=== PATIENT | male | born 1960 | race Caucasian/White ===

== ENCOUNTER 2023-03-06 10:24 | Inpatient (IN) | payer OTHER, SELFPAY ==
--- NOTE | 2023-03-06 | ECG_ITS ---
Test Reason : CHECK QT Blood Pressure : / mmHG Vent. Rate : 096 BPM Atrial Rate : 096 BPM P-R Int : 146 ms QRS Dur : 140 ms QT Int : 388 ms P-R-T Axes : 052 266 033 degrees QTc Int : 490 ms Normal sinus rhythm Right bundle branch block Abnormal ECG No previous ECGs available Referred By: Julianne Montero Electronically Signed By:REJI LOWE MD
[2023-03-06 10:28] VITALS: BP 137/98; BP 140/100; PULSE 110; PULSE 115; RESP 16; TEMP 36.1; O2SAT 96; O2SAT 98; BMI 22.3
--- NOTE | 2023-03-06 11:27 | ED_ITS ---
HPI - Psych General Chief Complaint: Psychiatric Symptoms Stated Complaint: Depression,SI/HI Time Seen by Provider: 03/06/23 11:26 Source: patient, EMS and old records reviewed Mode of arrival: EMS Limitations: no limitations History of Present Illness HPI Narrative: 63 yo male with history of major depression presents to the ER for evaluation of worsening depressions. He states he has been recently hospitalized and his medications were adjusted without any improvement in his symptoms. He states his has been insuring medication and compliance at home. He continues to be very depressed. He is not sleeping and has decreased p.o. intake with weight loss. He denies any suicidal or homicidal thoughts. MD complaint: suicidal ideation and feels depressed Onset (ago): month(s) Duration: constant History of same: Yes Relieving factors: none Exacerbating factors: none Associated psychiatric symptoms: depression Associated symptoms: insomnia Related Data Allergies Allergy/AdvReac Type Severity Reaction Status Date / Time lisinopril Allergy Hives Verified 03/06/23 10:50 Review of Systems Review of Systems: Yes all other systems are reviewed and are negative [facility] Social History Social History Advance Directives: No Physical Exam Vital Signs: Vital Signs: Last Vital Signs Temp 97 F 03/06/23 10:28 Pulse 110 H 03/06/23 10:28 Resp 16 03/06/23 10:28 BP 137/98 H 03/06/23 10:28 Pulse Ox 96 03/06/23 10:28 O2 Del Method Room Air 03/06/23 10:28 BMI result Body Mass Index 22.3 Appearance: Alert. Oriented X3. Slightly disheveled appearance Head: normocephalic, atraumatic. Eyes: Pupils equal, round and reactive to light. ENT: Pharynx normal. No tonsillar swelling or exudate. Neck: Normal inspection. Neck supple. CVS: Normal heart rate and rhythm. Pulses normal. Respiratory: No respiratory distress. Breath sounds normal. Abdomen: Soft and nontender. +BS x4 Skin: Skin warm and dry. Normal skin color. Normal skin turgor. No rashes. Extremities: No lower extremity edema. No joint swelling. Neuro/psych: Oriented X 3. No motor deficit. No sensory deficit. CN II-XII intact. Normal speech and cognition. Depressed mood. Makes eye contact, seems appropriate. Not suicidal Course Reevaluation(s) Reevaluation #1: Physician observation started at 12:50. Patient placed in physician observation because patient is awaiting CARE team evaluation for the possible need of inpatient psych admission. At the time observation was started patient's vital signs were stable. Patient is alert and oriented. Neuro exam is non-focal. CV: RRR and lungs are clear. Will continue to monitor. Time: 12:50 Medical Decision Making Medical Decision Making [facility] Narrative: 63 yo male with history of depression presenting with worsening depression associated with insomnia and decreased PO intake, reported subjective weight loss. medically cleared. awaiting CARE team evaluation Differential Diagnosis Differential Diagnoses: The differential diagnosis associated with the presentation includes substance induced mood disorder, acute psychosis, schizophrenia, schizoaffective disorder, PTSD, bipolar disorder, major depression with psychotic features Admission/Observation Consideration of admission/observation: Escalation of care including admission/observation considered depression w/ weight loss and insomnia, considered Lab Data [facility] Lab Attestation statement: I reviewed the patient's lab results. hypercalcemia, mild 03/06/23 12:03 03/06/23 12:03 Labs: Lab Results 03/06/23 03/06/23 03/06/23 Range/Units 12:03 12:03 12:03 WBC 5.5 (4.8-10.8) X10*3/uL RBC 5.08 (4.60-5.80) X10*6/uL Hgb 15.9 (14.0-18.0) g/dl Hct 45.1 (42.0-52.0) % MCV 88.8 (80.0-98.0) fL MCH 31.3 (27.0-33.0) pg MCHC 35.3 (31.0-36.0) g/dl RDW 13.6 (11.0-16.0) % Plt Count 220 (160-400) X10*3/uL MPV 10.6 (9.4-12.4) fL Immature Gran % (Auto) 0.0 (0.0-0.4) % Neut % (Auto) 74.4 H (45-73) % Lymph % (Auto) 16.5 L (20-40) % Yell % (Auto) 8.2 (2-11) % Eos % (Auto) 0.5 (0-4) % Baso % (Auto) 0.4 (0-2) % Lymph # (Auto) 0.9 L (1.2-4.9) X10*3/uL Yell # (Auto) 0.5 (0.1-1.2) X10*3/uL Eos # (Auto) 0.0 (0.0-0.4) X10*3/uL Baso # (Auto) 0.0 (0.0-0.2) X10*3/uL Abs Immat Gran (auto) 0.00 (0.00-0.03) X10*3/uL Absolute Neuts (auto) 4.1 (2.0-8.3) x10*3/uL Absolute Nucleated RBC 0.000 (0.0-0.012) X10*3/uL Nucleated RBC % (auto) 0.0 (0.0-0.2) /100WBC Sodium 136 (135-145) mmol/L Potassium 4.0 (3.3-5.1) mmol/L Chloride 101 (96-108) mmol/L Carbon Dioxide 23 (22-29) mmol/L Anion Gap 16 (12-20) BUN 9 (9-16) mg/dL Creatinine 0.76 (0.5-1.4) mg/dL Estim Creat Clear Calc 99.4 Estimated GFR > 60 Random Glucose 117 H (60-115) mg/dL Calcium 10.5 H (8.4-10.2) mg/dL Urine Color Urine Appearance Urine pH (5.0-9.0) Ur Specific [place] (1.005-1.025) Urine Protein (Neg-Trace) mg/dL Urine Glucose (UA) (Negative) mg/dL Urine Ketones (Negative) mg/dL Urine Blood (Negative) Urine Nitrite (Negative) Ur Leukocyte Esterase (Negative) Urine Opiates Screen (Not Detect) Urine Fentanyl Screen (Not Detect) Ur Barbiturates Screen (Not Detect) Ur Phencyclidine Scrn (Not Detect) Ur Amphetamines Screen (Not Detect) U Benzodiazepines Scrn (Not Detect) Urine Cocaine Screen (Not Detect) U Marijuana (THC) Screen (Not Detect) Ethyl Alcohol < 10 mg/dL 03/06/23 03/06/23 Range/Units 13:11 13:11 WBC (4.8-10.8) X10*3/uL RBC (4.60-5.80) X10*6/uL Hgb (14.0-18.0) g/dl Hct (42.0-52.0) % MCV (80.0-98.0) fL MCH (27.0-33.0) pg MCHC (31.0-36.0) g/dl RDW (11.0-16.0) % Plt Count (160-400) X10*3/uL MPV (9.4-12.4) fL Immature Gran % (Auto) (0.0-0.4) % Neut % (Auto) (45-73) % Lymph % (Auto) (20-40) % Yell % (Auto) (2-11) % Eos % (Auto) (0-4) % Baso % (Auto) (0-2) % Lymph # (Auto) (1.2-4.9) X10*3/uL Yell # (Auto) (0.1-1.2) X10*3/uL Eos # (Auto) (0.0-0.4) X10*3/uL Baso # (Auto) (0.0-0.2) X10*3/uL Abs Immat Gran (auto) (0.00-0.03) X10*3/uL Absolute Neuts (auto) (2.0-8.3) x10*3/uL Absolute Nucleated RBC (0.0-0.012) X10*3/uL Nucleated RBC % (auto) (0.0-0.2) /100WBC Sodium (135-145) mmol/L Potassium (3.3-5.1) mmol/L Chloride (96-108) mmol/L Carbon Dioxide (22-29) mmol/L Anion Gap (12-20) BUN (9-16) mg/dL Creatinine (0.5-1.4) mg/dL Estim Creat Clear Calc Estimated GFR Random Glucose (60-115) mg/dL Calcium (8.4-10.2) mg/dL Urine Color Yellow Urine Appearance Clear Urine pH 6.5 (5.0-9.0) Ur Specific [place] 1.010 (1.005-1.025) Urine Protein Negative (Neg-Trace) mg/dL Urine Glucose (UA) Negative (Negative) mg/dL Urine Ketones 15 (Negative) mg/dL Urine Blood Negative (Negative) Urine Nitrite Negative (Negative) Ur Leukocyte Esterase Negative (Negative) Urine Opiates Screen Not Detected (Not Detect) Urine Fentanyl Screen Not Detected (Not Detect) Ur Barbiturates Screen Not Detected (Not Detect) Ur Phencyclidine Scrn Not Detected (Not Detect) Ur Amphetamines Screen Not Detected (Not Detect) U Benzodiazepines Scrn Not Detected (Not Detect) Urine Cocaine Screen Not Detected (Not Detect) U Marijuana (THC) Screen Not Detected (Not Detect) Ethyl Alcohol mg/dL Independent Historian Clinical information obtained from an independent historian. History obtained from or confirmed by: EMS Prescription Management I considered prescription management with: Other (Antipsychotic) Chronic Conditions Patient?s care impacted by: Other (Major depression) Critical Care Time Critical Care Time Critical Care Time: No Discharge Plan Discharge Clinical Impression: Depression Patient Disposition: Still a Patient Interventions: [place]-Suicide Risk Severity Scale Last Done: 03/06/23 11:00
[2023-03-06 12:11] LABS: MANUAL DIFF FLAG NO
[2023-03-06 12:12] LABS: Basophils Percent Auto 0.4 % (0-2); Eosinophils Percent Auto 0.5 % (0-4); Hematocrit 45.1 % (42.0-52.0); Hemoglobin 15.9 g/dl (14.0-18.0); Lymphocytes Absolute Auto 0.9 X10*3/uL (1.2-4.9); Lymphocytes Percent Auto 16.5 % (20-40); Mean Corpuscular HGB Conc 35.3 g/dl (31.0-36.0); Mean Corpuscular Hemoglobin 31.3 pg (27.0-33.0); Mean Corpuscular Volume 88.8 fL (80.0-98.0); Mean Platelet Volume 10.6 fL (9.4-12.4); Monocytes Absolute Auto 0.5 X10*3/uL (0.1-1.2); Monocytes Percent Auto 8.2 % (2-11); Neutrophils Absolute Auto 4.1 x10*3/uL (2.0-8.3); Neutrophils Percent Auto 74.4 % (45-73); Platelet Count 220 X10*3/uL (160-400); Red Blood Count 5.08 X10*6/uL (4.60-5.80); Red Cell Distribution Width 13.6 % (11.0-16.0); White Blood Count 5.5 X10*3/uL (4.8-10.8)
[2023-03-06 12:26] LABS: Anion Gap 16 (12-20); Blood Urea Nitrogen 9 mg/dL (9-16); Calcium 10.5 mg/dL (8.4-10.2); Carbon Dioxide 23 mmol/L (22-29); Chloride 101 mmol/L (96-108); Creatinine Clr Calc Pharmacy 99.4; Estimated Glomerular Filt Rate > 60; Glucose Random 117 mg/dL (60-115); Sodium 136 mmol/L (135-145)
[2023-03-06 12:27] LABS: Ethanol < 10 mg/dL
[2023-03-06 13:32] LABS: Amphetamine Screen Urine Not Detected (Not Detect); Barbiturates, Urine Not Detected (Not Detect); Benzodiazepines Screen Urine Not Detected (Not Detect); Cannabinoid Screen Urine Not Detected (Not Detect); Cocaine Screen Urine Not Detected (Not Detect); Fentanyl, urine Not Detected (Not Detect); Opiate Screen Urine Not Detected (Not Detect); Phencyclidine Screen Urine Not Detected (Not Detect)
[2023-03-06 13:33] LABS: Appearance Urine Clear; Color Urine Yellow; Glucose Urine UA Negative (Negative); Leukocyte Esterase Urine Negative (Negative); Nitrite Urine Negative (Negative); PH 6.5 (5.0-9.0); Urine Blood Negative (Negative); Urine Ketones 15 mg/dL (Negative); Urine Protein Negative (Neg-Trace)
--- NOTE | 2023-03-06 15:21 | PC.NURSE ---
Report taken, care assumed for pt at this time. Pt appears to be sleeping at this time, eyes closed, resp reg and even, NAD.
[2023-03-06 17:26] VITALS: BP 113/76; PULSE 93; RESP 20; TEMP 36.3; O2SAT 97
--- NOTE | 2023-03-06 18:18 | MHC.CARE ---
patient's therapist, Sarika Woods [phone] calls with concerns, reporting that she signed the section. Describes his inpatient admissions at many facilities over the course of the past few months, for what she reports to be an unrelenting depressive episode, where he sill not eat, stays in bed. Upon his last d/c from [facility], providers on the unit expressed concern to pt, his and the caller, his therapist, about re-feeding syndrome.
[2023-03-06 19:13] LABS: COVID-19 Test Negative (Negative); IDNOW Serial# 08D9AD1C
--- NOTE | 2023-03-06 19:47 | PC.NURSE ---
patient in the room in bed with eyes closed patient showing no distress at this time patient vitals are stable patient in the process being admitted patient will be monitored for safety patient encouraged to open up to staff if any concerns should occur.
--- NOTE | 2023-03-06 22:59 | PC.NURSE ---
patient report was given to Vinicio patient is aware of being admitted patient will continue to be monitored fr safety
[2023-03-06 23:15] VITALS: BP 112/78; PULSE 122; TEMP 36
--- NOTE | 2023-03-07 01:41 | PC.ADMIT ---
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 ED FOR INCREASED DEPRESSION. PT REPORTS SLEEPING APPROXIMATELY 1-2 HOURS PER NIGHT. HE IS ONLY CONSUMING 1 SMOOTHIE PER DAY AND LOST 4 POUNDS LAST WEEK. HIS PSYCHIATRIC PROVIDER DESCRIBED THIS REPETITIVE BEHAVIOR HE HAS HAD MULTIPLE INPATIENT ADMISSIONS RECENTLY DUE TO HIS DEPRESSIVE SYMPTOMS. PT DENIES SI, HI, AH, AND VH. PT LIVES WITH HIS AND HAD 2 CHILDREN. PT HAS NO KNOWN HX OF SUBSTANCE USE OR SUICIDE ATTEMPTS. PT DENIES TRAUMA HX. NEGATIVE TOX SCREEN. PT RETIRED IN 2018 AFTER SPENDING HIS WORKING LIFE IN [employer]. PT HAS A PSYCHIATRIC PROVIDER BUT NO THERAPIST. PT HAS NO PAST OR CURRENT LEGAL ISSUES. PT IS ALERT AND ORIENTEDX4. PT REPORTS NO MEDICAL CONCERNS. PTS EYE CONTACT IS INTERMITTENT AND HIS TONE IS LOW. PTS AFFECT IS FLAT. PT REPORTS SPENDING MOST OF HIS DAYS IN BED BUT HAS DIFFICULTY SLEEPING. PT REPORTS HAVING NO INTEREST IN DAILY ACTIVITIES. PT IS NOT ATTENDING TO HIS ADLS. PT REPORTS NOT EATING OR DRINKING. PT REPORTS BEING MEDICATION COMPLIANT. PT HAD A SIMILAR EPISODE OF DEPRESSION 5 YEARS AGO. PT HAS AN ALLERGY TO LISINOPRIL. PT REPORTS SAFE ON UNIT.
[2023-03-07 08:23] VITALS: BP 127/84; PULSE 86; RESP 16; TEMP 36.7; O2SAT 97
--- NOTE | 2023-03-07 09:11 | PC.NURSE ---
pt denies being a smoker and reports he does not need NRT.
[2023-03-07 09:47] LABS: Alanine Aminotransferase 16 U/L (0-40); Albumin Level 3.6 g/dL (3.5-5.0); Alkaline Phosphatase 92 U/L (39-117); Anion Gap 13 (12-20); Aspartate Amino Transferase 16 U/L (5-37); Blood Urea Nitrogen 9 mg/dL (9-16); Calcium 9.5 mg/dL (8.4-10.2); Carbon Dioxide 23 mmol/L (22-29); Chloride 106 mmol/L (96-108); Cholesterol 144 mg/dL; Creatinine Clr Calc Pharmacy 112.8; Estimated Glomerular Filt Rate > 60; Glucose Fasting 110 mg/dL (60-99); HDL Cholesterol 34 mg/dL; LDL Cholesterol Calculated 90 mg/dl; Potassium 3.5 mmol/L (3.3-5.1); Sodium 138 mmol/L (135-145); Total Protein 6.2 g/dL (6.5-8.0); Triglycerides 102 mg/dL
[2023-03-07 09:54] LABS: Estimated Average Glucose 100 mg/dL; Hemoglobin A1c % 5.1 %
[2023-03-07 10:04] LABS: Free T4 (Free Thyroxine) 1.15 ng/dL (0.71-1.85)
[2023-03-07 10:16] LABS: Folate 8.6 ng/mL (> or = 4.0); Vitamin B12 930 pg/mL (200-900)
--- NOTE | 2023-03-07 10:57 | P.HPPS_ITS ---
HPI Chief Complaint: Depression Diagnostics Vital Signs (24Hr): Vital Signs - 24 hr 03/06/23 17:26 03/06/23 23:15 03/07/23 08:23 Temperature 97.4 F 96.8 F 98.1 F Pulse Rate 93 122 H 86 Respiratory Rate 20 16 Blood Pressure 113/76 112/78 127/84 Pulse Oximetry 97 97 Oxygen Delivery Method Room Air Room Air BMI result Body Mass Index 22.3 Labs 03/06/23 12:03 03/07/23 08:51 Labs: Laboratory Results - last 48 hr 03/06/23 03/06/23 03/06/23 12:03 12:03 12:03 WBC 5.5 RBC 5.08 Hgb 15.9 Hct 45.1 MCV 88.8 MCH 31.3 MCHC 35.3 RDW 13.6 Plt Count 220 MPV 10.6 Immature Gran % (Auto) 0.0 Neut % (Auto) 74.4 H Lymph % (Auto) 16.5 L [place] % (Auto) 8.2 Eos % (Auto) 0.5 Baso % (Auto) 0.4 Lymph # (Auto) 0.9 L [place] # (Auto) 0.5 Eos # (Auto) 0.0 Baso # (Auto) 0.0 Abs Immat Gran (auto) 0.00 Absolute Neuts (auto) 4.1 Absolute Nucleated RBC 0.000 Nucleated RBC % (auto) 0.0 Sodium 136 Potassium 4.0 Chloride 101 Carbon Dioxide 23 Anion Gap 16 BUN 9 Creatinine 0.76 Estim Creat Clear Calc 99.4 Estimated GFR > 60 Random Glucose 117 H Fasting Glucose Estimat Average Glucose Hemoglobin A1c % Calcium 10.5 H Total Bilirubin AST ALT Alkaline Phosphatase Total Protein Albumin Triglycerides Cholesterol LDL Cholesterol, Calc HDL Cholesterol Vitamin B12 Folate TSH Free T4 Urine Color Urine Appearance Urine pH Ur Specific [place] Urine Protein Urine Glucose (UA) Urine Ketones Urine Blood Urine Nitrite Ur Leukocyte Esterase Urine Opiates Screen Urine Fentanyl Screen Ur Barbiturates Screen Ur Phencyclidine Scrn Ur Amphetamines Screen U Benzodiazepines Scrn Urine Cocaine Screen U Marijuana (THC) Screen Ethyl Alcohol < 10 COVID-19 ([facility]) COVID-19 Clin Com 03/06/23 03/06/23 03/06/23 13:11 13:11 18:48 WBC RBC Hgb Hct MCV MCH MCHC RDW Plt Count MPV Immature Gran % (Auto) Neut % (Auto) Lymph % (Auto) [place] % (Auto) Eos % (Auto) Baso % (Auto) Lymph # (Auto) [place] # (Auto) Eos # (Auto) Baso # (Auto) Abs Immat Gran (auto) Absolute Neuts (auto) Absolute Nucleated RBC Nucleated RBC % (auto) Sodium Potassium Chloride Carbon Dioxide Anion Gap BUN Creatinine Estim Creat Clear Calc Estimated GFR Random Glucose Fasting Glucose Estimat Average Glucose Hemoglobin A1c % Calcium Total Bilirubin AST ALT Alkaline Phosphatase Total Protein Albumin Triglycerides Cholesterol LDL Cholesterol, Calc HDL Cholesterol Vitamin B12 Folate TSH Free T4 Urine Color Yellow Urine Appearance Clear Urine pH 6.5 Ur Specific [place] 1.010 Urine Protein Negative Urine Glucose (UA) Negative Urine Ketones 15 Urine Blood Negative Urine Nitrite Negative Ur Leukocyte Esterase Negative Urine Opiates Screen Not Detected Urine Fentanyl Screen Not Detected Ur Barbiturates Screen Not Detected Ur Phencyclidine Scrn Not Detected Ur Amphetamines Screen Not Detected U Benzodiazepines Scrn Not Detected Urine Cocaine Screen Not Detected U Marijuana (THC) Screen Not Detected Ethyl Alcohol COVID-19 ([facility]) Negative COVID-19 Clin Com See Note 03/07/23 03/07/23 03/07/23 08:51 08:51 08:51 WBC RBC Hgb Hct MCV MCH MCHC RDW Plt Count MPV Immature Gran % (Auto) Neut % (Auto) Lymph % (Auto) [place] % (Auto) Eos % (Auto) Baso % (Auto) Lymph # (Auto) [place] # (Auto) Eos # (Auto) Baso # (Auto) Abs Immat Gran (auto) Absolute Neuts (auto) Absolute Nucleated RBC Nucleated RBC % (auto) Sodium 138 Potassium 3.5 Chloride 106 Carbon Dioxide 23 Anion Gap 13 BUN 9 Creatinine 0.67 Estim Creat Clear Calc 112.8 Estimated GFR > 60 Random Glucose Fasting Glucose 110 H Estimat Average Glucose 100 Hemoglobin A1c % 5.1 Calcium 9.5 D Total Bilirubin 1.0 AST 16 ALT 16 Alkaline Phosphatase 92 Total Protein 6.2 L Albumin 3.6 Triglycerides 102 Cholesterol 144 LDL Cholesterol, Calc 90 HDL Cholesterol 34 Vitamin B12 930 H Folate 8.6 TSH 1.40 Free T4 1.15 Urine Color Urine Appearance Urine pH Ur Specific [place] Urine Protein Urine Glucose (UA) Urine Ketones Urine Blood Urine Nitrite Ur Leukocyte Esterase Urine Opiates Screen Urine Fentanyl Screen Ur Barbiturates Screen Ur Phencyclidine Scrn Ur Amphetamines Screen U Benzodiazepines Scrn Urine Cocaine Screen U Marijuana (THC) Screen Ethyl Alcohol COVID-19 ([facility]) COVID-19 Clin Com Meds/Allergies Meds Home Medications Medication Instructions Recorded Confirmed Type amlodipine 10 mg tablet 10 mg PO DAILY 03/07/23 03/07/23 History aspirin 81 mg tablet 81 mg PO DAILY 03/07/23 03/07/23 History cholecalciferol (vitamin D3) 25 25 mcg PO DAILY 03/07/23 03/07/23 History mcg (1,000 unit) tablet mirtazapine 7.5 mg tablet 7.5 mg PO BEDTIME 03/07/23 03/07/23 History venlafaxine 75 mg tablet 75 mg PO DAILY 03/07/23 03/07/23 History Allergies Allergies Allergy/AdvReac Type Severity Reaction Status Date / Time lisinopril Allergy Hives Verified 03/06/23 10:50 Assessment & Plan Statement Statement: I have reviewed the history and physical and performed a pertinent examination on my patient. No changes have occurred unless specified. If the History and Physical was not performed prior to admission, the Hospitalist's service will be consulted for completing the admission physical. Time Spent With Patient Time: Total time managing care of this patient today ____ minutes.
--- NOTE | 2023-03-07 12:00 | P.HPPS_ITS ---
HPI Date of Service: 03/07/23 Chief Complaint: Depression Sources of Information: patient interviewed, chart reviewed and crisis/core team assessment reviewed HPI Subjective Notes: [place] Warning and Conditional Voluntary Narrative: pt is a 63 yo male with hx of Depression, HTN, some manic behaviors, who presents for worsening depression. Pt reports first depressive episode was back in 2017 when he was first hospitalized. He was discharged on Lexapro and Haldol (and maybe another med); he eventually weened self off Haldol and reports being stable, enjoying life for past 5 years until this spring, without any obvious trigger, when depression started creeping back in worsening until this November and he was hospitalized at [facility] for a week where they increased Lexapro. Pt remained depressed, not eating much, no energy, and 3 weeks later admitted to [facility] in December for a month. Meds were changed to Prozac however he remained depressed. Symptoms worsened and pt reports no interest, low energy, poor concentration, little to know appetite w/ weight loss, psycomotor retardation (present on admission) and much difficulty sleeping, getting only an hour or so a day, though remains tired. Denies any SI ever. His reports that during this depressive episode he would intermittently bounce out of bed and for 10min, he would be animated and say he was better, however, this would soon pass and he would end up back in bed, depressed. About a week ago he was started on Venlafaxine and Mirtazpine but w/out symptom relief and so was admitted. Denies trauma hx; denies drug/etoh use/abuse; denies AVH. Reports always takes meds regularly. Pt eager for treatment. Pt denies hx of manic episodes/behaviors and no symptoms present on admission; however, his Shiela reports that in 2018, during months prior to admission, pt was not sleeping at all and pacing non-stop; he was unable to go to work or tolerate visitors; he did not talk much and could not explain what he was thinking. Pt would have disorganized behavior such as taking off oven door to clean it and never put it back, though he said he would; go out at night and turn on car lights, though deny it; turn water on in shower for 5 secs, but never shower though said he did...Not hypersexual, not w/ pressured speech, no risky behaviors or spending money; not grandiosity. Past Psychiatric History: Pt reports first depressive episode was back in 2018 when he was first hospitalized. He was started on Lexapro and reports being stable, enjoying life for past 5 years until November 2022 when depression returned. 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 Substance History: denies Trauma History: denies Diagnostics Vital Signs (24Hr): Vital Signs - 24 hr 03/06/23 17:26 03/06/23 23:15 03/07/23 08:23 Temperature 97.4 F 96.8 F 98.1 F Pulse Rate 93 122 H 86 Respiratory Rate 20 16 Blood Pressure 113/76 112/78 127/84 Pulse Oximetry 97 97 Oxygen Delivery Method Room Air Room Air BMI result Body Mass Index 22.3 Labs 03/06/23 12:03 03/07/23 08:51 Labs: Laboratory Results - last 48 hr 03/06/23 03/06/23 03/06/23 12:03 12:03 12:03 WBC 5.5 RBC 5.08 Hgb 15.9 Hct 45.1 MCV 88.8 MCH 31.3 MCHC 35.3 RDW 13.6 Plt Count 220 MPV 10.6 Immature Gran % (Auto) 0.0 Neut % (Auto) 74.4 H Lymph % (Auto) 16.5 L [place] % (Auto) 8.2 Eos % (Auto) 0.5 Baso % (Auto) 0.4 Lymph # (Auto) 0.9 L [place] # (Auto) 0.5 Eos # (Auto) 0.0 Baso # (Auto) 0.0 Abs Immat Gran (auto) 0.00 Absolute Neuts (auto) 4.1 Absolute Nucleated RBC 0.000 Nucleated RBC % (auto) 0.0 Sodium 136 Potassium 4.0 Chloride 101 Carbon Dioxide 23 Anion Gap 16 BUN 9 Creatinine 0.76 Estim Creat Clear Calc 99.4 Estimated GFR > 60 Random Glucose 117 H Fasting Glucose Estimat Average Glucose Hemoglobin A1c % Calcium 10.5 H Total Bilirubin AST ALT Alkaline Phosphatase Total Protein Albumin Triglycerides Cholesterol LDL Cholesterol, Calc HDL Cholesterol Vitamin B12 Folate TSH Free T4 Urine Color Urine Appearance Urine pH Ur Specific [place] Urine Protein Urine Glucose (UA) Urine Ketones Urine Blood Urine Nitrite Ur Leukocyte Esterase Urine Opiates Screen Urine Fentanyl Screen Ur Barbiturates Screen Ur Phencyclidine Scrn Ur Amphetamines Screen U Benzodiazepines Scrn Urine Cocaine Screen U Marijuana (THC) Screen Ethyl Alcohol < 10 COVID-19 ([facility]) COVID-19 [employer] 03/06/23 03/06/23 03/06/23 13:11 13:11 18:48 WBC RBC Hgb Hct MCV MCH MCHC RDW Plt Count MPV Immature Gran % (Auto) Neut % (Auto) Lymph % (Auto) [place] % (Auto) Eos % (Auto) Baso % (Auto) Lymph # (Auto) [place] # (Auto) Eos # (Auto) Baso # (Auto) Abs Immat Gran (auto) Absolute Neuts (auto) Absolute Nucleated RBC Nucleated RBC % (auto) Sodium Potassium Chloride Carbon Dioxide Anion Gap BUN Creatinine Estim Creat Clear Calc Estimated GFR Random Glucose Fasting Glucose Estimat Average Glucose Hemoglobin A1c % Calcium Total Bilirubin AST ALT Alkaline Phosphatase Total Protein Albumin Triglycerides Cholesterol LDL Cholesterol, Calc HDL Cholesterol Vitamin B12 Folate TSH Free T4 Urine Color Yellow Urine Appearance Clear Urine pH 6.5 Ur Specific [place] 1.010 Urine Protein Negative Urine Glucose (UA) Negative Urine Ketones 15 Urine Blood Negative Urine Nitrite Negative Ur Leukocyte Esterase Negative Urine Opiates Screen Not Detected Urine Fentanyl Screen Not Detected Ur Barbiturates Screen Not Detected Ur Phencyclidine Scrn Not Detected Ur Amphetamines Screen Not Detected U Benzodiazepines Scrn Not Detected Urine Cocaine Screen Not Detected U Marijuana (THC) Screen Not Detected Ethyl Alcohol COVID-19 ([facility]) Negative COVID-[employer] See Note 03/07/23 03/07/23 03/07/23 08:51 08:51 08:51 WBC RBC Hgb Hct MCV MCH MCHC RDW Plt Count MPV Immature Gran % (Auto) Neut % (Auto) Lymph % (Auto) [place] % (Auto) Eos % (Auto) Baso % (Auto) Lymph # (Auto) [place] # (Auto) Eos # (Auto) Baso # (Auto) Abs Immat Gran (auto) Absolute Neuts (auto) Absolute Nucleated RBC Nucleated RBC % (auto) Sodium 138 Potassium 3.5 Chloride 106 Carbon Dioxide 23 Anion Gap 13 BUN 9 Creatinine 0.67 Estim Creat Clear Calc 112.8 Estimated GFR > 60 Random Glucose Fasting Glucose 110 H Estimat Average Glucose 100 Hemoglobin A1c % 5.1 Calcium 9.5 D Total Bilirubin 1.0 AST 16 ALT 16 Alkaline Phosphatase 92 Total Protein 6.2 L Albumin 3.6 Triglycerides 102 Cholesterol 144 LDL Cholesterol, Calc 90 HDL Cholesterol 34 Vitamin B12 930 H Folate 8.6 TSH 1.40 Free T4 1.15 Urine Color Urine Appearance Urine pH Ur Specific [place] Urine Protein Urine Glucose (UA) Urine Ketones Urine Blood Urine Nitrite Ur Leukocyte Esterase Urine Opiates Screen Urine Fentanyl Screen Ur Barbiturates Screen Ur Phencyclidine Scrn Ur Amphetamines Screen U Benzodiazepines Scrn Urine Cocaine Screen U Marijuana (THC) Screen Ethyl Alcohol COVID-19 ([facility]) COVID-19 Clin Com Meds/Allergies Meds Home Medications Medication Instructions Recorded Confirmed Type amlodipine 10 mg tablet 10 mg PO DAILY 03/07/23 03/07/23 History aspirin 81 mg tablet 81 mg PO DAILY 03/07/23 03/07/23 History cholecalciferol (vitamin D3) 25 25 mcg PO DAILY 03/07/23 03/07/23 History mcg (1,000 unit) tablet mirtazapine 7.5 mg tablet 7.5 mg PO BEDTIME 03/07/23 03/07/23 History venlafaxine 75 mg tablet 75 mg PO DAILY 03/07/23 03/07/23 History Allergies Allergies Allergy/AdvReac Type Severity Reaction Status Date / Time lisinopril Allergy Hives Verified 03/06/23 10:50 Mental Status Exam Mental Status Exam Narrative: Pt is alert and oriented; behavior is cooperative, calm; patient is not in distress; dressed in hospital attire disheveled; mood is described as depressed and affect congruent; eye contact appropriate; Speech is normal rate, volume and prosody and not pressured; no psychomotor agitation/retardation present; thought process is organized and goal directed; Thought content is on tx; otherwise pertinent to relevant topics and without any delusional content, paranoid ideations or grandiosity; denies any SI/HI. There is no evidence of perceptual disturbance. Patients insight and judgment appear intact. Assessment & Plan Assessment & Plan (1) MDD (major depressive disorder), recurrent severe, without psychosis: Status: Acute Code(s): F33.2 - Major depressive disorder, recurrent severe without psychotic features Plan pt is a 63 yo male with hx of Depression, HTN, some manic behaviors, who presents for worsening depression. Pt reports first depressive episode was back in 2018 when he was first hospitalized. He was discharged on Lexapro and Haldol (and maybe another med). Per , patient had manic behaviors in weeks/months leading up to 2018 admission, though none since, despite being on only Lexapro for past 4-5 years. -currently very depressed, not eating, significant psychomotor retardation -strong concern for bipolar disorder PLAN: CV q15min Continue Effexor XL 75mg (started a week before) Continue MIrtazapine 7.5mg (started a week before) continue amlodpine 10mg for htn (home med) Continue aspirin )Home med) Will strongly consider mood stabilizer signed JOSE and gave verbal permission to discuss case with Patient educated on: diagnosis, medication risk/benefits and medical condition Informed Consent: understands Reason for continued inpatient stay Substantial Risk for: inability to function Statement Statement: I have reviewed the history and physical and performed a pertinent examination on my patient. No changes have occurred unless specified. If the History and Physical was not performed prior to admission, the Hospitalist's service will be consulted for completing the admission physical. Time Spent With Patient Time: Total time managing care of this patient today ____ minutes.
[2023-03-07] MEDS: amLODIPine Besylate 10 MG TABLET PO (12:34)
[2023-03-07] MEDS: Cholecalciferol (Vitamin D3) 25 MCG TABLET PO (12:35)
[2023-03-07 20:50] VITALS: BP 101/62; PULSE 82; TEMP 36.1
[2023-03-07] MEDS: Venlafaxine HCL 25 MG TABLET 75 MG PO (21:30)
[2023-03-07] MEDS: Mirtazapine 7.5 MG TABLET PO (21:31)
[2023-03-08 08:50] VITALS: BP 124/79; PULSE 87; RESP 16; TEMP 36.4; O2SAT 98
[2023-03-08] MEDS: amLODIPine Besylate 10 MG TABLET PO (08:56)
[2023-03-08] MEDS: Aspirin 81 MG TAB.CHEW PO (08:56)
[2023-03-08] MEDS: Venlafaxine HCL 25 MG TABLET 75 MG PO (08:56)
[2023-03-08] MEDS: Cholecalciferol (Vitamin D3) 25 MCG TABLET PO (08:57)
--- NOTE | 2023-03-08 09:47 | HO.PSYCHPN ---
Subjective Subjective Date of Service: 03/08/23 Reason For Visit: Depression Interim History: Met with patient; discussed with team Patient reports that he is feeling a little better today and of note affect is brighter; says he feels a little more clear minded and mood is better, 4-5/10. Discussed report from patient's regarding events leading up to 2018 admission and patient agrees with his 's report, that he was pacing, no sleep, doing hot behaviors. Food Services Coordinator discussed how this sounds like a manic episode and that medications are typically mood stabilizers, a different category than he has been used to. However was on Haldol in the past. Patient said since he is feeling better on current med regimen he would like to continue with it for now and see if his mood and symptoms continue to improve. Agrees to increasing venlafaxine as well. Mental Status Exam Mental Status Exam Narrative: Pt is alert and oriented; behavior is cooperative, calm; patient is not in distress; dressed in hospital attire unkempt; mood is described as little better and affect congruent, brighter; eye contact appropriate; Speech is normal rate, volume and prosody and not pressured; psychomotor agitation/retardation present; thought process is organized and goal directed; Thought content is on tx; otherwise pertinent to relevant topics and without any delusional content, paranoid ideations or grandiosity; denies any SI/HI. There is no evidence of perceptual disturbance. Patients insight and judgment impaired, but improving. Diagnostics Vital Signs (24Hr): Vital Signs - 24 hr 03/07/23 20:50 03/08/23 08:50 Temperature 97.0 F 97.6 F Pulse Rate 82 87 Respiratory Rate 16 Blood Pressure 101/62 124/79 Pulse Oximetry 98 BMI result Body Mass Index 22.3 Labs 03/06/23 12:03 03/07/23 08:51 Labs: Laboratory Results - last 48 hr 03/06/23 03/06/23 03/06/23 12:03 12:03 12:03 WBC 5.5 RBC 5.08 Hgb 15.9 Hct 45.1 MCV 88.8 MCH 31.3 MCHC 35.3 RDW 13.6 Plt Count 220 MPV 10.6 Immature Gran % (Auto) 0.0 Neut % (Auto) 74.4 H Lymph % (Auto) 16.5 L [place] % (Auto) 8.2 Eos % (Auto) 0.5 Baso % (Auto) 0.4 Lymph # (Auto) 0.9 L [place] # (Auto) 0.5 Eos # (Auto) 0.0 Baso # (Auto) 0.0 Abs Immat Gran (auto) 0.00 Absolute Neuts (auto) 4.1 Absolute Nucleated RBC 0.000 Nucleated RBC % (auto) 0.0 Sodium 136 Potassium 4.0 Chloride 101 Carbon Dioxide 23 Anion Gap 16 BUN 9 Creatinine 0.76 Estim Creat Clear Calc 99.4 Estimated GFR > 60 Random Glucose 117 H Fasting Glucose Estimat Average Glucose Hemoglobin A1c % Calcium 10.5 H Total Bilirubin AST ALT Alkaline Phosphatase Total Protein Albumin Triglycerides Cholesterol LDL Cholesterol, Calc HDL Cholesterol Vitamin B12 Folate TSH Free T4 Urine Color Urine Appearance Urine pH Ur Specific [place] Urine Protein Urine Glucose (UA) Urine Ketones Urine Blood Urine Nitrite Ur Leukocyte Esterase Urine Opiates Screen Urine Fentanyl Screen Ur Barbiturates Screen Ur Phencyclidine Scrn Ur Amphetamines Screen U Benzodiazepines Scrn Urine Cocaine Screen U Marijuana (THC) Screen Ethyl Alcohol < 10 COVID-19 ([facility]) COVID-19 Clin Com 03/06/23 03/06/23 03/06/23 13:11 13:11 18:48 WBC RBC Hgb Hct MCV MCH MCHC RDW Plt Count MPV Immature Gran % (Auto) Neut % (Auto) Lymph % (Auto) [place] % (Auto) Eos % (Auto) Baso % (Auto) Lymph # (Auto) [place] # (Auto) Eos # (Auto) Baso # (Auto) Abs Immat Gran (auto) Absolute Neuts (auto) Absolute Nucleated RBC Nucleated RBC % (auto) Sodium Potassium Chloride Carbon Dioxide Anion Gap BUN Creatinine Estim Creat Clear Calc Estimated GFR Random Glucose Fasting Glucose Estimat Average Glucose Hemoglobin A1c % Calcium Total Bilirubin AST ALT Alkaline Phosphatase Total Protein Albumin Triglycerides Cholesterol LDL Cholesterol, Calc HDL Cholesterol Vitamin B12 Folate TSH Free T4 Urine Color Yellow Urine Appearance Clear Urine pH 6.5 Ur Specific [place] 1.010 Urine Protein Negative Urine Glucose (UA) Negative Urine Ketones 15 Urine Blood Negative Urine Nitrite Negative Ur Leukocyte Esterase Negative Urine Opiates Screen Not Detected Urine Fentanyl Screen Not Detected Ur Barbiturates Screen Not Detected Ur Phencyclidine Scrn Not Detected Ur Amphetamines Screen Not Detected U Benzodiazepines Scrn Not Detected Urine Cocaine Screen Not Detected U Marijuana (THC) Screen Not Detected Ethyl Alcohol COVID-19 ([facility]) Negative COVID-19 Clin Com See Note 03/07/23 03/07/23 03/07/23 08:51 08:51 08:51 WBC RBC Hgb Hct MCV MCH MCHC RDW Plt Count MPV Immature Gran % (Auto) Neut % (Auto) Lymph % (Auto) [place] % (Auto) Eos % (Auto) Baso % (Auto) Lymph # (Auto) [place] # (Auto) Eos # (Auto) Baso # (Auto) Abs Immat Gran (auto) Absolute Neuts (auto) Absolute Nucleated RBC Nucleated RBC % (auto) Sodium 138 Potassium 3.5 Chloride 106 Carbon Dioxide 23 Anion Gap 13 BUN 9 Creatinine 0.67 Estim Creat Clear Calc 112.8 Estimated GFR > 60 Random Glucose Fasting Glucose 110 H Estimat Average Glucose 100 Hemoglobin A1c % 5.1 Calcium 9.5 D Total Bilirubin 1.0 AST 16 ALT 16 Alkaline Phosphatase 92 Total Protein 6.2 L Albumin 3.6 Triglycerides 102 Cholesterol 144 LDL Cholesterol, Calc 90 HDL Cholesterol 34 Vitamin B12 930 H Folate 8.6 TSH 1.40 Free T4 1.15 Urine Color Urine Appearance Urine pH Ur Specific [place] Urine Protein Urine Glucose (UA) Urine Ketones Urine Blood Urine Nitrite Ur Leukocyte Esterase Urine Opiates Screen Urine Fentanyl Screen Ur Barbiturates Screen Ur Phencyclidine Scrn Ur Amphetamines Screen U Benzodiazepines Scrn Urine Cocaine Screen U Marijuana (THC) Screen Ethyl Alcohol COVID-19 ([facility]) COVID-19 Clin Com Medications Medications Current Medications Acetaminophen (Acetaminophen 325 Mg Tablet) 650 mg PO Q6H PRN PRN Reason: Headache/Pain Mild Scale (1-3) Al Hydroxide/Mg Hydroxide (Magnesium Hydrox/Alum Hydrox 30 Ml Oral.Susp) 30 ml PO Q6H PRN PRN Reason: Heartburn/Nausea Amlodipine Besylate (Amlodipine Besylate 10 Mg Tablet) 10 mg PO DAILY TRACIE; Protocol Last Admin: 03/08/23 08:56 Dose: 10 mg Aspirin (Aspirin 81 Mg Tab.Chew) 81 mg PO DAILY [facility] Last Admin: 03/08/23 08:56 Dose: 81 mg Hydroxyzine HCl (Hydroxyzine Hcl 25 Mg Tablet) 25 mg PO Q6H PRN PRN Reason: Anxiety Magnesium Hydroxide (Milk Of Magnesia 30 Ml Oral.Susp) 30 ml PO DAILY PRN PRN Reason: Constipation Mirtazapine (Mirtazapine 7.5 Mg Tablet) 7.5 mg PO BEDTIME [facility] Last Admin: 03/07/23 21:31 Dose: 7.5 mg Nicotine Polacrilex (Nicotine Polacrilex 2 Mg Gum) 4 mg BUCCAL Q2H PRN PRN Reason: Nicotine Cravings Trazodone HCl (Trazodone Hcl 50 Mg Tablet) 50 mg PO BEDTIME MRX1 PRN PRN Reason: Insomnia Venlafaxine HCl (Venlafaxine Hcl 25 Mg Tablet) 75 mg PO DAILY [facility] Last Admin: 03/08/23 08:56 Dose: 75 mg Vitamin D (Cholecalciferol (Vitamin D3) 25 Mcg Tablet) 25 mcg PO DAILY [facility] Last Admin: 03/08/23 08:57 Dose: 25 mcg Allergies Allergies Allergy/AdvReac Type Severity Reaction Status Date / Time lisinopril Allergy Hives Verified 03/06/23 10:50 Assessment & Plan Assessment & Plan (1) MDD (major depressive disorder), recurrent severe, without psychosis: Status: Acute Code(s): F33.2 - Major depressive disorder, recurrent severe without psychotic features Plan pt is a 63 yo male with hx of Depression, HTN, some manic behaviors, who presents for worsening depression. Pt reports first depressive episode was back in 2018 when he was first hospitalized. He was discharged on Lexapro and Haldol (and maybe another med). Per , patient had manic behaviors in weeks/months leading up to 2018 admission, though none since, despite being on only Lexapro for past 4-5 years. -currently very depressed, not eating, significant psychomotor retardation -strong concern for bipolar disorder Hospital course: 03/08 patient says he is feeling better on current regimen and would like to remain on it; discussed potential for bipolar diagnosis with which patient does not disagree but given the fact that he is feeling better with like to work with current med regimen. Food Services Coordinator does not disagree for although patient had what sounds like a manic episode in 2018, he is also been able to remain stable and symptom-free on just Lexapro for 4 and half years PLAN: CV q15min Increased to Effexor XL 112.5 mg Continue MIrtazapine 7.5mg (started a week before) continue amlodpine 10mg for htn (home med) Continue aspirin )Home med) Will strongly consider mood stabilizer signed JOSE and gave verbal permission to discuss case with Patient educated on: diagnosis and medication risk/benefits Informed Consent: understands Reason for continued inpatient stay Substantial Risk for: rapid decompensation and med/psych decompensation Time Spent With Patient Time: Total time managing care of this patient today ____ minutes.
[2023-03-08 19:38] VITALS: BP 116/71; PULSE 88; RESP 18; TEMP 36.4; O2SAT 94
[2023-03-09 09:00] VITALS: BP 117/71; PULSE 98; RESP 16; TEMP 36.6; O2SAT 97
[2023-03-09] MEDS: Venlafaxine HCl ER 37.5 MG CAP.ER.24H 112.5 MG PO (09:10)
[2023-03-09] MEDS: Cholecalciferol (Vitamin D3) 25 MCG TABLET PO (09:10)
[2023-03-09] MEDS: amLODIPine Besylate 10 MG TABLET PO (09:10)
[2023-03-09] MEDS: Aspirin 81 MG TAB.CHEW PO (09:10)
--- NOTE | 2023-03-09 11:53 | P.PNPSI_ITS ---
Subjective Subjective Date of Service: 03/09/23 Reason For Visit: Depression Interim History: Met with patient; discussed with team Patient said he continues to feel better than he was and remains at a about a 4/10 for symptom reduction (10 being back to his regular self). He did not take mirtazapine last night at bedtime and says he slept well without it still feels within improved mood. He would like mirtazapine to be discontinued for now to see if monotherapy with venlafaxine is affective. Agrees to continue titration with affects her. Still disheveled, still not eating other than Ensure but all overall with brighter affect and sleeping better at night. Mental Status Exam Mental Status Exam Narrative: Pt is alert and oriented; behavior is cooperative, calm; patient is not in distress; dressed in hospital attire unkempt; mood is described as little better and affect congruent, brighter; eye contact appropriate; Speech is normal rate, volume and prosody and not pressured; psychomotor agitation/retardation present; thought process is organized and goal directed; Thought content is on tx; otherwise pertinent to relevant topics and without any delusional content, paranoid ideations or grandiosity; denies any SI/HI. There is no evidence of perceptual disturbance. Patients insight and judgment impaired, but improving. Diagnostics Vital Signs (24Hr): Vital Signs - 24 hr 03/08/23 19:38 03/09/23 09:00 Temperature 97.6 F 97.8 F Pulse Rate 88 98 Respiratory Rate 18 16 Blood Pressure 116/71 117/71 Pulse Oximetry 94 97 Oxygen Delivery Method Room Air Room Air BMI result Body Mass Index 22.3 Labs 03/06/23 12:03 03/07/23 08:51 Medications Medications Current Medications Acetaminophen (Acetaminophen 325 Mg Tablet) 650 mg PO Q6H PRN PRN Reason: Headache/Pain Mild Scale (1-3) Al Hydroxide/Mg Hydroxide (Magnesium Hydrox/Alum Hydrox 30 Ml Oral.Susp) 30 ml PO Q6H PRN PRN Reason: Heartburn/Nausea Amlodipine Besylate (Amlodipine Besylate 10 Mg Tablet) 10 mg PO DAILY [facility]; Protocol Last Admin: 03/09/23 09:10 Dose: 10 mg Aspirin (Aspirin 81 Mg Tab.Chew) 81 mg PO DAILY [facility] Last Admin: 03/09/23 09:10 Dose: 81 mg Hydroxyzine HCl (Hydroxyzine Hcl 25 Mg Tablet) 25 mg PO Q6H PRN PRN Reason: Anxiety Magnesium Hydroxide (Milk Of Magnesia 30 Ml Oral.Susp) 30 ml PO DAILY PRN PRN Reason: Constipation Mirtazapine (Mirtazapine 7.5 Mg Tablet) 7.5 mg PO BEDTIME [facility] Last Admin: 03/09/23 04:53 Dose: Not Given Nicotine Polacrilex (Nicotine Polacrilex 2 Mg Gum) 4 mg BUCCAL Q2H PRN PRN Reason: Nicotine Cravings Trazodone HCl (Trazodone Hcl 50 Mg Tablet) 50 mg PO BEDTIME MRX1 PRN PRN Reason: Insomnia Venlafaxine HCl (Venlafaxine Hcl Er 37.5 Mg Cap.Er.24h) 112.5 mg PO DAILY [facility] Last Admin: 03/09/23 09:10 Dose: 112.5 mg Vitamin D (Cholecalciferol (Vitamin D3) 25 Mcg Tablet) 25 mcg PO DAILY [facility] Last Admin: 03/09/23 09:10 Dose: 25 mcg Allergies Allergies Allergy/AdvReac Type Severity Reaction Status Date / Time lisinopril Allergy Hives Verified 03/06/23 10:50 Assessment & Plan Assessment & Plan (1) MDD (major depressive disorder), recurrent severe, without psychosis: Status: Acute Code(s): F33.2 - Major depressive disorder, recurrent severe without psychotic features Plan pt is a 63 yo male with hx of Depression, HTN, some manic behaviors, who presents for worsening depression. Pt reports first depressive episode was back in 2018 when he was first hospitalized. He was discharged on Lexapro and Haldol (and maybe another med). Per , patient had manic behaviors in weeks/months leading up to 2018 admission, though none since, despite being on only Lexapro for past 4-5 years. -currently very depressed, not eating, significant psychomotor retardation -strong concern for bipolar disorder Hospital course: 03/08 patient says he is feeling better on current regimen and would like to remain on it; discussed potential for bipolar diagnosis with which patient does not disagree but given the fact that he is feeling better with like to work with current med regimen. 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 Patient wants to try monotherapy and Agrees to increasing venlafaxine. Given patient's continued modest improvement will continue with this plan; bipolar remains a rule out and hopefully patient will not be triggered into manic episode. He has not talked to his since he has been here and is not sure why that is PLAN: CV q15min Increased to Effexor XL 150 mg Discontinue MIrtazapine: Patient wants to try monotherapy continue amlodpine 10mg for htn (home med) Continue aspirin )Home med) Will strongly consider mood stabilizer signed JOSE and gave verbal permission to discuss case with Patient educated on: diagnosis and medication risk/benefits Informed Consent: understands Reason for continued inpatient stay Substantial Risk for: rapid decompensation Time Spent With Patient Time: Total time managing care of this patient today ____ minutes.
[2023-03-09 16:45] VITALS: BP 102/64; PULSE 99; RESP 18; TEMP 36.6; O2SAT 97
[2023-03-10 06:00] VITALS: BP 128/69; PULSE 93; RESP 16; TEMP 36.2; O2SAT 96
[2023-03-10] MEDS: Aspirin 81 MG TAB.CHEW PO (08:20)
[2023-03-10] MEDS: Cholecalciferol (Vitamin D3) 25 MCG TABLET PO (08:34)
[2023-03-10] MEDS: amLODIPine Besylate 10 MG TABLET PO (08:34)
[2023-03-10] MEDS: Venlafaxine HCl ER 150 MG CAP.ER.24H PO (08:34)
--- NOTE | 2023-03-10 10:33 | HO.PSYCHPN ---
Subjective Subjective Date of Service: 03/10/23 Reason For Visit: Depression Interim History: Met with patient; discussed with team pt remains depressed; little better than on admission, but still not eating food, not showering, trouble sleeping and staying in bed all day. He has not called his and shares that he's feeling guilty and ashamed that he cannot get over his depression on his own. Provided psychiatric education on diagnosis which pt said he understood but had a hard time accepting. Still hesitant to restart remeron. discussed behavioral activation Mental Status Exam Mental Status Exam Narrative: Pt is alert and oriented; behavior is cooperative, calm; patient is not in distress; dressed in hospital attire unkempt, poor hygiene; mood is described as little better and affect congruent, brighter; eye contact appropriate; Speech is normal rate, volume and prosody and not pressured; psychomotor agitation/retardation present; thought process is organized and goal directed; Thought content is on tx; otherwise pertinent to relevant topics and without any delusional content, paranoid ideations or grandiosity; denies any SI/HI. There is no evidence of perceptual disturbance. Patients insight and judgment impaired Diagnostics Vital Signs (24Hr): Vital Signs - 24 hr 03/09/23 16:45 03/10/23 06:00 Temperature 98 F 97.2 F Pulse Rate 99 93 Respiratory Rate 18 16 Blood Pressure 102/64 128/69 Pulse Oximetry 97 96 Oxygen Delivery Method Room Air Room Air BMI result Body Mass Index 22.3 Labs 03/06/23 12:03 03/07/23 08:51 Medications Medications Current Medications Acetaminophen (Acetaminophen 325 Mg Tablet) 650 mg PO Q6H PRN PRN Reason: Headache/Pain Mild Scale (1-3) Al Hydroxide/Mg Hydroxide (Magnesium Hydrox/Alum Hydrox 30 Ml Oral.Susp) 30 ml PO Q6H PRN PRN Reason: Heartburn/Nausea Amlodipine Besylate (Amlodipine Besylate 10 Mg Tablet) 10 mg PO DAILY [facility]; Protocol Last Admin: 03/10/23 08:34 Dose: 10 mg Aspirin (Aspirin 81 Mg Tab.Chew) 81 mg PO DAILY [facility] Last Admin: 03/10/23 08:20 Dose: 81 mg Hydroxyzine HCl (Hydroxyzine Hcl 25 Mg Tablet) 25 mg PO Q6H PRN PRN Reason: Anxiety Magnesium Hydroxide (Milk Of Magnesia 30 Ml Oral.Susp) 30 ml PO DAILY PRN PRN Reason: Constipation Nicotine Polacrilex (Nicotine Polacrilex 2 Mg Gum) 4 mg BUCCAL Q2H PRN PRN Reason: Nicotine Cravings Trazodone HCl (Trazodone Hcl 50 Mg Tablet) 50 mg PO BEDTIME MRX1 PRN PRN Reason: Insomnia Venlafaxine HCl (Venlafaxine Hcl Er 150 Mg Cap.Er.24h) 150 mg PO DAILY [facility] Last Admin: 03/10/23 08:34 Dose: 150 mg Vitamin D (Cholecalciferol (Vitamin D3) 25 Mcg Tablet) 25 mcg PO DAILY [facility] Last Admin: 03/10/23 08:34 Dose: 25 mcg Allergies Allergies Allergy/AdvReac Type Severity Reaction Status Date / Time lisinopril Allergy Hives Verified 03/06/23 10:50 Assessment & Plan Assessment & Plan (1) MDD (major depressive disorder), recurrent severe, without psychosis: Status: Acute Code(s): F33.2 - Major depressive disorder, recurrent severe without psychotic features Plan pt is a 63 yo male with hx of Depression, HTN, some manic behaviors, who presents for worsening depression. Pt reports first depressive episode was back in 2018 when he was first hospitalized. He was discharged on Lexapro and Haldol (and maybe another med). Per , patient had manic behaviors in weeks/months leading up to 2018 admission, though none since, despite being on only Lexapro for past 4-5 years. -currently very depressed, not eating, significant psychomotor retardation -strong concern for bipolar disorder Hospital course: 03/08 patient says he is feeling better on current regimen and would like to remain on it; discussed potential for bipolar diagnosis with which patient does not disagree but given the fact that he is feeling better with like to work with current med regimen. [employer] Operator does not disagree for although patient had what sounds like a manic episode in 2018, he is also been able to remain stable and symptom-free on just Lexapro for 4 and half years 03/09 patient remains in slightly better mood and with brighter affect; also slept fairly well last night even though he did not take mirtazapine. Patient wants to try monotherapy and Agrees to increasing venlafaxine. Given patient's continued modest improvement will continue with this plan; bipolar remains a rule out and hopefully patient will not be triggered into manic episode. He has not talked to his since he has been here and is not sure why that is 03/10 still depressed; will continue to titrate effexor but so far not much change PLAN: CV q15min Increased to Effexor XL 150 mg Discontinue MIrtazapine: Patient wants to try monotherapy continue amlodpine 10mg for htn (home med) Continue aspirin )Home med) Will strongly consider mood stabilizer signed JOSE and gave verbal permission to discuss case with Patient educated on: diagnosis, medication risk/benefits and therapeutic strategies Informed Consent: understands and further education needed Reason for continued inpatient stay Substantial Risk for: inability to function Time Spent With Patient Time: Total time managing care of this patient today ____ minutes.
[2023-03-10 18:00] VITALS: BP 100/58; PULSE 98; TEMP 36.1; O2SAT 95
[2023-03-11 08:45] VITALS: BP 131/74; PULSE 101; RESP 18; TEMP 36.2; O2SAT 97
[2023-03-11] MEDS: Cholecalciferol (Vitamin D3) 25 MCG TABLET PO (08:47)
[2023-03-11] MEDS: amLODIPine Besylate 10 MG TABLET PO (08:47)
[2023-03-11] MEDS: Aspirin 81 MG TAB.CHEW PO (08:47)
[2023-03-11] MEDS: Venlafaxine HCl ER 150 MG CAP.ER.24H PO (08:47)
--- NOTE | 2023-03-11 16:21 | HO.PSYCHPN ---
Subjective Subjective Date of Service: 03/11/23 Reason For Visit: Depression Interim History: met with patient; discussed with team remains very depressed; though he had said he thought he was doing a little better at first, this has past; he remains isolated in his room all day; malodorous and not attending to ADL's; still not eating any solid food but just drinking Ensure. Pt feels he has no words to describe his depression, other than it's a very heavy, debilitating feeling; regarding behavioral activation, says it's a tremendous effort to get up to use toliet...expressed guilt and shame to having depression. Agrees to restart MIrtazapine. Mental Status Exam Mental Status Exam Narrative: Pt is alert and oriented; behavior is cooperative, calm; patient is not in distress; dressed in hospital attire unkempt, poor hygiene; mood is described as depressedr and affect congruent, constricted, downcast; eye contact appropriate; Speech is normal rate, volume and prosody and not pressured; psychomotor agitation/retardation present; thought process is organized and goal directed; Thought content is on guilt and shame over depression; on tx; otherwise pertinent to relevant topics and without any delusional content, paranoid ideations or grandiosity; denies any SI/HI. There is no evidence of perceptual disturbance. Patients insight and judgment impaired Diagnostics Vital Signs (24Hr): Vital Signs - 24 hr 03/10/23 18:00 03/11/23 08:45 Temperature 96.9 F 97.1 F Pulse Rate 98 101 H Respiratory Rate 18 Blood Pressure 100/58 L 131/74 Pulse Oximetry 95 97 Oxygen Delivery Method Room Air Room Air BMI result Body Mass Index 22.3 Labs 03/06/23 12:03 03/07/23 08:51 Medications Medications Current Medications Acetaminophen (Acetaminophen 325 Mg Tablet) 650 mg PO Q6H PRN PRN Reason: Headache/Pain Mild Scale (1-3) Al Hydroxide/Mg Hydroxide (Magnesium Hydrox/Alum Hydrox 30 Ml Oral.Susp) 30 ml PO Q6H PRN PRN Reason: Heartburn/Nausea Amlodipine Besylate (Amlodipine Besylate 10 Mg Tablet) 10 mg PO DAILY [facility]; Protocol Last Admin: 03/11/23 08:47 Dose: 10 mg Aspirin (Aspirin 81 Mg Tab.Chew) 81 mg PO DAILY [facility] Last Admin: 03/11/23 08:47 Dose: 81 mg Hydroxyzine HCl (Hydroxyzine Hcl 25 Mg Tablet) 25 mg PO Q6H PRN PRN Reason: Anxiety Magnesium Hydroxide (Milk Of Magnesia 30 Ml Oral.Susp) 30 ml PO DAILY PRN PRN Reason: Constipation Nicotine Polacrilex (Nicotine Polacrilex 2 Mg Gum) 4 mg BUCCAL Q2H PRN PRN Reason: Nicotine Cravings Trazodone HCl (Trazodone Hcl 50 Mg Tablet) 50 mg PO BEDTIME MRX1 PRN PRN Reason: Insomnia Venlafaxine HCl (Venlafaxine Hcl Er 150 Mg Cap.Er.24h) 150 mg PO DAILY [facility] Last Admin: 03/11/23 08:47 Dose: 150 mg Vitamin D (Cholecalciferol (Vitamin D3) 25 Mcg Tablet) 25 mcg PO DAILY [facility] Last Admin: 03/11/23 08:47 Dose: 25 mcg Allergies Allergies Allergy/AdvReac Type Severity Reaction Status Date / Time lisinopril Allergy Hives Verified 03/06/23 10:50 Assessment & Plan Assessment & Plan (1) MDD (major depressive disorder), recurrent severe, without psychosis: Status: Acute Code(s): F33.2 - Major depressive disorder, recurrent severe without psychotic features Plan pt is a 63 yo male with hx of Depression, HTN, some manic behaviors, who presents for worsening depression. Pt reports first depressive episode was back in 2018 when he was first hospitalized. He was discharged on Lexapro and Haldol (and maybe another med). Per , patient had manic behaviors in weeks/months leading up to 2018 admission, though none since, despite being on only Lexapro for past 4-5 years. -currently very depressed, not eating, significant psychomotor retardation -strong concern for bipolar disorder Hospital course: 03/08 patient says he is feeling better on current regimen and would like to remain on it; discussed potential for bipolar diagnosis with which patient does not disagree but given the fact that he is feeling better with like to work with current med regimen. 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 Patient wants to try monotherapy and Agrees to increasing venlafaxine. Given patient's continued modest improvement will continue with this plan; bipolar remains a rule out and hopefully patient will not be triggered into manic episode. He has not talked to his since he has been here and is not sure why that is 03/10 still depressed; will continue to titrate effexor but so far not much change 03/11 depressed; reverted back to depression and fleeting idea of some improvement gone; will restart Mirtazapine. Continue to consider mood stabilizer. PLAN: CV q15min continue Effexor XL 150 mg restart MIrtazapine continue amlodpine 10mg for htn (home med) Continue aspirin )Home med) Will strongly consider mood stabilizer signed JOSE and gave verbal permission to discuss case with Patient educated on: diagnosis, medication risk/benefits and therapeutic strategies Informed Consent: understands Reason for continued inpatient stay Substantial Risk for: inability to function Time Spent With Patient Time: Total time managing care of this patient today ____ minutes.
[2023-03-11 21:35] VITALS: BP 86/55; PULSE 100; TEMP 35.9; O2SAT 97
--- NOTE | 2023-03-11 21:43 | PC.NURSE ---
Patient refused Remeron 7.5. mg po at HS and stated I feel pretty good right now.
[2023-03-12 06:00] VITALS: BP 140/80; PULSE 88; RESP 16; TEMP 36.1; O2SAT 98
[2023-03-12] MEDS: Venlafaxine HCl ER 150 MG CAP.ER.24H PO (08:38)
[2023-03-12] MEDS: Cholecalciferol (Vitamin D3) 25 MCG TABLET PO (08:38)
[2023-03-12] MEDS: amLODIPine Besylate 10 MG TABLET PO (08:38)
[2023-03-12] MEDS: Aspirin 81 MG TAB.CHEW PO (08:38)
--- NOTE | 2023-03-12 10:15 | HO.PSYCHPN ---
Subjective Subjective Date of Service: 03/12/23 Reason For Visit: Depression Interim History: met with patient; discussed with team no change in depression; poor sleep. no ADL's and no energy or motivation to engage in Behavioral activation; agrees to increase Effexor. Discussed past use of Haldol at 2018 admission, but pt does not want this; he does agree to trazodone for sleep however. Denies anxiety talked w/ ; she says 3 meds from 2018 were lexapro, haldol and clonidine; she says his current presentation is similar to past depression Mental Status Exam Mental Status Exam Narrative: Pt is alert and oriented; behavior is cooperative, calm; patient is not in distress; dressed in hospital attire unkempt, poor hygiene; mood is described as depressed and affect congruent, constricted, downcast; eye contact appropriate; Speech is normal rate, volume and prosody and not pressured; psychomotor agitation/retardation present; thought process is organized and goal directed; Thought content is on guilt and shame over depression; on tx; otherwise pertinent to relevant topics and without any delusional content, paranoid ideations or grandiosity; denies any SI/HI. There is no evidence of perceptual disturbance. Patients insight and judgment impaired Diagnostics Vital Signs (24Hr): Vital Signs - 24 hr 03/11/23 21:35 03/12/23 06:00 Temperature 96.6 F L 97.0 F Pulse Rate 100 88 Respiratory Rate 16 Blood Pressure 86/55 L 140/80 H Pulse Oximetry 97 98 Oxygen Delivery Method Room Air Room Air BMI result Body Mass Index 22.3 Labs 03/06/23 12:03 03/07/23 08:51 Medications Medications Current Medications Acetaminophen (Acetaminophen 325 Mg Tablet) 650 mg PO Q6H PRN PRN Reason: Headache/Pain Mild Scale (1-3) Al Hydroxide/Mg Hydroxide (Magnesium Hydrox/Alum Hydrox 30 Ml Oral.Susp) 30 ml PO Q6H PRN PRN Reason: Heartburn/Nausea Amlodipine Besylate (Amlodipine Besylate 10 Mg Tablet) 10 mg PO DAILY [facility]; Protocol Last Admin: 03/12/23 08:38 Dose: 10 mg Aspirin (Aspirin 81 Mg Tab.Chew) 81 mg PO DAILY [facility] Last Admin: 03/12/23 08:38 Dose: 81 mg Hydroxyzine HCl (Hydroxyzine Hcl 25 Mg Tablet) 25 mg PO Q6H PRN PRN Reason: Anxiety Magnesium Hydroxide (Milk Of Magnesia 30 Ml Oral.Susp) 30 ml PO DAILY PRN PRN Reason: Constipation Mirtazapine (Mirtazapine 7.5 Mg Tablet) 7.5 mg PO BEDTIME [facility] Last Admin: 03/11/23 21:43 Dose: Not Given Nicotine Polacrilex (Nicotine Polacrilex 2 Mg Gum) 4 mg BUCCAL Q2H PRN PRN Reason: Nicotine Cravings Trazodone HCl (Trazodone Hcl 50 Mg Tablet) 50 mg PO BEDTIME MRX1 PRN PRN Reason: Insomnia Venlafaxine HCl (Venlafaxine Hcl Er 150 Mg Cap.Er.24h) 150 mg PO DAILY [facility] Last Admin: 03/12/23 08:38 Dose: 150 mg Vitamin D (Cholecalciferol (Vitamin D3) 25 Mcg Tablet) 25 mcg PO DAILY [facility] Last Admin: 03/12/23 08:38 Dose: 25 mcg Allergies Allergies Allergy/AdvReac Type Severity Reaction Status Date / Time lisinopril Allergy Hives Verified 03/06/23 10:50 Assessment & Plan Assessment & Plan (1) MDD (major depressive disorder), recurrent severe, without psychosis: Status: Acute Code(s): F33.2 - Major depressive disorder, recurrent severe without psychotic features Plan pt is a 63 yo male with hx of Depression, HTN, some manic behaviors, who presents for worsening depression. Pt reports first depressive episode was back in 2018 when he was first hospitalized. He was discharged on Lexapro and Haldol (and maybe another med). Per , patient had manic behaviors in weeks/months leading up to 2018 admission, though none since, despite being on only Lexapro for past 4-5 years. -currently very depressed, not eating, significant psychomotor retardation -concern for bipolar disorder Hospital course: 03/08 patient says he is feeling better on current regimen and would like to remain on it; discussed potential for bipolar diagnosis with which patient does not disagree but given the fact that he is feeling better with like to work with current med regimen. 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 Patient wants to try monotherapy and Agrees to increasing venlafaxine. Given patient's continued modest improvement will continue with this plan; bipolar remains a rule out and hopefully patient will not be triggered into manic episode. He has not talked to his since he has been here and is not sure why that is 03/10 still depressed; will continue to titrate effexor but so far not much change 03/11 depressed; reverted back to depression and fleeting idea of some improvement gone; will restart Mirtazapine. Continue to consider mood stabilizer. 03/12 remains very depressed; titrating Effexor PLAN: CV q15min INCREASE to Effexor XL 187.5 mg; micromedix recs increase of 75mg now less than q4days restart MIrtazapine continue amlodpine 10mg for htn (home med) Continue aspirin )Home med) Will strongly consider mood stabilizer signed JOSE and gave verbal permission to discuss case with Patient educated on: diagnosis, medication risk/benefits and therapeutic strategies Informed Consent: understands Reason for continued inpatient stay Substantial Risk for: inability to function Time Spent With Patient Time: Total time managing care of this patient today ____ minutes.
[2023-03-12] MEDS: Venlafaxine HCl ER 37.5 MG CAP.ER.24H PO (14:59)
[2023-03-12 17:01] VITALS: BP 117/70; PULSE 88; RESP 18; TEMP 36.1; O2SAT 98
[2023-03-12] MEDS: Mirtazapine 7.5 MG TABLET PO (20:03)
[2023-03-12] MEDS: traZODone HCL 50 MG TABLET PO (20:03)
[2023-03-13 08:30] VITALS: BP 121/70; PULSE 84; RESP 16; TEMP 36.6; O2SAT 97
[2023-03-13] MEDS: Cholecalciferol (Vitamin D3) 25 MCG TABLET PO (09:32)
[2023-03-13] MEDS: Venlafaxine HCl ER 37.5 MG CAP.ER.24H PO (09:32)
[2023-03-13] MEDS: Venlafaxine HCl ER 150 MG CAP.ER.24H PO (09:33)
[2023-03-13] MEDS: amLODIPine Besylate 10 MG TABLET PO (09:33)
[2023-03-13] MEDS: Aspirin 81 MG TAB.CHEW PO (09:33)
--- NOTE | 2023-03-13 14:07 | P.PNPSI_ITS ---
Subjective Subjective Date of Service: 03/13/23 Reason For Visit: Depression Interim History: met with patient; discussed with team Patient still severely depressed, disheveled, malodorous, not leaving his bed, not eating food, not attending to any ADLs... Patient talked about how frustr ated he was, the does not see any progress... He feels like he is in a black hole. Platform Attendant reiterated the necessity and benefits of behavioral activation however patient remains too overwhelmed by depression, inertia to engage. He agrees to continued titration of Effexor Mental Status Exam Mental Status Exam Narrative: Pt is alert and oriented; behavior is cooperative, calm; patient is not in distress; dressed in hospital attire unkempt, poor hygiene; mood is described as black hole and affect congruent, constricted, downcast; eye contact appropriate; Speech is normal rate, volume and prosody and not pressured; significant psychomotor retardation present; thought process is organized and goal directed; Thought content is on frustration with symptoms depression; on tx; otherwise pertinent to relevant topics and without any delusional content, paranoid ideations or grandiosity; denies any SI/HI. There is no evidence of perceptual disturbance. Patients insight and judgment impaired Diagnostics Vital Signs (24Hr): Vital Signs - 24 hr 03/12/23 17:01 03/13/23 08:30 Temperature 97.0 F 97.9 F Pulse Rate 88 84 Respiratory Rate 18 16 Blood Pressure 117/70 121/70 Pulse Oximetry 98 97 Oxygen Delivery Method Room Air Room Air BMI result Body Mass Index 22.3 Labs 03/06/23 12:03 03/07/23 08:51 Medications Medications Current Medications Acetaminophen (Acetaminophen 325 Mg Tablet) 650 mg PO Q6H PRN PRN Reason: Headache/Pain Mild Scale (1-3) Al Hydroxide/Mg Hydroxide (Magnesium Hydrox/Alum Hydrox 30 Ml Oral.Susp) 30 ml PO Q6H PRN PRN Reason: Heartburn/Nausea Amlodipine Besylate (Amlodipine Besylate 10 Mg Tablet) 10 mg PO DAILY [facility]; Protocol Last Admin: 03/13/23 09:33 Dose: 10 mg Aspirin (Aspirin 81 Mg Tab.Chew) 81 mg PO DAILY [facility] Last Admin: 03/13/23 09:33 Dose: 81 mg Hydroxyzine HCl (Hydroxyzine Hcl 25 Mg Tablet) 25 mg PO Q6H PRN PRN Reason: Anxiety Magnesium Hydroxide (Milk Of Magnesia 30 Ml Oral.Susp) 30 ml PO DAILY PRN PRN Reason: Constipation Mirtazapine (Mirtazapine 7.5 Mg Tablet) 7.5 mg PO BEDTIME [facility] Last Admin: 03/12/23 20:03 Dose: 7.5 mg Nicotine Polacrilex (Nicotine Polacrilex 2 Mg Gum) 4 mg BUCCAL Q2H PRN PRN Reason: Nicotine Cravings Trazodone HCl (Trazodone Hcl 50 Mg Tablet) 50 mg PO BEDTIME MRX1 PRN PRN Reason: Insomnia Trazodone HCl (Trazodone Hcl 50 Mg Tablet) 50 mg PO BEDTIME [facility] Last Admin: 03/12/23 20:03 Dose: 50 mg Venlafaxine HCl (Venlafaxine Hcl Er 150 Mg Cap.Er.24h) 150 mg PO DAILY [facility] Last Admin: 03/13/23 09:33 Dose: 150 mg Venlafaxine HCl (Venlafaxine Hcl Er 37.5 Mg Cap.Er.24h) 37.5 mg PO DAILY [facility] Last Admin: 03/13/23 09:32 Dose: 37.5 mg Vitamin D (Cholecalciferol (Vitamin D3) 25 Mcg Tablet) 25 mcg PO DAILY [facility] Last Admin: 03/13/23 09:32 Dose: 25 mcg Allergies Allergies Allergy/AdvReac Type Severity Reaction Status Date / Time lisinopril Allergy Hives Verified 03/06/23 10:50 Assessment & Plan Assessment & Plan (1) MDD (major depressive disorder), recurrent severe, without psychosis: Status: Acute Code(s): F33.2 - Major depressive disorder, recurrent severe without psychotic features Plan pt is a 63 yo male with hx of Depression, HTN, some manic behaviors, who presents for worsening depression. Pt reports first depressive episode was back in 2018 when he was first hospitalized. He was discharged on Lexapro and Haldol (and maybe another med). Per , patient had manic behaviors in weeks/months leading up to 2018 admission, though none since, despite being on only Lexapro for past 4-5 years. -currently very depressed, not eating, significant psychomotor retardation -concern for bipolar disorder Hospital course: 03/08 patient says he is feeling better on current regimen and would like to remain on it; discussed potential for bipolar diagnosis with which patient does not disagree but given the fact that he is feeling better with like to work with current med regimen. Platform Attendant does not disagree for although patient had what sounds like a manic episode in 2018, he is also been able to remain stable and symptom-free on just Lexapro for 4 and half years 03/09 patient remains in slightly better mood and with brighter affect; also slept fairly well last night even though he did not take mirtazapine. Patient wants to try monotherapy and Agrees to increasing venlafaxine. Given patient's continued modest improvement will continue with this plan; bipolar remains a rule out and hopefully patient will not be triggered into manic episode. He has not talked to his since he has been here and is not sure why that is 03/10 still depressed; will continue to titrate effexor but so far not much change 03/11 depressed; reverted back to depression and fleeting idea of some improvement gone; will restart Mirtazapine. Continue to consider mood stabilizer. 03/12 remains very depressed; titrating Effexor 03/13 severely depressed; not attending to ADLs, hardly leaving his bed, not eating any food other than Ensure; feels as though in black hole. At this time patient is not functional and unable to take care for himself in the community. Continue titration of Effexor and likely Mirtazapine PLAN: CV q15min INCREASE to Effexor XL 187.5 mg; micromedix recs increase of 75mg now less than q4days Continue MIrtazapine 7.5 mg q.h.s. START Simbrinza (1 drop brinzolamide 1%/brimonidine 0.2% in each eye BID); pt reports he's prescribed glaucoma eyedrops; last script for Simbrinza filled on 09/22 for 3 months supply; mortgage or loan underwriter verified w/ pharmacy continue amlodpine 10mg for htn (home med) Continue aspirin )Home med) Will strongly consider mood stabilizer signed JOSE and gave verbal permission to discuss case with Patient educated on: diagnosis, medication risk/benefits and medical condition Informed Consent: understands Reason for continued inpatient stay Substantial Risk for: inability to function Time Spent With Patient Time: Total time managing care of this patient today ____ minutes.
[2023-03-13 21:35] VITALS: BP 119/72; PULSE 75; TEMP 36.5; O2SAT 97
[2023-03-13] MEDS: traZODone HCL 50 MG TABLET PO (21:48)
[2023-03-13] MEDS: Mirtazapine 7.5 MG TABLET PO (21:48)
[2023-03-14 06:00] VITALS: BP 139/72; PULSE 83; RESP 16
[2023-03-14] MEDS: Venlafaxine HCl ER 150 MG CAP.ER.24H PO (08:25)
[2023-03-14] MEDS: Aspirin 81 MG TAB.CHEW PO (08:25)
[2023-03-14] MEDS: Venlafaxine HCl ER 37.5 MG CAP.ER.24H PO (08:26)
[2023-03-14] MEDS: Cholecalciferol (Vitamin D3) 25 MCG TABLET PO (08:26)
[2023-03-14] MEDS: amLODIPine Besylate 10 MG TABLET PO (08:26)
--- NOTE | 2023-03-14 09:57 | P.PNPSI_ITS ---
Subjective Subjective Date of Service: 03/14/23 Reason For Visit: Depression Interim History: Met with patient; discussed with team Patient remains quite depressed. However he did say he ate a few bites of solid food today. He also said that later today or tomorrow will take a shower. Continue to review necessity for behavioral activation and patient continues to feel like it is very difficult to get himself moving. Denies anxiety. He agreed to increasing venlafaxine and also trazodone since he remains not sleeping much Mental Status Exam Mental Status Exam Narrative: Pt is alert and oriented; behavior is cooperative, calm; patient is not in distress; dressed in hospital attire unkempt, poor hygiene, malodorous; mood is described as frustrated and affect congruent, constricted, downcast; eye contact appropriate; Speech is normal rate, volume and prosody and not pressured; significant psychomotor retardation present and very poor appetite; thought process is organized and goal directed; Thought content is on frustration with symptoms depression; on tx; otherwise pertinent to relevant topics and without any delusional content, paranoid ideations or grandiosity; denies any SI/HI. There is no evidence of perceptual disturbance. Patients insight and judgment impaired Diagnostics Vital Signs (24Hr): Vital Signs - 24 hr 03/13/23 21:35 03/14/23 06:00 Temperature 97.7 F Pulse Rate 75 83 Respiratory Rate 16 Blood Pressure 119/72 139/72 Pulse Oximetry 97 Oxygen Delivery Method Room Air Room Air BMI result Body Mass Index 22.3 Labs 03/06/23 12:03 03/07/23 08:51 Medications Medications Current Medications Acetaminophen (Acetaminophen 325 Mg Tablet) 650 mg PO Q6H PRN PRN Reason: Headache/Pain Mild Scale (1-3) Al Hydroxide/Mg Hydroxide (Magnesium Hydrox/Alum Hydrox 30 Ml Oral.Susp) 30 ml PO Q6H PRN PRN Reason: Heartburn/Nausea Amlodipine Besylate (Amlodipine Besylate 10 Mg Tablet) 10 mg PO DAILY [facility]; Protocol Last Admin: 03/14/23 08:26 Dose: 10 mg Aspirin (Aspirin 81 Mg Tab.Chew) 81 mg PO DAILY [facility] Last Admin: 03/14/23 08:25 Dose: 81 mg Hydroxyzine HCl (Hydroxyzine Hcl 25 Mg Tablet) 25 mg PO Q6H PRN PRN Reason: Anxiety Magnesium Hydroxide (Milk Of Magnesia 30 Ml Oral.Susp) 30 ml PO DAILY PRN PRN Reason: Constipation Mirtazapine (Mirtazapine 7.5 Mg Tablet) 7.5 mg PO BEDTIME [facility] Last Admin: 03/13/23 21:48 Dose: 7.5 mg Nicotine Polacrilex (Nicotine Polacrilex 2 Mg Gum) 4 mg BUCCAL Q2H PRN PRN Reason: Nicotine Cravings Non-Formulary Medication (Simbrinza) 1 drop EYE-BOTH BID [facility] Trazodone HCl (Trazodone Hcl 50 Mg Tablet) 50 mg PO BEDTIME MRX1 PRN PRN Reason: Insomnia Trazodone HCl (Trazodone Hcl 50 Mg Tablet) 50 mg PO BEDTIME [facility] Last Admin: 03/13/23 21:48 Dose: 50 mg Venlafaxine HCl (Venlafaxine Hcl Er 150 Mg Cap.Er.24h) 150 mg PO DAILY [facility] Last Admin: 03/14/23 08:25 Dose: 150 mg Venlafaxine HCl (Venlafaxine Hcl Er 37.5 Mg Cap.Er.24h) 37.5 mg PO DAILY [facility] Last Admin: 03/14/23 08:26 Dose: 37.5 mg Vitamin D (Cholecalciferol (Vitamin D3) 25 Mcg Tablet) 25 mcg PO DAILY [facility] Last Admin: 03/14/23 08:26 Dose: 25 mcg Allergies Allergies Allergy/AdvReac Type Severity Reaction Status Date / Time lisinopril Allergy Hives Verified 03/06/23 10:50 Assessment & Plan Assessment & Plan (1) MDD (major depressive disorder), recurrent severe, without psychosis: Status: Acute Code(s): F33.2 - Major depressive disorder, recurrent severe without psychotic features Plan pt is a 63 yo male with hx of Depression, HTN, some manic behaviors, who presents for worsening depression. Pt reports first depressive episode was back in 2018 when he was first hospitalized. He was discharged on Lexapro and Haldol (and maybe another med). Per , patient had manic behaviors in weeks/months leading up to 2018 admission, though none since, despite being on only Lexapro for past 4-5 years. -currently very depressed, not eating, significant psychomotor retardation -concern for bipolar disorder Hospital course: 03/08 patient says he is feeling better on current regimen and would like to remain on it; discussed potential for bipolar diagnosis with which patient does not disagree but given the fact that he is feeling better with like to work with current med regimen. Strategic Marketing Manager does not disagree for although patient had what sounds like a manic episode in 2018, he is also been able to remain stable and symptom-free on just Lexapro for 4 and half years 03/09 patient remains in slightly better mood and with brighter affect; also sle pt fairly well last night even though he did not take mirtazapine. Patient wants to try monotherapy and Agrees to increasing venlafaxine. Given patient's continued modest improvement will continue with this plan; bipolar remains a rule out and hopefully patient will not be triggered into manic episode. He has not talked to his since he has been here and is not sure why that is 03/10 still depressed; will continue to titrate effexor but so far not much change 03/11 depressed; reverted back to depression and fleeting idea of some improvement gone; will restart Mirtazapine. Continue to consider mood stabilizer. 03/12 remains very depressed; titrating Effexor 03/13 severely depressed; not attending to ADLs, hardly leaving his bed, not eating any food other than Ensure; feels as though in black hole. At this time patient is not functional and unable to take care for himself in the community. Continue titration of Effexor and likely Mirtazapine 03/14 patient remains depressed; has yet to shower, dress, call his however he did eat a few bites of solid food today which was a 1st time this admission PLAN: CV q15min INCREASEd to Effexor XL 225mg (increased on 03/15; micromedix recs increase of 75mg now less than q4days) Continue MIrtazapine 7.5 mg q.h.s. Increased Trazodone to 100mg qhs for poor sleep Continue Simbrinza (1 drop brinzolamide 1%/brimonidine 0.2% in each eye BID); pt reports he's prescribed glaucoma eyedrops; last script for Simbrinza filled on 09/22 for 3 months supply; song writer verified w/ pharmacy continue amlodpine 10mg for htn (home med) Continue aspirin (Home med) consider mood stabilizer signed JOSE and gave verbal permission to discuss case with Patient educated on: diagnosis, medication risk/benefits and therapeutic strategies Informed Consent: understands Reason for continued inpatient stay Substantial Risk for: inability to function Time Spent With Patient Time: Total time managing care of this patient today ____ minutes.
[2023-03-14 16:11] VITALS: BP 137/80; PULSE 90; RESP 18; TEMP 36.4; O2SAT 100
[2023-03-14] MEDS: traZODone HCL 100 MG TABLET PO (20:29)
[2023-03-14] MEDS: Mirtazapine 7.5 MG TABLET PO (20:29)
[2023-03-15] MEDS: Venlafaxine HCl ER 75 MG CAP.ER.24H 225 MG PO (08:59)
[2023-03-15] MEDS: amLODIPine Besylate 10 MG TABLET PO (08:59)
[2023-03-15] MEDS: Cholecalciferol (Vitamin D3) 25 MCG TABLET PO (08:59)
[2023-03-15] MEDS: Aspirin 81 MG TAB.CHEW PO (08:59)
[2023-03-15 09:02] VITALS: BP 125/78; PULSE 81; RESP 18; TEMP 35.4; O2SAT 98
--- NOTE | 2023-03-15 11:19 | P.PNPSI_ITS ---
Subjective Subjective Date of Service: 03/15/23 Reason For Visit: Depression Subjective Notes: Conditional Voluntary Interim History: Pt reports feeling depressed. He denies SI/HI. He reports poor appetite. He reports fair sleep, due to cold room. He has been mostly in his room, minimally interactive with peers. No aggression towards self or others. He has ensure. Medications recently increase including venlafaxine 225mg po daily. trazodone increased for sleep. Medication Compliance: Yes Mental Status Exam Mental Status Exam Narrative: Appearance: casually groomed, good hygine, in NAD Behavior: cooperative Psychomotor: no agitation or retardation noted Speech: clear, normal rate/rhythm/volume, spontaneous TP: linear TC: no signs of psychosis, eating a bit better Mood: depressed SI: none HI: none VH/AH: none Delusions: none Insight/judgment: fair x 2. Memory/cog: alert, oriented x 3. grossly intact to conversational testing. Diagnostics Vital Signs (24Hr): Vital Signs - 24 hr 03/14/23 16:11 03/15/23 09:02 Temperature 97.5 F 95.7 F L Pulse Rate 90 81 Respiratory Rate 18 18 Blood Pressure 137/80 125/78 Pulse Oximetry 100 98 Oxygen Delivery Method Room Air BMI result Body Mass Index 22.3 Labs 03/06/23 12:03 03/07/23 08:51 Medications Medications Current Medications Acetaminophen (Acetaminophen 325 Mg Tablet) 650 mg PO Q6H PRN PRN Reason: Headache/Pain Mild Scale (1-3) Al Hydroxide/Mg Hydroxide (Magnesium Hydrox/Alum Hydrox 30 Ml Oral.Susp) 30 ml PO Q6H PRN PRN Reason: Heartburn/Nausea Amlodipine Besylate (Amlodipine Besylate 10 Mg Tablet) 10 mg PO DAILY [facility]; Protocol Last Admin: 03/15/23 08:59 Dose: 10 mg Aspirin (Aspirin 81 Mg Tab.Chew) 81 mg PO DAILY [facility] Last Admin: 03/15/23 08:59 Dose: 81 mg Hydroxyzine HCl (Hydroxyzine Hcl 25 Mg Tablet) 25 mg PO Q6H PRN PRN Reason: Anxiety Magnesium Hydroxide (Milk Of Magnesia 30 Ml Oral.Susp) 30 ml PO DAILY PRN PRN Reason: Constipation Mirtazapine (Mirtazapine 7.5 Mg Tablet) 7.5 mg PO BEDTIME [facility] Last Admin: 07/20/23 20:29 Dose: 7.5 mg Nicotine Polacrilex (Nicotine Polacrilex 2 Mg Gum) 4 mg BUCCAL Q2H PRN PRN Reason: Nicotine Cravings Non-Formulary Medication (Simbrinza) 1 drop EYE-BOTH BID [facility] Trazodone HCl (Trazodone Hcl 50 Mg Tablet) 50 mg PO BEDTIME MRX1 PRN PRN Reason: Insomnia Trazodone HCl (Trazodone Hcl 100 Mg Tablet) 100 mg PO BEDTIME [facility] Last Admin: 03/14/23 20:29 Dose: 100 mg Venlafaxine HCl (Venlafaxine Hcl Er 75 Mg Cap.Er.24h) 225 mg PO DAILY [facility] Last Admin: 03/15/23 08:59 Dose: 225 mg Vitamin D (Cholecalciferol (Vitamin D3) 25 Mcg Tablet) 25 mcg PO DAILY [facility] Last Admin: 03/15/23 08:59 Dose: 25 mcg Allergies Allergies Allergy/AdvReac Type Severity Reaction Status Date / Time lisinopril Allergy Hives Verified 03/06/23 10:50 Assessment & Plan Assessment & Plan (1) MDD (major depressive disorder), recurrent severe, without psychosis: Status: Acute Code(s): F33.2 - Major depressive disorder, recurrent severe without psychotic features Plan pt is a 63 yo male with hx of Depression, HTN, some manic behaviors, who presents for worsening depression. Pt reports first depressive episode was back in 2018 when he was first hospitalized. He was discharged on Lexapro and Haldol (and maybe another med). Per , patient had manic behaviors in weeks/months leading up to 2018 admission, though none since, despite being on only Lexapro for past 4-5 years. -currently very depressed, not eating, significant psychomotor retardation -concern for bipolar disorder Hospital course: 03/08 patient says he is feeling better on current regimen and would like to remain on it; discussed potential for bipolar diagnosis with which patient does not disagree but given the fact that he is feeling better with like to work with current med regimen. Telegraph Repeater Technician does not disagree for although patient had what sounds like a manic episode in 2018, he is also been able to remain stable and symptom-free on just Lexapro for 4 and half years 03/09 patient remains in slightly better mood and with brighter affect; also slept fairly well last night even though he did not take mirtazapine. Patient wants to try monotherapy and Agrees to increasing venlafaxine. Given patient's continued modest improvement will continue with this plan; bipolar remains a rule out and hopefully patient will not be triggered into manic episode. He has not talked to his since he has been here and is not sure why that is 03/10 still depressed; will continue to titrate effexor but so far not much change 03/11 depressed; reverted back to depression and fleeting idea of some im provement gone; will restart Mirtazapine. Continue to consider mood stabilizer. 03/12 remains very depressed; titrating Effexor 03/13 severely depressed; not attending to ADLs, hardly leaving his bed, not eating any food other than Ensure; feels as though in black hole. At this time patient is not functional and unable to take care for himself in the community. Continue titration of Effexor and likely Mirtazapine 03/14 patient remains depressed; has yet to shower, dress, call his however he did eat a few bites of solid food today which was a 1st time this admission 03/15 continue tx. PLAN: CV q15min INCREASEd to Effexor XL 225mg (increased on 03/15; micromedix recs increase of 75mg now less than q4days) Continue MIrtazapine 7.5 mg q.h.s. Increased Trazodone to 100mg qhs for poor sleep Continue Simbrinza (1 drop brinzolamide 1%/brimonidine 0.2% in each eye BID); pt reports he's prescribed glaucoma eyedrops; last script for Simbrinza filled on 09/22 for 3 months supply; caption writer verified w/ pharmacy continue amlodpine 10mg for htn (home med) Continue aspirin (Home med) consider mood stabilizer signed JOSE and gave verbal permission to discuss case with Reason for continued inpatient stay Substantial Risk for: inability to function Time Spent With Patient Time: Total time managing care of this patient today ____ minutes.
[2023-03-15 18:00] VITALS: BP 125/74; PULSE 95; TEMP 36.1; O2SAT 95
[2023-03-15] MEDS: Mirtazapine 7.5 MG TABLET PO (21:18)
[2023-03-15] MEDS: traZODone HCL 100 MG TABLET PO (21:19)
[2023-03-16 08:00] VITALS: BP 118/80; PULSE 81; RESP 18; TEMP 36.6; O2SAT 98
[2023-03-16] MEDS: Venlafaxine HCl ER 75 MG CAP.ER.24H 225 MG PO (08:43)
[2023-03-16] MEDS: Cholecalciferol (Vitamin D3) 25 MCG TABLET PO (08:44)
[2023-03-16] MEDS: Aspirin 81 MG TAB.CHEW PO (08:44)
[2023-03-16] MEDS: amLODIPine Besylate 10 MG TABLET PO (08:44)
--- NOTE | 2023-03-16 14:47 | P.PNPSI_ITS ---
Subjective Subjective Date of Service: 03/16/23 Reason For Visit: Depression Interim History: Pt reports feeling depressed but better than on admission. Difficulty with sleep due to noise of AC vent and cold room. He denies SI/HI. He reports poor appetite. He has been mostly in his room, minimally interactive with peers. No aggression towards self or others. He has ensure. Medications recently increase including venlafaxine 225mg po daily. Agrees to trial of increased Remeron and adding Melatonin for sleep. Review of Systems Review of Systems Yes all other systems are reviewed and are negative Mental Status Exam Mental Status Exam Narrative: Appearance: casually groomed, good hygine, in NAD Behavior: cooperative Psychomotor: no agitation or retardation noted Speech: clear, normal rate/rhythm/volume, spontaneous TP: linear TC: no signs of psychosis, eating a bit better Mood: depressed SI: none HI: none VH/AH: none Delusions: none Insight/judgment: fair x 2. Memory/cog: alert, oriented x 3. grossly intact to conversational testing. Diagnostics Vital Signs (24Hr): Vital Signs - 24 hr 03/15/23 18:00 03/16/23 08:00 Temperature 96.9 F 97.9 F Pulse Rate 95 81 Respiratory Rate 18 Blood Pressure 125/74 118/80 Pulse Oximetry 95 98 Oxygen Delivery Method Room Air Room Air BMI result Body Mass Index 22.3 Labs 03/06/23 12:03 03/07/23 08:51 Medications Medications Current Medications Acetaminophen (Acetaminophen 325 Mg Tablet) 650 mg PO Q6H PRN PRN Reason: Headache/Pain Mild Scale (1-3) Al Hydroxide/Mg Hydroxide (Magnesium Hydrox/Alum Hydrox 30 Ml Oral.Susp) 30 ml PO Q6H PRN PRN Reason: Heartburn/Nausea Amlodipine Besylate (Amlodipine Besylate 10 Mg Tablet) 10 mg PO DAILY [facility]; Protocol Last Admin: 03/16/23 08:44 Dose: 10 mg Aspirin (Aspirin 81 Mg Tab.Chew) 81 mg PO DAILY [facility] Last Admin: 03/16/23 08:44 Dose: 81 mg Hydroxyzine HCl (Hydroxyzine Hcl 25 Mg Tablet) 25 mg PO Q6H PRN PRN Reason: Anxiety Magnesium Hydroxide (Milk Of Magnesia 30 Ml Oral.Susp) 30 ml PO DAILY PRN PRN Reason: Constipation Melatonin (Melatonin 3 Mg Tablet) 6 mg PO BEDTIME [facility] Mirtazapine (Mirtazapine 15 Mg Tablet) 15 mg PO BEDTIME [facility] Nicotine Polacrilex (Nicotine Polacrilex 2 Mg Gum) 4 mg BUCCAL Q2H PRN PRN Reason: Nicotine Cravings Non-Formulary Medication (Simbrinza) 1 drop EYE-BOTH BID [facility] Trazodone HCl (Trazodone Hcl 50 Mg Tablet) 50 mg PO BEDTIME MRX1 PRN PRN Reason: Insomnia Trazodone HCl (Trazodone Hcl 100 Mg Tablet) 100 mg PO BEDTIME [facility] Last Admin: 03/15/23 21:19 Dose: 100 mg Venlafaxine HCl (Venlafaxine Hcl Er 75 Mg Cap.Er.24h) 225 mg PO DAILY [facility] Last Admin: 03/16/23 08:43 Dose: 225 mg Vitamin D (Cholecalciferol (Vitamin D3) 25 Mcg Tablet) 25 mcg PO DAILY [facility] Last Admin: 03/16/23 08:44 Dose: 25 mcg Allergies Allergies Allergy/AdvReac Type Severity Reaction Status Date / Time lisinopril Allergy Hives Verified 03/06/23 10:50 Assessment & Plan Assessment & Plan (1) MDD (major depressive disorder), recurrent severe, without psychosis: Status: Acute Code(s): F33.2 - Major depressive disorder, recurrent severe without psychotic features Plan pt is a 63 yo male with hx of Depression, HTN, some manic behaviors, who presents for worsening depression. Pt reports first depressive episode was back in 2018 when he was first hospitalized. He was discharged on Lexapro and Haldol (and maybe another med). Per , patient had manic behaviors in weeks/months leading up to 2018 admission, though none since, despite being on only Lexapro for past 4-5 years. -currently very depressed, not eating, significant psychomotor retardation -concern for bipolar disorder Hospital course: 03/08 patient says he is feeling better on current regimen and would like to remain on it; discussed potential for bipolar diagnosis with which patient does not disagree but given the fact that he is feeling better with like to work with current med regimen. Reflow Operator does not disagree for although patient had what sounds like a manic episode in 2018, he is also been able to remain stable and symptom-free on just Lexapro for 4 and half years 03/09 patient remains in slightly better mood and with brighter affect; also slept fairly well last night even though he did not take mirtazapine. Patient wants to try monotherapy and Agrees to increasing venlafaxine. Given patient's continued modest improvement will continue with this plan; bipolar remains a rule out and hopefully patient will not be triggered into manic episode. He has not talked to his since he has been here and is not sure why that is 03/10 still depressed; will continue to titrate effexor but so far not much change 03/11 depressed; reverted back to depression and fleeting idea of some improvement gone; will restart Mirtazapine. Continue to consider mood stabilizer. 03/12 remains very depressed; titrating Effexor 03/13 severely depressed; not attending to ADLs, hardly leaving his bed, not eating any food other than Ensure; feels as though in black hole. At this time patient is not functional and unable to take care for himself in the community. Continue titration of Effexor and likely Mirtazapine 03/14 patient remains depressed; has yet to shower, dress, call his however he did eat a few bites of solid food today which was a 1st time this admission 03/15 continue tx. 03/16: Increase Remeron to 15 mg. Add Melatonin 6 mg HS. PLAN: CV q15min INCREASEd to Effexor XL 225mg (increased on 03/15; micromedix recs increase of 75mg now less than q4days) Continue MIrtazapine 7.5 mg q.h.s. Increased Trazodone to 100mg qhs for poor sleep Continue Simbrinza (1 drop brinzolamide 1%/brimonidine 0.2% in each eye BID); pt reports he's prescribed glaucoma eyedrops; last script for Simbrinza filled on 09/22 for 3 months supply; check writer verified w/ pharmacy continue amlodpine 10mg for htn (home med) Continue aspirin (Home med) consider mood stabilizer signed JOSE and gave verbal permission to discuss case with Reason for continued inpatient stay Substantial Risk for: inability to function and rapid decompensation Time Spent With Patient Time: Total time managing care of this patient today ____ minutes.
[2023-03-16 18:22] VITALS: BP 101/67; PULSE 94; TEMP 36.6
[2023-03-16] MEDS: traZODone HCL 100 MG TABLET PO (20:04)
[2023-03-16] MEDS: Mirtazapine 15 MG TABLET PO (20:04)
[2023-03-16] MEDS: Melatonin 3 MG TABLET 6 MG PO (20:04)
[2023-03-17 06:00] VITALS: BP 106/57; PULSE 82; RESP 16; TEMP 36.9; O2SAT 96
[2023-03-17] MEDS: amLODIPine Besylate 10 MG TABLET PO (09:51)
[2023-03-17] MEDS: Venlafaxine HCl ER 75 MG CAP.ER.24H 225 MG PO (09:51)
[2023-03-17] MEDS: Aspirin 81 MG TAB.CHEW PO (09:52)
[2023-03-17] MEDS: Cholecalciferol (Vitamin D3) 25 MCG TABLET PO (09:52)
--- NOTE | 2023-03-17 10:53 | HO.PSYCHPN ---
Subjective Subjective Date of Service: 03/17/23 Reason For Visit: Depression Interim History: Pt reports feeling depressed but better than on admission. He is very isolative and in his bed most of the day napping on and off. Discussed behavioral activation with patient. RN working on activating and mobilizing patient and encouraging milieu engagement and ADLs. No aggression towards self or others. Medications recently increase including venlafaxine 225mg po daily. No SI. No AVH. Review of Systems Review of Systems Yes all other systems are reviewed and are negative Mental Status Exam Mental Status Exam Narrative: Appearance: Hospital garb, unkempt , in NAD Behavior: cooperative Psychomotor: no agitation or retardation noted Speech: clear, slowed TP: linear TC: no signs of psychosis, eating a bit better Mood: depressed SI: none HI: none VH/AH: none Delusions: none Insight/judgment: fair x 2. Memory/cog: alert, oriented x 3. grossly intact to conversational testing. Diagnostics Vital Signs (24Hr): Vital Signs - 24 hr 03/16/23 18:22 03/17/23 06:00 Temperature 97.8 F 98.4 F Pulse Rate 94 82 Respiratory Rate 16 Blood Pressure 101/67 106/57 L Pulse Oximetry 96 Oxygen Delivery Method Room Air BMI result Body Mass Index 22.3 Labs 03/06/23 12:03 03/07/23 08:51 Medications Medications Current Medications Acetaminophen (Acetaminophen 325 Mg Tablet) 650 mg PO Q6H PRN PRN Reason: Headache/Pain Mild Scale (1-3) Al Hydroxide/Mg Hydroxide (Magnesium Hydrox/Alum Hydrox 30 Ml Oral.Susp) 30 ml PO Q6H PRN PRN Reason: Heartburn/Nausea Amlodipine Besylate (Amlodipine Besylate 10 Mg Tablet) 10 mg PO DAILY [facility]; Protocol Last Admin: 03/17/23 09:51 Dose: 10 mg Aspirin (Aspirin 81 Mg Tab.Chew) 81 mg PO DAILY [facility] Last Admin: 03/17/23 09:52 Dose: 81 mg Hydroxyzine HCl (Hydroxyzine Hcl 25 Mg Tablet) 25 mg PO Q6H PRN PRN Reason: Anxiety Magnesium Hydroxide (Milk Of Magnesia 30 Ml Oral.Susp) 30 ml PO DAILY PRN PRN Reason: Constipation Melatonin (Melatonin 3 Mg Tablet) 6 mg PO BEDTIME [facility] Last Admin: 03/16/23 20:04 Dose: 6 mg Mirtazapine (Mirtazapine 15 Mg Tablet) 15 mg PO BEDTIME [facility] Last Admin: 03/16/23 20:04 Dose: 15 mg Nicotine Polacrilex (Nicotine Polacrilex 2 Mg Gum) 4 mg BUCCAL Q2H PRN PRN Reason: Nicotine Cravings Non-Formulary Medication (Simbrinza) 1 drop EYE-BOTH BID [facility] Trazodone HCl (Trazodone Hcl 50 Mg Tablet) 50 mg PO BEDTIME MRX1 PRN PRN Reason: Insomnia Trazodone HCl (Trazodone Hcl 100 Mg Tablet) 100 mg PO BEDTIME [facility] Last Admin: 03/16/23 20:04 Dose: 100 mg Venlafaxine HCl (Venlafaxine Hcl Er 75 Mg Cap.Er.24h) 225 mg PO DAILY [facility] Last Admin: 03/17/23 09:51 Dose: 225 mg Vitamin D (Cholecalciferol (Vitamin D3) 25 Mcg Tablet) 25 mcg PO DAILY [facility] Last Admin: 03/17/23 09:52 Dose: 25 mcg Allergies Allergies Allergy/AdvReac Type Severity Reaction Status Date / Time lisinopril Allergy Hives Verified 03/06/23 10:50 Assessment & Plan Assessment & Plan (1) MDD (major depressive disorder), recurrent severe, without psychosis: Status: Acute Code(s): F33.2 - Major depressive disorder, recurrent severe without psychotic features Plan pt is a 63 yo male with hx of Depression, HTN, some manic behaviors, who presents for worsening depression. Pt reports first depressive episode was back in 2018 when he was first hospitalized. He was discharged on Lexapro and Haldol (and maybe another med). Per , patient had manic behaviors in weeks/months leading up to 2018 admission, though none since, despite being on only Lexapro for past 4-5 years. -currently very depressed, not eating, significant psychomotor retardation -concern for bipolar disorder Hospital course: 03/08 patient says he is feeling better on current regimen and would like to remain on it; discussed potential for bipolar diagnosis with which patient does not disagree but given the fact that he is feeling better with like to work with current med regimen. Dental Associate does not disagree for although patient had what sounds like a manic episode in 2018, he is also been able to remain stable and symptom-free on just Lexapro for 4 and half years 03/09 patient remains in slightly better mood and with brighter affect; also slept fairly well last night even though he did not take mirtazapine. Patient wants to try monotherapy and Agrees to increasing venlafaxine. Given patient's continued modest improvement will continue with this plan; bipolar remains a rule out and hopefully patient will not be triggered into manic episode. He has not talked to his since he has been here and is not sure why that is 03/10 still depressed; will continue to titrate effexor but so far not much change 03/11 depressed; reverted back to depression and fleeting idea of some improvement gone; will restart Mirtazapine. Continue to consider mood stabilizer. 03/12 remains very depressed; titrating Effexor 03/13 severely depressed; not attending to ADLs, hardly leaving his bed, not eating any food other than Ensure; feels as though in black hole. At this time patient is not functional and unable to take care for himself in the community. Continue titration of Effexor and likely Mirtazapine 03/14 patient remains depressed; has yet to shower, dress, call his however he did eat a few bites of solid food today which was a 1st time this admission 03/15 continue tx. 03/16: Increase Remeron to 15 mg. Add Melatonin 6 mg HS. 03/17: Behavioral activation. Engage in ADLs. No medication changes PLAN: CV q15min INCREASEd to Effexor XL 225mg (increased on 03/15; micromedix recs increase of 75mg now less than q4days) Continue MIrtazapine 7.5 mg q.h.s. Increased Trazodone to 100mg qhs for poor sleep Continue Simbrinza (1 drop brinzolamide 1%/brimonidine 0.2% in each eye BID); pt reports he's prescribed glaucoma eyedrops; last script for Simbrinza filled on 09/22 for 3 months supply; proposal writer verified w/ pharmacy continue amlodpine 10mg for htn (home med) Continue aspirin (Home med) consider mood stabilizer signed JOSE and gave verbal permission to discuss case with Reason for continued inpatient stay Substantial Risk for: inability to function and rapid decompensation Time Spent With Patient Time: Total time managing care of this patient today ____ minutes.
[2023-03-17 16:00] VITALS: BP 109/71; PULSE 86; TEMP 35.6
[2023-03-17] MEDS: traZODone HCL 100 MG TABLET PO (21:04)
[2023-03-17] MEDS: Melatonin 3 MG TABLET 6 MG PO (21:04)
[2023-03-17] MEDS: Mirtazapine 15 MG TABLET PO (21:04)
[2023-03-18 06:00] VITALS: BP 123/76; PULSE 87; RESP 16; TEMP 36.2; O2SAT 97
[2023-03-18] MEDS: Cholecalciferol (Vitamin D3) 25 MCG TABLET PO (08:11)
[2023-03-18] MEDS: Venlafaxine HCl ER 75 MG CAP.ER.24H 225 MG PO (08:11)
[2023-03-18] MEDS: amLODIPine Besylate 10 MG TABLET PO (08:12)
[2023-03-18] MEDS: Aspirin 81 MG TAB.CHEW PO (08:12)
--- NOTE | 2023-03-18 09:07 | P.PNPSI_ITS ---
Subjective Subjective Date of Service: 03/18/23 Reason For Visit: Depression Interim History: Met with Patient; discussed with team; reviewed progress notes Patient remains very depressed and is becoming hopeless as medication management thus far is proving ineffective. 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 Patient is worried about medication management but agrees to change and taper and DC off Effexor since it has shown no efficacy; also he agrees to discontinuing mirtazapine as it is not help with insomnia, appetite or depression. Patient agrees to start Wellbutrin as well as Ativan as there are some catatonic signs. Instant Potato Processor discussed mood stabilizers both Vraylar, Latuda and lithium; patient is anxious about the side effect profile of these medications however is willing to consider it. Also discussed ECT as a viable option. Instant Potato Processor agrees that patient was able to stabilize in the past on Haldol and Lexapro and then remains stable on just Lexapro however since increased Lexapro has not helped, Prozac has not help, and now Effexor mirtazapine both proving ineffective, and his depression is severely debilitating, ECT becomes and increasingly important option to consider. Mental Status Exam Mental Status Exam Narrative: Pt is alert and oriented; behavior is calm, though difficult to engage; patient is not in distress; dressed in hospital attire unkempt, poor hygiene, malodorous; mood is described as depressed and affect congruent, constricted, downcast; eye contact limited; Speech is normal rate, volume and prosody and not pressured; significant psychomotor retardation present and very poor appetite; thought process goal directed but perseverative on depression; Thought content is perseverative on depression and patient with seemingly limited ability to discuss; anxious about medications; no delusional content expressed; denies any SI/HI. There is no evidence of perceptual disturbance. Patients insight and judgment impaired Diagnostics Vital Signs (24Hr): Vital Signs - 24 hr 03/17/23 16:00 Temperature 96.1 F L Pulse Rate 86 Blood Pressure 109/71 BMI result Body Mass Index 22.3 Labs 03/06/23 12:03 03/07/23 08:51 Medications Medications Current Medications Acetaminophen (Acetaminophen 325 Mg Tablet) 650 mg PO Q6H PRN PRN Reason: Headache/Pain Mild Scale (1-3) Al Hydroxide/Mg Hydroxide (Magnesium Hydrox/Alum Hydrox 30 Ml Oral.Susp) 30 ml PO Q6H PRN PRN Reason: Heartburn/Nausea Amlodipine Besylate (Amlodipine Besylate 10 Mg Tablet) 10 mg PO DAILY [facility]; Protocol Last Admin: 03/18/23 08:12 Dose: 10 mg Aspirin (Aspirin 81 Mg Tab.Chew) 81 mg PO DAILY [facility] Last Admin: 03/18/23 08:12 Dose: 81 mg Hydroxyzine HCl (Hydroxyzine Hcl 25 Mg Tablet) 25 mg PO Q6H PRN PRN Reason: Anxiety Magnesium Hydroxide (Milk Of Magnesia 30 Ml Oral.Susp) 30 ml PO DAILY PRN PRN Reason: Constipation Melatonin (Melatonin 3 Mg Tablet) 6 mg PO BEDTIME [facility] Last Admin: 03/17/23 21:04 Dose: 6 mg Mirtazapine (Mirtazapine 15 Mg Tablet) 15 mg PO BEDTIME [facility] Last Admin: 03/17/23 21:04 Dose: 15 mg Nicotine Polacrilex (Nicotine Polacrilex 2 Mg Gum) 4 mg BUCCAL Q2H PRN PRN Reason: Nicotine Cravings Non-Formulary Medication (Simbrinza) 1 drop EYE-BOTH BID [facility] Trazodone HCl (Trazodone Hcl 50 Mg Tablet) 50 mg PO BEDTIME MRX1 PRN PRN Reason: Insomnia Trazodone HCl (Trazodone Hcl 100 Mg Tablet) 100 mg PO BEDTIME [facility] Last Admin: 03/17/23 21:04 Dose: 100 mg Venlafaxine HCl (Venlafaxine Hcl Er 75 Mg Cap.Er.24h) 225 mg PO DAILY [facility] Last Admin: 03/18/23 08:11 Dose: 225 mg Vitamin D (Cholecalciferol (Vitamin D3) 25 Mcg Tablet) 25 mcg PO DAILY [facility] Last Admin: 03/18/23 08:11 Dose: 25 mcg Allergies Allergies Allergy/AdvReac Type Severity Reaction Status Date / Time lisinopril Allergy Hives Verified 03/06/23 10:50 Assessment & Plan Assessment & Plan (1) MDD (major depressive disorder), recurrent severe, without psychosis: Status: Acute Code(s): F33.2 - Major depressive disorder, recurrent severe without psychotic features Plan pt is a 63 yo male with hx of Depression, HTN, some manic behaviors, who presents for worsening depression. Pt reports first depressive episode was back in 2018 when he was first hospitalized. He was discharged on Lexapro and Haldol (and maybe another med). Per , patient had manic behaviors in weeks/months leading up to 2018 admission, though none since, despite being on only Lexapro for past 4-5 years. -currently very depressed, not eating, significant psychomotor retardation -concern for bipolar disorder Hospital course: 03/08 patient says he is feeling better on current regimen and would like to remain on it; discussed potential for bipolar diagnosis with which patient does not disagree but given the fact that he is feeling better with like to work with current med regimen. Instant Potato Processor does not disagree for although patient had what sounds like a manic episode in 2018, he is also been able to remain stable and symptom-free on just Lexapro for 4 and half years 03/09 patient remains in slightly better mood and with brighter affect; also slept fairly well last night even though he did not take mirtazapine. Patient wants to try monotherapy and Agrees to increasing venlafaxine. Given patient's continued modest improvement will continue with this plan; bipolar remains a rule out and hopefully patient will not be triggered into manic episode. He has not talked to his since he has been here and is not sure why that is 03/10 still depressed; will continue to titrate effexor but so far not much change 03/11 depressed; reverted back to depression and fleeting idea of some improvement gone; will restart Mirtazapine. Continue to consider mood stabilizer. 03/12 remains very depressed; titrating Effexor 03/13 severely depressed; not attending to ADLs, hardly leaving his bed, not eating any food other than Ensure; feels as though in black hole. At this time patient is not functional and unable to take care for himself in the community. Continue titration of Effexor and likely Mirtazapine 03/14 patient remains depressed; has yet to shower, dress, call his however he did eat a few bites of solid food today which was a 1st time this admission 03/18 Patient remains very depressed and is becoming hopeless as medication management thus far is proving ineffective. 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 Patient is worried about medication management but agrees to change and taper and DC off Effexor since it has shown no efficacy; also he agrees to discontinuing mirtazapine as it is not help with insomnia, appetite or depression. Patient agrees to start Wellbutrin as well as Ativan as there are some catatonic signs. Instant Potato Processor discussed mood stabilizers both Vraylar, Latuda and lithium; patient is anxious about the side effect profile of these medications however is willing to consider it. Also discussed ECT as a viable option. Instant Potato Processor agrees that patient was able to stabilize in the past on Haldol and Lexapro and then remains stable on just Lexapro however since increased Lexapro has not helped, Prozac has not help, and now Effexor mirtazapine both proving ineffective, and his depression is severely debilitating, ECT becomes and increasingly important option to consider. -patient ambivalent about restarting medications for glaucoma saying he missed an appointment and is not sure if he is supposed to continue or not. -at this time there is no other appropriate setting for patient's treatment as he is severely depressed with possibly some catatonia setting an; he is not attending to ADLs, hardly eating and only with prompting and requiring continued changes with medication management to stave off worsening depression. -discussed possible ECT with Dr. Culp who agrees to consult -will discuss glaucoma treatment with hospitalist PLAN: CV q15min START Wellbutrin XL 150 mg daily for depression START Ativan 1 mg t.i.d.; patient has some symptoms of catatonia and perhaps this medication can prove helpful Taper and DC Effexor; not affective despite therapeutic dose (although therapeutic duration not quite met, one would expect at least some minimal signs of reduction in symptoms) Discontinue MIrtazapine; not effective, not helping with insomnia or appetite e ither Continue Trazodone to 100mg qhs for poor sleep Call for refill on Simbrinza (1 drop brinzolamide 1%/brimonidine 0.2% in each eye BID); pt reports he's prescribed glaucoma eyedrops; last script for Simbrinza filled on 09/22 for 3 months supply; creative services writer verified w/ pharmacy continue amlodpine 10mg for htn (home med) Continue aspirin (Home med) signed JOSE and gave verbal permission to discuss case with Patient educated on: diagnosis, medication risk/benefits, ECT, therapeutic strategies and medical condition Informed Consent: understands and further education needed Reason for continued inpatient stay Substantial Risk for: inability to function Time Spent With Patient Time: Total time managing care of this patient today ____ minutes.
[2023-03-18] MEDS: buPROPion HCl XL 150 MG TAB.ER.24H PO (13:11)
[2023-03-18] MEDS: LORazepam 1 MG TABLET PO ×2 (13:11→20:26)
[2023-03-18 18:00] VITALS: BP 121/78; PULSE 92; TEMP 36.2; O2SAT 96
[2023-03-18] MEDS: traZODone HCL 100 MG TABLET PO (20:26)
[2023-03-19 06:00] VITALS: BP 111/72; PULSE 88; RESP 16; TEMP 36.2; O2SAT 97
[2023-03-19] MEDS: LORazepam 1 MG TABLET PO ×4 (09:36→20:57)
[2023-03-19] MEDS: Cholecalciferol (Vitamin D3) 25 MCG TABLET PO (09:37)
[2023-03-19] MEDS: buPROPion HCl XL 150 MG TAB.ER.24H PO (09:37)
[2023-03-19] MEDS: Venlafaxine HCl ER 150 MG CAP.ER.24H PO (09:37)
[2023-03-19] MEDS: Aspirin 81 MG TAB.CHEW PO (09:37)
[2023-03-19] MEDS: amLODIPine Besylate 10 MG TABLET PO (09:37)
--- NOTE | 2023-03-19 10:00 | HO.PSYCHPN ---
Subjective Subjective Date of Service: 03/19/23 Reason For Visit: Depression Interim History: Met with patient; discussed with team pt showered and with combed hair; he says he's feeling better today and that the ativan broke me out of it... Pt says he's even starting to eat. Discussed catatonia and pt agrees that Ativan is helping and agreed to increase it to q.i.d.. Patient said he has renewed Hope. While patient has negative symptoms are improving, he revealed that he has some paranoid thoughts and told technical writer and editor that he has not stupid, he wonders what game the staff is playing and if the staff is purposely causing noises to occur (referencing a motorcycle that zoomed by outside, that a car and then some banging noises in the ceiling) in order to make him think he psychotic... Mosquito Sprayer reassured him that that is not the case and did some reality testing. Patient was unable to engage in reality testing other than to say well I certainly hope it is not true... Mental Status Exam Mental Status Exam Narrative: Pt is alert and oriented; behavior is calm, cooperative and more easily engaging; patient is not in distress; dressed in hospital attire but with combed hair and good hygiene; mood is described as better and affect congruent, brighter; eye contact appropriate; Speech is normal rate, volume and prosody and not pressured; some psychomotor retardation present, but less; improved appetite; thought process goal directed; Thought content is on treatment; also with some paranoid delusional thinking; denies any SI/HI. No AVH. Patients insight and judgment impaired but improving Diagnostics Vital Signs (24Hr): Vital Signs - 24 hr 03/18/23 18:00 03/19/23 06:00 Temperature 97.2 F 97.2 F Pulse Rate 92 88 Respiratory Rate 16 Blood Pressure 121/78 111/72 Pulse Oximetry 96 97 Oxygen Delivery Method Room Air Room Air BMI result Body Mass Index 22.3 Labs 03/06/23 12:03 03/07/23 08:51 Medications Medications Current Medications Acetaminophen (Acetaminophen 325 Mg Tablet) 650 mg PO Q6H PRN PRN Reason: Headache/Pain Mild Scale (1-3) Al Hydroxide/Mg Hydroxide (Magnesium Hydrox/Alum Hydrox 30 Ml Oral.Susp) 30 ml PO Q6H PRN PRN Reason: Heartburn/Nausea Amlodipine Besylate (Amlodipine Besylate 10 Mg Tablet) 10 mg PO DAILY [facility]; Protocol Last Admin: 03/19/23 09:37 Dose: 10 mg Aspirin (Aspirin 81 Mg Tab.Chew) 81 mg PO DAILY [facility] Last Admin: 03/19/23 09:37 Dose: 81 mg Bupropion HCl (Bupropion Hcl Xl 150 Mg Tab.Er.24h) 150 mg PO DAILY [facility] Last Admin: 03/19/23 09:37 Dose: 150 mg Hydroxyzine HCl (Hydroxyzine Hcl 25 Mg Tablet) 25 mg PO Q6H PRN PRN Reason: Anxiety Lorazepam (Lorazepam 1 Mg Tablet) 1 mg PO TID [facility] Last Admin: 03/19/23 09:36 Dose: 1 mg Magnesium Hydroxide (Milk Of Magnesia 30 Ml Oral.Susp) 30 ml PO DAILY PRN PRN Reason: Constipation Melatonin (Melatonin 3 Mg Tablet) 6 mg PO BEDTIME [facility] Last Admin: 03/18/23 22:44 Dose: Not Given Nicotine Polacrilex (Nicotine Polacrilex 2 Mg Gum) 4 mg BUCCAL Q2H PRN PRN Reason: Nicotine Cravings Non-Formulary Medication (Simbrinza) 1 drop EYE-BOTH BID [facility] Trazodone HCl (Trazodone Hcl 50 Mg Tablet) 50 mg PO BEDTIME MRX1 PRN PRN Reason: Insomnia Trazodone HCl (Trazodone Hcl 100 Mg Tablet) 100 mg PO BEDTIME [facility] Last Admin: 03/18/23 20:26 Dose: 100 mg Venlafaxine HCl (Venlafaxine Hcl Er 150 Mg Cap.Er.24h) 150 mg PO DAILY [facility] Last Admin: 03/19/23 09:37 Dose: 150 mg Vitamin D (Cholecalciferol (Vitamin D3) 25 Mcg Tablet) 25 mcg PO DAILY [facility] Last Admin: 03/19/23 09:37 Dose: 25 mcg Allergies Allergies Allergy/AdvReac Type Severity Reaction Status Date / Time lisinopril Allergy Hives Verified 03/06/23 10:50 Assessment & Plan Assessment & Plan (1) MDD (major depressive disorder), recurrent severe, without psychosis: Status: Acute Code(s): F33.2 - Major depressive disorder, recurrent severe without psychotic features Plan pt is a 63 yo male with hx of Depression, HTN, some manic behaviors, who presents for worsening depression. Pt reports first depressive episode was back in 2018 when he was first hospitalized. He was discharged on Lexapro and Haldol (and maybe another med). Per , patient had manic behaviors in weeks/months leading up to 2018 admission, though none since, despite being on only Lexapro for past 4-5 years. -currently very depressed, not eating, significant psychomotor retardation -concern for bipolar disorder Hospital course: 03/08 patient says he is feeling better on current regimen and would like to remain on it; discussed potential for bipolar diagnosis with which patient does not disagree but given the fact that he is feeling better with like to work with current med regimen. Mosquito Sprayer does not disagree for although patient had what sounds like a manic episode in 2018, he is also been able to remain stable and symptom-free on just Lexapro for 4 and half years 03/09 patient remains in slightly better mood and with brighter affect; also slept fairly well last night even though he did not take mirtazapine. Patient wants to try monotherapy and Agrees to increasing venlafaxine. Given patient's continued modest improvement will continue with this plan; bipolar remains a rule out and hopefully patient will not be triggered into manic episode. He has not talked to his since he has been here and is not sure why that is 03/10 still depressed; will continue to titrate effexor but so far not much change 03/11 depressed; reverted back to depression and fleeting idea of some improvement gone; will restart Mirtazapine. Continue to consider mood stabilizer. 03/12 remains very depressed; titrating Effexor 03/13 severely depressed; not attending to ADLs, hardly leaving his bed, not eating any food other than Ensure; feels as though in black hole. At this time patient is not functional and unable to take care for himself in the community. Continue titration of Effexor and likely Mirtazapine 03/14 patient remains depressed; has yet to shower, dress, call his however he did eat a few bites of solid food today which was a 1st time this admission 03/18 Patient remains very depressed and is becoming hopeless as medication management thus far is proving ineffective. 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 Patient is worried about medication management but agrees to change and taper and DC off Effexor since it has shown no efficacy; also he agrees to discontinuing mirtazapine as it is not help with insomnia, appetite or depression. Patient agrees to start Wellbutrin as well as Ativan as there are some catatonic signs. Mosquito Sprayer discussed mood stabilizers both Vraylar, Latuda and lithium; patient is anxious about the side effect profile of these medications however is willing to consider it. Also discussed ECT as a viable option. Mosquito Sprayer agrees that patient was able to stabilize in the past on Haldol and Lexapro and then remains stable on just Lexapro however since increased Lexapro has not helped, Prozac has not help, and now Effexor mirtazapine both proving ineffective, and his depression is severely debilitating, ECT becomes and increasingly important option to consider. -patient ambivalent about restarting medications for glaucoma saying he missed an appointment and is not sure if he is supposed to continue or not. 03/19 with Ativan, patient seems to be improving, eating more, out of his room, showered and combed his hair; he says he feels better. Discussed catatonia and patient agrees to continue and increase Ativan. At this time will focus on Ativan rather than increasing Wellbutrin. Patient revealed some paranoid thinking and asked if staff is playing is purposely causing noises to occur (referencing a motorcycle that zoomed by outside, that a car and then some banging noises in the ceiling) in order to make him think he psychotic... Mosquito Sprayer reassured him that that is not the case and did some reality testing. Patient was unable to engage in reality testing other than to say well I certainly hope it is not true... -rather than a new symptom, it is technical writer and editor's current opinion that this paranoid thinking was probably always present but that patient was too depressed and too encumbered by negative symptoms to expressed his delusional thought Will continue to monitor. -at this time there is no other appropriate setting for patient's treatment as his depression is severe, with psychotic symptoms and catatonia; while the symptoms seem to be abating, this is the 1st day of any improvement and premature to conclude treatment regimen is effective. Will continue to monitor. Hopefully patient will continue to improve; if not will likely move on to mood stabilization and or ECT PLAN: CV q15min -Continue Wellbutrin XL 150 mg daily for depression -Increase to Ativan 1 mg q.i.d.; start of Ativan seems to have lifted patient out of his negative symptoms of depression at least initially demonstrating the catatonic symptoms were very likely present -Taper and DC Effexor; not affective despite therapeutic dose (although therapeutic duration not quite met, one would expect at least some minimal signs of reduction in symptoms) -discussed possible ECT with Dr. Culp who agrees to consult -Discontinue MIrtazapine; not effective, not helping with insomnia or appetite either -Continue Trazodone to 100mg qhs for poor sleep -HOLD Simbrinza (1 drop brinzolamide 1%/brimonidine 0.2% in each eye BID); pt reports he's prescribed glaucoma eyedrops; last script for Simbrinza filled on 09/22 for 3 months supply; technical writer and editor verified w/ pharmacy; -discussed glaucoma treatment with hospitalist GRACIELA Prasad who recommends not restarting glaucoma medications at this time since patient has been off for several weeks; patient does not want to restart at this time but rather hold off on restarting until he can see his instrument mechanic weapons system for puff/pressure test; GRACIELA agrees with patient that this is the best plan and that risks of not restarting are minimal. -continue amlodpine 10mg for htn (home med) -Continue aspirin (Home med) signed JOSE and gave verbal permission to discuss case with Patient educated on: diagnosis, medication risk/benefits and medical condition Informed Consent: understands Reason for continued inpatient stay Substantial Risk for: rapid decompensation Time Spent With Patient Time: Total time managing care of this patient today ____ minutes.
[2023-03-19 17:40] VITALS: BP 118/64; PULSE 68; RESP 16; TEMP 36.8; O2SAT 98
[2023-03-19] MEDS: traZODone HCL 100 MG TABLET PO (20:57)
[2023-03-20] MEDS: Cholecalciferol (Vitamin D3) 25 MCG TABLET PO (09:12)
[2023-03-20] MEDS: Venlafaxine HCl ER 150 MG CAP.ER.24H PO (09:12)
[2023-03-20] MEDS: amLODIPine Besylate 10 MG TABLET PO (09:12)
[2023-03-20] MEDS: Aspirin 81 MG TAB.CHEW PO (09:12)
[2023-03-20] MEDS: LORazepam 1 MG TABLET PO ×4 (09:12→21:25)
[2023-03-20] MEDS: buPROPion HCl XL 150 MG TAB.ER.24H PO (09:13)
--- NOTE | 2023-03-20 09:45 | HO.PSYCHPN ---
Subjective Subjective Date of Service: 03/20/23 Reason For Visit: Depression Interim History: Met with patient; discussed with team Patient reports that his mood remains better and that he is feeling stagnant on the unit. He agrees to increasing Wellbutrin but says he is thinking he would like to go soon and that he is pretty much back to his regular self. Patient said he talked to his last night, a significant step in demonstrating improved mood; he also continues to eat more and is attending to ADLs. Patient said he was asking for tremors to shave his pedroza however none were available, but again this demonstrates improved mood. Hospice Social Worker broached the topic of his paranoid concerns but patient minimized his inquiry and said it is not on his mind right now. Mental Status Exam Mental Status Exam Narrative: Pt is alert and oriented; behavior is calm, cooperative and more easily engaging; patient is not in distress; dressed in hospital attire but with combed hair and good hygiene; mood is described as better and affect congruent, brighter; eye contact appropriate; Speech is normal rate, volume and prosody and not pressured; some psychomotor retardation present, but less; improved appetite; thought process goal directed; Thought content is on treatment; also with some paranoid delusional thinking; denies any SI/HI. No AVH. Patients insight and judgment impaired but improving Diagnostics Vital Signs (24Hr): Vital Signs - 24 hr 03/19/23 17:40 Temperature 98.2 F Pulse Rate 68 Respiratory Rate 16 Blood Pressure 118/64 Pulse Oximetry 98 Oxygen Delivery Method Room Air BMI result Body Mass Index 22.3 Labs 03/06/23 12:03 03/07/23 08:51 Medications Medications Current Medications Acetaminophen (Acetaminophen 325 Mg Tablet) 650 mg PO Q6H PRN PRN Reason: Headache/Pain Mild Scale (1-3) Al Hydroxide/Mg Hydroxide (Magnesium Hydrox/Alum Hydrox 30 Ml Oral.Susp) 30 ml PO Q6H PRN PRN Reason: Heartburn/Nausea Amlodipine Besylate (Amlodipine Besylate 10 Mg Tablet) 10 mg PO DAILY [facility]; Protocol Last Admin: 03/20/23 09:12 Dose: 10 mg Aspirin (Aspirin 81 Mg Tab.Chew) 81 mg PO DAILY [facility] Last Admin: 03/20/23 09:12 Dose: 81 mg Bupropion HCl (Bupropion Hcl Xl 150 Mg Tab.Er.24h) 150 mg PO DAILY [facility] Last Admin: 03/20/23 09:13 Dose: 150 mg Hydroxyzine HCl (Hydroxyzine Hcl 25 Mg Tablet) 25 mg PO Q6H PRN PRN Reason: Anxiety Lorazepam (Lorazepam 1 Mg Tablet) 1 mg PO QID [facility] Last Admin: 03/20/23 09:12 Dose: 1 mg Magnesium Hydroxide (Milk Of Magnesia 30 Ml Oral.Susp) 30 ml PO DAILY PRN PRN Reason: Constipation Melatonin (Melatonin 3 Mg Tablet) 6 mg PO BEDTIME [facility] Last Admin: 03/19/23 20:57 Dose: Not Given Nicotine Polacrilex (Nicotine Polacrilex 2 Mg Gum) 4 mg BUCCAL Q2H PRN PRN Reason: Nicotine Cravings Non-Formulary Medication (Simbrinza) 1 drop EYE-BOTH BID [facility] Trazodone HCl (Trazodone Hcl 50 Mg Tablet) 50 mg PO BEDTIME MRX1 PRN PRN Reason: Insomnia Trazodone HCl (Trazodone Hcl 100 Mg Tablet) 100 mg PO BEDTIME [facility] Last Admin: 03/19/23 20:57 Dose: 100 mg Venlafaxine HCl (Venlafaxine Hcl Er 150 Mg Cap.Er.24h) 150 mg PO DAILY [facility] Last Admin: 03/20/23 09:12 Dose: 150 mg Vitamin D (Cholecalciferol (Vitamin D3) 25 Mcg Tablet) 25 mcg PO DAILY [facility] Last Admin: 03/20/23 09:12 Dose: 25 mcg Allergies Allergies Allergy/AdvReac Type Severity Reaction Status Date / Time lisinopril Allergy Hives Verified 03/06/23 10:50 Assessment & Plan Assessment & Plan (1) MDD (major depressive disorder), recurrent, severe, with psychosis: Status: Acute Code(s): F33.3 - Major depressive disorder, recurrent, severe with psychotic symptoms Plan pt is a 63 yo male with hx of Depression, HTN, some manic behaviors, who presents for worsening depression. Pt reports first depressive episode was back in 2018 when he was first hospitalized. He was discharged on Lexapro and Haldol (and maybe another med). Per , patient had manic behaviors in weeks/months leading up to 2018 admission, though none since, despite being on only Lexapro for past 4-5 years. -currently very depressed, not eating, significant psychomotor retardation -concern for bipolar disorder Hospital course: 03/08 patient says he is feeling better on current regimen and would like to remain on it; discussed potential for bipolar diagnosis with which patient does not disagree but given the fact that he is feeling better with like to work with current med regimen. Hospice Social Worker does not disagree for although patient had what sounds like a manic episode in 2018, he is also been able to remain stable and symptom-free on just Lexapro for 4 and half years 03/09 patient remains in slightly better mood and with brighter affect; also slept fairly well last night even though he did not take mirtazapine. Patient wants to try monotherapy and Agrees to increasing venlafaxine. Given patient's continued modest improvement will continue with this plan; bipolar remains a rule out and hopefully patient will not be triggered into manic episode. He has not talked to his since he has been here and is not sure why that is 03/10 still depressed; will continue to titrate effexor but so far not much change 03/11 depressed; reverted back to depression and fleeting idea of some improvement gone; will restart Mirtazapine. Continue to consider mood stabilizer. 03/12 remains very depressed; titrating Effexor 03/13 severely depressed; not attending to ADLs, hardly leaving his bed, not eating any food other than Ensure; feels as though in black hole. At this time patient is not functional and unable to take care for himself in the community. Continue titration of Effexor and likely Mirtazapine 03/14 patient remains depressed; has yet to shower, dress, call his however he did eat a few bites of solid food today which was a 1st time this admission 03/18 Patient remains very depressed and is becoming hopeless as medication management thus far is proving ineffective. 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 Patient is worried about medication management but agrees to change and taper and DC off Effexor since it has shown no efficacy; also he agrees to discontinuing mirtazapine as it is not help with insomnia, appetite or depression. Patient agrees to start Wellbutrin as well as Ativan as there are some catatonic signs. Hospice Social Worker discussed mood stabilizers both Vraylar, Latuda and lithium; patient is anxious about the side effect profile of these medications however is willing to consider it. Also discussed ECT as a viable option. Hospice Social Worker agrees that patient was able to stabilize in the past on Haldol and Lexapro and then remains stable on just Lexapro however since increased Lexapro has not helped, Prozac has not help, and now Effexor mirtazapine both proving ineffective, and his depression is severely debilitating, ECT becomes and increasingly important option to consider. -patient ambivalent about restarting medications for glaucoma saying he missed an appointment and is not sure if he is supposed to continue or not. 03/19 with Ativan, patient seems to be improving, eating more, out of his room, showered and combed his hair; he says he feels better. Discussed catatonia and patient agrees to continue and increase Ativan. At this time will focus on Ativan rather than increasing Wellbutrin. Patient revealed some paranoid thinking and asked if staff is playing is purposely causing noises to occur (referencing a motorcycle that zoomed by outside, that a car and then some banging noises in the ceiling) in order to make him think he psychotic... Hospice Social Worker reassured him that that is not the case and did some reality testing. Patient was unable to engage in reality testing other than to say well I certainly hope it is not true... -rather than a new symptom, it is physician underwriter's current opinion that this paranoid thinking was probably always present but that patient was too depressed and too encumbered by negative symptoms to expressed his delusional thought Will continue to monitor. 03/20 patient's seem to remain reduced, better mood and attending to ADLs. Does not have insight into his paranoid thinking however says it is not on his mind at this time. Patient is asking about potential discharge, wanting to get back to his life in thinking about all of things that are going undone. Agrees to increasing Wellbutrin but would like to discharge this Saturday. Will continue to monitor; as patient continues to attend ADLs will proceed with discharge planning -at this time there is no other appropriate setting for patient's treatment as his depression is severe, with psychotic symptoms and catatonia; while the symptoms seem to be abating, this is the 1st day of any improvement and premature to conclude treatment regimen is effective. Will continue to monitor. Hopefully patient will continue to improve; if not will likely move on to mood stabilization and or ECT PLAN: CV q15min -INCREASE to Wellbutrin XL 300 mg daily for depression -Increase to Ativan 1 mg q.i.d.; start of Ativan seems to have lifted patient out of his negative symptoms of depression at least initially demonstrating the catatonic symptoms were very likely present -Taper and DC Effexor; not affective despite therapeutic dose (although therapeutic duration not quite met, one would expect at least some minimal signs of reduction in symptoms) -discussed possible ECT with Dr. Culp who agrees to consult -Discontinue MIrtazapine; not effective, not helping with insomnia or appetite either -Continue Trazodone to 100mg qhs for poor sleep -HOLD Simbrinza (1 drop brinzolamide 1%/brimonidine 0.2% in each eye BID); pt reports he's prescribed glaucoma eyedrops; last script for Simbrinza filled on 09/22 for 3 months supply; physician underwriter verified w/ pharmacy; -discussed glaucoma treatment with hospitalist GRACIELA Prasad who recommends not restarting glaucoma medications at this time since patient has been off for several weeks; patient does not want to restart at this time but rather hold off on restarting until he can see his pharmacy resource tech for puff/pressure test; GRACIELA agrees with patient that this is the best plan and that risks of not restarting are minimal. -continue amlodpine 10mg for htn (home med) -Continue aspirin (Home med) signed JOSE and gave verbal permission to discuss case with Patient educated on: diagnosis and medication risk/benefits Informed Consent: understands and further education needed Reason for continued inpatient stay Substantial Risk for: rapid decompensation Time Spent With Patient Time: Total time managing care of this patient today ____ minutes.
[2023-03-20 13:22] VITALS: BP 124/70; PULSE 83; RESP 16; TEMP 36.3; O2SAT 97
[2023-03-20 18:00] VITALS: BP 111/81; PULSE 83; RESP 18; TEMP 36.9; O2SAT 98
[2023-03-20] MEDS: traZODone HCL 100 MG TABLET PO (21:25)
[2023-03-20] MEDS: Melatonin 3 MG TABLET 6 MG PO (21:25)
[2023-03-21] MEDS: LORazepam 1 MG TABLET PO ×4 (08:55→21:55)
[2023-03-21] MEDS: Aspirin 81 MG TAB.CHEW PO (08:56)
[2023-03-21] MEDS: Cholecalciferol (Vitamin D3) 25 MCG TABLET PO (08:56)
[2023-03-21] MEDS: buPROPion HCl XL 300 MG TAB.ER.24H PO (08:56)
[2023-03-21] MEDS: amLODIPine Besylate 10 MG TABLET PO (08:56)
[2023-03-21 09:00] VITALS: BP 112/75; PULSE 96; RESP 16; TEMP 36.6; O2SAT 98
--- NOTE | 2023-03-21 09:36 | P.PNPSI_ITS ---
Subjective Subjective Date of Service: 03/21/23 Reason For Visit: Depression Interim History: Met with patient; discussed with team Patient reports that he is still feeling better. Patient is a little anxious about going home, worrying about whether not he will regress again however he a grees that he has been feeling better for several days now. He is sleeping well, eating much more, attending to ADLs and seems to consistently be improving.. Discussed medication regimen and speech writer agreed that it is possible it will continue to need managing however this is something his outpatient provider can do. Mental Status Exam Mental Status Exam Narrative: Pt is alert and oriented; behavior is calm, cooperative and more easily engaging; patient is not in distress; dressed in hospital attire but with combed hair and good hygiene; mood is described as better and affect congruent, brighter; eye contact appropriate; Speech is normal rate, volume and prosody and not pressured; some psychomotor retardation present, but less; improved appetite; thought process goal directed; Thought content is on treatment; no delusional thinking; denies any SI/HI. No AVH. Patients insight and judgment fair Diagnostics Vital Signs (24Hr): Vital Signs - 24 hr 03/20/23 13:22 03/20/23 18:00 Temperature 97.3 F 98.4 F Pulse Rate 83 83 Respiratory Rate 16 18 Blood Pressure 124/70 111/81 Pulse Oximetry 97 98 Oxygen Delivery Method Room Air Room Air BMI result Body Mass Index 22.3 Labs 03/06/23 12:03 03/07/23 08:51 Medications Medications Current Medications Acetaminophen (Acetaminophen 325 Mg Tablet) 650 mg PO Q6H PRN PRN Reason: Headache/Pain Mild Scale (1-3) Al Hydroxide/Mg Hydroxide (Magnesium Hydrox/Alum Hydrox 30 Ml Oral.Susp) 30 ml PO Q6H PRN PRN Reason: Heartburn/Nausea Amlodipine Besylate (Amlodipine Besylate 10 Mg Tablet) 10 mg PO DAILY [facility]; Protocol Last Admin: 03/21/23 08:56 Dose: 10 mg Aspirin (Aspirin 81 Mg Tab.Chew) 81 mg PO DAILY [facility] Last Admin: 03/21/23 08:56 Dose: 81 mg Bupropion HCl (Bupropion Hcl Xl 300 Mg Tab.Er.24h) 300 mg PO DAILY [facility] Last Admin: 03/21/23 08:56 Dose: 300 mg Hydroxyzine HCl (Hydroxyzine Hcl 25 Mg Tablet) 25 mg PO Q6H PRN PRN Reason: Anxiety Lorazepam (Lorazepam 1 Mg Tablet) 1 mg PO QID [facility] Last Admin: 03/21/23 08:55 Dose: 1 mg Magnesium Hydroxide (Milk Of Magnesia 30 Ml Oral.Susp) 30 ml PO DAILY PRN PRN Reason: Constipation Melatonin (Melatonin 3 Mg Tablet) 6 mg PO BEDTIME [facility] Last Admin: 03/20/23 21:25 Dose: 6 mg Nicotine Polacrilex (Nicotine Polacrilex 2 Mg Gum) 4 mg BUCCAL Q2H PRN PRN Reason: Nicotine Cravings Trazodone HCl (Trazodone Hcl 50 Mg Tablet) 50 mg PO BEDTIME MRX1 PRN PRN Reason: Insomnia Trazodone HCl (Trazodone Hcl 100 Mg Tablet) 100 mg PO BEDTIME [facility] Last Admin: 03/20/23 21:25 Dose: 100 mg Venlafaxine HCl (Venlafaxine Hcl Er 75 Mg Cap.Er.24h) 75 mg PO DAILY [facility] Vitamin D (Cholecalciferol (Vitamin D3) 25 Mcg Tablet) 25 mcg PO DAILY [facility] Last Admin: 03/21/23 08:56 Dose: 25 mcg Allergies Allergies Allergy/AdvReac Type Severity Reaction Status Date / Time lisinopril Allergy Hives Verified 03/06/23 10:50 Assessment & Plan Assessment & Plan (1) MDD (major depressive disorder), recurrent, severe, with psychosis: Status: Acute Code(s): F33.3 - Major depressive disorder, recurrent, severe with psychotic symptoms Plan pt is a 63 yo male with hx of Depression, HTN, some manic behaviors, who presents for worsening depression. Pt reports first depressive episode was back in 2018 when he was first hospitalized. He was discharged on Lexapro and Haldol (and maybe another med). Per , patient had manic behaviors in weeks/months leading up to 2018 admission, though none since, despite being on only Lexapro for past 4-5 years. -currently very depressed, not eating, significant psychomotor retardation -concern for bipolar disorder Hospital course: 03/08 patient says he is feeling better on current regimen and would like to remain on it; discussed potential for bipolar diagnosis with which patient does not disagree but given the fact that he is feeling better with like to work with current med regimen. Hvac Field Service Technician does not disagree for although patient had what sounds like a manic episode in 2018, he is also been able to remain stable and symptom-free on just Lexapro for 4 and half years 03/09 patient remains in slightly better mood and with brighter affect; also slept fairly well last night even though he did not take mirtazapine. Patient wants to try monotherapy and Agrees to increasing venlafaxine. Given patient's continued modest improvement will continue with this plan; bipolar remains a rule out and hopefully patient will not be triggered into manic episode. He has not talked to his since he has been here and is not sure why that is 03/10 still depressed; will continue to titrate effexor but so far not much change 03/11 depressed; reverted back to depression and fleeting idea of some improvement gone; will restart Mirtazapine. Continue to consider mood stabi lizer. 03/12 remains very depressed; titrating Effexor 03/13 severely depressed; not attending to ADLs, hardly leaving his bed, not eating any food other than Ensure; feels as though in black hole. At this time patient is not functional and unable to take care for himself in the community. Continue titration of Effexor and likely Mirtazapine 03/14 patient remains depressed; has yet to shower, dress, call his however he did eat a few bites of solid food today which was a 1st time this admission 03/18 Patient remains very depressed and is becoming hopeless as medication management thus far is proving ineffective. 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 Patient is worried about medication management but agrees to change and taper and DC off Effexor since it has shown no efficacy; also he agrees to discontinuing mirtazapine as it is not help with insomnia, appetite or depression. Patient agrees to start Wellbutrin as well as Ativan as there are some catatonic signs. Hvac Field Service Technician discussed mood stabilizers both Vraylar, Latuda and lithium; patient is anxious about the side effect profile of these medications however is willing to consider it. Also discussed ECT as a viable option. Hvac Field Service Technician agrees that patient was able to stabilize in the past on Haldol and Lexapro and then remains stable on just Lexapro however since increased Lexapro has not helped, Prozac has not help, and now Effexor mirtazapine both proving ineffective, and his depression is severely debilitating, ECT becomes and increasingly important option to consider. -patient ambivalent about restarting medications for glaucoma saying he missed an appointment and is not sure if he is supposed to continue or not. 03/19 with Ativan, patient seems to be improving, eating more, out of his room, showered and combed his hair; he says he feels better. Discussed catatonia and patient agrees to continue and increase Ativan. At this time will focus on Ativan rather than increasing Wellbutrin. Patient revealed some paranoid thinking and asked if staff is playing is purposely causing noises to occur (referencing a motorcycle that zoomed by outside, that a car and then some banging noises in the ceiling) in order to make him think he psychotic... Hvac Field Service Technician reassured him that that is not the case and did some reality testing. Patient was unable to engage in reality testing other than to say well I certainly hope it is not true... -rather than a new symptom, it is speech writer's current opinion that this paranoid thinking was probably always present but that patient was too depressed and too encumbered by negative symptoms to expressed his delusional thought Will continue to monitor. 03/20 patient's seem to remain reduced, better mood and attending to ADLs. Does not have insight into his paranoid thinking however says it is not on his mind at this time. Patient is asking about potential discharge, wanting to get back to his life in thinking about all of things that are going undone. Agrees to increasing Wellbutrin but would like to discharge this Saturday. Will continue to monitor; as patient continues to attend ADLs will proceed with discharge planning -at this time there is no other appropriate setting for patient's treatment as his depression is severe, with psychotic symptoms and catatonia; while the symptoms seem to be abating, this is the 1st day of any improvement and premature to conclude treatment regimen is effective. Will continue to monitor. Hopefully patient will continue to improve; if not will likely move on to mood stabilization and or ECT 03/21 patient remains with improved mood and overall feeling better; he is attending to ADLs, sleeping well, eating and talking spontaneously. No paranoid thinking expressed. Medications seem to be helping. Reviewed medication management including Ativan which patient agrees to continue for while and then taper; patient agrees that his outpatient provider can continue with medication management as needed. Patient is not in imminent risk for harm to self or others and appropriate to continue treatment in the community. PLAN: CV q15min Continue Wellbutrin XL 300 mg daily for depression -Increase to Ativan 1 mg q.i.d.; start of Ativan seems to have lifted patient o ut of his negative symptoms of depression at least initially demonstrating the catatonic symptoms were very likely present -Taper and DC Effexor; not affective despite therapeutic dose (although thera peutic duration not quite met, one would expect at least some minimal signs of reduction in symptoms) -discussed possible ECT with Dr. Culp who agrees to consult -Discontinue MIrtazapine; not effective, not helping with insomnia or appetite either -Continue Trazodone to 100mg qhs for poor sleep -HOLD Simbrinza (1 drop brinzolamide 1%/brimonidine 0.2% in each eye BID); pt reports he's prescribed glaucoma eyedrops; last script for Simbrinza filled on 09/22 for 3 months supply; speech writer verified w/ pharmacy; -discussed glaucoma treatment with hospitalist GRACIELA Prasad who recommends not restarting glaucoma medications at this time since patient has been off for several weeks; patient does not want to restart at this time but rather hold off on restarting until he can see his mallet cutter for puff/pressure test; GRACIELA agrees with patient that this is the best plan and that risks of not restarting are minimal. -continue amlodpine 10mg for htn (home med) -Continue aspirin (Home med) signed JOSE and gave verbal permission to discuss case with Patient educated on: diagnosis and medication risk/benefits Informed Consent: understands Reason for continued inpatient stay Substantial Risk for: stable for discharge Time Spent With Patient Time: Total time managing care of this patient today ____ minutes.
[2023-03-21] MEDS: Venlafaxine HCl ER 75 MG CAP.ER.24H PO (10:49)
[2023-03-21 21:35] VITALS: BP 92/52; PULSE 81; TEMP 35.9; O2SAT 91
[2023-03-21] MEDS: traZODone HCL 100 MG TABLET PO (21:55)
[2023-03-22 08:18] VITALS: BP 118/69; PULSE 86; RESP 16; TEMP 36.7; O2SAT 98
[2023-03-22] MEDS: buPROPion HCl XL 300 MG TAB.ER.24H PO (08:19)
[2023-03-22] MEDS: Aspirin 81 MG TAB.CHEW PO (08:19)
[2023-03-22] MEDS: amLODIPine Besylate 10 MG TABLET PO (08:19)
[2023-03-22] MEDS: Venlafaxine HCl ER 37.5 MG CAP.ER.24H PO (08:20)
[2023-03-22] MEDS: LORazepam 1 MG TABLET PO ×4 (08:20→19:50)
[2023-03-22] MEDS: Cholecalciferol (Vitamin D3) 25 MCG TABLET PO (08:20)
--- NOTE | 2023-03-22 09:23 | P.PNPSI_ITS ---
Subjective Subjective Date of Service: 03/22/23 Reason For Visit: Depression Subjective Notes: Conditional Voluntary Interim History: Pt reports overall improvement in mood, sleep, and appetite. However, reports, today don't feel well. He denies SI/HI. It appears pt has been recommended to continue outpatient psychiatric treatment. No signs of aggression towards self or others. Medication Compliance: Yes Review of Systems Review of Systems Yes all other systems are reviewed and are negative Mental Status Exam Mental Status Exam Narrative: Pt is alert and oriented; behavior is calm, cooperative and more easily engaging; patient is not in distress; dressed in hospital attire but with combed hair and good hygiene; mood is described as better and affect congruent, brighter; eye contact appropriate; Speech is normal rate, volume and prosody and not pressured; some psychomotor retardation present, but less; improved appetite; thought process goal directed; Thought content is on treatment; no delusional thinking; denies any SI/HI. No AVH. Patients insight and judgment fair Diagnostics Vital Signs (24Hr): Vital Signs - 24 hr 03/21/23 21:35 03/22/23 08:18 Temperature 96.6 F L 98.1 F Pulse Rate 81 86 Respiratory Rate 16 Blood Pressure 92/52 L 118/69 Pulse Oximetry 91 L 98 Oxygen Delivery Method Room Air Room Air BMI result Body Mass Index 22.3 Labs 03/06/23 12:03 03/07/23 08:51 Medications Medications Current Medications Acetaminophen (Acetaminophen 325 Mg Tablet) 650 mg PO Q6H PRN PRN Reason: Headache/Pain Mild Scale (1-3) Al Hydroxide/Mg Hydroxide (Magnesium Hydrox/Alum Hydrox 30 Ml Oral.Susp) 30 ml PO Q6H PRN PRN Reason: Heartburn/Nausea Amlodipine Besylate (Amlodipine Besylate 10 Mg Tablet) 10 mg PO DAILY [facility]; Protocol Last Admin: 03/22/23 08:19 Dose: 10 mg Aspirin (Aspirin 81 Mg Tab.Chew) 81 mg PO DAILY [facility] Last Admin: 03/22/23 08:19 Dose: 81 mg Bupropion HCl (Bupropion Hcl Xl 300 Mg Tab.Er.24h) 300 mg PO DAILY [facility] Last Admin: 03/22/23 08:19 Dose: 300 mg Hydroxyzine HCl (Hydroxyzine Hcl 25 Mg Tablet) 25 mg PO Q6H PRN PRN Reason: Anxiety Lorazepam (Lorazepam 1 Mg Tablet) 1 mg PO QID [facility] Last Admin: 03/22/23 08:20 Dose: 1 mg Magnesium Hydroxide (Milk Of Magnesia 30 Ml Oral.Susp) 30 ml PO DAILY PRN PRN Reason: Constipation Melatonin (Melatonin 3 Mg Tablet) 6 mg PO BEDTIME [facility] Last Admin: 03/21/23 22:01 Dose: Not Given Nicotine Polacrilex (Nicotine Polacrilex 2 Mg Gum) 4 mg BUCCAL Q2H PRN PRN Reason: Nicotine Cravings Trazodone HCl (Trazodone Hcl 50 Mg Tablet) 50 mg PO BEDTIME MRX1 PRN PRN Reason: Insomnia Trazodone HCl (Trazodone Hcl 100 Mg Tablet) 100 mg PO BEDTIME [facility] Last Admin: 03/21/23 21:55 Dose: 100 mg Venlafaxine HCl (Venlafaxine Hcl Er 37.5 Mg Cap.Er.24h) 37.5 mg PO DAILY [facility] Last Admin: 03/22/23 08:20 Dose: 37.5 mg Vitamin D (Cholecalciferol (Vitamin D3) 25 Mcg Tablet) 25 mcg PO DAILY [facility] Last Admin: 03/22/23 08:20 Dose: 25 mcg Allergies Allergies Allergy/AdvReac Type Severity Reaction Status Date / Time lisinopril Allergy Hives Verified 03/06/23 10:50 Assessment & Plan Assessment & Plan (1) MDD (major depressive disorder), recurrent, severe, with psychosis: Status: Acute Code(s): F33.3 - Major depressive disorder, recurrent, severe with psychotic symptoms Plan pt is a 63 yo male with hx of Depression, HTN, some manic behaviors, who presents for worsening depression. Pt reports first depressive episode was back in 2018 when he was first hospitalized. He was discharged on Lexapro and Haldol (and maybe another med). Per , patient had manic behaviors in weeks/months leading up to 2018 admission, though none since, despite being on only Lexapro for past 4-5 years. -currently very depressed, not eating, significant psychomotor retardation -concern for bipolar disorder Hospital course: 03/08 patient says he is feeling better on current regimen and would like to remain on it; discussed potential for bipolar diagnosis with which patient does not disagree but given the fact that he is feeling better with like to work with current med regimen. Surtass Analyst does not disagree for although patient had what sounds like a manic episode in 2018, he is also been able to remain stable and symptom-free on just Lexapro for 4 and half years 03/09 patient remains in slightly better mood and with brighter affect; also slept fairly well last night even though he did not take mirtazapine. Patient wants to try monotherapy and Agrees to increasing venlafaxine. Given patient's continued modest improvement will continue with this plan; bipolar remains a rule out and hopefully patient will not be triggered into manic episode. He has not talked to his since he has been here and is not sure why that is 03/10 still depressed; will continue to titrate effexor but so far not much coto ge 03/11 depressed; reverted back to depression and fleeting idea of some improvement gone; will restart Mirtazapine. Continue to consider mood stabilizer. 03/12 remains very depressed; titrating Effexor 03/13 severely depressed; not attending to ADLs, hardly leaving his bed, not eating any food other than Ensure; feels as though in black hole. At this time patient is not functional and unable to take care for himself in the community. Continue titration of Effexor and likely Mirtazapine 03/14 patient remains depressed; has yet to shower, dress, call his however he did eat a few bites of solid food today which was a 1st time this admission 03/18 Patient remains very depressed and is becoming hopeless as medication management thus far is proving ineffective. 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 Patient is worried about medication management but agrees to change and taper and DC off Effexor since it has shown no efficacy; also he agrees to discontinuing mirtazapine as it is not help with insomnia, appetite or depression. Patient agrees to start Wellbutrin as well as Ativan as there are some catatonic signs. Surtass Analyst discussed mood stabilizers both Vraylar, Latuda and lithium; patient is anxious about the side effect profile of these medicat ions however is willing to consider it. Also discussed ECT as a viable option. Surtass Analyst agrees that patient was able to stabilize in the past on Haldol and Lexapro and then remains stable on just Lexapro however since increased Lexapro has not helped, Prozac has not help, and now Effexor mirtazapine both proving ineffective, and his depression is severely debilitating, ECT becomes and increasingly important option to consider. -patient ambivalent about restarting medications for glaucoma saying he missed an appointment and is not sure if he is supposed to continue or not. 03/19 with Ativan, patient seems to be improving, eating more, out of his room, showered and combed his hair; he says he feels better. Discussed catatonia and patient agrees to continue and increase Ativan. At this time will focus on Ativan rather than increasing Wellbutrin. Patient revealed some paranoid thinking and asked if staff is playing is purposely causing noises to occur (referencing a motorcycle that zoomed by outside, that a car and then some banging noises in the ceiling) in order to make him think he psychotic... Surtass Analyst reassured him that that is not the case and did some reality testing. Patient was unable to engage in reality testing other than to say well I certainly hope it is not true... -rather than a new symptom, it is communications writer's current opinion that this paranoid thinking was probably always present but that patient was too depressed and too encumbered by negative symptoms to expressed his delusional thought Will continue to monitor. 03/20 patient's seem to remain reduced, better mood and attending to ADLs. Does not have insight into his paranoid thinking however says it is not on his mind at this time. Patient is asking about potential discharge, wanting to get back to his life in thinking about all of things that are going undone. Agrees to increasing Wellbutrin but would like to discharge this Saturday. Will continue to monitor; as patient continues to attend ADLs will proceed with discharge planning -at this time there is no other appropriate setting for patient's treatment as his depression is severe, with psychotic symptoms and catatonia; while the symptoms seem to be abating, this is the 1st day of any improvement and premature to conclude treatment regimen is effective. Will continue to monitor. Hopefully patient will continue to improve; if not will likely move on to mood stabilization and or ECT 03/21 patient remains with improved mood and overall feeling better; he is attending to ADLs, sleeping well, eating and talking spontaneously. No paranoid thinking expressed. Medications seem to be helping. Reviewed medication management including Ativan which patient agrees to continue for while and then taper; patient agrees that his outpatient provider can continue with medication management as needed. Patient is not in imminent risk for harm to self or others and appropriate to continue treatment in the community. 03/22 stable with plan to dc today. PLAN: CV q15min Continue Wellbutrin XL 300 mg daily for depression -Increase to Ativan 1 mg q.i.d.; start of Ativan seems to have lifted patient out of his negative symptoms of depression at least initially demonstrating the catatonic symptoms were very likely present -Taper and DC Effexor; not affective despite therapeutic dose (although therapeutic duration not quite met, one would expect at least some minimal signs of reduction in symptoms) -discussed possible ECT with Dr. Culp who agrees to consult -Discontinue MIrtazapine; not effective, not helping with insomnia or appetite either -Continue Trazodone to 100mg qhs for poor sleep -HOLD Simbrinza (1 drop brinzolamide 1%/brimonidine 0.2% in each eye BID); pt reports he's prescribed glaucoma eyedrops; last script for Simbrinza filled on 09/22 for 3 months supply; communications writer verified w/ pharmacy; -discussed glaucoma treatment with hospitalist GRACIELA Prasad who recommends not restarting glaucoma medications at this time since patient has been off for several weeks; patient does not want to restart at this time but rather hold off on restarting until he can 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 -continue amlodpine 10mg for htn (home med) -Continue aspirin (Home med) signed JOSE and gave verbal permission to discuss case with Reason for continued inpatient stay Substantial Risk for: stable for discharge Time Spent With Patient Time: Total time managing care of this patient today ____ minutes.
--- NOTE | 2023-03-22 11:32 | PM.PSYDC ---
DS: Providers Provider Date of Service: 03/22/23 Date of admission: 03/06/23 22:42 Date of discharge: 03/22/23 Primary care physician: Curtis Cristina MD Attending physician on admission: Milad Del Castillo Consults: 03/19/23 10:30 Consult to Hospitalist Routine Comment: pt missed opth exam; not sure cont eye drops Consulting Provider: Hospitalist Reason For Exam: curbside? [place] tx *see comment) Attending physician on discharge: Milad Del Castillo DS: Diagnosis Discharge Diagnosis (1) MDD (major depressive disorder), recurrent, severe, with psychosis: Status: Acute (2) Catatonia: Status: Resolved DS: Medications Discharge Medications Home Medications: Home Medications Medication Instructions Recorded Confirmed amlodipine 10 mg tablet 10 mg PO DAILY 03/07/23 03/07/23 aspirin 81 mg tablet 81 mg PO DAILY 03/07/23 03/07/23 cholecalciferol (vitamin D3) 25 25 mcg PO DAILY 03/07/23 03/07/23 mcg (1,000 unit) tablet Previous Rx's Medication Instructions Recorded bupropion HCl 300 mg 24 hr tablet, 300 mg PO DAILY 30 days #30 tabs 03/21/23 extended release lorazepam 1 mg tablet See Rx Instructions .Route 03/21/23 .COMPLEX 30 days #74 tabs melatonin 3 mg tablet 6 mg PO BEDTIME PRN sleep 30 days 03/21/23 #60 tabs trazodone 100 mg tablet 100 mg PO BEDTIME 30 days #30 tabs 03/21/23 Mental Status Exam Mental Status Exam Narrative: Pt is alert and oriented; behavior is calm, cooperative and more easily engaging; patient is not in distress; dressed in hospital attire but with combed hair and good hygiene; mood is described as better and affect congruent, brighter; eye contact appropriate; Speech is normal rate, volume and prosody and not pressured; some psychomotor retardation present, but less; improved appetite; thought process goal directed; Thought content is on treatment; no delusional thinking; denies any SI/HI. No AVH. Patients insight and judgment fair DS: Summary Hospital Course Hospital Course: called and left message with outpt provider regarding dx, med treatment and plan Time Spent with Patient Time attestation: Total time managing care of this patient today ____ minutes. Discharge Plan Discharge Anticipated Discharge Date/Time: 03/22/23 18:00 Patient Disposition: Home, Self-Care Discharge Diagnosis: mdd, recurrent, severe with psychotic features, in partial remission; mild symptoms of catatonia, resolved Referrals: [facility]: Sarika Swenson (Psychiatry) [Other] - 03/28/23 9:00 am (Follow-up discharge appointment with outpatient psychiatrist Appointment is in person at [facility] Curtis Cristina MD [Primary Care Provider] - 2 Weeks (OFFICE WILL CALL PATIENT WITH FOLLOW-UP APPOINTMENT) Discharge Medications: New bupropion HCl 300 mg Tablet Extended Release 24 Hr 300 mg PO DAILY 30 Days Qty: 30 0RF trazodone 100 mg Tablet 100 mg PO BEDTIME 30 Days Qty: 30 0RF melatonin 3 mg tablet 6 mg PO BEDTIME PRN (Reason: sleep) 30 Days Qty: 60 0RF lorazepam 1 mg Tablet See Rx Instructions .ROUTE .COMPLEX 30 Days Qty: 74 0RF Rx Instructions: TAPER: take 1 tab 3x a day for 2 weeks, then take 1 tab 2x a day Continued amlodipine 10 mg Tablet 10 mg PO DAILY aspirin 81 mg Tablet 81 mg PO DAILY cholecalciferol (vitamin D3) 25 mcg (1,000 unit) tablet 25 mcg PO DAILY Discontinued venlafaxine 75 mg Tablet 75 mg PO DAILY mirtazapine 7.5 mg tablet 7.5 mg PO BEDTIME Discharge Orders: Discharge Order (Routine); Ordered 03/22/23 Ordered By: Milad Del Castillo Diet: Regular diet Activity on Discharge: As tolerated Stand Alone Forms: Patient Portal Discharge page, Community Support Care Plan Goals: Maintain mood and safe behaviors Take medications as prescribed Practice coping skills Continue with outpatient providers and reach out to them as needed Health Concerns: Mood stability and behaviors Glaucoma Hyptertension Plan of Treatment: Follow up with your PCP, psychiatric provider and other outpatient providers regarding above concerns Take medications as prescribed Assessment: Risk assessment at time of discharge:? Patient was interviewed prior to discharge and found to be fully oriented and without any SI or HI. Patient has insight and demonstrates good judgment in terms of wanting to pursue treatment. Patient is not in imminent risk of harm to self or others and has a safety plan that includes presenting to the closest ER or calling 911 if feeling unsafe.? Patient has been observed closely by nursing and unit staff throughout admission; patient has not engaged in any behaviors that suggest dangerousness to self or others and has demonstrated appropriate behaviors and impulse control
[2023-03-22 18:40] VITALS: BP 101/60; PULSE 86
[2023-03-22] MEDS: traZODone HCL 100 MG TABLET PO (19:50)
[2023-03-22] MEDS: Melatonin 3 MG TABLET 6 MG PO (19:50)
[2023-03-23] MEDS: LORazepam 1 MG TABLET PO ×4 (09:06→21:25)
[2023-03-23] MEDS: Venlafaxine HCl ER 37.5 MG CAP.ER.24H PO (09:06)
[2023-03-23] MEDS: Aspirin 81 MG TAB.CHEW PO (09:06)
[2023-03-23] MEDS: buPROPion HCl XL 300 MG TAB.ER.24H PO (09:06)
[2023-03-23] MEDS: amLODIPine Besylate 10 MG TABLET PO (09:06)
[2023-03-23] MEDS: Cholecalciferol (Vitamin D3) 25 MCG TABLET PO (09:06)
[2023-03-23 09:16] VITALS: BP 113/60; PULSE 83; RESP 18; TEMP 36.5; O2SAT 99
--- NOTE | 2023-03-23 11:20 | HO.PSYCHPN ---
Subjective Subjective Date of Service: 03/23/23 Reason For Visit: Depression Subjective Notes: Conditional Voluntary Healthcare Proxy: No Guardianship: No Medical Problems Affecting Mental Status: No Interim History: Patient was seen and discussed in rounds today. Records and plans were reviewed. He continues to be mostly isolative but states that he is doing better he is anxious about discharge. No SI. No AVH. Eating and sleeping adequately. No complaints or side effects. No changes were made today Medication Compliance: Yes Side effects from medications: No Attending Groups: Yes Review of Systems Review of Systems Yes all other systems are reviewed and are negative Mental Status Exam Mental Status Exam Narrative: In today's visit he is alert, oriented and pleasant. Normal speech. Moderate eye contact. Affect is appropriate and constricted. No signs of psychosis. No SI. Cognitively intact. Judgment is intact Diagnostics Vital Signs (24Hr): Vital Signs - 24 hr 03/22/23 18:40 03/23/23 09:16 Temperature 97.7 F Pulse Rate 86 83 Respiratory Rate 18 Blood Pressure 101/60 113/60 Pulse Oximetry 99 Oxygen Delivery Method Room Air BMI result Body Mass Index 22.3 Labs 03/06/23 12:03 03/07/23 08:51 Medications Medications Current Medications Acetaminophen (Acetaminophen 325 Mg Tablet) 650 mg PO Q6H PRN PRN Reason: Headache/Pain Mild Scale (1-3) Al Hydroxide/Mg Hydroxide (Magnesium Hydrox/Alum Hydrox 30 Ml Oral.Susp) 30 ml PO Q6H PRN PRN Reason: Heartburn/Nausea Amlodipine Besylate (Amlodipine Besylate 10 Mg Tablet) 10 mg PO DAILY [facility]; Protocol Last Admin: 03/23/23 09:06 Dose: 10 mg Aspirin (Aspirin 81 Mg Tab.Chew) 81 mg PO DAILY [facility] Last Admin: 03/23/23 09:06 Dose: 81 mg Bupropion HCl (Bupropion Hcl Xl 300 Mg Tab.Er.24h) 300 mg PO DAILY [facility] Last Admin: 03/23/23 09:06 Dose: 300 mg Hydroxyzine HCl (Hydroxyzine Hcl 25 Mg Tablet) 25 mg PO Q6H PRN PRN Reason: Anxiety Lorazepam (Lorazepam 1 Mg Tablet) 1 mg PO QID [facility] Last Admin: 03/23/23 09:06 Dose: 1 mg Magnesium Hydroxide (Milk Of Magnesia 30 Ml Oral.Susp) 30 ml PO DAILY PRN PRN Reason: Constipation Melatonin (Melatonin 3 Mg Tablet) 6 mg PO BEDTIME [facility] Last Admin: 03/22/23 19:50 Dose: 6 mg Nicotine Polacrilex (Nicotine Polacrilex 2 Mg Gum) 4 mg BUCCAL Q2H PRN PRN Reason: Nicotine Cravings Trazodone HCl (Trazodone Hcl 50 Mg Tablet) 50 mg PO BEDTIME MRX1 PRN PRN Reason: Insomnia Trazodone HCl (Trazodone Hcl 100 Mg Tablet) 100 mg PO BEDTIME [facility] Last Admin: 03/22/23 19:50 Dose: 100 mg Venlafaxine HCl (Venlafaxine Hcl Er 37.5 Mg Cap.Er.24h) 37.5 mg PO DAILY [facility] Last Admin: 03/23/23 09:06 Dose: 37.5 mg Vitamin D (Cholecalciferol (Vitamin D3) 25 Mcg Tablet) 25 mcg PO DAILY [facility] Last Admin: 03/23/23 09:06 Dose: 25 mcg Allergies Allergies Allergy/AdvReac Type Severity Reaction Status Date / Time lisinopril Allergy Hives Verified 03/06/23 10:50 Assessment & Plan Assessment & Plan (1) MDD (major depressive disorder), recurrent, severe, with psychosis: Status: Acute Code(s): F33.3 - Major depressive disorder, recurrent, severe with psychotic symptoms (2) Catatonia: Status: Resolved Code(s): F06.1 - Catatonic disorder due to known physiological condition Plan pt is a 63 yo male with hx of Depression, HTN, some manic behaviors, who presents for worsening depression. Pt reports first depressive episode was back in 2018 when he was first hospitalized. He was discharged on Lexapro and Haldol (and maybe another med). Per , patient had manic behaviors in weeks/months leading up to 2018 admission, though none since, despite being on only Lexapro for past 4-5 years. -currently very depressed, not eating, significant psychomotor retardation -concern for bipolar disorder Hospital course: 03/08 patient says he is feeling better on current regimen and would like to remain on it; discussed potential for bipolar diagnosis with which patient does not disagree but given the fact that he is feeling better with like to work with current med regimen. Trash Truck Driver does not disagree for although patient had what sounds like a manic episode in 2018, he is also been able to remain stable and symptom-free on just Lexapro for 4 and half years 03/09 patient remains in slightly better mood and with brighter affect; also slept fairly well last night even though he did not take mirtazapine. Patient wants to try monotherapy and Agrees to increasing venlafaxine. Given patient's continued modest improvement will continue with this plan; bipolar remains a rule out and hopefully patient will not be triggered into manic episode. He has not talked to his since he has been here and is not sure why that is 03/10 still depressed; will continue to titrate effexor but so far not much change 03/11 depressed; reverted back to depression and fleeting idea of some improvement gone; will restart Mirtazapine. Continue to consider mood stabilizer. 03/12 remains very depressed; titrating Effexor 03/13 severely depressed; not attending to ADLs, hardly leaving his bed, not eating any food other than Ensure; feels as though in black hole. At this time patient is not functional and unable to take care for himself in the community. Continue titration of Effexor and likely Mirtazapine 03/14 patient remains depressed; has yet to shower, dress, call his however he did eat a few bites of solid food today which was a 1st time this admission 03/18 Patient remains very depressed and is becoming hopeless as medication management thus far is proving ineffective. 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 Patient is worried about medication management but agrees to change and taper and DC off Effexor since it has shown no efficacy; also he agrees to discontinuing mirtazapine as it is not help with insomnia, appetite or depression. Patient agrees to start Wellbutrin as well as Ativan as there are some catatonic signs. Trash Truck Driver discussed mood stabilizers both Vraylar, Latuda and lithium; patient is anxious about the side effect profile of these medications however is willing to consider it. Also discussed ECT as a viable option. Trash Truck Driver agrees that patient was able to stabilize in the past on Haldol and Lexapro and then remains stable on just Lexapro however since increased Lexapro has not helped, Prozac has not help, and now Effexor mirtazapine both proving ineffective, and his depression is severely debilitating, ECT becomes and increasingly important option to consider. -patient ambivalent about restarting medications for glaucoma saying he missed an appointment and is not sure if he is supposed to continue or not. 03/19 with Ativan, patient seems to be improving, eating more, out of his room, showered and combed his hair; he says he feels better. Discussed catatonia and patient agrees to continue and increase Ativan. At this time will focus on Ativan rather than increasing Wellbutrin. Patient revealed some paranoid thinking and asked if staff is playing is purposely causing noises to occur (referencing a motorcycle that zoomed by outside, that a car and then some banging noises in the ceiling) in order to make him think he psychotic... Trash Truck Driver reassured him that that is not the case and did some reality testing. Patient was unable to engage in reality testing other than to say well I certainly hope it is not true... -rather than a new symptom, it is mortgage underwriter's current opinion that this paranoid thinking was probably always present but that patient was too depressed and too encumbered by negative symptoms to expressed his delusional thought Will continue to monitor. 03/20 patient's seem to remain reduced, better mood and attending to ADLs. Does not have insight into his paranoid thinking however says it is not on his mind at this time. Patient is asking about potential discharge, wanting to get back to his life in thinking about all of things that are going undone. Agrees to increasing Wellbutrin but would like to discharge this Saturday. Will continue to monitor; as patient continues to attend ADLs will proceed with discharge planning -at this time there is no other appropriate setting for patient's treatment as his depression is severe, with psychotic symptoms and catatonia; while the symptoms seem to be abating, this is the 1st day of any improvement and premature to conclude treatment regimen is effective. Will continue to monitor. Hopefully patient will continue to improve; if not will likely move on to mood stabilization and or ECT 03/21 patient remains with improved mood and overall feeling better; he is attending to ADLs, sleeping well, eating and talking spontaneously. No paranoid thinking expressed. Medications seem to be helping. Reviewed medication management including Ativan which patient agrees to continue for while and then taper; patient agrees that his outpatient provider can continue with medication management as needed. Patient is not in imminent risk for harm to self or others and appropriate to continue treatment in the community. 03/22 stable with plan to dc today. 03/23: Continue current regimen and plans. PLAN: CV q15min Continue Wellbutrin XL 300 mg daily for depression -Increase to Ativan 1 mg q.i.d.; start of Ativan seems to have lifted patient out of his negative symptoms of depression at least initially demonstrating the catatonic symptoms were very likely present -Taper and DC Effexor; not affective despite therapeutic dose (although therapeutic duration not quite met, one would expect at least some minimal signs of reduction in symptoms) -discussed possible ECT with Dr. Culp who agrees to consult -Discontinue MIrtazapine; not effective, not helping with insomnia or appetite either -Continue Trazodone to 100mg qhs for poor sleep -HOLD Simbrinza (1 drop brinzolamide 1%/brimonidine 0.2% in each eye BID); pt reports he's prescribed glaucoma eyedrops; last script for Simbrinza filled on 09/22 for 3 months supply; mortgage underwriter verified w/ pharmacy; -discussed glaucoma treatment with hospitalist GRACIELA Prasad who recommends not restarting glaucoma medications at this time since patient has been off for several weeks; patient does not want to restart at this time but rather hold off on restarting until he can see his cops for puff/pressure test; GRACIELA agrees with patient that this is the best plan and that risks of not restarting are minimal. -continue amlodpine 10mg for htn (home med) -Continue aspirin (Home med) signed JOSE and gave verbal permission to discuss case with Reason for continued inpatient stay Substantial Risk for: med/psych decompensation Time Spent With Patient Time: Total time managing care of this patient today ____ minutes.
[2023-03-23 19:45] VITALS: BP 114/61; PULSE 82; TEMP 36.4; O2SAT 94
[2023-03-23] MEDS: traZODone HCL 100 MG TABLET PO (21:25)
[2023-03-23] MEDS: Melatonin 3 MG TABLET 6 MG PO (21:25)
[2023-03-24] MEDS: Aspirin 81 MG TAB.CHEW PO (08:59)
[2023-03-24] MEDS: LORazepam 1 MG TABLET PO (08:59)
[2023-03-24] MEDS: Cholecalciferol (Vitamin D3) 25 MCG TABLET PO (08:59)
[2023-03-24] MEDS: amLODIPine Besylate 10 MG TABLET PO (08:59)
[2023-03-24] MEDS: buPROPion HCl XL 300 MG TAB.ER.24H PO (08:59)
[2023-03-24] MEDS: Venlafaxine HCl ER 37.5 MG CAP.ER.24H PO (09:00)
[2023-03-24 09:04] VITALS: BP 120/74; PULSE 93; RESP 18; TEMP 36.3; O2SAT 97
[2023-03-24 09:43] LABS: COVID-19 Test Negative (Negative); IDNOW Serial# 6674DD1D
--- NOTE | 2023-03-24 10:09 | P.PNPSI_ITS ---
Subjective Subjective Date of Service: 03/24/23 Reason For Visit: Depression Subjective Notes: Conditional Voluntary Healthcare Proxy: No Guardianship: No Medical Problems Affecting Mental Status: No Interim History: Patient was seen and discussed in rounds today. Records and plans were revi ewed. He still struggles with some anxiety but generally feeling little better. Eating and sleeping adequately. Continues to complain of generalized aches and pains and cough. The COVID test was ordered. He continues to be isolative and guarded. No changes were made today Medication Compliance: Yes Side effects from medications: No Attending Groups: Yes Review of Systems Review of Systems Cough and generalized aches Yes all other systems are reviewed and are negative Mental Status Exam Mental Status Exam Narrative: In today's visit he is alert, oriented and pleasant. Normal speech. Moderate eye contact. Affect is appropriate and constricted. No signs of psychosis. No SI. Cognitively intact. Judgment is intact Diagnostics Vital Signs (24Hr): Vital Signs - 24 hr 03/23/23 19:45 03/24/23 09:04 Temperature 97.5 F 97.4 F Pulse Rate 82 93 Respiratory Rate 18 Blood Pressure 114/61 120/74 Pulse Oximetry 94 97 Oxygen Delivery Method Room Air Room Air BMI result Body Mass Index 22.3 Labs 03/06/23 12:03 03/07/23 08:51 Labs: Laboratory Results - last 48 hr 03/24/23 09:10 COVID-19 ([facility]) Negative COVID-19 Clin Com See Note Medications Medications Current Medications Acetaminophen (Acetaminophen 325 Mg Tablet) 650 mg PO Q6H PRN PRN Reason: Headache/Pain Mild Scale (1-3) Al Hydroxide/Mg Hydroxide (Magnesium Hydrox/Alum Hydrox 30 Ml Oral.Susp) 30 ml PO Q6H PRN PRN Reason: Heartburn/Nausea Amlodipine Besylate (Amlodipine Besylate 10 Mg Tablet) 10 mg PO DAILY [facility]; Protocol Last Admin: 03/24/23 08:59 Dose: 10 mg Aspirin (Aspirin 81 Mg Tab.Chew) 81 mg PO DAILY [facility] Last Admin: 03/24/23 08:59 Dose: 81 mg Bupropion HCl (Bupropion Hcl Xl 300 Mg Tab.Er.24h) 300 mg PO DAILY [facility] Last Admin: 03/24/23 08:59 Dose: 300 mg Hydroxyzine HCl (Hydroxyzine Hcl 25 Mg Tablet) 25 mg PO Q6H PRN PRN Reason: Anxiety Lorazepam (Lorazepam 1 Mg Tablet) 1 mg PO QID [facility] Last Admin: 03/24/23 08:59 Dose: 1 mg Magnesium Hydroxide (Milk Of Magnesia 30 Ml Oral.Susp) 30 ml PO DAILY PRN PRN Reason: Constipation Melatonin (Melatonin 3 Mg Tablet) 6 mg PO BEDTIME [facility] Last Admin: 03/23/23 21:25 Dose: 6 mg Nicotine Polacrilex (Nicotine Polacrilex 2 Mg Gum) 4 mg BUCCAL Q2H PRN PRN Reason: Nicotine Cravings Trazodone HCl (Trazodone Hcl 50 Mg Tablet) 50 mg PO BEDTIME MRX1 PRN PRN Reason: Insomnia Trazodone HCl (Trazodone Hcl 100 Mg Tablet) 100 mg PO BEDTIME [facility] Last Admin: 03/23/23 21:25 Dose: 100 mg Venlafaxine HCl (Venlafaxine Hcl Er 37.5 Mg Cap.Er.24h) 37.5 mg PO DAILY [facility] Last Admin: 03/24/23 09:00 Dose: 37.5 mg Vitamin D (Cholecalciferol (Vitamin D3) 25 Mcg Tablet) 25 mcg PO DAILY [facility] Last Admin: 03/24/23 08:59 Dose: 25 mcg Allergies Allergies Allergy/AdvReac Type Severity Reaction Status Date / Time lisinopril Allergy Hives Verified 03/06/23 10:50 Assessment & Plan Assessment & Plan (1) MDD (major depressive disorder), recurrent, severe, with psychosis: Status: Acute Code(s): F33.3 - Major depressive disorder, recurrent, severe with psychotic symptoms (2) Catatonia: Status: Resolved Code(s): F06.1 - Catatonic disorder due to known physiological condition Plan pt is a 63 yo male with hx of Depression, HTN, some manic behaviors, who presents for worsening depression. Pt reports first depressive episode was back in 2018 when he was first hospitalized. He was discharged on Lexapro and Haldol (and maybe another med). Per , patient had manic behaviors in weeks/months leading up to 2018 admission, though none since, despite being on only Lexapro for past 4-5 years. -currently very depressed, not eating, significant psychomotor retardation -concern for bipolar disorder Hospital course: 03/08 patient says he is feeling better on current regimen and would like to remain on it; discussed potential for bipolar diagnosis with which patient does not disagree but given the fact that he is feeling better with like to work with current med regimen. Electrical And Instrument Engineer does not disagree for although patient had what sounds like a manic episode in 2018, he is also been able to remain stable and symptom-free on just Lexapro for 4 and half years 03/09 patient remains in slightly better mood and with brighter affect; also slept fairly well last night even though he did not take mirtazapine. Patient wants to try monotherapy and Agrees to increasing venlafaxine. Given patient's continued modest improvement will continue with this plan; bipolar remains a rule out and hopefully patient will not be triggered into manic episode. He has not talked to his since he has been here and is not sure why that is 03/10 still depressed; will continue to titrate effexor but so far not much change 03/11 depressed; reverted back to depression and fleeting idea of some improvement gone; will restart Mirtazapine. Continue to consider mood stabilizer. 03/12 remains very depressed; titrating Effexor 03/13 severely depressed; not attending to ADLs, hardly leaving his bed, not eating any food other than Ensure; feels as though in black hole. At this time patient is not functional and unable to take care for himself in the community. Continue titration of Effexor and likely Mirtazapine 03/14 patient remains depressed; has yet to shower, dress, call his however he did eat a few bites of solid food today which was a 1st time this admission 03/18 Patient remains very depressed and is becoming hopeless as medication management thus far is proving ineffective. 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 Patient is worried about medication management but agrees to change and taper and DC off Effexor since it has shown no efficacy; also he agrees to discontinuing mirtazapine as it is not help with insomnia, appetite or depression. Patient agrees to start Wellbutrin as well as Ativan as there are some catatonic signs. Electrical And Instrument Engineer discussed mood stabilizers both Vraylar, Latuda and lithium; patient is anxious about the side effect profile of these medications however is willing to consider it. Also discussed ECT as a viable option. Electrical And Instrument Engineer agrees that patient was able to stabilize in the past on Haldol and Lexapro and then remains stable on just Lexapro however since increased Lexapro has not helped, Prozac has not help, and now Effexor mirtazapine both proving ineffective, and his depression is severely debilitating, ECT becomes and increasingly important option to consider. -patient ambivalent about restarting medications for glaucoma saying he missed an appointment and is not sure if he is supposed to continue or not. 03/19 with Ativan, patient seems to be improving, eating more, out of his room, showered and combed his hair; he says he feels better. Discussed catatonia and patient agrees to continue and increase Ativan. At this time will focus on Ativan rather than increasing Wellbutrin. Patient revealed some paranoid thinking and asked if staff is playing is purposely causing noises to occur (referencing a motorcycle that zoomed by outside, that a car and then some banging noises in the ceiling) in order to make him think he psychotic... Electrical And Instrument Engineer reassured him that that is not the case and did some reality testing. Patient was unable to engage in reality testing other than to say well I certainly hope it is not true... -rather than a new symptom, it is administrative underwriter's current opinion that this paranoid thinking was probably always present but that patient was too depressed and too encumbered by negative symptoms to expressed his delusional thought Will continue to monitor. 03/20 patient's seem to remain reduced, better mood and attending to ADLs. Does not have insight into his paranoid thinking however says it is not on his mind at this time. Patient is asking about potential discharge, wanting to get back to his life in thinking about all of things that are going undone. Agrees to i ncreasing Wellbutrin but would like to discharge this Saturday. Will continue to monitor; as patient continues to attend ADLs will proceed with discharge planning -at this time there is no other appropriate setting for patient's treatment as his depression is severe, with psychotic symptoms and catatonia; while the symptoms seem to be abating, this is the 1st day of any improvement and premature to conclude treatment regimen is effective. Will continue to monitor. Hopefully patient will continue to improve; if not will likely move on to mood stabilization and or ECT 03/21 patient remains with improved mood and overall feeling better; he is attending to ADLs, sleeping well, eating and talking spontaneously. No paranoid thinking expressed. Medications seem to be helping. Reviewed medication management including Ativan which patient agrees to continue for while and then taper; patient agrees that his outpatient provider can continue with medication management as needed. Patient is not in imminent risk for harm to self or others and appropriate to continue treatment in the community. 03/22 stable with plan to dc today. 03/23: Continue current regimen and plans. 03/24: Continue current regimen and plans. A COVID test was ordered PLAN: CV q15min Continue Wellbutrin XL 300 mg daily for depression -Increase to Ativan 1 mg q.i.d.; start of Ativan seems to have lifted patient out of his negative symptoms of depression at least initially demonstrating the catatonic symptoms were very likely present -Taper and DC Effexor; not affective despite therapeutic dose (although therapeutic duration not quite met, one would expect at least some minimal signs of reduction in symptoms) -discussed possible ECT with Dr. Culp who agrees to consult -Discontinue MIrtazapine; not effective, not helping with insomnia or appetite either -Continue Trazodone to 100mg qhs for poor sleep -HOLD Simbrinza (1 drop brinzolamide 1%/brimonidine 0.2% in each eye BID); pt r eports he's prescribed glaucoma eyedrops; last script for Simbrinza filled on 09/22 for 3 months supply; administrative underwriter verified w/ pharmacy; -discussed glaucoma treatment with hospitalist GRACIELA Prasad who recommends not restarting glaucoma medications at this time since patient has been off for several weeks; patient does not want to restart at this time but rather hold off on restarting until he can see his rough planer tender for puff/pressure test; GRACIELA agrees with patient that this is the best plan and that risks of not restarting are minimal. -continue amlodpine 10mg for htn (home med) -Continue aspirin (Home med) signed JOSE and gave verbal permission to discuss case with Reason for continued inpatient stay Substantial Risk for: med/psych decompensation Time Spent With Patient Time: Total time managing care of this patient today ____ minutes.
[2023-03-24 18:00] VITALS: BP 125/69; PULSE 88; TEMP 36.4; O2SAT 97
[2023-03-24] MEDS: traZODone HCL 100 MG TABLET PO (21:43)
[2023-03-24] MEDS: Melatonin 3 MG TABLET 6 MG PO (21:45)
--- NOTE | 2023-03-24 23:25 | PC.NURSE ---
Patient was apparently wincing and holding his head duriing his 1:1 contact with Design Engineering Manager, but patient denied any pain to this financial writer.
[2023-03-25 06:00] VITALS: BP 120/61; PULSE 80; RESP 14; TEMP 36.1; O2SAT 97
[2023-03-25] MEDS: amLODIPine Besylate 10 MG TABLET PO (08:53)
[2023-03-25] MEDS: Cholecalciferol (Vitamin D3) 25 MCG TABLET PO (08:53)
[2023-03-25] MEDS: buPROPion HCl XL 300 MG TAB.ER.24H PO (08:53)
[2023-03-25] MEDS: Aspirin 81 MG TAB.CHEW PO (08:53)
[2023-03-25] MEDS: Venlafaxine HCl ER 37.5 MG CAP.ER.24H PO (08:53)
[2023-03-25] MEDS: LORazepam 1 MG TABLET PO ×4 (11:11→21:26)
[2023-03-25] MEDS: Lithium Carbonate ER 300 MG TABLET.ER PO ×2 (17:33→21:26)
[2023-03-25 19:30] VITALS: BP 101/56; PULSE 85; TEMP 36.9; O2SAT 95
[2023-03-25] MEDS: Melatonin 3 MG TABLET 6 MG PO (21:26)
[2023-03-25] MEDS: traZODone HCL 100 MG TABLET PO (21:26)
[2023-03-26 08:00] VITALS: BP 112/72; PULSE 95; RESP 18; TEMP 36.7; O2SAT 96
[2023-03-26] MEDS: LORazepam 1 MG TABLET PO ×4 (09:06→20:21)
[2023-03-26] MEDS: buPROPion HCl XL 150 MG TAB.ER.24H 450 MG PO (09:07)
[2023-03-26] MEDS: Cholecalciferol (Vitamin D3) 25 MCG TABLET PO (09:07)
[2023-03-26] MEDS: amLODIPine Besylate 10 MG TABLET PO (09:08)
[2023-03-26] MEDS: Aspirin 81 MG TAB.CHEW PO (09:08)
--- NOTE | 2023-03-26 09:18 | P.PNPSI_ITS ---
Subjective Subjective Date of Service: 03/25/23 Reason For Visit: Depression Interim History: Late entry for patient seen on 03/25 Met with patient; discussed with team; reviewed weekend notes Patient remains depressed and regressed some over the weekend, with some increased catatonic symptoms and hardly leaving the bed; likely cause is over the weekend Ativan had fallen off and it was not renewed. Patient not attending to ADLs and again very low appetite, hardly eating. Fur Blowing Machine Attendant discussed symptoms with patient including catatonia and tech writer's assessment that patient likely has bipolar depression. Discussed the need to add a mood stabilizing agent. Reviewed Vraylar, Latuda, other mood stabilizers and lithium including risks/side effects which patient understood, asked questions about and agreed to trial of lithium. -tech writer discussed ECT which is tech writer's recommendation, however patient is a little fearful of it and prefers to adding mood stabilizer instead Mental Status Exam Mental Status Exam Narrative: Pt is alert and oriented; behavior is calm, cooperative, but isolative; patient is not in distress; dressed in hospital attire. unkempt, poor hygiene; mood is described as not so good and affect congruent, more blunted; eye contact appropriate; Speech is normal rate, volume and prosody and not pressured; significant psychomotor retardation present; poor appetite; thought process goal directed; Thought content is on resurgence of symptoms, treatment; no paranoid, delusional thinking expressed; denies any SI/HI. No AVH. Patients insight and judgment impaired. Diagnostics Vital Signs (24Hr): Vital Signs - 24 hr 03/25/23 19:30 Temperature 98.4 F Pulse Rate 85 Blood Pressure 101/56 L Pulse Oximetry 95 Oxygen Delivery Method Room Air BMI result Body Mass Index 22.3 Labs 03/06/23 12:03 03/07/23 08:51 Labs: Laboratory Results - last 48 hr 03/24/23 09:10 COVID-19 ([facility]) Negative COVID-19 Clin Com See Note Medications Medications Current Medications Acetaminophen (Acetaminophen 325 Mg Tablet) 650 mg PO Q6H PRN PRN Reason: Headache/Pain Mild Scale (1-3) Al Hydroxide/Mg Hydroxide (Magnesium Hydrox/Alum Hydrox 30 Ml Oral.Susp) 30 ml PO Q6H PRN PRN Reason: Heartburn/Nausea Amlodipine Besylate (Amlodipine Besylate 10 Mg Tablet) 10 mg PO DAILY [facility]; Protocol Last Admin: 03/26/23 09:08 Dose: 10 mg Aspirin (Aspirin 81 Mg Tab.Chew) 81 mg PO DAILY [facility] Last Admin: 03/26/23 09:08 Dose: 81 mg Bupropion HCl (Bupropion Hcl Xl 150 Mg Tab.Er.24h) 450 mg PO DAILY [facility] Last Admin: 03/26/23 09:07 Dose: 450 mg Hydroxyzine HCl (Hydroxyzine Hcl 25 Mg Tablet) 25 mg PO Q6H PRN PRN Reason: Anxiety Loving Carbonate (Loving Carbonate Er 300 Mg Tablet.Er) 300 mg PO BEDTIME [facility] Last Admin: 03/25/23 21:26 Dose: 300 mg Lorazepam (Lorazepam 1 Mg Tablet) 1 mg PO QID [facility] Last Admin: 03/26/23 09:06 Dose: 1 mg Magnesium Hydroxide (Milk Of Magnesia 30 Ml Oral.Susp) 30 ml PO DAILY PRN PRN Reason: Constipation Melatonin (Melatonin 3 Mg Tablet) 6 mg PO BEDTIME [facility] Last Admin: 03/25/23 21:26 Dose: 6 mg Nicotine Polacrilex (Nicotine Polacrilex 2 Mg Gum) 4 mg BUCCAL Q2H PRN PRN Reason: Nicotine Cravings Trazodone HCl (Trazodone Hcl 50 Mg Tablet) 50 mg PO BEDTIME MRX1 PRN PRN Reason: Insomnia Trazodone HCl (Trazodone Hcl 100 Mg Tablet) 100 mg PO BEDTIME [facility] Last Admin: 03/25/23 21:26 Dose: 100 mg Vitamin D (Cholecalciferol (Vitamin D3) 25 Mcg Tablet) 25 mcg PO DAILY [facility] Last Admin: 03/26/23 09:07 Dose: 25 mcg Allergies Allergies Allergy/AdvReac Type Severity Reaction Status Date / Time lisinopril Allergy Hives Verified 03/06/23 10:50 Assessment & Plan Assessment & Plan (1) MDD (major depressive disorder), recurrent, severe, with psychosis: Status: Acute Code(s): F33.3 - Major depressive disorder, recurrent, severe with psychotic symptoms (2) Catatonia: Status: Resolved Code(s): F06.1 - Catatonic disorder due to known physiological condition Plan pt is a 63 yo male with hx of Depression, HTN, some manic behaviors, who presents for worsening depression. Pt reports first depressive episode was back in 2018 when he was first hospitalized. He was discharged on Lexapro and Haldol (and maybe another med). Per , patient had manic behaviors in weeks/months leading up to 2018 admission, though none since, despite being on only Lexapro for past 4-5 years. -currently very depressed, not eating, significant psychomotor retardation -concern for bipolar disorder Hospital course: 03/08 patient says he is feeling better on current regimen and would like to remain on it; discussed potential for bipolar diagnosis with which patient does not disagree but given the fact that he is feeling better with like to work with current med regimen. Fur Blowing Machine Attendant does not disagree for although patient had what sounds like a manic episode in 2018, he is also been able to remain stable and symptom-free on just Lexapro for 4 and half years 03/09 patient remains in slightly better mood and with brighter affect; also slept fairly well last night even though he did not take mirtazapine. Patient wants to try monotherapy and Agrees to increasing venlafaxine. Given patient's continued modest improvement will continue with this plan; bipolar remains a rule out and hopefully patient will not be triggered into manic episode. He has not talked to his since he has been here and is not sure why that is 03/10 still depressed; will continue to titrate effexor but so far not much c hangmisha 03/11 depressed; reverted back to depression and fleeting idea of some improvement gone; will restart Mirtazapine. Continue to consider mood stabilizer. 03/12 remains very depressed; titrating Effexor 03/13 severely depressed; not attending to ADLs, hardly leaving his bed, not eating any food other than Ensure; feels as though in black hole. At this time patient is not functional and unable to take care for himself in the community. Continue titration of Effexor and likely Mirtazapine 03/14 patient remains depressed; has yet to shower, dress, call his however he did eat a few bites of solid food today which was a 1st time this admission 03/18 Patient remains very depressed and is becoming hopeless as medication management thus far is proving ineffective. 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 Patient is worried about medication management but agrees to change and taper and DC off Effexor since it has shown no efficacy; also he agrees to discontinuing mirtazapine as it is not help with insomnia, appetite or depression. Patient agrees to start Wellbutrin as well as Ativan as there are some catatonic signs. Fur Blowing Machine Attendant discussed mood stabilizers both Vraylar, Latuda and lithium; patient is anxious about the side effect profile of these medi cations however is willing to consider it. Also discussed ECT as a viable option. Fur Blowing Machine Attendant agrees that patient was able to stabilize in the past on Haldol and Lexapro and then remains stable on just Lexapro however since increased Lexapro has not helped, Prozac has not help, and now Effexor mirtazapine both proving ineffective, and his depression is severely debilitating, ECT becomes and increasingly important option to consider. -patient ambivalent about restarting medications for glaucoma saying he missed an appointment and is not sure if he is supposed to continue or not. 03/19 with Ativan, patient seems to be improving, eating more, out of his room, showered and combed his hair; he says he feels better. Discussed catatonia and patient agrees to continue and increase Ativan. At this time will focus on Ativan rather than increasing Wellbutrin. Patient revealed some paranoid thinking and asked if staff is playing is purposely causing noises to occur (referencing a motorcycle that zoomed by outside, that a car and then some banging noises in the ceiling) in order to make him think he psychotic... Fur Blowing Machine Attendant reassured him that that is not the case and did some reality testing. Patient was unable to engage in reality testing other than to say well I certainly hope it is not true... -rather than a new symptom, it is tech writer's current opinion that this paranoid thinking was probably always present but that patient was too depressed and too encumbered by negative symptoms to expressed his delusional thought Will continue to monitor. 03/20 patient's seem to remain reduced, better mood and attending to ADLs. Does not have insight into his paranoid thinking however says it is not on his mind at this time. Patient is asking about potential discharge, wanting to get back to his life in thinking about all of things that are going undone. Agrees to increasing Wellbutrin but would like to discharge this Saturday. Will continue to monitor; as patient continues to attend ADLs will proceed with discharge planning -at this time there is no other appropriate setting for patient's treatment as his depression is severe, with psychotic symptoms and catatonia; while the symptoms seem to be abating, this is the 1st day of any improvement and premature to conclude treatment regimen is effective. Will continue to monitor. Hopefully patient will continue to improve; if not will likely move on to mood stabilization and or ECT 03/21 patient remains with improved mood and overall feeling better; he is attending to ADLs, sleeping well, eating and talking spontaneously. No paranoid thinking expressed. Medications seem to be helping. Reviewed medication management including Ativan which patient agrees to continue for while and then taper; patient agrees that his outpatient provider can continue with medication management as needed. Patient is not in imminent risk for harm to self or others and appropriate to continue treatment in the community. 03/23: Continue current regimen and plans. 03/24: Continue current regimen and plans. A COVID test was ordered: negative 03/25 Patient remains depressed and regressed some over the weekend, with some increased catatonic symptoms and hardly leaving the bed; likely cause is over the weekend Ativan had fallen off and it was not renewed. Patient not attending to ADLs and again very low appetite, hardly eating. Fur Blowing Machine Attendant discussed symptoms with patient including catatonia and tech writer's assessment that patient likely has bipolar depression. Discussed the need to add a mood stabilizing agent. Reviewed Vraylar, Latuda, other mood stabilizers and lithium including risks/side effects which patient understood, asked questions about and agreed to trial of lithium. At this point lithium is preferred since normally 1 avoids an tipsychotic medication in the context of catatonia -tech writer discussed ECT which is tech writer's recommendation, however patient is a little fearful of it and prefers to adding mood stabilizer instead Patient has regressed and has some resurgence of catatonic symptoms. Patient agrees to medication management, increasing Wellbutrin and starting lithium. Given patient's age, continue depression and catatonic symptoms (hardly eating/not bathing/not getting out of bed) and starting the new medicationli thium which needs monitoring for tolerability and blood work, patient needs to remain on the unit for a few more days. If he gets a little better and is able to tolerate medication, subsequent treatment can likely be be handled by outpatient provider. PLAN: CV q15min START lithium ER 600 mg q.h.s. INCREASE to Wellbutrin XL 450mg daily for depression -RESTART Ativan 1 mg q.i.d.; start of Ativan seems to have lifted patient out of his negative symptoms of depression at least initially demonstrating the catatonic symptoms were very likely present -DC Effexor; not affective despite therapeutic dose (although therapeutic duration not quite met, one would expect at least some minimal signs of reduction in symptoms) -discussed possible ECT with Dr. Culp who agrees to consult -Discontinue MIrtazapine; not effective, not helping with insomnia or appetite either -Continue Trazodone to 100mg qhs for poor sleep -HOLD Simbrinza (1 drop brinzolamide 1%/brimonidine 0.2% in each eye BID); pt reports he's prescribed glaucoma eyedrops; last script for Simbrinza filled on 09/22 for 3 months supply; tech writer verified w/ pharmacy; -discussed glaucoma treatment with hospitalist GRACIELA Prasad who recommends not restarting glaucoma medications at this time since patient has been off for several weeks; patient does not want to restart at this time but rather hold off on restarting until he can see his creative services coordinator for puff/pressure test; GRACIELA agrees with patient that this is the best plan and that risks of not restarting are minimal. -continue amlodpine 10mg for htn (home med) -Continue aspirin (Home med) signed JOSE and gave verbal permission to discuss case with Patient educated on: diagnosis, medication risk/benefits and ECT Informed Consent: understands Reason for continued inpatient stay Substantial Risk for: inability to function and rapid decompensation Time Spent With Patient Time: Total time managing care of this patient today ____ minutes.
--- NOTE | 2023-03-26 09:29 | HO.PSYCHPN ---
Subjective Subjective Date of Service: 03/26/23 Reason For Visit: Depression Interim History: Met with patient; discussed with team Not sure how he feels with the new medication; however, attended to ADLs today and is with combed hair. Also back to eating more today. Denies any medication side effects. Patient agrees to continue with current treatment plan. Discussed how if he continues to tolerate medication outpatient provider can likely take over Mental Status Exam Mental Status Exam Narrative: Pt is alert and oriented; behavior is calm, cooperative, a little more engaged and coming out of his room; patient is not in distress; dressed in hospital attire. Adequately groomed and improved hygiene; mood is described as I do not know and affect more expressive, a little brighter; eye contact appropriate; Speech is normal rate, volume and prosody and not pressured; less psychomotor retardation present; improving appetite; thought process goal directed; Thought content is on resurgence of symptoms, treatment; no paranoid, delusional thinking expressed; denies any SI/HI. No AVH. Patients insight and judgment impaired, but improving. Diagnostics Vital Signs (24Hr): Vital Signs - 24 hr 03/25/23 19:30 Temperature 98.4 F Pulse Rate 85 Blood Pressure 101/56 L Pulse Oximetry 95 Oxygen Delivery Method Room Air BMI result Body Mass Index 22.3 Labs 03/06/23 12:03 03/07/23 08:51 Labs: Laboratory Results - last 48 hr 03/24/23 09:10 COVID-19 ([facility]) Negative COVID-19 Clin Com See Note Medications Medications Current Medications Acetaminophen (Acetaminophen 325 Mg Tablet) 650 mg PO Q6H PRN PRN Reason: Headache/Pain Mild Scale (1-3) Al Hydroxide/Mg Hydroxide (Magnesium Hydrox/Alum Hydrox 30 Ml Oral.Susp) 30 ml PO Q6H PRN PRN Reason: Heartburn/Nausea Amlodipine Besylate (Amlodipine Besylate 10 Mg Tablet) 10 mg PO DAILY [facility]; Protocol Last Admin: 03/26/23 09:08 Dose: 10 mg Aspirin (Aspirin 81 Mg Tab.Chew) 81 mg PO DAILY [facility] Last Admin: 03/26/23 09:08 Dose: 81 mg Bupropion HCl (Bupropion Hcl Xl 150 Mg Tab.Er.24h) 450 mg PO DAILY [facility] Last Admin: 03/26/23 09:07 Dose: 450 mg Hydroxyzine HCl (Hydroxyzine Hcl 25 Mg Tablet) 25 mg PO Q6H PRN PRN Reason: Anxiety Sekiu Carbonate (Sekiu Carbonate Er 300 Mg Tablet.Er) 300 mg PO BEDTIME [facility] Last Admin: 03/25/23 21:26 Dose: 300 mg Lorazepam (Lorazepam 1 Mg Tablet) 1 mg PO QID [facility] Last Admin: 03/26/23 09:06 Dose: 1 mg Magnesium Hydroxide (Milk Of Magnesia 30 Ml Oral.Susp) 30 ml PO DAILY PRN PRN Reason: Constipation Melatonin (Melatonin 3 Mg Tablet) 6 mg PO BEDTIME [facility] Last Admin: 03/25/23 21:26 Dose: 6 mg Nicotine Polacrilex (Nicotine Polacrilex 2 Mg Gum) 4 mg BUCCAL Q2H PRN PRN Reason: Nicotine Cravings Trazodone HCl (Trazodone Hcl 50 Mg Tablet) 50 mg PO BEDTIME MRX1 PRN PRN Reason: Insomnia Trazodone HCl (Trazodone Hcl 100 Mg Tablet) 100 mg PO BEDTIME [facility] Last Admin: 03/25/23 21:26 Dose: 100 mg Vitamin D (Cholecalciferol (Vitamin D3) 25 Mcg Tablet) 25 mcg PO DAILY [facility] Last Admin: 03/26/23 09:07 Dose: 25 mcg Allergies Allergies Allergy/AdvReac Type Severity Reaction Status Date / Time lisinopril Allergy Hives Verified 03/06/23 10:50 Assessment & Plan Assessment & Plan (1) MDD (major depressive disorder), recurrent, severe, with psychosis: Status: Acute Code(s): F33.3 - Major depressive disorder, recurrent, severe with psychotic symptoms (2) Catatonia: Status: Resolved Code(s): F06.1 - Catatonic disorder due to known physiological condition Plan pt is a 63 yo male with hx of Depression, HTN, some manic behaviors, who presents for worsening depression. Pt reports first depressive episode was back in 2018 when he was first hospitalized. He was discharged on Lexapro and Haldol (and maybe another med). Per , patient had manic behaviors in weeks/months leading up to 2018 admission, though none since, despite being on only Lexapro for past 4-5 years. -currently very depressed, not eating, significant psychomotor retardation -concern for bipolar disorder Hospital course: 03/08 patient says he is feeling better on current regimen and would like to remain on it; discussed potential for bipolar diagnosis with which patient does not disagree but given the fact that he is feeling better with like to work with current med regimen. [employer]er does not disagree for although patient had what sounds like a manic episode in 2018, he is also been able to remain stable and symptom-free on just Lexapro for 4 and half years 03/09 patient remains in slightly better mood and with brighter affect; also slept fairly well last night even though he did not take mirtazapine. Patient wants to try monotherapy and Agrees to increasing venlafaxine. Given patient's continued modest improvement will continue with this plan; bipolar remains a rule out and hopefully patient will not be triggered into manic episode. He has not talked to his since he has been here and is not sure why that is 03/10 still depressed; will continue to titrate effexor but so far not much change 03/11 depressed; reverted back to depression and fleeting idea of some improvement gone; will restart Mirtazapine. Continue to consider mood stabilizer. 03/12 remains very depressed; titrating Effexor 03/13 severely depressed; not attending to ADLs, hardly leaving his bed, not eating any food other than Ensure; feels as though in black hole. At this time patient is not functional and unable to take care for himself in the community. Continue titration of Effexor and likely Mirtazapine 03/14 patient remains depressed; has yet to shower, dress, call his however he did eat a few bites of solid food today which was a 1st time this admission 03/18 Patient remains very depressed and is becoming hopeless as medication management thus far is proving ineffective. 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 Patient is worried about medication management but agrees to change and taper and DC off Effexor since it has shown no efficacy; also he agrees to discontinuing mirtazapine as it is not help with insomnia, appetite or depression. Patient agrees to start Wellbutrin as well as Ativan as there are some catatonic signs. [employer]er discussed mood stabilizers both Vraylar, Latuda and lithium; patient is anxious about the side effect profile of these medications however is willing to consider it. Also discussed ECT as a viable option. [employer] Designer agrees that patient was able to stabilize in the past on Haldol and Lexapro and then remains stable on just Lexapro however since increased Lexapro has not helped, Prozac has not help, and now Effexor mirtazapine both proving ineffective, and his depression is severely debilitating, ECT becomes and increasingly important option to consider. -patient ambivalent about restarting medications for glaucoma saying he missed an appointment and is not sure if he is supposed to continue or not. 03/19 with Ativan, patient seems to be improving, eating more, out of his room, showered and combed his hair; he says he feels better. Discussed catatonia and patient agrees to continue and increase Ativan. At this time will focus on Ativan rather than increasing Wellbutrin. Patient revealed some paranoid thinking and asked if staff is playing is purposely causing noises to occur (referencing a motorcycle that zoomed by outside, that a car and then some banging noises in the ceiling) in order to make him think he psychotic... [employer] Designer reassured him that that is not the case and did some reality testing. Patient was unable to engage in reality testing other than to say well I certainly hope it is not true... -rather than a new symptom, it is communications writer's current opinion that this paranoid thinking was probably always present but that patient was too depressed and too encumbered by negative symptoms to expressed his delusional thought Will continue to monitor. 03/20 patient's seem to remain reduced, better mood and attending to ADLs. Does not have insight into his paranoid thinking however says it is not on his mind at this time. Patient is asking about potential discharge, wanting to get back to his life in thinking about all of things that are going undone. Agrees to increasing Wellbutrin but would like to discharge this Saturday. Will continue to monitor; as patient continues to attend ADLs will proceed with discharge planning -at this time there is no other appropriate setting for patient's treatment as his depression is severe, with psychotic symptoms and catatonia; while the symptoms seem to be abating, this is the 1st day of any improvement and premature to conclude treatment regimen is effective. Will continue to monitor. Hopefully patient will continue to improve; if not will likely move on to mood stabilization and or ECT 03/21 patient remains with improved mood and overall feeling better; he is attending to ADLs, sleeping well, eating and talking spontaneously. No paranoid thinking expressed. Medications seem to be helping. Reviewed medication management including Ativan which patient agrees to continue for while and then taper; patient agrees that his outpatient provider can continue with medication management as needed. Patient is not in imminent risk for harm to self or others and appropriate to continue treatment in the community. 03/23: Continue current regimen and plans. 03/24: Continue current regimen and plans. A COVID test was ordered: negative 03/25 Patient remains depressed and regressed some over the weekend, with some increased catatonic symptoms and hardly leaving the bed; likely cause is over the weekend Ativan had fallen off and it was not renewed. Patient not attending to ADLs and again very low appetite, hardly eating. [employer]er discussed symptoms with patient including catatonia and communications writer's assessment that patient likely has bipolar depression. Discussed the need to add a mood stabilizing agent. Reviewed Vraylar, Latuda, other mood stabilizers and lithium including risks/side effects which patient understood, asked questions about and agreed to trial of lithium. At this point lithium is preferred since normally 1 avoids antipsychotic medication in the context of catatonia -communications writer discussed ECT which is communications writer's recommendation, however patient is a little fearful of it and prefers to adding mood stabilizer instead 03/26 some mild improvement since starting lithium, restarting Ativan (increasing Wellbutrin) including attention to ADLs, getting out of bed in out of his room and eating more. Will continue with current medication plan Patient has regressed and has some resurgence of catatonic symptoms. Patient agrees to medication management, increasing Wellbutrin and starting lithium. Given patient's age, continue depression and catatonic symptoms (hardly eating/not bathing/not getting out of bed) and starting the new medicationlithium which needs monitoring for tolerability and blood work, patient needs to remain on the unit for a few more days. If he gets a little better and is able to tolerate medication, subsequent treatment can likely be be handled by outpatient provider. PLAN: CV q15min Continue lithium ER 600 mg q.h.s. Continue Wellbutrin XL 450mg daily for depression Continue T Ativan 1 mg q.i.d.; start of Ativan seems to have lifted patient out of his negative symptoms of depression at least initially demonstrating the catatonic symptoms were very likely present -DC Effexor; not affective despite therapeutic dose (although therapeutic duration not quite met, one would expect at least some minimal signs of reduction in symptoms) -discussed possible ECT with Dr. Culp who agrees to consult -Discontinue MIrtazapine; not effective, not helping with insomnia or appetite either -Continue Trazodone to 100mg qhs for poor sleep -HOLD Simbrinza (1 drop brinzolamide 1%/brimonidine 0.2% in each eye BID); pt reports he's prescribed glaucoma eyedrops; last script for Simbrinza filled on 09/22 for 3 months supply; communications writer verified w/ pharmacy; -discussed glaucoma treatment with hospitalist GRACIELA Prasad who recommends not restarting glaucoma medications at this time since patient has been off for several weeks; patient does not want to restart at this time but rather hold off on restarting until he can see his parachutist/combatant diver qualified for puff/pressure test; GRACIELA agrees with patient that this is the best plan and that risks of not restarting are minimal. -continue amlodpine 10mg for htn (home med) -Continue aspirin (Home med) signed JOSE and gave verbal permission to discuss case with Patient educated on: diagnosis, medication risk/benefits and therapeutic strategies Informed Consent: understands Reason for continued inpatient stay Substantial Risk for: rapid decompensation Time Spent With Patient Time: Total time managing care of this patient today ____ minutes.
[2023-03-26 16:48] VITALS: BP 113/65; PULSE 82; RESP 16; TEMP 36.3; O2SAT 96
[2023-03-26] MEDS: Lithium Carbonate ER 300 MG TABLET.ER 600 MG PO (20:21)
[2023-03-26] MEDS: traZODone HCL 50 MG TABLET PO (20:21)
[2023-03-26] MEDS: traZODone HCL 100 MG TABLET PO (20:21)
[2023-03-27] MEDS: Cholecalciferol (Vitamin D3) 25 MCG TABLET PO (08:15)
[2023-03-27] MEDS: LORazepam 1 MG TABLET PO ×4 (08:15→21:26)
[2023-03-27] MEDS: buPROPion HCl XL 150 MG TAB.ER.24H 450 MG PO (08:16)
[2023-03-27] MEDS: amLODIPine Besylate 10 MG TABLET PO (08:16)
[2023-03-27] MEDS: Aspirin 81 MG TAB.CHEW PO (08:16)
[2023-03-27 08:18] VITALS: BP 116/69; PULSE 79; RESP 18; TEMP 36.2; O2SAT 98
--- NOTE | 2023-03-27 09:59 | HO.PSYCHPN ---
Subjective Subjective Date of Service: 03/27/23 Reason For Visit: Depression Interim History: met with patient; discussed with team Patient says he is about the same, overall feeling a little better and less depressed but still feeling it is hard to engage. He is eating a little more and attending to ADLs though it has been several days since his last shower. Mild headache but otherwise tolerating medications. Mental Status Exam Mental Status Exam Narrative: Pt is alert and oriented; behavior is calm, cooperative, a little more engaged and coming out of his room; patient is not in distress; dressed in hospital attire. Adequately groomed and improved hygiene; mood is described as I guess about the same and affect more expressive, a little brighter; eye contact appropriate; Speech is normal rate, volume and prosody and not pressured; less psychomotor retardation present; improving appetite; thought process goal directed; Thought content is on resurgence of symptoms, treatment; no paranoid, delusional thinking expressed; denies any SI/HI. No AVH. Patients insight and judgment impaired, but improving. Diagnostics Vital Signs (24Hr): Vital Signs - 24 hr 03/26/23 16:48 03/27/23 08:18 Temperature 97.4 F 97.1 F Pulse Rate 82 79 Respiratory Rate 16 18 Blood Pressure 113/65 116/69 Pulse Oximetry 96 98 Oxygen Delivery Method Room Air Room Air BMI result Body Mass Index 22.3 Labs 03/06/23 12:03 03/07/23 08:51 Medications Medications Current Medications Acetaminophen (Acetaminophen 325 Mg Tablet) 650 mg PO Q6H PRN PRN Reason: Headache/Pain Mild Scale (1-3) Al Hydroxide/Mg Hydroxide (Magnesium Hydrox/Alum Hydrox 30 Ml Oral.Susp) 30 ml PO Q6H PRN PRN Reason: Heartburn/Nausea Amlodipine Besylate (Amlodipine Besylate 10 Mg Tablet) 10 mg PO DAILY [facility]; Protocol Last Admin: 03/27/23 08:16 Dose: 10 mg Aspirin (Aspirin 81 Mg Tab.Chew) 81 mg PO DAILY TRAC[facility] Last Admin: 03/27/23 08:16 Dose: 81 mg Bupropion HCl (Bupropion Hcl Xl 150 Mg Tab.Er.24h) 450 mg PO DAILY [facility] Last Admin: 03/27/23 08:16 Dose: 450 mg Hydroxyzine HCl (Hydroxyzine Hcl 25 Mg Tablet) 25 mg PO Q6H PRN PRN Reason: Anxiety Ephesus Carbonate (Ephesus Carbonate Er 300 Mg Tablet.Er) 600 mg PO BEDTIME TRACIE Last Admin: 03/26/23 20:21 Dose: 600 mg Lorazepam (Lorazepam 1 Mg Tablet) 1 mg PO QID [facility] Last Admin: 03/27/23 08:15 Dose: 1 mg Magnesium Hydroxide (Milk Of Magnesia 30 Ml Oral.Susp) 30 ml PO DAILY PRN PRN Reason: Constipation Melatonin (Melatonin 3 Mg Tablet) 6 mg PO BEDTIME TRACIE Last Admin: 03/26/23 21:44 Dose: Not Given Nicotine Polacrilex (Nicotine Polacrilex 2 Mg Gum) 4 mg BUCCAL Q2H PRN PRN Reason: Nicotine Cravings Trazodone HCl (Trazodone Hcl 50 Mg Tablet) 50 mg PO BEDTIME MRX1 PRN PRN Reason: Insomnia Last Admin: 03/26/23 20:21 Dose: 50 mg Trazodone HCl (Trazodone Hcl 100 Mg Tablet) 100 mg PO BEDTIME TRACIE Last Admin: 03/26/23 20:21 Dose: 100 mg Vitamin D (Cholecalciferol (Vitamin D3) 25 Mcg Tablet) 25 mcg PO DAILY TRAC[facility] Last Admin: 03/27/23 08:15 Dose: 25 mcg Allergies Allergies Allergy/AdvReac Type Severity Reaction Status Date / Time lisinopril Allergy Hives Verified 03/06/23 10:50 Assessment & Plan Assessment & Plan (1) MDD (major depressive disorder), recurrent, severe, with psychosis: Status: Acute Code(s): F33.3 - Major depressive disorder, recurrent, severe with psychotic symptoms (2) Catatonia: Status: Resolved Code(s): F06.1 - Catatonic disorder due to known physiological condition Plan pt is a 63 yo male with hx of Depression, HTN, some manic behaviors, who presents for worsening depression. Pt reports first depressive episode was back in 2018 when he was first hospitalized. He was discharged on Lexapro and Haldol (and maybe another med). Per , patient had manic behaviors in weeks/months leading up to 2018 admission, though none since, despite being on only Lexapro for past 4-5 years. -currently very depressed, not eating, significant psychomotor retardation -concern for bipolar disorder Hospital course: 03/08 patient says he is feeling better on current regimen and would like to remain on it; discussed potential for bipolar diagnosis with which patient does not disagree but given the fact that he is feeling better with like to work with current med regimen. Director Of Student Life does not disagree for although patient had what sounds like a manic episode in 2018, he is also been able to remain stable and symptom-free on just Lexapro for 4 and half years 03/09 patient remains in slightly better mood and with brighter affect; also slept fairly well last night even though he did not take mirtazapine. Patient wants to try monotherapy and Agrees to increasing venlafaxine. Given patient's continued modest improvement will continue with this plan; bipolar remains a rule out and hopefully patient will not be triggered into manic episode. He has not talked to his since he has been here and is not sure why that is 03/10 still depressed; will continue to titrate effexor but so far not much change 03/11 depressed; reverted back to depression and fleeting idea of some improvement gone; will restart Mirtazapine. Continue to consider mood stabilizer. 03/12 remains very depressed; titrating Effexor 03/13 severely depressed; not attending to ADLs, hardly leaving his bed, not eating any food other than Ensure; feels as though in black hole. At this time patient is not functional and unable to take care for himself in the community. Continue titration of Effexor and likely Mirtazapine 03/14 patient remains depressed; has yet to shower, dress, call his however he did eat a few bites of solid food today which was a 1st time this admission 03/18 Patient remains very depressed and is becoming hopeless as medication management thus far is proving ineffective. 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 Patient is worried about medication management but agrees to change and taper and DC off Effexor since it has shown no efficacy; also he agrees to discontinuing mirtazapine as it is not help with insomnia, appetite or depression. Patient agrees to start Wellbutrin as well as Ativan as there are some catatonic signs. Director Of Student Life discussed mood stabilizers both Vraylar, Latuda and lithium; patient is anxious about the side effect profile of these medications however is willing to consider it. Also discussed ECT as a viable option. Director Of Student Life agrees that patient was able to stabilize in the past on Haldol and Lexapro and then remains stable on just Lexapro however since increased Lexapro has not helped, Prozac has not help, and now Effexor mirtazapine both proving ineffective, and his depression is severely debilitating, ECT becomes and increasingly important option to consider. -patient ambivalent about restarting medications for glaucoma saying he missed an appointment and is not sure if he is supposed to continue or not. 03/19 with Ativan, patient seems to be improving, eating more, out of his room, showered and combed his hair; he says he feels better. Discussed catatonia and patient agrees to continue and increase Ativan. At this time will focus on Ativan rather than increasing Wellbutrin. Patient revealed some paranoid thinking and asked if staff is playing is purposely causing noises to occur (referencing a motorcycle that zoomed by outside, that a car and then some banging noises in the ceiling) in order to make him think he psychotic... Director Of Student Life reassured him that that is not the case and did some reality testing. Patient was unable to engage in reality testing other than to say well I certainly hope it is not true... -rather than a new symptom, it is production underwriter's current opinion that this paranoid thinking was probably always present but that patient was too depressed and too encumbered by negative symptoms to expressed his delusional thought Will continue to monitor. 03/20 patient's seem to remain reduced, better mood and attending to ADLs. Does not have insight into his paranoid thinking however says it is not on his mind at this time. Patient is asking about potential discharge, wanting to get back to his life in thinking about all of things that are going undone. Agrees to increasing Wellbutrin but would like to discharge this Saturday. Will continue to monitor; as patient continues to attend ADLs will proceed with discharge planning -at this time there is no other appropriate setting for patient's treatment as his depression is severe, with psychotic symptoms and catatonia; while the symptoms seem to be abating, this is the 1st day of any improvement and premature to conclude treatment regimen is effective. Will continue to monitor. Hopefully patient will continue to improve; if not will likely move on to mood stabilization and or ECT 03/21 patient remains with improved mood and overall feeling better; he is attending to ADLs, sleeping well, eating and talking spontaneously. No paranoid thinking expressed. Medications seem to be helping. Reviewed medication management including Ativan which patient agrees to continue for while and then taper; patient agrees that his outpatient provider can continue with medication management as needed. Patient is not in imminent risk for harm to self or others and appropriate to continue treatment in the community. 03/23: Continue current regimen and plans. 03/24: Continue current regimen and plans. A COVID test was ordered: negative 03/25 Patient remains depressed and regressed some over the weekend, with some increased catatonic symptoms and hardly leaving the bed; likely cause is over the weekend Ativan had fallen off and it was not renewed. Patient not attending to ADLs and again very low appetite, hardly eating. Director Of Student Life discussed symptoms with patient including catatonia and production underwriter's assessment that patient likely has bipolar depression. Discussed the need to add a mood stabilizing agent. Reviewed Vraylar, Latuda, other mood stabilizers and lithium including risks/side effects which patient understood, asked questions about and agreed to trial of lithium. At this point lithium is preferred since normally 1 avoids antipsychotic medication in the context of catatonia -production underwriter discussed ECT which is production underwriter's recommendation, however patient is a little fearful of it and prefers to adding mood stabilizer instead 03/26 some mild improvement since starting lithium, restarting Ativan (increasing Wellbutrin) including attention to ADLs, getting out of bed in out of his room and eating more. Will continue with current medication plan 03/27 patient remains with the same mild improvement; up in about a little more and eating more. Discussed case with insurance company, doc to doc and pt covered now until Saturday Patient has regressed and has some resurgence of catatonic symptoms. Patient agrees to medication management, increasing Wellbutrin and starting lithium. Given patient's age, continue depression and catatonic symptoms (hardly eating/not bathing/not getting out of bed) and starting the new medication lithium which needs monitoring for tolerability and blood work, patient needs to remain on the unit for a few more days. If he gets a little better and is able to tolerate medication, subsequent treatment can likely be be handled by outpatient provider. PLAN: CV q15min Continue lithium ER 600 mg q.h.s. Continue Wellbutrin XL 450mg daily for depression Continue T Ativan 1 mg q.i.d.; start of Ativan seems to have lifted patient out of his negative symptoms of depression at least initially demonstrating the catatonic symptoms were very likely present -DC Effexor; not affective despite therapeutic dose (although therapeutic duration not quite met, one would expect at least some minimal signs of reduction in symptoms) -discussed possible ECT with Dr. Culp who agrees to consult -Discontinue MIrtazapine; not effective, not helping with insomnia or appetite either -Continue Trazodone to 100mg qhs for poor sleep -HOLD Simbrinza (1 drop brinzolamide 1%/brimonidine 0.2% in each eye BID); pt reports he's prescribed glaucoma eyedrops; last script for Simbrinza filled on 09/22 for 3 months supply; production underwriter verified w/ pharmacy; -discussed glaucoma treatment with hospitalist GRACIELA Prasad who recommends not restarting glaucoma medications at this time since patient has been off for several weeks; patient does not want to restart at this time but rather hold off on restarting until he can see his vacuum cleaner repairer for puff/pressure test; GRACIELA agrees with patient that this is the best plan and that risks of not restarting are minimal. -continue amlodpine 10mg for htn (home med) -Continue aspirin (Home med) signed JOSE and gave verbal permission to discuss case with Patient educated on: diagnosis and medication risk/benefits Informed Consent: understands Reason for continued inpatient stay Substantial Risk for: med/psych decompensation Time Spent With Patient Time: Total time managing care of this patient today ____ minutes.
[2023-03-27 17:27] VITALS: BP 119/73; PULSE 82; RESP 18; TEMP 36.8; O2SAT 97
[2023-03-27] MEDS: traZODone HCL 100 MG TABLET PO (21:25)
[2023-03-27] MEDS: Lithium Carbonate ER 300 MG TABLET.ER 600 MG PO (21:25)
[2023-03-28 07:00] VITALS: BMI 26.8
[2023-03-28 08:22] VITALS: BP 113/63; PULSE 77; RESP 16; TEMP 36.6; O2SAT 97
[2023-03-28] MEDS: amLODIPine Besylate 10 MG TABLET PO (08:26)
[2023-03-28] MEDS: buPROPion HCl XL 150 MG TAB.ER.24H 450 MG PO (08:27)
[2023-03-28] MEDS: LORazepam 1 MG TABLET PO ×3 (08:27→17:18)
[2023-03-28] MEDS: Aspirin 81 MG TAB.CHEW PO (08:27)
[2023-03-28] MEDS: Cholecalciferol (Vitamin D3) 25 MCG TABLET PO (08:27)
--- NOTE | 2023-03-28 16:31 | P.PNPSI_ITS ---
Subjective Subjective Date of Service: 03/28/23 Reason For Visit: Depression Subjective Notes: Conditional Voluntary Interim History: met with patient; discussed with team Pt reports he has noticed significant changes in that he is now eating, feeling like he can initiate activities easier like showering and getting out of his room. He still does not feel he is back to his usual self. He denies SI/HI. Tolerating lithium and pt appears brighter. Medication Compliance: Yes Review of Systems Review of Systems Cough and generalized aches Yes all other systems are reviewed and are negative Mental Status Exam Mental Status Exam Narrative: Pt is alert and oriented; behavior is calm, cooperative, a little more engaged and coming out of his room; patient is not in distress; dressed in hospital attire. Adequately groomed and improved hygiene; mood is described as I guess about the same and affect more expressive, a little brighter; eye contact a ppropriate; Speech is normal rate, volume and prosody and not pressured; less psychomotor retardation present; improving appetite; thought process goal directed; Thought content is on resurgence of symptoms, treatment; no paranoid, delusional thinking expressed; denies any SI/HI. No AVH. Patients insight and judgment impaired, but improving. Diagnostics Vital Signs (24Hr): Vital Signs - 24 hr 03/27/23 17:27 03/28/23 08:22 Temperature 98.2 F 97.9 F Pulse Rate 82 77 Respiratory Rate 18 16 Blood Pressure 119/73 113/63 Pulse Oximetry 97 97 Oxygen Delivery Method Room Air Room Air BMI result Body Mass Index 26.8 Labs 03/06/23 12:03 03/07/23 08:51 Medications Medications Current Medications Acetaminophen (Acetaminophen 325 Mg Tablet) 650 mg PO Q6H PRN PRN Reason: Headache/Pain Mild Scale (1-3) Al Hydroxide/Mg Hydroxide (Magnesium Hydrox/Alum Hydrox 30 Ml Oral.Susp) 30 ml PO Q6H PRN PRN Reason: Heartburn/Nausea Amlodipine Besylate (Amlodipine Besylate 10 Mg Tablet) 10 mg PO DAILY [facility]; Protocol Last Admin: 03/28/23 08:26 Dose: 10 mg Aspirin (Aspirin 81 Mg Tab.Chew) 81 mg PO DAILY [facility] Last Admin: 03/28/23 08:27 Dose: 81 mg Bupropion HCl (Bupropion Hcl Xl 150 Mg Tab.Er.24h) 450 mg PO DAILY [facility] Last Admin: 03/28/23 08:27 Dose: 450 mg Hydroxyzine HCl (Hydroxyzine Hcl 25 Mg Tablet) 25 mg PO Q6H PRN PRN Reason: Anxiety [place] Carbonate ([place] Carbonate Er 300 Mg Tablet.Er) 600 mg PO BEDTIME [facility] Last Admin: 03/27/23 21:25 Dose: 600 mg Lorazepam (Lorazepam 1 Mg Tablet) 1 mg PO QID [facility] Last Admin: 03/28/23 12:56 Dose: 1 mg Magnesium Hydroxide (Milk Of Magnesia 30 Ml Oral.Susp) 30 ml PO DAILY PRN PRN Reason: Constipation Melatonin (Melatonin 3 Mg Tablet) 6 mg PO BEDTIME [facility] Last Admin: 03/27/23 21:26 Dose: Not Given Nicotine Polacrilex (Nicotine Polacrilex 2 Mg Gum) 4 mg BUCCAL Q2H PRN PRN Reason: Nicotine Cravings Trazodone HCl (Trazodone Hcl 50 Mg Tablet) 50 mg PO BEDTIME MRX1 PRN PRN Reason: Insomnia Last Admin: 03/26/23 20:21 Dose: 50 mg Trazodone HCl (Trazodone Hcl 100 Mg Tablet) 100 mg PO BEDTIME [facility] Last Admin: 03/27/23 21:25 Dose: 100 mg Vitamin D (Cholecalciferol (Vitamin D3) 25 Mcg Tablet) 25 mcg PO DAILY [facility] Last Admin: 03/28/23 08:27 Dose: 25 mcg Allergies Allergies Allergy/AdvReac Type Severity Reaction Status Date / Time lisinopril Allergy Hives Verified 03/06/23 10:50 Assessment & Plan Assessment & Plan (1) MDD (major depressive disorder), recurrent, severe, with psychosis: Status: Acute Code(s): F33.3 - Major depressive disorder, recurrent, severe with psychotic symptoms (2) Catatonia: Status: Resolved Code(s): F06.1 - Catatonic disorder due to known physiological condition Plan pt is a 63 yo male with hx of Depression, HTN, some manic behaviors, who presents for worsening depression. Pt reports first depressive episode was back in 2018 when he was first hospitalized. He was discharged on Lexapro and Haldol (and maybe another med). Per , patient had manic behaviors in weeks/months leading up to 2018 admission, though none since, despite being on only Lexapro for past 4-5 years. -currently very depressed, not eating, significant psychomotor retardation -concern for bipolar disorder Hospital course: 03/08 patient says he is feeling better on current regimen and would like to remain on it; discussed potential for bipolar diagnosis with which patient does not disagree but given the fact that he is feeling better with like to work with current med regimen. Veterinary Manager does not disagree for although patient had what sounds like a manic episode in 2018, he is also been able to remain stable and symptom-free on just Lexapro for 4 and half years 03/09 patient remains in slightly better mood and with brighter affect; also slept fairly well last night even though he did not take mirtazapine. Patient wants to try monotherapy and Agrees to increasing venlafaxine. Given patient's continued modest improvement will continue with this plan; bipolar remains a rule out and hopefully patient will not be triggered into manic episode. He has not talked to his since he has been here and is not sure why that is 03/10 still depressed; will continue to titrate effexor but so far not much change 03/11 depressed; reverted back to depression and fleeting idea of some improvement gone; will restart Mirtazapine. Continue to consider mood stabilizer. 03/12 remains very depressed; titrating Effexor 03/13 severely depressed; not attending to ADLs, hardly leaving his bed, not eating any food other than Ensure; feels as though in black hole. At this time patient is not functional and unable to take care for himself in the community. Continue titration of Effexor and likely Mirtazapine 03/14 patient remains depressed; has yet to shower, dress, call his however he did eat a few bites of solid food today which was a 1st time this admission 03/18 Patient remains very depressed and is becoming hopeless as medication management thus far is proving ineffective. 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 Patient is worried about medication management but agrees to change and taper and DC off Effexor since it has shown no efficacy; also he agrees to discontinuing mirtazapine as it is not help with insomnia, appetite or depression. Patient agrees to start Wellbutrin as well as Ativan as there are some catatonic signs. Veterinary Manager discussed mood stabilizers both Vraylar, Latuda and lithium; patient is anxious about the side effect profile of these medications however is willing to consider it. Also discussed ECT as a viable option. Veterinary Manager agrees that patient was able to stabilize in the past on Haldol and Lexapro and then remains stable on just Lexapro however since increased Lexapro has not helped, Prozac has not help, and now Effexor mirtazapine both proving ineffective, and his depression is severely debilitating, ECT becomes and increasingly important option to consider. -patient ambivalent about restarting medications for glaucoma saying he missed an appointment and is not sure if he is supposed to continue or not. 03/19 with Ativan, patient seems to be improving, eating more, out of his room, showered and combed his hair; he says he feels better. Discussed catatonia and patient agrees to continue and increase Ativan. At this time will focus on Ativan rather than increasing Wellbutrin. Patient revealed some paranoid thinking and asked if staff is playing is purpos winsome causing noises to occur (referencing a motorcycle that zoomed by outside, that a car and then some banging noises in the ceiling) in order to make him think he psychotic... Veterinary Manager reassured him that that is not the case and did some reality testing. Patient was unable to engage in reality testing other than to say well I certainly hope it is not true... -rather than a new symptom, it is data analyst report writer's current opinion that this paranoid thinking was probably always present but that patient was too depressed and too encumbered by negative symptoms to expressed his delusional thought Will con tinue to monitor. 03/20 patient's seem to remain reduced, better mood and attending to ADLs. Does not have insight into his paranoid thinking however says it is not on his mind at this time. Patient is asking about potential discharge, wanting to get back to his life in thinking about all of things that are going undone. Agrees to increasing Wellbutrin but would like to discharge this Saturday. Will continue to monitor; as patient continues to attend ADLs will proceed with discharge planning -at this time there is no other appropriate setting for patient's treatment as his depression is severe, with psychotic symptoms and catatonia; while the symptoms seem to be abating, this is the 1st day of any improvement and premature to conclude treatment regimen is effective. Will continue to monitor. Hopefully patient will continue to improve; if not will likely move on to mood stabilization and or ECT 03/21 patient remains with improved mood and overall feeling better; he is attending to ADLs, sleeping well, eating and talking spontaneously. No paranoid thinking expressed. Medications seem to be helping. Reviewed medication management including Ativan which patient agrees to continue for while and then taper; patient agrees that his outpatient provider can continue with medication management as needed. Patient is not in imminent risk for harm to self or others and appropriate to continue treatment in the community. 03/23: Continue current regimen and plans. 03/24: Continue current regimen and plans. A COVID test was ordered: negative 03/25 Patient remains depressed and regressed some over the weekend, with some increased catatonic symptoms and hardly leaving the bed; likely cause is over the weekend Ativan had fallen off and it was not renewed. Patient not attending to ADLs and again very low appetite, hardly eating. Veterinary Manager discussed symptoms with patient including catatonia and data analyst report writer's assessment that patient likely has bipolar depression. Discussed the need to add a mood stabilizing agent. Reviewed Vraylar, Latuda, other mood stabilizers and lithium including risks/side effects which patient understood, asked questions about and agreed to trial of lithium. At this point lithium is preferred since normally 1 avoids antipsychotic medication in the context of catatonia -data analyst report writer discussed ECT which is data analyst report writer's recommendation, however patient is a little fearful of it and prefers to adding mood stabilizer instead 03/26 some mild improvement since starting lithium, restarting Ativan (increasing Wellbutrin) including attention to ADLs, getting out of bed in out of his room and eating more. Will continue with current medication plan 03/27 patient remains with the same mild improvement; up in about a little more and eating more. Discussed case with insurance company, doc to doc and pt covered now until Wednesday 03/28 continue tx. Patient has regressed and has some resurgence of catatonic symptoms. Patient agrees to medication management, increasing Wellbutrin and starting lithium. Given patient's age, continue depression and catatonic symptoms (hardly eating/not bathing/not getting out of bed) and starting the new medication lithium which needs monitoring for tolerability and blood work, patient needs to remain on the unit for a few more days. If he gets a little better and is able to tolerate medication, subsequent treatment can likely be be handled by outpatient provider. PLAN: CV q15min Continue lithium ER 600 mg q.h.s. Continue Wellbutrin XL 450mg daily for depression Continue T Ativan 1 mg q.i.d.; start of Ativan seems to have lifted patient out of his negative symptoms of depression at least initially demonstrating the catatonic symptoms were very likely present -DC Effexor; not affective despite therapeutic dose (although therapeutic duration not quite met, one would expect at least some minimal signs of reduction in symptoms) -discussed possible ECT with Dr. Culp who agrees to consult -Discontinue MIrtazapine; not effective, not helping with insomnia or appetite either -Continue Trazodone to 100mg qhs for poor sleep -HOLD Simbrinza (1 drop brinzolamide 1%/brimonidine 0.2% in each eye BID); pt reports he's prescribed glaucoma eyedrops; last script for Simbrinza filled on 09/22 for 3 months supply; data analyst report writer verified w/ pharmacy; -discussed glaucoma treatment with hospitalist GRACIELA Prasad who recommends not restarting glaucoma medications at this time since patient has been off for several weeks; patient does not want to restart at this time but rather hold off on restarting until he can see his alumni coordinator for puff/pressure test; GRACIELA agrees with patient that this is the best plan and that risks of not restarting are minimal. -continue amlodpine 10mg for htn (home med) -Continue aspirin (Home med) signed JOSE and gave verbal permission to discuss case with Reason for continued inpatient stay Substantial Risk for: inability to function Time Spent With Patient Time: Total time managing care of this patient today ____ minutes.
[2023-03-28 18:00] VITALS: BP 118/60; PULSE 78; RESP 18; TEMP 36.8; O2SAT 98
[2023-03-28] MEDS: Lithium Carbonate ER 300 MG TABLET.ER 600 MG PO (21:26)
[2023-03-28] MEDS: traZODone HCL 100 MG TABLET PO (21:26)
[2023-03-29 06:00] VITALS: BP 116/68; PULSE 81; RESP 16; TEMP 36.1; O2SAT 100
[2023-03-29] MEDS: buPROPion HCl XL 150 MG TAB.ER.24H 450 MG PO (08:38)
[2023-03-29] MEDS: Aspirin 81 MG TAB.CHEW PO (08:39)
[2023-03-29] MEDS: amLODIPine Besylate 10 MG TABLET PO (08:39)
[2023-03-29] MEDS: Cholecalciferol (Vitamin D3) 25 MCG TABLET PO (08:39)
[2023-03-29] MEDS: LORazepam 1 MG TABLET PO ×2 (08:40→12:55)
[2023-03-29 10:00] LABS: Blood Urea Nitrogen 12 mg/dL (9-16); Estimated Glomerular Filt Rate > 60
[2023-03-29 10:07] LABS: Lithium 0.65 mmol/L (0.60-1.20)
[2023-03-29 10:08] LABS: Lithium 0.65 mmol/L (0.60-1.20)
--- NOTE | 2023-03-29 15:33 | PM.PSYDC ---
DS: Providers Provider Date of Service: 03/29/23 Date of admission: 03/06/23 22:42 Date of discharge: 03/29/23 Primary care physician: Curtis Cristina MD Consults: 03/19/23 10:30 Consult to Hospitalist Routine Comment: pt missed opth exam; not sure cont eye drops Consulting Provider: Hospitalist Reason For Exam: curbside? [place] tx *see comment) Attending physician on discharge: Indra Culp Discharging clinician: Bonnie Benz DS: Diagnosis Discharge Diagnosis (1) MDD (major depressive disorder), recurrent, severe, with psychosis: Status: Acute (2) Catatonia: Status: Resolved DS: Medications Discharge Medications Home Medications: Home Medications Medication Instructions Recorded Confirmed amlodipine 10 mg tablet 10 mg PO DAILY 03/07/23 03/07/23 aspirin 81 mg tablet 81 mg PO DAILY 03/07/23 03/07/23 cholecalciferol (vitamin D3) 25 25 mcg PO DAILY 03/07/23 03/07/23 mcg (1,000 unit) tablet Previous Rx's Medication Instructions Recorded melatonin 3 mg tablet 6 mg PO BEDTIME PRN sleep 30 days 03/21/23 #60 tabs trazodone 100 mg tablet 100 mg PO BEDTIME 30 days #30 tabs 03/21/23 bupropion HCl 150 mg 24 hr tablet, 450 mg PO DAILY 30 days #90 tabs 03/27/23 extended release lithium carbonate 300 mg 600 mg PO BEDTIME 30 days #60 tabs 03/27/23 tablet,extended release lorazepam 1 mg tablet 1 mg PO QID 30 days #120 tabs 03/27/23 Mental Status Exam Mental Status Exam Narrative: Pt is alert and oriented; behavior is calm, cooperative, a little more engaged and coming out of his room; patient is not in distress; dressed in hospital attire. Adequately groomed and improved hygiene; mood is described as I guess about the same and affect more expressive, a little brighter; eye contact appropriate; Speech is normal rate, volume and prosody and not pressured; less psychomotor retardation present; improving appetite; thought process goal directed; Thought content is on resurgence of symptoms, treatment; no paranoid, delusional thinking expressed; denies any SI/HI. No AVH. Patients insight and judgment impaired, but improving. Data Data Completed and Pending Completed studies during hospitalization [Text1]: 03/24/23 03/29/23 03/29/23 09:10 08:28 08:28 BUN 12 Creatinine 0.70 Estim Creat Clear Calc 112.0 Estimated GFR > 60 [place] 0.65 COVID-19 ([facility]) Negative COVID-19 Clin Com See Note 03/29/23 08:28 BUN Creatinine Estim Creat Clear Calc Estimated GFR [place] 0.65 COVID-19 ([facility]) COVID-19 Clin Com DS: Summary Hospital Course Hospital Course: HPI: pt is a 63 yo male with hx of Depression, HTN, some manic behaviors, who presents for worsening depression. Pt reports first depressive episode was back in 2017 when he was first hospitalized. He was discharged on Lexapro and Haldol (and maybe another med); he eventually weened self off Haldol and reports being stable, enjoying life for past 5 years until this spring, without any obvious trigger, when depression started creeping back in worsening until this November and he was hospitalized at [facility] for a week where they increased Lexapro. Pt remained depressed, not eating much, no energy, and 3 weeks later admitted to [facility] in December for a month. Meds were changed to Prozac however he remained depressed. Symptoms worsened and pt reports no interest, low energy, poor concentration, little to know appetite w/ weight loss, psycomotor retardation (present on admission) and much difficulty sleeping, getting only an hour or so a day, though remains tired. Denies any SI ever. His reports that during this depressive episode he would intermittently bounce out of bed and for 10min, he would be animated and say he was better, however, this would soon pass and he would end up back in bed, depressed. About a week ago he was started on Venlafaxine and Mirtazpine but w/out symptom relief and so was admitted. Denies trauma hx; denies drug/etoh use/abuse; denies AVH. Reports always takes meds regularly. Pt eager for treatment. Pt denies hx of manic episodes/behaviors and no symptoms present on admission; however, his Shiela reports that in 2018, during months prior to admission, pt was not sleeping at all and pacing non-stop; he was unable to go to work or tolerate visitors; he did not talk much and could not explain what he was thinking. Pt would have disorganized behavior such as taking off oven door to clean it and never put it back, though he said he would; go out at night and turn on car lights, though deny it; turn water on in shower for 5 secs, but never shower though said he did...Not hypersexual, not w/ pressured speech, no risky behaviors or spending money; not grandiosity. Past Psychiatric History: Pt reports first depressive episode was back in 2018 when he was first hospitalized. He was started on Lexapro and reports being stable, enjoying life for past 5 years until November 2022 when depression returned. ? [facility] psych admission november 2022 [facility] psych admission December 2022 ? med hx: lexapro and Haldol in 2018 and then only Lexapro starting 2019; prozac (briefly) Medical Evaluation Reviewed: Yes HOSPITAL COURSE Mr. Holden was admitted on a CV and placed on 15 minutes checks for safety. Pt presented with anhedonia, inability to start activities of daily care, decreased oral intake with significant weight loss, no plan or intent to end his life but symptoms greatly affecting his ability to function and care for himself. After discussing risks, benefits and alternative treatment options, pt ultimately stabilized on combination of wellbutrin and lithium. His oral intake gradually increased. He was progressively more visible on the unit and social with select peers. He was initiating self care activities such as showering, shaving on his own. He continued to denied any plan or intent or passive SI. Here is summary of hospital course, as pt was treated by Dr. Del Castillo: 03/08 patient says he is feeling better on current regimen and would like to remain on it; discussed potential for bipolar diagnosis with which patient does not disagree but given the fact that he is feeling better with like to work with current med regimen.? Desktop Support Technician does not disagree for although patient had what sounds like a manic episode in 2018, he is also been able to remain stable and symptom-free on just Lexapro for 4 and half years 03/09 patient remains in slightly better mood and with brighter affect; also slept fairly well last night even though he did not take mirtazapine.? Patient wants to try monotherapy and Agrees to increasing venlafaxine.? Given patient's continued modest improvement will continue with this plan; bipolar remains a rule out and hopefully patient will not be triggered into manic episode.? He has not talked to his since he has been here and is not sure why that is 03/10 still depressed; will continue to titrate effexor but so far not much change 03/11 depressed; reverted back to depression and fleeting idea of some improvement gone; will restart Mirtazapine. Continue to consider mood stabilizer. 03/12 remains very depressed; titrating Effexor 03/13 severely depressed; not attending to ADLs, hardly leaving his bed, not eating any food other than Ensure; feels as though in black hole. At this time patient is not functional and unable to take care for himself in the community. Continue titration of Effexor and likely Mirtazapine 03/14 patient remains depressed; has yet to shower, dress, call his however he did eat a few bites of solid food today which was a 1st time this admission 03/18 Patient remains very depressed and is becoming hopeless as medication management thus far is proving ineffective.? 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 Patient is worried about medication management but agrees to change and taper and DC off Effexor since it has shown no efficacy; also he agrees to discontinuing mirtazapine as it is not help with insomnia, appetite or depression.? Patient agrees to start Wellbutrin as well as Ativan as there are some catatonic signs.? Desktop Support Technician discussed mood stabilizers both Vraylar, Latuda and lithium; patient is anxious about the side effect profile of these medications however is willing to consider it.? Also discussed ECT as a viable option.? Desktop Support Technician agrees that patient was able to stabilize in the past on Haldol and Lexapro and then remains stable on just Lexapro however since increased Lexapro has not helped, Prozac has not help, and now Effexor mirtazapine both proving ineffective, and his depression is severely debilitating, ECT becomes and increasingly important option to consider. -patient ambivalent about restarting medications for glaucoma saying he missed an appointment and is not sure if he is supposed to continue or not. 03/19 with Ativan, patient seems to be improving, eating more, out of his room, showered and combed his hair; he says he feels better.? Discussed catatonia and patient agrees to continue and increase Ativan.? At this time will focus on Ativan rather than increasing Wellbutrin. Patient revealed some paranoid thinking and asked if staff is playing is purposely causing noises to occur (referencing a motorcycle that zoomed by outside, that a car and then some banging noises in the ceiling) in order to make him think he psychotic...? Desktop Support Technician reassured him that that is not the case and did some reality testing.? Patient was unable to engage in reality testing other than to say well I certainly hope it is not true... -rather than a new symptom, it is typewriter operator automatic's current opinion that this paranoid thinking was probably always present but that patient was too depressed and too encumbered by negative symptoms to expressed his delusional thought? Will continue to monitor. 03/20 patient's seem to remain reduced, better mood and attending to ADLs.? Does not have insight into his paranoid thinking however says it is not on his mind at this time.? Patient is asking about potential discharge, wanting to get back to his life in thinking about all of things that are going undone.? Agrees to increasing Wellbutrin but would like to discharge this Saturday.? Will continue to monitor; as patient continues to attend ADLs will proceed with discharge planning -at this time there is no other appropriate setting for patient's treatment as his depression is severe, with psychotic symptoms and catatonia; while the symptoms seem to be abating, this is the 1st day of any improvement and premature to conclude treatment regimen is effective.? Will continue to monitor.? Hopefully patient will continue to improve; if not will likely move on to mood stabilization and or ECT 03/21 patient remains with improved mood and overall feeling better; he is attending to ADLs, sleeping well, eating and talking spontaneously.? No paranoid thinking expressed.? Medications seem to be helping.? Reviewed medication management including Ativan which patient agrees to continue for while and then taper; patient agrees that his outpatient provider can continue with medication management as needed.? Patient is not in imminent risk for harm to self or others and appropriate to continue treatment in the community. 03/23: Continue current regimen and plans. 03/24: Continue current regimen and plans.? A COVID test was ordered: negative 03/25 Patient remains depressed and regressed some over the weekend, with some increased catatonic symptoms and hardly leaving the bed; likely cause is over the weekend Ativan had fallen off and it was not renewed.? Patient not attending to ADLs and again very low appetite, hardly eating.? Desktop Support Technician discussed symptoms with patient including catatonia and typewriter operator automatic's assessment that patient likely has bipolar depression.? Discussed the need to add a mood stabilizing agent.? Reviewed Vraylar, Latuda, other mood stabilizers and lithium including risks/side effects which patient understood, asked questions about and agreed to trial of lithium.? At this point lithium is preferred since normally 1 avoids antipsychotic medication in the context of catatonia -typewriter operator automatic discussed ECT which is typewriter operator automatic's recommendation, however patient is a little fearful of it and prefers to adding mood stabilizer instead 03/26 some mild improvement since starting lithium, restarting Ativan (increasing Wellbutrin) including attention to ADLs, getting out of bed in out of his room and eating more.? Will continue with current medication plan 03/27 patient remains with the same mild improvement; up in about a little more and eating more. Discussed case with insurance company, doc to doc and pt covered now until Saturday Time Spent with Patient Time attestation: Total time managing care of this patient today ____ minutes. Discharge Plan Discharge Anticipated Discharge Date/Time: 03/22/23 18:00 Patient Disposition: Home, Self-Care Discharge Diagnosis: mdd, recurrent, severe with psychotic features, in partial remission; mild symptoms of catatonia, resolved Referrals: [facility]: Sarika Swenson (Psychiatry) [Other] - 04/15/23 11:20 am (Follow-up discharge appointment with outpatient psychiatrist Appointment is in person at [facility].) Curtis Cristina MD [Primary Care Provider] - 04/03/23 11:00 am (in office) Discharge Medications: New trazodone 100 mg Tablet 100 mg PO BEDTIME 30 Days Qty: 30 0RF melatonin 3 mg tablet 6 mg PO BEDTIME PRN (Reason: sleep) 30 Days Qty: 60 0RF bupropion HCl 150 mg Tablet Extended Release 24 Hr 450 mg PO DAILY 30 Days Qty: 90 0RF lorazepam 1 mg Tablet 1 mg PO QID 30 Days Qty: 120 0RF lithium carbonate 300 mg Tablet Extended Release 600 mg PO BEDTIME 30 Days Qty: 60 0RF Continued amlodipine 10 mg Tablet 10 mg PO DAILY aspirin 81 mg Tablet 81 mg PO DAILY cholecalciferol (vitamin D3) 25 mcg (1,000 unit) tablet 25 mcg PO DAILY Discontinued venlafaxine 75 mg Tablet 75 mg PO DAILY mirtazapine 7.5 mg tablet 7.5 mg PO BEDTIME Discharge Orders: Discharge Order (Routine); Ordered 03/29/23 Ordered By: Bonnie Benz Diet: Regular diet Activity on Discharge: As tolerated Stand Alone Forms: Patient Portal Discharge page, Community Support Care Plan Goals: Maintain mood and safe behaviors Take medications as prescribed Practice coping skills Continue with outpatient providers and reach out to them as needed Health Concerns: Mood stability and behaviors Glaucoma Hyptertension Plan of Treatment: Follow up with your PCP, psychiatric provider and other outpatient providers regarding above concerns Take medications as prescribed Assessment: Risk assessment at time of discharge:? Patient was interviewed prior to discharge and found to be fully oriented and without any SI or HI. Patient has insight and demonstrates good judgment in terms of wanting to pursue treatment. Patient is not in imminent risk of harm to self or others and has a safety plan that includes presenting to the closest ER or calling 911 if feeling unsafe.? Patient has been observed closely by nursing and unit staff throughout admission; patient has not engaged in any behaviors that suggest dangerousness to self or others and has demonstrated appropriate behaviors and impulse control Discharge Date/Time: 03/29/23 18:05
== END 2023-03-29 18:05 | disposition home or self-care (01) | DRG 751 ==
LOC: HO.ED 19:06 → HO.PM5 22:46
PROVIDERS: Emergency Medicine; Physician Assistant; Psychiatry & Neurology Psychiatry; Admitting Provider Psychiatry & Neurology Psychiatry; Emergency Provider Emergency Medicine Emergency Medical Services; PCP Internal Medicine; Visit Provider Psychiatry & Neurology Psychiatry
DX: F33.2 Major depressive disorder, recurrent severe without psychotic features (principal); F06.1 Catatonic disorder due to known physiological condition; Z20.822 Contact with and (suspected) exposure to COVID-19; Z79.82 Long term (current) use of aspirin; Z79.899 Other long term (current) drug therapy
CPT/HCPCS: 36415; 80048; 80053; 80061; 80178; 80307; 81003; 82565; 82607; 82746; 83036; 84439; 84443; 84520; 85025; 87635; 93005; 99285; S9485

== ENCOUNTER → 2023-03-06 18:55 | Outpatient (BNV) | payer OTHER, SELFPAY | PROVIDERS: Admitting Provider Psychiatry & Neurology Psychiatry; Emergency Provider Emergency Medicine Emergency Medical Services; PCP Internal Medicine; Visit Provider Internal Medicine Cardiovascular Disease | DX: I45.10 Unspecified right bundle-branch block (principal) | CPT/HCPCS: 93010 ==

== ENCOUNTER → 2023-03-06 22:42 | Outpatient (BNV) | payer OTHER, SELFPAY | PROVIDERS: Admitting Provider Psychiatry & Neurology Psychiatry; Emergency Provider Emergency Medicine Emergency Medical Services; PCP Internal Medicine; Visit Provider Psychiatry & Neurology Psychiatry | DX: F33.3 Major depressive disorder, recurrent, severe with psychotic symptoms (principal); F06.1 Catatonic disorder due to known physiological condition | CPT/HCPCS: 99222; 99231; 99232; 99238 ==

== ENCOUNTER 2023-05-23 13:58 | Inpatient (IN) | payer MEDICARE, SELFPAY ==
--- NOTE | ~2023-05-23 | XR_ITS ---
EXAMINATION: XR ABDOMEN KUB CLINICAL INDICATION: Constipation. COMPARISON: None available. TECHNIQUE: AP view of the abdomen. FINDINGS: Nonobstructive bowel gas pattern. Large amount of stool burden predominantly in the right hemicolon. No acute osseous findings. Included lung bases are clear. No abnormal soft tissue calcifications. XR/XR KUB IMPRESSION: 1. Nonobstructive bowel gas pattern. 2. Large amount of stool burden.
[2023-05-23 14:50] VITALS: BP 137/96; PULSE 94; RESP 18; TEMP 36.5; O2SAT 97; BMI 30.3
--- NOTE | 2023-05-23 15:10 | ECG_ITS ---
Test Reason : ckeck prolong qt Blood Pressure : / mmHG Vent. Rate : 074 BPM Atrial Rate : 074 BPM P-R Int : 128 ms QRS Dur : 142 ms QT Int : 422 ms P-R-T Axes : 062 -59 016 degrees QTc Int : 468 ms Normal sinus rhythm Right bundle branch block Left anterior fascicular block Bifascicular block Nonspecific T wave abnormality Abnormal ECG When compared with ECG of 06-MAR-2023 18:55, Nonspecific T wave abnormality now evident in Lateral leads Referred By: Vibha Landin Electronically Signed By:MARIANO HYATT
--- NOTE | 2023-05-23 15:30 | ED_ITS ---
HPI - Psych General Chief Complaint: Psychiatric Symptoms Stated Complaint: crisis Time Seen by Provider: 05/23/23 14:30 Source: patient Mode of arrival: ambulatory Limitations: no limitations History of Present Illness HPI Narrative: 63 yo male with PMH of MDD, bipolar, catatonia, HTN hx of admission here back in February he notes he has been very depressed recently laying in bed all day but no SI/HI/AH/VH. He just doesn't really do much this has worsened over the past month. He states his pushed him to come today. He doesn't feel he needs to be here and doesn't really want to stay inpatient. MD complaint: feels depressed Onset (ago): month(s) Duration: getting worse History of same: Yes Relieving factors: none Exacerbating factors: none Associated psychiatric symptoms: depression Associated symptoms: denies other symptoms Treatments prior to arrival: none Related Data Home Medications Medication Instructions Recorded Confirmed amlodipine 10 mg tablet 10 mg PO DAILY 03/07/23 03/07/23 aspirin 81 mg tablet 81 mg PO DAILY 03/07/23 03/07/23 cholecalciferol (vitamin D3) 25 25 mcg PO DAILY 03/07/23 03/07/23 mcg (1,000 unit) tablet Previous Rx's Medication Instructions Recorded melatonin 3 mg tablet 6 mg (2 x 3 mg) PO BEDTIME PRN 03/21/23 sleep 30 days #60 tabs trazodone 100 mg tablet 100 mg PO BEDTIME 30 days #30 tabs 03/21/23 bupropion HCl 150 mg 24 hr tablet, 450 mg (3 x 150 mg) PO DAILY 30 03/27/23 extended release days #90 tabs lithium carbonate 300 mg 600 mg (2 x 300 mg) PO BEDTIME 30 03/27/23 tablet,extended release days #60 tabs lorazepam 1 mg tablet 1 mg PO QID 30 days #120 tabs 03/27/23 Allergies Allergy/AdvReac Type Severity Reaction Status Date / Time lisinopril Allergy Hives Verified 03/06/23 10:50 Review of Systems 2 Review of Systems: Constitutional : No Fever, No Chills ENT/Mouth : No Ear Pain, No Nasal Congestion, No sore throat Eyes: No Eye Pain, No Swelling, No Redness Cardiovascular : No Chest Pain, No SOB Respiratory : No Cough, No Sputum, No Dyspnea Gastrointestinal : No Nausea, No Vomiting, No Diarrhea, No Hematochezia, No Melena Genitourinary : No Dysuria, No Urinary Frequency, No Hematuria Musculoskeletal : No Myalgias Skin : No Skin Lesions, No rash Neuro : No Weakness, No Numbness, No Paresthesias, No Dizziness, No Headache Psych : positive Anxiety, positive Depression, no SI/HI Heme/Lymph: No Lymphadenopathy Endocrine : No Polyuria, No Polydipsia All other systems reviewed and are negative PMFSH Past Medical History Attestation statement: The following information was validated with the patient. Source: old records reviewed Medical History Bipolar disorder, most recent episode depressed MDD (major depressive disorder), recurrent, severe, with psychosis Social History Social History Household Members: Spouse Housing: House Do you presently have visiting nurse or other home services: No Patient Tobacco Use Status: Never used Tobacco e-Cigarette/Vaping Use: Never Used Second Hand Smoke Exposure: No Advance Directives: No Advance Directives Information Provided: No service: No Sexual orientation: Straight/Heterosexual Physical Exam 2 Vital Signs: Vital Signs: Last Vital Signs Temp 97.7 F 05/23/23 14:50 Pulse 94 05/23/23 14:50 Resp 18 05/23/23 14:50 BP 137/96 H 05/23/23 14:50 Pulse Ox 97 05/23/23 14:50 O2 Del Method Room Air 05/23/23 14:50 BMI result Body Mass Index 30.3 Appearance: Alert. Oriented X3. No acute distress. Eyes: Pupils equal, round and reactive to light. ENT: Pharynx normal. Neck: Normal inspection. Neck supple. CVS: Normal heart rate and rhythm. Pulses normal. Respiratory: No respiratory distress. Breath sounds normal. Abdomen: atraumatic. Skin: Skin warm and dry. Normal skin color. Extremities: No lower extremity edema. Neuro: Oriented X 3. No motor deficit. No sensory deficit. CN2-12 intact Course Course Course Narrative: Physician observation started at 357pm. Patient placed in physician observation because the patient needed more time for CARE team to assess the need for psych admission. At the time observation was started the patient's vitals were stable, patient is alert and oriented but slightly agitated, Neuro: nonfocal, CV RRR, Lungs clear Medical Decision Making Medical Decision Making MDM Narrative: 63 yo male with PMH of MDD, bipolar, catatonia, HTN here with c/o worsening but chronic depression he has no SI/HI/AH/VH he states he came voluntarily but doesn't want to go inpatient and has no SI. He really came at his 's urging. He has no medical complaints at this time. Differential Diagnosis Differential Diagnoses: The differential diagnosis associated with the presentation includes depression Admission/Observation Consideration of admission/observation: Escalation of care including admission/observation considered Consult Healthcare Provider Management of the patient was discussed with: Behavioral Health Provider Lab Data [facility] Lab Attestation statement: I reviewed the patient's lab results. 05/23/23 15:51 05/23/23 15:51 Labs: Lab Results 05/23/23 Range/Units 15:29 Urine Color Dark Yellow Urine Appearance Clear Urine pH 6.5 (5.0-9.0) Ur Specific [place] 1.020 (1.005-1.025) Urine Protein Trace (Neg-Trace) mg/dL Urine Glucose (UA) Negative (Negative) mg/dL Urine Ketones Trace (Negative) mg/dL Urine Blood Negative (Negative) Urine Nitrite Negative (Negative) Ur Leukocyte Esterase Negative (Negative) Urine Opiates Screen Not Detected (Not Detect) Urine Fentanyl Screen Not Detected (Not Detect) Ur Barbiturates Screen Not Detected (Not Detect) Ur Phencyclidine Scrn Not Detected (Not Detect) Ur Amphetamines Screen Not Detected (Not Detect) U Benzodiazepines Scrn Not Detected (Not Detect) Urine Cocaine Screen Not Detected (Not Detect) U Marijuana (THC) Screen Not Detected (Not Detect) Independent Interpretation I performed an independent interpretation of an: EKG External Record Review External record reviewed: Inpatient record Discharge Plan Discharge Clinical Impression: Depression Qualifiers: Depression Type: unspecified Qualified Code(s): F32.A - Depression, unspecified Patient Disposition: Still a Patient Prescriptions: No Action amlodipine 10 mg Tablet 10 mg PO DAILY aspirin 81 mg Tablet 81 mg PO DAILY cholecalciferol (vitamin D3) 25 mcg (1,000 unit) tablet 25 mcg PO DAILY trazodone 100 mg Tablet 100 mg PO BEDTIME 30 Days Qty: 30 0RF melatonin 3 mg tablet 6 mg PO BEDTIME PRN (Reason: sleep) 30 Days Qty: 60 0RF bupropion HCl 150 mg Tablet Extended Release 24 Hr 450 mg PO DAILY 30 Days Qty: 90 0RF lorazepam 1 mg Tablet 1 mg PO QID 30 Days Qty: 120 0RF lithium carbonate 300 mg Tablet Extended Release 600 mg PO BEDTIME 30 Days Qty: 60 0RF
--- NOTE | 2023-05-23 15:30 | MHC.CARE ---
Pt assessed by [facility] crisis and found IPLOC
--- NOTE | 2023-05-23 15:49 | PC.NURSE ---
Admitting called edbh unit to inform us that pt is bed search status following a psych eval in field. pt remains calm and cooperative, pt speaks in clear and even tones and maintains appropriate eye contact.
[2023-05-23 15:50] LABS: Amphetamine Screen Urine Not Detected (Not Detect); Appearance Urine Clear; Barbiturates, Urine Not Detected (Not Detect); Benzodiazepines Screen Urine Not Detected (Not Detect); Cannabinoid Screen Urine Not Detected (Not Detect); Cocaine Screen Urine Not Detected (Not Detect); Color Urine Dark Yellow; Fentanyl, urine Not Detected (Not Detect); Glucose Urine UA Negative (Negative); Leukocyte Esterase Urine Negative (Negative); Nitrite Urine Negative (Negative); Opiate Screen Urine Not Detected (Not Detect); PH 6.5 (5.0-9.0); Phencyclidine Screen Urine Not Detected (Not Detect); Urine Blood Negative (Negative); Urine Ketones Trace mg/dL (Negative); Urine Protein Trace mg/dL (Neg-Trace)
[2023-05-23 15:55] LABS: MANUAL DIFF FLAG NO
[2023-05-23 15:57] LABS: Basophils Percent Auto 0.2 % (0-2); Eosinophils Percent Auto 0.3 % (0-4); Hematocrit 39.9 % (42.0-52.0); Hemoglobin 14.1 g/dl (14.0-18.0); Imm Gran Abs Auto 0.01 X10*3/uL (0.00-0.03); Imm Gran Pct Auto 0.2 % (0.0-0.4); Lymphocytes Absolute Auto 1.6 X10*3/uL (1.2-4.9); Lymphocytes Percent Auto 26.9 % (20-40); Mean Corpuscular HGB Conc 35.3 g/dl (31.0-36.0); Mean Corpuscular Hemoglobin 31.8 pg (27.0-33.0); Mean Corpuscular Volume 89.9 fL (80.0-98.0); Mean Platelet Volume 9.4 fL (9.4-12.4); Monocytes Absolute Auto 0.6 X10*3/uL (0.1-1.2); Monocytes Percent Auto 10.4 % (2-11); Neutrophils Absolute Auto 3.7 x10*3/uL (2.0-8.3); Platelet Count 226 X10*3/uL (160-400); Red Blood Count 4.44 X10*6/uL (4.60-5.80); Red Cell Distribution Width 12.4 % (11.0-16.0)
[2023-05-23 16:10] LABS: Lithium < 0.10 mmol/L (0.60-1.20)
[2023-05-23 16:18] LABS: COVID-19 Test Negative (Negative); IDNOW Serial# 08D9AD1C
[2023-05-23 16:21] LABS: Alanine Aminotransferase 8 U/L (0-40); Albumin Level 3.7 g/dL (3.5-5.0); Alkaline Phosphatase 73 U/L (39-117); Anion Gap 14 (12-20); Aspartate Amino Transferase 14 U/L (5-37); Bilirubin Direct 0.3 mg/dL (0.0-0.5); Bilirubin Total 0.6 mg/dL (0.0-1.0); Blood Urea Nitrogen 10 mg/dL (9-16); Calcium 9.2 mg/dL (8.4-10.2); Carbon Dioxide 22 mmol/L (22-29); Chloride 107 mmol/L (96-108); Creatinine Clr Calc Pharmacy 119.7; Estimated Glomerular Filt Rate > 60; Ethanol < 10 mg/dL; Glucose Random 102 mg/dL (60-115); Magnesium 2.3 mg/dL (1.6-2.6); Potassium 3.6 mmol/L (3.3-5.1); Sodium 139 mmol/L (135-145); Total Protein 6.3 g/dL (6.5-8.0)
[2023-05-23 17:10] LABS: Bacteria Urine None Seen (None Seen); RBC Urine 0-2 /HPF (0-2); Squamous Epithelial Cell Urine 0-2 /HPF (0-2); WBC Urine 0-5 /HPF (0-5)
--- NOTE | 2023-05-23 18:45 | PHA.MEDREC ---
Pharmacy Consult ? Medication Reconciliation Pharmacy has completed the medication reconciliation. PT CONFIRMS HE IS ONLY ON 3 MEDICATIONS AT THIS TIME. SAYS HE STOPPED ALL OTHER HOME MEDS INCLUDING BUPROPION, LITHIUM, LORAZEPAM, TRAZODONE, AND ZOLPIDEM.
[2023-05-23 21:35] VITALS: BP 119/84; PULSE 126; TEMP 36.7; O2SAT 99
--- NOTE | 2023-05-24 00:33 | PC.ADMIT ---
A white, male, aged 63 years was admitted to [facility] at 2[facility] as a CV following referral from [facility] and [facility]. Pt has had 3 IPLOC since November 2022, with last being on [facility] in February. Pt presented to [facility] following assessment from [facility] and medication prescriber. Pt had not been taking medications, struggling with increased depression and anxiety symptoms. Pt has been reported to be picking at his skin until it bleeds, as well as pulling at his hair and putting it in his mouth. Pt is reported to be sleeping about one hour per night. Pt's says pt paces all the time. Pt is reported to have only showered once since discharge from [facility] in February. Pt's reports decompensation since November and she worries about him becoming lost if he leaves their home while she is working. Pt denies SI/HI AVH an dsays he can seek out staff if needed. Pt declined to participate at all in his admission. Pt went straight to his bed after tour of unit and skin check. Pt was soft-spoken with sad anxious affect and made poor eyecontact on 1:1. UTOX was negative, BAL was 10. Pt denies medical issues at this time. Usvor-wr-Sjkao done, admission orders obtained, initial treatment plan and safety tool are done but need to be signed. Pt is resting in room on 15 minute safety checks at this time.
[2023-05-24] MEDS: hydrOXYzine HCL 25 MG TABLET PO (02:56)
[2023-05-24] MEDS: Cholecalciferol (Vitamin D3) 25 MCG TABLET PO (08:18)
[2023-05-24] MEDS: amLODIPine Besylate 10 MG TABLET PO (08:18)
[2023-05-24] MEDS: Aspirin Enteric Coated 81 MG TABLET.DR PO (08:19)
[2023-05-24 08:35] VITALS: BP 138/74; PULSE 77; RESP 16; TEMP 36.3; O2SAT 99
--- NOTE | 2023-05-24 10:20 | HO.PSYADMNOT ---
HPI Date of Service: 05/24/23 Chief Complaint: depression Sources of Information: patient interviewed, chart reviewed and crisis/core team assessment reviewed HPI Subjective Notes: [place] Warning and Conditional Voluntary Narrative: Patient is a 63-year-old male with history of bipolar depression with history of manic episode, hypertension, who presents for 4th admission in past 6 months for worsening depression in the face of going off the lithium/Wellbutrin about a week after he was discharged from [place] [address] March 2023. Patient reports that he took lithium/Wellbutrin combination for about a week after he was discharged but then developed a daily headache and so discontinued both. Patient's depression quickly returned. Patient is somewhat reticent however he reports that he has been eating very little, just lying in bed all day, not attending to any ADLs. Patient's reported to the ED that he was eating his hair (which Patient denies). Patient denies any SI or HI or AVH. He wants medication help to get better from depression. Past Psychiatric History: Pt reports first depressive episode was back in 2018 when he was first hospitalized. He was started on Lexapro and reports being stable, enjoying life for past 5 years until November 2022 when depression returned. [facility] psych admission november 2022 [facility] psych admission December 2022 [place] [address] psych admission February 2023 med hx: lexapro and Haldol in 2018 and then only Lexapro starting 2019; prozac (briefly) Venlafaxine Mirtazapine (though not therapeutic dose) [place] 600 mg plus Wellbutrin 450 mg: Tolerated and mood partially improved however said he developed daily headaches from it a week later and discontinued Medical Evaluation Reviewed: Yes [facility] Medical History Bipolar disorder, most recent episode depressed MDD (major depressive disorder), recurrent, severe, with psychosis Family History: Brother: depression/alcoholism Cousin: significant psych hx, hospitalization Social History: 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 Substance History: denies Trauma History: denies Diagnostics Vital Signs (24Hr): Vital Signs - 24 hr 05/23/23 14:50 05/23/23 21:35 05/24/23 08:35 Temperature 97.7 F 98.1 F 97.4 F Pulse Rate 94 126 H 77 Respiratory Rate 18 16 Blood Pressure 137/96 H 119/84 138/74 Pulse Oximetry 97 99 99 Oxygen Delivery Method Room Air Room Air Room Air BMI result Body Mass Index 30.3 Labs 05/23/23 15:51 05/23/23 15:51 Labs: Laboratory Results - last 48 hr 05/23/23 05/23/23 05/23/23 15:29 15:51 15:53 WBC 6.0 RBC 4.44 L Hgb 14.1 Hct 39.9 L MCV 89.9 MCH 31.8 MCHC 35.3 RDW 12.4 Plt Count 226 MPV 9.4 Immature Gran % (Auto) 0.2 Neut % (Auto) 62.0 Lymph % (Auto) 26.9 [place] % (Auto) 10.4 Eos % (Auto) 0.3 Baso % (Auto) 0.2 Lymph # (Auto) 1.6 [place] # (Auto) 0.6 Eos # (Auto) 0.0 Baso # (Auto) 0.0 Abs Immat Gran (auto) 0.01 Absolute Neuts (auto) 3.7 Absolute Nucleated RBC 0.000 Nucleated RBC % (auto) 0.0 Sodium 139 Potassium 3.6 Chloride 107 Carbon Dioxide 22 Anion Gap 14 BUN 10 Creatinine 0.78 Estim Creat Clear Calc 119.7 Estimated GFR > 60 Random Glucose 102 Calcium 9.2 Magnesium 2.3 Total Bilirubin 0.6 Direct Bilirubin 0.3 AST 14 ALT 8 Alkaline Phosphatase 73 Total Protein 6.3 L Albumin 3.7 Urine Color Dark Yellow Urine Appearance Clear Urine pH 6.5 Ur Specific [place] 1.020 Urine Protein Trace Urine Glucose (UA) Negative Urine Ketones Trace Urine Blood Negative Urine Nitrite Negative Ur Leukocyte Esterase Negative Urine RBC 0-2 Urine WBC 0-5 Ur Squamous Epith Cells 0-2 Urine Bacteria None Seen Hyaline Casts 11-20 Urine Opiates Screen Not Detected Urine Fentanyl Screen Not Detected Ur Barbiturates Screen Not Detected Ur Phencyclidine Scrn Not Detected Ur Amphetamines Screen Not Detected U Benzodiazepines Scrn Not Detected [place] < 0.10 L Urine Cocaine Screen Not Detected U Marijuana (THC) Screen Not Detected Ethyl Alcohol < 10 COVID-19 ([facility]) Negative COVID-19 Clin Com See Note Meds/Allergies Meds Home Medications Medication Instructions Recorded Confirmed Type amlodipine 10 mg tablet 10 mg PO DAILY 07/13/23 09/28/23 History aspirin 81 mg tablet 81 mg PO DAILY 03/07/23 05/23/23 History cholecalciferol (vitamin D3) 25 25 mcg PO DAILY 03/07/23 05/23/23 History mcg (1,000 unit) tablet Allergies Allergies Allergy/AdvReac Type Severity Reaction Status Date / Time lisinopril Allergy Hives Verified 03/06/23 10:50 Mental Status Exam Mental Status Exam Narrative: Pt is alert and oriented; behavior is cooperative, a little guarded, calm; patient is not in distress; dressed in hospital attire with unkempt hair, disheveled, marginal hygiene; mood is described as depressed and affect down cast and anxious; eye contact appropriate; Speech is a little latent; normal rate volume and prosody; not pressured; significant psychomotor retardation present; thought process is goal directed; Thought content is on tx; otherwise pertinent to relevant topics; no delusional content expressed; denies any SI/HI. There is no evidence of perceptual disturbance. Patients insight and judgment impaired. Assessment & Plan Assessment & Plan (1) Bipolar disorder, most recent episode depressed: Status: Acute Code(s): F31.30 - Bipolar disorder, current episode depressed, mild or moderate severity, unspecified Plan Patient is a 63-year-old male with history of bipolar depression with history of manic episode, hypertension, who presents for 4th admission in past 6 months for worsening depression in the face of going off the lithium/Wellbutrin about a week after he was discharged from [place] [address] March 2023. Patient reports that he took lithium/Wellbutrin combination for about a week after he was discharged but then developed a daily headache and so discontinued both. Patient's depression quickly returned. Patient is somewhat reticent however he reports that he has been eating very little, just lying in bed all day, not attending to any ADLs. Patient's reported to the ED that he was eating his hair (which Patient denies). Patient denies any SI or HI or AVH. He wants medication help to get better from depression. Impression/plan: Patient has bipolar depression. Combination of lithium and Wellbutrin were partially helpful however he discontinued them within a week saying he had a headache. Not sure if patient reach out for help after that. He soon decompensated and has remained depressed with significant psychomotor retardation, hardly eating, hardly get out of bed and not attending to ADLs; reports trichiolmania which patient denies. At last admission discussed ECT at length however patient did not want to trial; sign writer letterer or painter broached this topic again and he again refused. Patient also very ambivalent about mood stabilizers from second-generation antipsychotic class. TCAs or MAOI are options however hesitant to start without mood stabilizer also on board, Given patient's history of manic episode. Patient also has refractory insomnia Plan: CV Q 15 minute checks Continue amlodipine 10 mg daily Continue aspirin 81 mg daily Will discuss medication management. Medication trials: lexapro and Haldol in 2018 and then only Lexapro starting 2019; prozac (briefly) Venlafaxine Mirtazapine (though not therapeutic dose) [place] 600 mg plus Wellbutrin 450 mg: Tolerated and mood partially improved however said he developed daily headaches from it a week later and discontinued Patient educated on: diagnosis, medication risk/benefits and ECT Informed Consent: understands and further education needed Reason for continued inpatient stay Substantial Risk for: inability to function Statement Statement: I have reviewed the history and physical and performed a pertinent examination on my patient. No changes have occurred unless specified. If the History and Physical was not performed prior to admission, the Hospitalist's service will be consulted for completing the admission physical. Time Spent With Patient Time: Total time managing care of this patient today ____ minutes.
[2023-05-24] MEDS: Nortriptyline HCl 10 MG CAPSULE PO (20:49)
[2023-05-24] MEDS: Lithium Carbonate ER 300 MG TABLET.ER PO (20:49)
[2023-05-24 21:07] VITALS: BP 122/75; PULSE 79; RESP 16; TEMP 36.4; O2SAT 98
[2023-05-25] MEDS: LORazepam 0.5 MG TABLET PO ×2 (05:45→20:40)
[2023-05-25 08:35] VITALS: BP 134/69; PULSE 81; RESP 16; TEMP 36.2; O2SAT 99
[2023-05-25] MEDS: Cholecalciferol (Vitamin D3) 25 MCG TABLET PO (09:44)
[2023-05-25] MEDS: Aspirin Enteric Coated 81 MG TABLET.DR PO (09:44)
[2023-05-25] MEDS: amLODIPine Besylate 10 MG TABLET PO (09:44)
--- NOTE | 2023-05-25 11:47 | HO.PSYCHPN ---
Subjective Subjective Date of Service: 05/25/23 Reason For Visit: depression Subjective Notes: Conditional Voluntary Interim History: Pt with slightly brighter affect but mostly in bed. He reports sleeping well. He reports able to eat better. He denies SI/HI. He reports is his inability to initiate activities and being mostly in bed. No behavioral concerns. Medication Compliance: Yes Review of Systems Review of Systems Constitutional : No Fever, No Chills ENT/Mouth : No Ear Pain, No Nasal Congestion, No sore throat Eyes: No Eye Pain, No Swelling, No Redness Cardiovascular : No Chest Pain, No SOB Respiratory : No Cough, No Sputum, No Dyspnea Gastrointestinal : No Nausea, No Vomiting, No Diarrhea, No Hematochezia, No Melena Genitourinary : No Dysuria, No Urinary Frequency, No Hematuria Musculoskeletal : No Myalgias Skin : No Skin Lesions, No rash Neuro : No Weakness, No Numbness, No Paresthesias, No Dizziness, No Headache Psych : positive Anxiety, positive Depression, no SI/HI Heme/Lymph: No Lymphadenopathy Endocrine : No Polyuria, No Polydipsia All other systems reviewed and are negative Mental Status Exam Mental Status Exam Narrative: Pt is alert and oriented; behavior is cooperative, a little guarded, calm; patient is not in distress; dressed in hospital attire with unkempt hair, disheveled, marginal hygiene; mood is described as depressed and affect down cast and anxious; eye contact appropriate; Speech is a little latent; normal rate volume and prosody; not pressured; significant psychomotor retardation present; thought process is goal directed; Thought content is on tx; otherwise pertinent to relevant topics; no delusional content expressed; denies any SI/HI. There is no evidence of perceptual disturbance. Patients insight and judgment impaired. Diagnostics Vital Signs (24Hr): Vital Signs - 24 hr 05/24/23 21:07 05/25/23 08:35 Temperature 97.6 F 97.1 F Pulse Rate 79 81 Respiratory Rate 16 16 Blood Pressure 122/75 134/69 Pulse Oximetry 98 99 Oxygen Delivery Method Room Air Room Air BMI result Body Mass Index 30.3 Labs 05/23/23 15:51 05/23/23 15:51 Labs: Laboratory Results - last 48 hr 05/23/23 05/23/23 05/23/23 15:29 15:51 15:53 WBC 6.0 RBC 4.44 L Hgb 14.1 Hct 39.9 L MCV 89.9 MCH 31.8 MCHC 35.3 RDW 12.4 Plt Count 226 MPV 9.4 Immature Gran % (Auto) 0.2 Neut % (Auto) 62.0 Lymph % (Auto) 26.9 [place] % (Auto) 10.4 Eos % (Auto) 0.3 Baso % (Auto) 0.2 Lymph # (Auto) 1.6 [place] # (Auto) 0.6 Eos # (Auto) 0.0 Baso # (Auto) 0.0 Abs Immat Gran (auto) 0.01 Absolute Neuts (auto) 3.7 Absolute Nucleated RBC 0.000 Nucleated RBC % (auto) 0.0 Sodium 139 Potassium 3.6 Chloride 107 Carbon Dioxide 22 Anion Gap 14 BUN 10 Creatinine 0.78 Estim Creat Clear Calc 119.7 Estimated GFR > 60 Random Glucose 102 Calcium 9.2 Magnesium 2.3 Total Bilirubin 0.6 Direct Bilirubin 0.3 AST 14 ALT 8 Alkaline Phosphatase 73 Total Protein 6.3 L Albumin 3.7 Urine Color Dark Yellow Urine Appearance Clear Urine pH 6.5 Ur Specific [place] 1.020 Urine Protein Trace Urine Glucose (UA) Negative Urine Ketones Trace Urine Blood Negative Urine Nitrite Negative Ur Leukocyte Esterase Negative Urine RBC 0-2 Urine WBC 0-5 Ur Squamous Epith Cells 0-2 Urine Bacteria None Seen Hyaline Casts 11-20 Urine Opiates Screen Not Detected Urine Fentanyl Screen Not Detected Ur Barbiturates Screen Not Detected Ur Phencyclidine Scrn Not Detected Ur Amphetamines Screen Not Detected U Benzodiazepines Scrn Not Detected [place] < 0.10 L Urine Cocaine Screen Not Detected U Marijuana (THC) Screen Not Detected Ethyl Alcohol < 10 COVID-19 ([facility]) Negative COVID-19 Clin Com See Note Medications Medications Current Medications Acetaminophen (Acetaminophen 325 Mg Tablet) 650 mg PO Q6H PRN PRN Reason: Headache/Pain Mild Scale (1-3) Al Hydroxide/Mg Hydroxide (Magnesium Hydrox/Alum Hydrox 30 Ml Oral.Susp) 30 ml PO Q6H PRN PRN Reason: Heartburn/Nausea Amlodipine Besylate (Amlodipine Besylate 10 Mg Tablet) 10 mg PO DAILY [facility]; Protocol Last Admin: 05/25/23 09:44 Dose: 10 mg Aspirin (Aspirin Enteric Coated 81 Mg Tablet.Dr) 81 mg PO DAILY [facility] Last Admin: 05/25/23 09:44 Dose: 81 mg [place] Carbonate ([place]oton Carbonate Er 300 Mg Tablet.Er) 600 mg PO BEDTIME [facility] Lorazepam (Lorazepam 0.5 Mg Tablet) 0.5 mg PO TID PRN PRN Reason: anxiety Last Admin: 05/25/23 05:45 Dose: 0.5 mg Magnesium Hydroxide (Milk Of Magnesia 30 Ml Oral.Susp) 30 ml PO DAILY PRN PRN Reason: Constipation Nicotine Polacrilex (Nicotine Polacrilex 2 Mg Gum) 4 mg BUCCAL Q2H PRN PRN Reason: Nicotine Cravings Nortriptyline HCl (Nortriptyline Hcl 10 Mg Capsule) 10 mg PO BEDTIME [facility] Last Admin: 05/24/23 20:49 Dose: 10 mg Trazodone HCl (Trazodone Hcl 50 Mg Tablet) 50 mg PO BEDTIME MRX1 PRN PRN Reason: Insomnia Vitamin D (Cholecalciferol (Vitamin D3) 25 Mcg Tablet) 25 mcg PO DAILY [facility] Last Admin: 05/25/23 09:44 Dose: 25 mcg Allergies Allergies Allergy/AdvReac Type Severity Reaction Status Date / Time lisinopril Allergy Hives Verified 03/06/23 10:50 Assessment & Plan Assessment & Plan (1) Bipolar disorder, most recent episode depressed: Status: Acute Code(s): F31.30 - Bipolar disorder, current episode depressed, mild or moderate severity, unspecified Plan Patient is a 63-year-old male with history of bipolar depression with history of manic episode, hypertension, who presents for 4th admission in past 6 months for worsening depression in the face of going off the lithium/Wellbutrin about a week after he was discharged from [place] [address] March 2023. Patient reports that he took lithium/Wellbutrin combination for about a week after he was discharged but then developed a daily headache and so discontinued both. Patient's depression quickly returned. Patient is somewhat reticent however he reports that he has been eating very little, just lying in bed all day, not attending to any ADLs. Patient's reported to the ED that he was eating his hair (which Patient denies). Patient denies any SI or HI or AVH. He wants medication help to get better from depression. Impression/plan: Patient has bipolar depression. Combination of lithium and Wellbutrin were partially helpful however he discontinued them within a week saying he had a headache. Not sure if patient reach out for help after that. He soon decompensated and has remained depressed with significant psychomotor retardation, hardly eating, hardly get out of bed and not attending to ADLs; reports trichiolmania which patient denies. At last admission discussed ECT at length however patient did not want to trial; short story writer broached this topic again and he again refused. Patient also very ambivalent about mood stabilizers from second-generation antipsychotic class. TCAs or MAOI are options however hesitant to start without mood stabilizer also on board, Given patient's history of manic episode. Patient also has refractory insomnia Plan: 05/25 continue tx. Medication trials: lexapro and Haldol in 2018 and then only Lexapro starting 2019; prozac (briefly) Venlafaxine Mirtazapine (though not therapeutic dose) [place] 600 mg plus Wellbutrin 450 mg: Tolerated and mood partially improved however said he developed daily headaches from it a week later and discontinued Reason for continued inpatient stay Substantial Risk for: inability to function Time Spent With Patient Time: Total time managing care of this patient today ____ minutes.
[2023-05-25] MEDS: Lithium Carbonate ER 300 MG TABLET.ER 600 MG PO (20:40)
[2023-05-25] MEDS: Nortriptyline HCl 10 MG CAPSULE PO (20:40)
[2023-05-26 08:00] VITALS: BP 117/78; PULSE 82; RESP 18; TEMP 36.1; O2SAT 96
[2023-05-26] MEDS: amLODIPine Besylate 10 MG TABLET PO (09:07)
[2023-05-26] MEDS: Cholecalciferol (Vitamin D3) 25 MCG TABLET PO (09:07)
[2023-05-26] MEDS: Aspirin Enteric Coated 81 MG TABLET.DR PO (09:07)
--- NOTE | 2023-05-26 19:24 | HO.PSYCHPN ---
Subjective Subjective Date of Service: 05/26/23 Reason For Visit: depression Subjective Notes: Conditional Voluntary Interim History: Pt with slightly brighter affect but mostly in bed. He has been more visible and has improved hygiene. He reports sleeping well. He reports able to eat better. He denies SI/HI. He reports is his inability to initiate activities and being mostly in bed. No behavioral concerns. Review of Systems Review of Systems Constitutional : No Fever, No Chills ENT/Mouth : No Ear Pain, No Nasal Congestion, No sore throat Eyes: No Eye Pain, No Swelling, No Redness Cardiovascular : No Chest Pain, No SOB Respiratory : No Cough, No Sputum, No Dyspnea Gastrointestinal : No Nausea, No Vomiting, No Diarrhea, No Hematochezia, No Melena Genitourinary : No Dysuria, No Urinary Frequency, No Hematuria Musculoskeletal : No Myalgias Skin : No Skin Lesions, No rash Neuro : No Weakness, No Numbness, No Paresthesias, No Dizziness, No Headache Psych : positive Anxiety, positive Depression, no SI/HI Heme/Lymph: No Lymphadenopathy Endocrine : No Polyuria, No Polydipsia All other systems reviewed and are negative Mental Status Exam Mental Status Exam Narrative: Pt is alert and oriented; behavior is cooperative, a little guarded, calm; patient is not in distress; dressed in hospital attire with unkempt hair, disheveled, marginal hygiene; mood is described as depressed and affect down cast and anxious; eye contact appropriate; Speech is a little latent; normal rate volume and prosody; not pressured; significant psychomotor retardation present; thought process is goal directed; Thought content is on tx; otherwise pertinent to relevant topics; no delusional content expressed; denies any SI/HI. There is no evidence of perceptual disturbance. Patients insight and judgment impaired. Diagnostics Vital Signs (24Hr): Vital Signs - 24 hr 05/26/23 08:00 Temperature 97 F Pulse Rate 82 Respiratory Rate 18 Blood Pressure 117/78 Pulse Oximetry 96 Oxygen Delivery Method Room Air BMI result Body Mass Index 30.3 Labs 05/23/23 15:51 05/23/23 15:51 Medications Medications Current Medications Acetaminophen (Acetaminophen 325 Mg Tablet) 650 mg PO Q6H PRN PRN Reason: Headache/Pain Mild Scale (1-3) Al Hydroxide/Mg Hydroxide (Magnesium Hydrox/Alum Hydrox 30 Ml Oral.Susp) 30 ml PO Q6H PRN PRN Reason: Heartburn/Nausea Amlodipine Besylate (Amlodipine Besylate 10 Mg Tablet) 10 mg PO DAILY [facility]; Protocol Last Admin: 05/26/23 09:07 Dose: 10 mg Aspirin (Aspirin Enteric Coated 81 Mg Tablet.Dr) 81 mg PO DAILY [facility] Last Admin: 05/26/23 09:07 Dose: 81 mg [place] Carbonate ([place] Carbonate Er 300 Mg Tablet.Er) 600 mg PO BEDTIME [facility] Last Admin: 05/25/23 20:40 Dose: 600 mg Lorazepam (Lorazepam 0.5 Mg Tablet) 0.5 mg PO TID PRN PRN Reason: anxiety Last Admin: 05/25/23 20:40 Dose: 0.5 mg Magnesium Hydroxide (Milk Of Magnesia 30 Ml Oral.Susp) 30 ml PO DAILY PRN PRN Reason: Constipation Nicotine Polacrilex (Nicotine Polacrilex 2 Mg Gum) 4 mg BUCCAL Q2H PRN PRN Reason: Nicotine Cravings Nortriptyline HCl (Nortriptyline Hcl 10 Mg Capsule) 10 mg PO BEDTIME [facility] Last Admin: 05/25/23 20:40 Dose: 10 mg Trazodone HCl (Trazodone Hcl 50 Mg Tablet) 50 mg PO BEDTIME MRX1 PRN PRN Reason: Insomnia Vitamin D (Cholecalciferol (Vitamin D3) 25 Mcg Tablet) 25 mcg PO DAILY [facility] Last Admin: 05/26/23 09:07 Dose: 25 mcg Allergies Allergies Allergy/AdvReac Type Severity Reaction Status Date / Time lisinopril Allergy Hives Verified 03/06/23 10:50 Assessment & Plan Assessment & Plan (1) Bipolar disorder, most recent episode depressed: Status: Acute Code(s): F31.30 - Bipolar disorder, current episode depressed, mild or moderate severity, unspecified Plan Patient is a 63-year-old male with history of bipolar depression with history of manic episode, hypertension, who presents for 4th admission in past 6 months for worsening depression in the face of going off the lithium/Wellbutrin about a week after he was discharged from [place] [address] March 2023. Patient reports that he took lithium/Wellbutrin combination for about a week after he was discharged but then developed a daily headache and so discontinued both. Patient's depression quickly returned. Patient is somewhat reticent however he reports that he has been eating very little, just lying in bed all day, not attending to any ADLs. Patient's reported to the ED that he was eating his hair (which Patient denies). Patient denies any SI or HI or AVH. He wants medication help to get better from depression. Impression/plan: Patient has bipolar depression. Combination of lithium and Wellbutrin were partially helpful however he discontinued them within a week saying he had a headache. Not sure if patient reach out for help after that. He soon decompensated and has remained depressed with significant psychomotor retardation, hardly eating, hardly get out of bed and not attending to ADLs; reports trichiolmania which patient denies. At last admission discussed ECT at length however patient did not want to trial; web content writer broached this topic again and he again refused. Patient also very ambivalent about mood stabilizers from second-generation antipsychotic class. TCAs or MAOI are options however hesitant to start without mood stabilizer also on board, Given patient's history of manic episode. Patient also has refractory insomnia Plan: 05/25 continue tx. 05/26 continue tx. Medication trials: lexapro and Haldol in 2018 and then only Lexapro starting 2019; prozac (briefly) Venlafaxine Mirtazapine (though not therapeutic dose) [place] 600 mg plus Wellbutrin 450 mg: Tolerated and mood partially improved however said he developed daily headaches from it a week later and discontinued Reason for continued inpatient stay Substantial Risk for: inability to function Time Spent With Patient Time: Total time managing care of this patient today ____ minutes.
[2023-05-26] MEDS: Nortriptyline HCl 10 MG CAPSULE PO (20:13)
[2023-05-26] MEDS: Lithium Carbonate ER 300 MG TABLET.ER 600 MG PO (20:13)
[2023-05-27 07:40] VITALS: BP 127/79; PULSE 82; RESP 18; TEMP 36.4; O2SAT 99
[2023-05-27] MEDS: amLODIPine Besylate 10 MG TABLET PO (08:36)
[2023-05-27] MEDS: Cholecalciferol (Vitamin D3) 25 MCG TABLET PO (08:36)
[2023-05-27] MEDS: Aspirin Enteric Coated 81 MG TABLET.DR PO (08:36)
--- NOTE | 2023-05-27 09:20 | HO.PSYCHPN ---
Subjective Subjective Date of Service: 05/27/23 Reason For Visit: depression Interim History: Met with patient; discussed with team; reviewed notes same presentation, in bed, disheveled, not eating (other than Ensure), no ADL's Discussed depression and the associated behaviors. Tolerating meds and agrees to increase Nortriptyline. C/O difficulty sleeping; agrees to scheduling Trazodone and ativan (was on both last admission) Mental Status Exam Mental Status Exam Narrative: Pt is alert and oriented; behavior is isolative, a little guarded, calm, withdrawn; patient is not in distress; dressed in hospital attire with unkempt hair, disheveled, marginal hygiene; mood is described as disappointed and affect downcast; eye contact appropriate; Speech is a little latent; normal volume and prosody; not pressured; significant psychomotor retardation present; thought process is goal directed; Thought content is somewhat vacuous; tx; otherwise pertinent to relevant topics; no delusional content expressed; denies any SI/HI. There is no evidence of perceptual disturbance. Patients insight and judgment impaired. Diagnostics Vital Signs (24Hr): Vital Signs - 24 hr 05/27/23 07:40 Temperature 97.6 F Pulse Rate 82 Respiratory Rate 18 Blood Pressure 127/79 Pulse Oximetry 99 Oxygen Delivery Method Room Air BMI result Body Mass Index 30.3 Labs 05/23/23 15:51 05/23/23 15:51 Medications Medications Current Medications Acetaminophen (Acetaminophen 325 Mg Tablet) 650 mg PO Q6H PRN PRN Reason: Headache/Pain Mild Scale (1-3) Al Hydroxide/Mg Hydroxide (Magnesium Hydrox/Alum Hydrox 30 Ml Oral.Susp) 30 ml PO Q6H PRN PRN Reason: Heartburn/Nausea Amlodipine Besylate (Amlodipine Besylate 10 Mg Tablet) 10 mg PO DAILY [facility]; Protocol Last Admin: 05/27/23 08:36 Dose: 10 mg Aspirin (Aspirin Enteric Coated 81 Mg Tablet.Dr) 81 mg PO DAILY [facility] Last Admin: 05/27/23 08:36 Dose: 81 mg [place] Carbonate ([place] Carbonate Er 300 Mg Tablet.Er) 600 mg PO BEDTIME [facility] Last Admin: 05/26/23 20:13 Dose: 600 mg Lorazepam (Lorazepam 0.5 Mg Tablet) 0.5 mg PO TID PRN PRN Reason: anxiety Last Admin: 05/25/23 20:40 Dose: 0.5 mg Magnesium Hydroxide (Milk Of Magnesia 30 Ml Oral.Susp) 30 ml PO DAILY PRN PRN Reason: Constipation Nicotine Polacrilex (Nicotine Polacrilex 2 Mg Gum) 4 mg BUCCAL Q2H PRN PRN Reason: Nicotine Cravings Nortriptyline HCl (Nortriptyline Hcl 10 Mg Capsule) 10 mg PO BEDTIME [facility] Last Admin: 05/26/23 20:13 Dose: 10 mg Trazodone HCl (Trazodone Hcl 50 Mg Tablet) 50 mg PO BEDTIME MRX1 PRN PRN Reason: Insomnia Vitamin D (Cholecalciferol (Vitamin D3) 25 Mcg Tablet) 25 mcg PO DAILY [facility] Last Admin: 05/27/23 08:36 Dose: 25 mcg Allergies Allergies Allergy/AdvReac Type Severity Reaction Status Date / Time lisinopril Allergy Hives Verified 03/06/23 10:50 Assessment & Plan Assessment & Plan (1) Bipolar disorder, most recent episode depressed: Status: Acute Code(s): F31.30 - Bipolar disorder, current episode depressed, mild or moderate severity, unspecified Plan Patient is a 63-year-old male with history of bipolar depression with history of manic episode, hypertension, who presents for 4th admission in past 6 months for worsening depression in the face of going off the lithium/Wellbutrin about a week after he was discharged from [place] [address] March 2023. Patient reports that he took lithium/Wellbutrin combination for about a week after he was discharged but then developed a daily headache and so discontinued both. Patient's depression quickly returned. Patient is somewhat reticent however he reports that he has been eating very little, just lying in bed all day, not attending to any ADLs. Patient's reported to the ED that he was eating his hair (which Patient denies). Patient denies any SI or HI or AVH. He wants medication help to get better from depression. Hospital course: Depressed, no SI. Anxious about antipsychotic medication. Agrees to restarting lithium and nortriptyline 05/27 remains severely?depressed with negative symptoms, not eating, not bathing, talking little; agrees to increasing nortriptyline, restarting trazodone for insomnia; will also restart Ativan since pt seems to have a touch of catatonia and scheduled?Ativan?helped?last?admission Impression/plan: Patient has bipolar depression. Combination of lithium and Wellbutrin were partially helpful however he discontinued them within a week saying he had a headache. Not sure if patient reach out for help after that. He soon decompensated and has remained depressed with significant psychomotor retardation, hardly eating, hardly get out of bed and not attending to ADLs; reports trichiolmania which patient denies. At last admission discussed ECT at length however patient did not want to trial; va underwriter broached this topic again and he again refused. Patient also very ambivalent about mood stabilizers from second-generation antipsychotic class. TCAs or MAOI are options however hesitant to start without mood stabilizer also on board, Given patient's history of manic episode. Patient also has refractory insomnia Plan: CV Q 15 minutes checks Continue lithium ER 600 mg q.h.s. Increase nortriptyline to 20 mg q.h.s. Will schedule trazodone 100 mg q.h.s.; which help patient sleep at last admission Will schedule Ativan 0.5 mg q.i.d.; help patient with behavioral activation at last admission at which time he was on 1 mg q.i.d. Medication trials: lexapro and Haldol in 2018 and then only Lexapro starting 2019; prozac (briefly) Venlafaxine Mirtazapine (though not therapeutic dose) [place] 600 mg plus Wellbutrin 450 mg: Tolerated and mood partially improved however said he developed daily headaches from it a week later and discontinued Patient educated on: diagnosis and medication risk/benefits Informed Consent: understands, does not understand and further education needed Reason for continued inpatient stay Substantial Risk for: inability to function Time Spent With Patient Time: Total time managing care of this patient today ____ minutes.
[2023-05-27] MEDS: LORazepam 0.5 MG TABLET PO ×3 (16:34→20:55)
[2023-05-27 18:00] VITALS: BP 116/66; PULSE 75; RESP 16; TEMP 36; O2SAT 99
[2023-05-27] MEDS: traZODone HCL 100 MG TABLET PO (20:55)
[2023-05-27] MEDS: Lithium Carbonate ER 300 MG TABLET.ER 600 MG PO (20:55)
[2023-05-27] MEDS: Nortriptyline HCl 10 MG CAPSULE 20 MG PO (20:56)
[2023-05-28 08:00] VITALS: BP 122/83; PULSE 77; RESP 18; TEMP 36.4; O2SAT 99
[2023-05-28] MEDS: Cholecalciferol (Vitamin D3) 25 MCG TABLET PO (08:13)
[2023-05-28] MEDS: Aspirin Enteric Coated 81 MG TABLET.DR PO (08:13)
[2023-05-28] MEDS: LORazepam 0.5 MG TABLET PO ×3 (08:13→18:02)
[2023-05-28] MEDS: amLODIPine Besylate 10 MG TABLET PO (08:13)
--- NOTE | 2023-05-28 12:54 | HO.PSYCHPN ---
Subjective Subjective Date of Service: 05/28/23 Reason For Visit: depression Interim History: Met with patient; discussed with team Patient remains in bed, depressed, difficult with which to engage, disheveled, not bathing. Patient did say however that he has been eating a little bit and also that he slept a little last night which is an improvement. Says he wants to sleep more and agrees to some med changes He also gets and walks his tray down the [place]. Patient shared that he is feeling very disappointed in himself. Also expressed feeling sad that his has to suffer through his depression with him and that he is missing his grandchild. Regulatory Compliance Officer discussed history and patient said that after last admission when he was discharged, and he started having headaches side effect, he had not yet had his 1st appointment with new psychiatric provider and so could not discuss medication change. He said he did talk about it with his PCP who refused to make any med changes given scope of practice. Mental Status Exam Mental Status Exam Narrative: Pt is alert and oriented; behavior is isolative, a little guarded, calm, withdrawn; patient is not in distress; dressed in hospital attire with unkempt hair, disheveled, marginal hygiene; mood is described as disappointed and affect downcast; eye contact appropriate; Speech is a little latent; normal volume and prosody; not pressured; significant psychomotor retardation present; thought process is goal directed; Thought content is on how depression is hurting his family; tx; otherwise pertinent to relevant topics; no delusional content expressed; denies any SI/HI. There is no evidence of perceptual disturbance. Patients insight and judgment impaired. Diagnostics Vital Signs (24Hr): Vital Signs - 24 hr 05/27/23 18:00 05/28/23 08:00 Temperature 96.8 F 97.5 F Pulse Rate 75 77 Respiratory Rate 16 18 Blood Pressure 116/66 122/83 Pulse Oximetry 99 99 Oxygen Delivery Method Room Air Room Air BMI result Body Mass Index 30.3 Labs 05/23/23 15:51 05/23/23 15:51 Medications Medications Current Medications Acetaminophen (Acetaminophen 325 Mg Tablet) 650 mg PO Q6H PRN PRN Reason: Headache/Pain Mild Scale (1-3) Al Hydroxide/Mg Hydroxide (Magnesium Hydrox/Alum Hydrox 30 Ml Oral.Susp) 30 ml PO Q6H PRN PRN Reason: Heartburn/Nausea Amlodipine Besylate (Amlodipine Besylate 10 Mg Tablet) 10 mg PO DAILY [facility]; Protocol Last Admin: 05/28/23 08:13 Dose: 10 mg Aspirin (Aspirin Enteric Coated 81 Mg Tablet.Dr) 81 mg PO DAILY [facility] Last Admin: 05/28/23 08:13 Dose: 81 mg [place] Carbonate ([place] Carbonate Er 300 Mg Tablet.Er) 600 mg PO BEDTIME [facility] Last Admin: 05/27/23 20:55 Dose: 600 mg Lorazepam (Lorazepam 0.5 Mg Tablet) 0.5 mg PO TID PRN PRN Reason: anxiety Last Admin: 05/25/23 20:40 Dose: 0.5 mg Lorazepam (Lorazepam 0.5 Mg Tablet) 0.5 mg PO QID [facility] Last Admin: 05/28/23 08:13 Dose: 0.5 mg Magnesium Hydroxide (Milk Of Magnesia 30 Ml Oral.Susp) 30 ml PO DAILY PRN PRN Reason: Constipation Nicotine Polacrilex (Nicotine Polacrilex 2 Mg Gum) 4 mg BUCCAL Q2H PRN PRN Reason: Nicotine Cravings Nortriptyline HCl (Nortriptyline Hcl 10 Mg Capsule) 20 mg PO BEDTIME [facility] Last Admin: 05/27/23 20:56 Dose: 20 mg Trazodone HCl (Trazodone Hcl 50 Mg Tablet) 50 mg PO BEDTIME [id number] PRN PRN Reason: Insomnia Trazodone HCl (Trazodone Hcl 100 Mg Tablet) 100 mg PO BEDTIME [facility] Last Admin: 05/27/23 20:55 Dose: 100 mg Vitamin D (Cholecalciferol (Vitamin D3) 25 Mcg Tablet) 25 mcg PO DAILY [facility] Last Admin: 05/28/23 08:13 Dose: 25 mcg Allergies Allergies Allergy/AdvReac Type Severity Reaction Status Date / Time lisinopril Allergy Hives Verified 03/06/23 10:50 Assessment & Plan Assessment & Plan (1) Bipolar disorder, most recent episode depressed: Status: Acute Code(s): F31.30 - Bipolar disorder, current episode depressed, mild or moderate severity, unspecified Plan Patient is a 63-year-old male with history of bipolar depression with history of manic episode, hypertension, who presents for 4th admission in past 6 months for worsening depression in the face of going off the lithium/Wellbutrin about a week after he was discharged from [place] [address] March 2023. Patient reports that he took lithium/Wellbutrin combination for about a week after he was discharged but then developed a daily headache and so discontinued both. Patient's depression quickly returned. Patient is somewhat reticent however he reports that he has been eating very little, just lying in bed all day, not attending to any ADLs. Patient's reported to the ED that he was eating his hair (which Patient denies). Patient denies any SI or HI or AVH. He wants medication help to get better from depression. Hospital course: Depressed, no SI. Anxious about antipsychotic medication. Agrees to restarting lithium and nortriptyline 05/27 remains severely?depressed with negative symptoms, not eating, not bathing, talking little; agrees to increasing nortriptyline, restarting trazodone for insomnia; will also restart Ativan since pt seems to have a touch of catatonia and scheduled?Ativan?helped?last?admission 05/28 remains depressed; however talking a little more about meaningful life issues and he did sleep a little last night and eating a little more. Increasing trazodone and bedtime Ativan dose Impression/plan: Patient has bipolar depression. Combination of lithium and Wellbutrin were partially helpful however he discontinued them within a week saying he had a headache. Not sure if patient reach out for help after that. He soon decompensated and has remained depressed with significant psychomotor retardation, hardly eating, hardly get out of bed and not attending to ADLs; reports trichiolmania which patient denies. At last admission discussed ECT at length however patient did not want to trial; flex o writer operator broached this topic again and he again refused. Patient also very ambivalent about mood stabilizers from second-generation antipsychotic class. TCAs or MAOI are options however hesitant to start without mood stabilizer also on board, Given patient's history of manic episode. Patient also has refractory insomnia Plan: CV Q 15 minutes checks Continue lithium ER 600 mg q.h.s. Continue nortriptyline to 20 mg q.h.s. Increase to trazodone 150 mg q.h.s.; which help patient sleep at last admission Schedule Ativan 0.5 mg t.i.d. 0 900, 1400, 1800 Schedule Ativan 1 mg q.h.s.; (Ativan helped patient with behavioral activation at last admission at which time he was on 1 mg q.i.d.) Medication trials: lexapro and Haldol in 2018 and then only Lexapro starting 2019; prozac (briefly) Venlafaxine Mirtazapine (though not therapeutic dose) [place] 600 mg plus Wellbutrin 450 mg: Tolerated and mood partially improved however said he developed daily headaches from it a week later and discontinued Patient educated on: diagnosis, medication risk/benefits and therapeutic strategies Informed Consent: understands and further education needed Reason for continued inpatient stay Substantial Risk for: inability to function Time Spent With Patient Time: Total time managing care of this patient today ____ minutes.
[2023-05-28] MEDS: Lithium Carbonate ER 300 MG TABLET.ER 600 MG PO (20:55)
[2023-05-28] MEDS: Nortriptyline HCl 10 MG CAPSULE 20 MG PO (20:56)
[2023-05-28] MEDS: traZODone HCL 50 MG TABLET 150 MG PO (20:56)
[2023-05-28] MEDS: LORazepam 1 MG TABLET PO (20:56)
[2023-05-28 21:31] VITALS: BP 120/70; PULSE 78; RESP 16; TEMP 36.4; O2SAT 98
[2023-05-29 08:22] VITALS: BP 123/65; PULSE 84; RESP 16; TEMP 36.2; O2SAT 96
[2023-05-29] MEDS: Cholecalciferol (Vitamin D3) 25 MCG TABLET PO (08:31)
[2023-05-29] MEDS: Aspirin Enteric Coated 81 MG TABLET.DR PO (08:31)
[2023-05-29] MEDS: amLODIPine Besylate 10 MG TABLET PO (08:31)
--- NOTE | 2023-05-29 09:56 | P.PNPSI_ITS ---
Subjective Subjective Date of Service: 05/29/23 Reason For Visit: depression Interim History: met with patient; discussed with team No change in presentation; remains depressed, withdrawn, not attending to ADLs, disheveled Mental Status Exam Mental Status Exam Narrative: Pt is alert and oriented; behavior is isolative, a little guarded, calm, withdrawn; patient is not in distress; dressed in hospital attire with unkempt hair, disheveled, marginal hygiene; mood is described as disappointed and affect downcast; eye contact appropriate; Speech is a little latent; normal volume and prosody; not pressured; significant psychomotor retardation present; thought process is goal directed; Thought content is on how depression is hurting his family; tx; otherwise pertinent to relevant topics; no delusional content expressed; denies any SI/HI. There is no evidence of perceptual disturbance. Patients insight and judgment impaired. Diagnostics Vital Signs (24Hr): Vital Signs - 24 hr 05/28/23 21:31 05/29/23 08:22 Temperature 97.6 F 97.1 F Pulse Rate 78 84 Respiratory Rate 16 16 Blood Pressure 120/70 123/65 Pulse Oximetry 98 96 Oxygen Delivery Method Room Air Room Air BMI result Body Mass Index 30.3 Labs 05/23/23 15:51 05/30/23 08:07 Medications Medications Current Medications Acetaminophen (Acetaminophen 325 Mg Tablet) 650 mg PO Q6H PRN PRN Reason: Headache/Pain Mild Scale (1-3) Al Hydroxide/Mg Hydroxide (Magnesium Hydrox/Alum Hydrox 30 Ml Oral.Susp) 30 ml PO Q6H PRN PRN Reason: Heartburn/Nausea Amlodipine Besylate (Amlodipine Besylate 10 Mg Tablet) 10 mg PO DAILY [facility]; Protocol Last Admin: 05/29/23 08:31 Dose: 10 mg Aspirin (Aspirin Enteric Coated 81 Mg Tablet.Dr) 81 mg PO DAILY [facility] Last Admin: 05/29/23 08:31 Dose: 81 mg [place] Carbonate ([place] Carbonate Er 300 Mg Tablet.Er) 600 mg PO BEDTIME [facility] Last Admin: 05/28/23 20:55 Dose: 600 mg Lorazepam (Lorazepam 0.5 Mg Tablet) 0.5 mg PO TID@0900,1400,1800 [facility] Last Admin: 05/28/23 18:02 Dose: 0.5 mg Lorazepam (Lorazepam 1 Mg Tablet) 1 mg PO BEDTIME [facility] Last Admin: 05/28/23 20:56 Dose: 1 mg Magnesium Hydroxide (Milk Of Magnesia 30 Ml Oral.Susp) 30 ml PO DAILY PRN PRN Reason: Constipation Nicotine Polacrilex (Nicotine Polacrilex 2 Mg Gum) 4 mg BUCCAL Q2H PRN PRN Reason: Nicotine Cravings Nortriptyline HCl (Nortriptyline Hcl 10 Mg Capsule) 20 mg PO BEDTIME [facility] Last Admin: 05/28/23 20:56 Dose: 20 mg Trazodone HCl (Trazodone Hcl 50 Mg Tablet) 50 mg PO BEDTIME [id number] PRN PRN Reason: Insomnia Trazodone HCl (Trazodone Hcl 50 Mg Tablet) 150 mg PO BEDTIME [facility] Last Admin: 05/28/23 20:56 Dose: 150 mg Vitamin D (Cholecalciferol (Vitamin D3) 25 Mcg Tablet) 25 mcg PO DAILY [facility] Last Admin: 05/29/23 08:31 Dose: 25 mcg Allergies Allergies Allergy/AdvReac Type Severity Reaction Status Date / Time lisinopril Allergy Hives Verified 03/06/23 10:50 Assessment & Plan Assessment & Plan (1) Bipolar disorder, most recent episode depressed: Status: Acute Code(s): F31.30 - Bipolar disorder, current episode depressed, mild or moderate severity, unspecified Plan Patient is a 63-year-old male with history of bipolar depression with history of manic episode, hypertension, who presents for 4th admission in past 6 months for worsening depression in the face of going off the lithium/Wellbutrin about a week after he was discharged from [place] [address] March 2023. Patient reports that he took lithium/Wellbutrin combination for about a week after he was discharged but then developed a daily headache and so discontinued both. Patient's depression quickly returned. Patient is somewhat reticent however he reports that he has been eating very little, just lying in bed all day, not attending to any ADLs. Patient's reported to the ED that he was eating his hair (which Patient denies). Patient denies any SI or HI or AVH. He wants medication help to get better from depression. Hospital course: Depressed, no SI. Anxious about antipsychotic medication. Agrees to restarting lithium and nortriptyline 05/27 remains severely?depressed with negative symptoms, not eating, not bathing, talking little; agrees to increasing nortriptyline, restarting trazodone for insomnia; will also restart Ativan since pt seems to have a touch of catatonia and scheduled?Ativan?helped?last?admission 05/28 remains depressed; however talking a little more about meaningful life issues and he did sleep a little last night and eating a little more. Increasing trazodone and bedtime Ativan dose 05/29 increase nortriptyline for continued severe, refractory depression Impression/plan: Patient has bipolar depression. Combination of lithium and Wellbutrin were partially helpful however he discontinued them within a week saying he had a headache. Not sure if patient reach out for help after that. He soon decompensated and has remained depressed with significant psychomotor retardation, hardly eating, hardly get out of bed and not attending to ADLs; reports trichiolmania which patient denies. At last admission discussed ECT at length however patient did not want to trial; screenplay writer broached this topic again and he again refused. Patient also very ambivalent about mood stabilizers from second-generation antipsychotic class. TCAs or MAOI are options however hesitant to start without mood stabilizer also on board, Given patient's history of manic episode. Patient also has refractory insomnia Plan: CV Q 15 minutes checks Continue lithium ER 600 mg q.h.s. Continue nortriptyline to 30 mg q.h.s. Continue trazodone 150 mg q.h.s.; which help patient sleep at last admission Schedule Ativan 0.5 mg t.i.d. 0 900, 1400, 1800 Schedule Ativan 1 mg q.h.s.; (Ativan helped patient with behavioral activation at last admission at which time he was on 1 mg q.i.d.) Medication trials: lexapro and Haldol in 2018 and then only Lexapro starting 2019; prozac (briefly) Venlafaxine Mirtazapine (though not therapeutic dose) [place] 600 mg plus Wellbutrin 450 mg: Tolerated and mood partially improved however said he developed daily headaches from it a week later and discontinued Patient educated on: diagnosis and medication risk/benefits Informed Consent: understands Reason for continued inpatient stay Substantial Risk for: inability to function Time Spent With Patient Time: Total time managing care of this patient today ____ minutes.
[2023-05-29] MEDS: LORazepam 0.5 MG TABLET PO ×3 (10:36→18:16)
[2023-05-29 20:39] VITALS: BP 106/68; PULSE 80; RESP 18; TEMP 36.6
[2023-05-29] MEDS: Lithium Carbonate ER 300 MG TABLET.ER 600 MG PO (20:41)
[2023-05-29] MEDS: Nortriptyline HCl 10 MG CAPSULE 20 MG PO (20:41)
[2023-05-29] MEDS: traZODone HCL 50 MG TABLET 150 MG PO (20:41)
[2023-05-29] MEDS: LORazepam 1 MG TABLET PO (20:41)
[2023-05-30 08:16] VITALS: BP 122/68; PULSE 72; RESP 16; TEMP 36.8; O2SAT 98
[2023-05-30 08:35] LABS: Blood Urea Nitrogen 14 mg/dL (9-16); Creatinine Clr Calc Pharmacy 131.5; Estimated Glomerular Filt Rate > 60
[2023-05-30 08:41] LABS: Lithium 0.71 mmol/L (0.60-1.20)
[2023-05-30 08:53] LABS: TSH reflex Free T4 1.85 uIU/mL (0.32-4.0)
[2023-05-30] MEDS: amLODIPine Besylate 10 MG TABLET PO (09:07)
[2023-05-30] MEDS: Cholecalciferol (Vitamin D3) 25 MCG TABLET PO (09:07)
[2023-05-30] MEDS: Aspirin Enteric Coated 81 MG TABLET.DR PO (09:07)
[2023-05-30] MEDS: LORazepam 0.5 MG TABLET PO ×2 (09:10→14:07)
--- NOTE | 2023-05-30 17:06 | HO.PSYCHPN ---
Subjective Subjective Date of Service: 05/30/23 Reason For Visit: depression Interim History: Met with patient; discussed with team Patient remains depressed and says that he is frustrated; patient would like to go home but agrees symptoms remain severe and that he is not ready to yet. Discussed lab work which is WNL. Patient reports that his sleeping is a little better than before and that he is eating a little bit more. Also noted, patient was a little more engageable and conversant on approach. Discussed behavioral activation and patient said that it just feels too much to do anything, take a shower, eat food Social Work spoke with patient's who mentioned that just prior to this admission, patient had been out in the ER talking with a neighbor who felt prompted to call 911 and [employer]RA[employer]PERATOR. Patient described as seen where he was trying to get his dog, worried was going to tangle with a Cullen. Patient said the neighbor probably called services since he was frantic however he agrees that he was not acting his normal self and that his behavior was due to his bipolar depression illness. Mental Status Exam Mental Status Exam Narrative: Pt is alert and oriented; behavior is isolative, but not so guarded, calm, still withdrawn; patient is not in distress; dressed in hospital attire with unkempt hair, disheveled, marginal hygiene; mood is described as frustrated and affect downcast; eye contact appropriate; Speech is a little latent; normal volume and prosody; not pressured; significant psychomotor retardation present; thought process is goal directed; Thought content is on how depression is hurting his family; tx; otherwise pertinent to relevant topics; no delusional content expressed; denies any SI/HI. There is no evidence of perceptual disturbance. Patients insight and judgment impaired. Diagnostics Vital Signs (24Hr): Vital Signs - 24 hr 05/29/23 20:39 05/30/23 08:16 Temperature 98 F 98.2 F Pulse Rate 80 72 Respiratory Rate 18 16 Blood Pressure 106/68 122/68 Pulse Oximetry 98 Oxygen Delivery Method Room Air BMI result Body Mass Index 30.3 Labs 05/23/23 15:51 05/30/23 08:07 Labs: Laboratory Results - last 48 hr 05/30/23 08:07 BUN 14 Creatinine 0.71 Estim Creat Clear Calc 131.5 Estimated GFR > 60 TSH 1.85 [place] 0.71 Medications Medications Current Medications Acetaminophen (Acetaminophen 325 Mg Tablet) 650 mg PO Q6H PRN PRN Reason: Headache/Pain Mild Scale (1-3) Al Hydroxide/Mg Hydroxide (Magnesium Hydrox/Alum Hydrox 30 Ml Oral.Susp) 30 ml PO Q6H PRN PRN Reason: Heartburn/Nausea Amlodipine Besylate (Amlodipine Besylate 10 Mg Tablet) 10 mg PO DAILY [facility]; Protocol Last Admin: 05/30/23 09:07 Dose: 10 mg Aspirin (Aspirin Enteric Coated 81 Mg Tablet.Dr) 81 mg PO DAILY [facility] Last Admin: 05/30/23 09:07 Dose: 81 mg [place] Carbonate ([place] Carbonate Er 300 Mg Tablet.Er) 600 mg PO BEDTIME [facility] Last Admin: 05/29/23 20:41 Dose: 600 mg Lorazepam (Lorazepam 0.5 Mg Tablet) 0.5 mg PO TID@0900,1400,1800 [facility] Last Admin: 05/30/23 14:07 Dose: 0.5 mg Lorazepam (Lorazepam 1 Mg Tablet) 1 mg PO BEDTIME [facility] Last Admin: 05/29/23 20:41 Dose: 1 mg Magnesium Hydroxide (Milk Of Magnesia 30 Ml Oral.Susp) 30 ml PO DAILY PRN PRN Reason: Constipation Nicotine Polacrilex (Nicotine Polacrilex 2 Mg Gum) 4 mg BUCCAL Q2H PRN PRN Reason: Nicotine Cravings Nortriptyline HCl (Nortriptyline Hcl 10 Mg Capsule) 30 mg PO BEDTIME [facility] Trazodone HCl (Trazodone Hcl 50 Mg Tablet) 50 mg PO BEDTIME MRX1 PRN PRN Reason: Insomnia Trazodone HCl (Trazodone Hcl 50 Mg Tablet) 150 mg PO BEDTIME [facility] Last Admin: 05/29/23 20:41 Dose: 150 mg Vitamin D (Cholecalciferol (Vitamin D3) 25 Mcg Tablet) 25 mcg PO DAILY [facility] Last Admin: 05/30/23 09:07 Dose: 25 mcg Allergies Allergies Allergy/AdvReac Type Severity Reaction Status Date / Time lisinopril Allergy Hives Verified 03/06/23 10:50 Assessment & Plan Assessment & Plan (1) Bipolar disorder, most recent episode depressed: Status: Acute Code(s): F31.30 - Bipolar disorder, current episode depressed, mild or moderate severity, unspecified Plan Patient is a 63-year-old male with history of bipolar depression with history of manic episode, hypertension, who presents for 4th admission in past 6 months for worsening depression in the face of going off the lithium/Wellbutrin about a week after he was discharged from [place] [facility] March 2023. Patient reports that he took lithium/Wellbutrin combination for about a week after he was discharged but then developed a daily headache and so discontinued both. Patient's depression quickly returned. Patient is somewhat reticent however he reports that he has been eating very little, just lying in bed all day, not attending to any ADLs. Patient's reported to the ED that he was eating his hair (which Patient denies). Patient denies any SI or HI or AVH. He wants medication help to get better from depression. Hospital course: Depressed, no SI. Anxious about antipsychotic medication. Agrees to restarting lithium and nortriptyline 05/27 remains severely?depressed with negative symptoms, not eating, not bathing, talking little; agrees to increasing nortriptyline, restarting trazodone for insomnia; will also restart Ativan since pt seems to have a touch of catatonia and scheduled?Ativan?helped?last?admission 05/28 remains depressed; however talking a little more about meaningful life issues and he did sleep a little last night and eating a little more. Increasing trazodone and bedtime Ativan dose 05/29 increase nortriptyline for continued severe, refractory depression 05/30 continue current treatment plan; patient a little more engageable today -labs reviewed and lithium WNL; BUN/creatinine/TSH WNL Impression/plan: Patient has bipolar depression. Combination of lithium and Wellbutrin were partially helpful however he discontinued them within a week saying he had a headache. Not sure if patient reach out for help after that. He soon decompensated and has remained depressed with significant psychomotor retardation, hardly eating, hardly get out of bed and not attending to ADLs; reports trichiolmania which patient denies. At last admission discussed ECT at length however patient did not want to trial; scientific writer broached this topic again and he again refused. Patient also very ambivalent about mood stabilizers from second-generation antipsychotic class. TCAs or MAOI are options however hesitant to start without mood stabilizer also on board, Given patient's history of manic episode. Patient also has refractory insomnia Plan: CV Q 15 minutes checks Continue lithium ER 600 mg q.h.s. increase to nortriptyline to 30 mg q.h.s. Continue trazodone 150 mg q.h.s.; which help patient sleep at last admission Schedule Ativan 0.5 mg t.i.d. 0 900, 1400, 1800 Schedule Ativan 1 mg q.h.s.; (Ativan helped patient with behavioral activation at last admission at which time he was on 1 mg q.i.d.) Medication trials: lexapro and Haldol in 2018 and then only Lexapro starting 2019; prozac (briefly) Venlafaxine Mirtazapine (though not therapeutic dose) [place] 600 mg plus Wellbutrin 450 mg: Tolerated and mood partially improved however said he developed daily headaches from it a week later and discontinued Patient educated on: diagnosis and medication risk/benefits Informed Consent: understands Reason for continued inpatient stay Substantial Risk for: inability to function and rapid decompensation Time Spent With Patient Time: Total time managing care of this patient today ____ minutes.
[2023-05-30 18:00] VITALS: BP 108/68; PULSE 77; RESP 16; TEMP 36.4; O2SAT 97
[2023-05-30] MEDS: traZODone HCL 50 MG TABLET 150 MG PO (20:17)
[2023-05-30] MEDS: Lithium Carbonate ER 300 MG TABLET.ER 600 MG PO (20:18)
[2023-05-30] MEDS: LORazepam 1 MG TABLET PO (20:18)
[2023-05-31 08:28] VITALS: BP 118/74; PULSE 76; RESP 16; TEMP 36.1; O2SAT 97
[2023-05-31] MEDS: LORazepam 0.5 MG TABLET PO (08:55)
[2023-05-31] MEDS: Aspirin Enteric Coated 81 MG TABLET.DR PO (08:55)
[2023-05-31] MEDS: amLODIPine Besylate 10 MG TABLET PO (08:55)
[2023-05-31] MEDS: Cholecalciferol (Vitamin D3) 25 MCG TABLET PO (08:55)
--- NOTE | 2023-05-31 09:53 | HO.PSYCHPN ---
Subjective Subjective Date of Service: 05/31/23 Reason For Visit: depression Interim History: met with patient; discussed with team Patient says that he is feeling flat but is actually a little more expressive and able to engage more in conversation. Patient says he has been trying to reflect and pinpoint the issue that triggered this depression but he is unable to do so. Discussed bipolar depression and its origin which patient accepted but said it is still difficult not to blame himself. Laments that his family has to suffer with him. Patient still having trouble sleeping and agrees to increase in trazodone, nortriptyline and Ativan. Discussed behavioral activation and patient continues to feel it is too much effort to attend ADLs Mental Status Exam Mental Status Exam Narrative: Pt is alert and oriented; behavior is isolative, but not so guarded, calm, still withdrawn; patient is not in distress; dressed in hospital attire with unkempt hair, disheveled, marginal hygiene; mood is described as flat and affect downcast; eye contact appropriate; Speech is a little latent; normal volume and prosody; not pressured; significant psychomotor retardation present; thought process is goal directed; Thought content is on how depression is hurting his family; tx; otherwise pertinent to relevant topics; no delusional content expressed; denies any SI/HI. There is no evidence of perceptual disturbance. Patients insight and judgment impaired but possibly improving. Diagnostics Vital Signs (24Hr): Vital Signs - 24 hr 05/30/23 18:00 05/31/23 08:28 Temperature 97.6 F 97.0 F Pulse Rate 77 76 Respiratory Rate 16 16 Blood Pressure 108/68 118/74 Pulse Oximetry 97 97 Oxygen Delivery Method Room Air Room Air BMI result Body Mass Index 30.3 Labs 05/23/23 15:51 05/30/23 08:07 Labs: Laboratory Results - last 48 hr 05/30/23 08:07 BUN 14 Creatinine 0.71 Estim Creat Clear Calc 131.5 Estimated GFR > 60 TSH 1.85 [place] 0.71 Medications Medications Current Medications Acetaminophen (Acetaminophen 325 Mg Tablet) 650 mg PO Q6H PRN PRN Reason: Headache/Pain Mild Scale (1-3) Al Hydroxide/Mg Hydroxide (Magnesium Hydrox/Alum Hydrox 30 Ml Oral.Susp) 30 ml PO Q6H PRN PRN Reason: Heartburn/Nausea Amlodipine Besylate (Amlodipine Besylate 10 Mg Tablet) 10 mg PO DAILY [facility]; Protocol Last Admin: 05/31/23 08:55 Dose: 10 mg Aspirin (Aspirin Enteric Coated 81 Mg Tablet.Dr) 81 mg PO DAILY [facility] Last Admin: 05/31/23 08:55 Dose: 81 mg [place] Carbonate ([place] Carbonate Er 300 Mg Tablet.Er) 600 mg PO BEDTIME [facility] Last Admin: 05/30/23 20:18 Dose: 600 mg Lorazepam (Lorazepam 0.5 Mg Tablet) 0.5 mg PO TID@0900,1400,1800 [facility] Last Admin: 05/31/23 08:55 Dose: 0.5 mg Lorazepam (Lorazepam 1 Mg Tablet) 1 mg PO BEDTIME [facility] Last Admin: 05/30/23 20:18 Dose: 1 mg Magnesium Hydroxide (Milk Of Magnesia 30 Ml Oral.Susp) 30 ml PO DAILY PRN PRN Reason: Constipation Nicotine Polacrilex (Nicotine Polacrilex 2 Mg Gum) 4 mg BUCCAL Q2H PRN PRN Reason: Nicotine Cravings Nortriptyline HCl (Nortriptyline Hcl 10 Mg Capsule) 30 mg PO BEDTIME [facility] Last Admin: 05/30/23 20:18 Dose: 30 mg Trazodone HCl (Trazodone Hcl 50 Mg Tablet) 50 mg PO BEDTIME MRX1 PRN PRN Reason: Insomnia Trazodone HCl (Trazodone Hcl 50 Mg Tablet) 150 mg PO BEDTIME [facility] Last Admin: 05/30/23 20:17 Dose: 150 mg Vitamin D (Cholecalciferol (Vitamin D3) 25 Mcg Tablet) 25 mcg PO DAILY [facility] Last Admin: 05/31/23 08:55 Dose: 25 mcg Allergies Allergies Allergy/AdvReac Type Severity Reaction Status Date / Time lisinopril Allergy Hives Verified 03/06/23 10:50 Assessment & Plan Assessment & Plan (1) Bipolar disorder, most recent episode depressed: Status: Acute Code(s): F31.30 - Bipolar disorder, current episode depressed, mild or moderate severity, unspecified Plan Patient is a 63-year-old male with history of bipolar depression with history of manic episode, hypertension, who presents for 4th admission in past 6 months for worsening depression in the face of going off the lithium/Wellbutrin about a week after he was discharged from [place] [address] March 2023. Patient reports that he took lithium/Wellbutrin combination for about a week after he was discharged but then developed a daily headache and so discontinued both. Patient's depression quickly returned. Patient is somewhat reticent however he reports that he has been eating very little, just lying in bed all day, not attending to any ADLs. Patient's reported to the ED that he was eating his hair (which Patient denies). Patient denies any SI or HI or AVH. He wants medication help to get better from depression. Hospital course: Depressed, no SI. Anxious about antipsychotic medication. Agrees to restarting lithium and nortriptyline 05/27 remains severely?depressed with negative symptoms, not eating, not bathing, talking little; agrees to increasing nortriptyline, restarting trazodone for insomnia; will also restart Ativan since pt seems to have a touch of catatonia and scheduled?Ativan?helped?last?admission 05/28 remains depressed; however talking a little more about meaningful life issues and he did sleep a little last night and eating a little more. Increasing trazodone and bedtime Ativan dose 05/29 increase nortriptyline for continued severe, refractory depression 05/30 continue current treatment plan; patient a little more engageable today -labs reviewed and lithium WNL; BUN/creatinine/TSH WNL 05/31 continues to be depressed but does seemed to be a little more engaged and affect more expressive. Increasing trazodone for insomnia; increasing Ativan for behavioral activation; will increase nortriptyline on 06/02 Impression/plan: Patient has bipolar depression. Combination of lithium and Wellbutrin were partially helpful however he discontinued them within a week saying he had a headache. Not sure if patient reach out for help after that. He soon decompensated and has remained depressed with significant psychomotor retardation, hardly eating, hardly get out of bed and not attending to ADLs; reports trichiolmania which patient denies. At last admission discussed ECT at length however patient did not want to trial; junior copywriter broached this topic again and he again refused. Patient also very ambivalent about mood stabilizers from second-generation antipsychotic class. TCAs or MAOI are options however hesitant to start without mood stabilizer also on board, Given patient's history of manic episode. Patient also has refractory insomnia Plan: CV Q 15 minutes checks Continue lithium ER 600 mg q.h.s. Will titrate to nortriptyline 40 mg q.h.s. on 06/02 Increase to trazodone to 100 mg q.h.s.; which help patient sleep at last admission Increase toe Ativan 1 mg t.i.d. (patient was on q.i.d. at last admission and it seemed to help with behavioral activation) Medication trials: lexapro and Haldol in 2018 and then only Lexapro starting 2019; prozac (briefly) Venlafaxine Mirtazapine (though not therapeutic dose) [place] 600 mg plus Wellbutrin 450 mg: Tolerated and mood partially improved however said he developed daily headaches from it a week later and discontinued Patient educated on: diagnosis, medication risk/benefits and therapeutic strategies Informed Consent: understands Reason for continued inpatient stay Substantial Risk for: inability to function and rapid decompensation Time Spent With Patient Time: Total time managing care of this patient today ____ minutes.
[2023-05-31 16:45] VITALS: BP 119/69; PULSE 76; RESP 16; TEMP 36.6; O2SAT 97
[2023-05-31] MEDS: Lithium Carbonate ER 300 MG TABLET.ER 600 MG PO (20:26)
[2023-06-01 08:12] VITALS: BP 116/58; PULSE 78; TEMP 36.1; O2SAT 95
[2023-06-01] MEDS: Cholecalciferol (Vitamin D3) 25 MCG TABLET PO (09:15)
[2023-06-01] MEDS: Aspirin Enteric Coated 81 MG TABLET.DR PO (09:15)
[2023-06-01] MEDS: amLODIPine Besylate 10 MG TABLET PO (09:15)
--- NOTE | 2023-06-01 16:34 | HO.PSYCHPN ---
Subjective Subjective Date of Service: 06/01/23 Reason For Visit: depression Interim History: Pt in his room, in bed, resting. Reports poor sleep. Discussed Nortriptyline initiation scheduled for . Medication Compliance: Yes Side effects from medications: No Attending Groups: No Review of Systems Acute medical concerns: No Mental Status Exam Mental Status Exam Patient Appearance: Disheveled Patient Orientation: Person, Place, Time and Situation Level of Consciousness: Alert Patient Behavior: Talkative and Good Eye Contact Mood Description: Depressed and Flat Affect Description: Flat Patient Cognition Impaired: No Ability to Follow Directions: Good Speech Pattern: Spontaneous Speech Hallucinations: None Delusions: Not Present Thought Process: Rumination Thought Content: positive for Perseveration Judgement: Fair Diagnostics Vital Signs (24Hr): Vital Signs - 24 hr 05/31/23 16:45 06/01/23 08:12 Temperature 97.8 F 96.9 F Pulse Rate 76 78 Respiratory Rate 16 Blood Pressure 119/69 116/58 L Pulse Oximetry 97 95 Oxygen Delivery Method Room Air Room Air BMI result Body Mass Index 30.3 Labs 05/23/23 15:51 05/30/23 08:07 Medications Medications Current Medications Acetaminophen (Acetaminophen 325 Mg Tablet) 650 mg PO Q6H PRN PRN Reason: Headache/Pain Mild Scale (1-3) Al Hydroxide/Mg Hydroxide (Magnesium Hydrox/Alum Hydrox 30 Ml Oral.Susp) 30 ml PO Q6H PRN PRN Reason: Heartburn/Nausea Amlodipine Besylate (Amlodipine Besylate 10 Mg Tablet) 10 mg PO DAILY [facility]; Protocol Last Admin: 06/01/23 09:15 Dose: 10 mg Aspirin (Aspirin Enteric Coated 81 Mg Tablet.Dr) 81 mg PO DAILY [facility] Last Admin: 06/01/23 09:15 Dose: 81 mg [place] Carbonate (Dish Carbonate Er 300 Mg Tablet.Er) 600 mg PO BEDTIME [facility] Last Admin: 05/31/23 20:26 Dose: 600 mg Lorazepam (Lorazepam 1 Mg Tablet) 1 mg PO TID [facility] Last Admin: 06/01/23 09:15 Dose: 1 mg Magnesium Hydroxide (Milk Of Magnesia 30 Ml Oral.Susp) 30 ml PO DAILY PRN PRN Reason: Constipation Nicotine Polacrilex (Nicotine Polacrilex 2 Mg Gum) 4 mg BUCCAL Q2H PRN PRN Reason: Nicotine Cravings Nortriptyline HCl (Nortriptyline Hcl 10 Mg Capsule) 30 mg PO BEDTIME [facility] Stop: 06/01/23 21:00 Last Admin: 05/31/23 20:27 Dose: 30 mg Nortriptyline HCl (Nortriptyline Hcl 10 Mg Capsule) 40 mg PO BEDTIME [facility] Trazodone HCl (Trazodone Hcl 50 Mg Tablet) 50 mg PO BEDTIME MRX1 PRN PRN Reason: Insomnia Trazodone HCl (Trazodone Hcl 100 Mg Tablet) 200 mg PO BEDTIME [facility] Last Admin: 05/31/23 20:26 Dose: 200 mg Vitamin D (Cholecalciferol (Vitamin D3) 25 Mcg Tablet) 25 mcg PO DAILY [facility] Last Admin: 06/01/23 09:15 Dose: 25 mcg Allergies Allergies Allergy/AdvReac Type Severity Reaction Status Date / Time lisinopril Allergy Hives Verified 03/06/23 10:50 Assessment & Plan Assessment & Plan (1) Bipolar disorder, most recent episode depressed: Status: Acute Code(s): F31.30 - Bipolar disorder, current episode depressed, mild or moderate severity, unspecified Plan Patient is a 63-year-old male with history of bipolar depression with history of manic episode, hypertension, who presents for 4th admission in past 6 months for worsening depression in the face of going off the lithium/Wellbutrin about a week after he was discharged from [place] [id number] March 2023. Patient reports that he took lithium/Wellbutrin combination for about a week after he was discharged but then developed a daily headache and so discontinued both. Patient's depression quickly returned. Patient is somewhat reticent however he reports that he has been eating very little, just lying in bed all day, not attending to any ADLs. Patient's reported to the ED that he was eating his hair (which Patient denies). Patient denies any SI or HI or AVH. He wants medication help to get better from depression. Hospital course: Depressed, no SI. Anxious about antipsychotic medication. Agrees to restarting lithium and nortriptyline 05/27 remains severely?depressed with negative symptoms, not eating, not bathing, talking little; agrees to increasing nortriptyline, restarting trazodone for insomnia; will also restart Ativan since pt seems to have a touch of catatonia and scheduled?Ativan?helped?last?admission 05/28 remains depressed; however talking a little more about meaningful life issues and he did sleep a little last night and eating a little more. Increasing trazodone and bedtime Ativan dose 05/29 increase nortriptyline for continued severe, refractory depression 05/30 continue current treatment plan; patient a little more engageable today -labs reviewed and lithium WNL; BUN/creatinine/TSH WNL 05/31 continues to be depressed but does seemed to be a little more engaged and affect more expressive. Increasing trazodone for insomnia; increasing Ativan for behavioral activation; will increase nortriptyline on 06/02 06/01 continue tx Impression/plan: Patient has bipolar depression. Combination of lithium and Wellbutrin were partially helpful however he discontinued them within a week saying he had a headache. Not sure if patient reach out for help after that. He soon decompensated and has remained depressed with significant psychomotor retardation, hardly eating, hardly get out of bed and not attending to ADLs; reports trichiolmania which patient denies. At last admission discussed ECT at length however patient did not want to trial; director underwriter sales broached this topic again and he again refused. Patient also very ambivalent about mood stabilizers from second-generation antipsychotic class. TCAs or MAOI are options however hesitant to start without mood stabilizer also on board, Given patient's history of manic episode. Patient also has refractory insomnia Plan: CV Q 15 minutes checks Continue lithium ER 600 mg q.h.s. Will titrate to nortriptyline 40 mg q.h.s. on 06/02 Increase to trazodone to 100 mg q.h.s.; which help patient sleep at last admission Increase toe Ativan 1 mg t.i.d. (patient was on q.i.d. at last admission and it seemed to help with behavioral activation) Medication trials: lexapro and Haldol in 2018 and then only Lexapro starting 2019; prozac (briefly) Venlafaxine Mirtazapine (though not therapeutic dose) [place] 600 mg plus Wellbutrin 450 mg: Tolerated and mood partially improved however said he developed daily headaches from it a week later and discontinued Informed Consent: understands Reason for continued inpatient stay Substantial Risk for: rapid decompensation Time Spent With Patient Time: Total time managing care of this patient today ____ minutes.
[2023-06-01 18:00] VITALS: BP 119/72; PULSE 76; RESP 16; TEMP 36.1; O2SAT 97
[2023-06-01] MEDS: Lithium Carbonate ER 300 MG TABLET.ER 600 MG PO (20:51)
[2023-06-02 08:25] VITALS: BP 114/54; PULSE 80; RESP 16; TEMP 36.7; O2SAT 92
--- NOTE | 2023-06-02 13:40 | HO.PSYCHPN ---
Subjective Subjective Date of Service: 06/02/23 Reason For Visit: depression Subjective Notes: Conditional Voluntary Interim History: Pt continues to report poor sleep. Nortriptyline 40 mg scheduled for this evening. No other concerns expressed today except insomnia. Medication Compliance: Yes Side effects from medications: No Attending Groups: No Review of Systems Acute medical concerns: No Medical Review of Systems: unchanged Mental Status Exam Mental Status Exam Patient Appearance: Disheveled Patient Orientation: Person, Place, Time and Situation Level of Consciousness: Alert Patient Behavior: Talkative and Good Eye Contact Mood Description: Depressed and Flat Affect Description: Flat Patient Cognition Impaired: No Ability to Follow Directions: Good Speech Pattern: Spontaneous Speech Hallucinations: None Delusions: Not Present Thought Process: Rumination Thought Content: positive for Perseveration Judgement: Fair Diagnostics Vital Signs (24Hr): Vital Signs - 24 hr 06/01/23 18:00 06/02/23 08:25 Temperature 97 F 98.1 F Pulse Rate 76 80 Respiratory Rate 16 16 Blood Pressure 119/72 114/54 L Pulse Oximetry 97 92 Oxygen Delivery Method Room Air Room Air BMI result Body Mass Index 30.3 Labs 05/23/23 15:51 05/30/23 08:07 Medications Medications Current Medications Acetaminophen (Acetaminophen 325 Mg Tablet) 650 mg PO Q6H PRN PRN Reason: Headache/Pain Mild Scale (1-3) Al Hydroxide/Mg Hydroxide (Magnesium Hydrox/Alum Hydrox 30 Ml Oral.Susp) 30 ml PO Q6H PRN PRN Reason: Heartburn/Nausea Amlodipine Besylate (Amlodipine Besylate 10 Mg Tablet) 10 mg PO DAILY [facility]; Protocol Last Admin: 06/02/23 09:08 Dose: 10 mg Aspirin (Aspirin Enteric Coated 81 Mg Tablet.Dr) 81 mg PO DAILY [facility] Last Admin: 06/02/23 09:08 Dose: 81 mg [place] Carbonate ([place] Carbonate Er 300 Mg Tablet.Er) 600 mg PO BEDTIME [facility] Last Admin: 06/01/23 20:51 Dose: 600 mg Lorazepam (Lorazepam 1 Mg Tablet) 1 mg PO TID [facility] Last Admin: 06/02/23 09:08 Dose: 1 mg Magnesium Hydroxide (Milk Of Magnesia 30 Ml Oral.Susp) 30 ml PO DAILY PRN PRN Reason: Constipation Nicotine Polacrilex (Nicotine Polacrilex 2 Mg Gum) 4 mg BUCCAL Q2H PRN PRN Reason: Nicotine Cravings Nortriptyline HCl (Nortriptyline Hcl 10 Mg Capsule) 40 mg PO BEDTIME [facility] Trazodone HCl (Trazodone Hcl 50 Mg Tablet) 50 mg PO BEDTIME [id number] PRN PRN Reason: Insomnia Trazodone HCl (Trazodone Hcl 100 Mg Tablet) 200 mg PO BEDTIME [facility] Last Admin: 06/01/23 20:50 Dose: 200 mg Vitamin D (Cholecalciferol (Vitamin D3) 25 Mcg Tablet) 25 mcg PO DAILY [facility] Last Admin: 06/02/23 09:08 Dose: 25 mcg Allergies Allergies Allergy/AdvReac Type Severity Reaction Status Date / Time lisinopril Allergy Hives Verified 03/06/23 10:50 Assessment & Plan Assessment & Plan (1) Bipolar disorder, most recent episode depressed: Status: Acute Code(s): F31.30 - Bipolar disorder, current episode depressed, mild or moderate severity, unspecified Plan Patient is a 63-year-old male with history of bipolar depression with history of manic episode, hypertension, who presents for 4th admission in past 6 months for worsening depression in the face of going off the lithium/Wellbutrin about a week after he was discharged from [place] [address] March 2023. Patient reports that he took lithium/Wellbutrin combination for about a week after he was discharged but then developed a daily headache and so discontinued both. Patient's depression quickly returned. Patient is somewhat reticent however he reports that he has been eating very little, just lying in bed all day, not attending to any ADLs. Patient's reported to the ED that he was eating his hair (which Patient denies). Patient denies any SI or HI or AVH. He wants medication help to get better from depression. Hospital course: Depressed, no SI. Anxious about antipsychotic medication. Agrees to restarting lithium and nortriptyline 05/27 remains severely?depressed with negative symptoms, not eating, not bathing, talking little; agrees to increasing nortriptyline, restarting trazodone for insomnia; will also restart Ativan since pt seems to have a touch of catatonia and scheduled?Ativan?helped?last?admission 05/28 remains depressed; however talking a little more about meaningful life issues and he did sleep a little last night and eating a little more. Increasing trazodone and bedtime Ativan dose 05/29 increase nortriptyline for continued severe, refractory depression 05/30 continue current treatment plan; patient a little more engageable today -labs reviewed and lithium WNL; BUN/creatinine/TSH WNL 05/31 continues to be depressed but does seemed to be a little more engaged and affect more expressive. Increasing trazodone for insomnia; increasing Ativan for behavioral activation; will increase nortriptyline on 06/02 06/02 Nortriptyline 40 mg this eveing for sleep. Impression/plan: Patient has bipolar depression. Combination of lithium and Wellbutrin were partially helpful however he discontinued them within a week saying he had a headache. Not sure if patient reach out for help after that. He soon decompensated and has remained depressed with significant psychomotor retardation, hardly eating, hardly get out of bed and not attending to ADLs; reports trichiolmania which patient denies. At last admission discussed ECT at length however patient did not want to trial; commercial loan underwriter broached this topic again and he again refused. Patient also very ambivalent about mood stabilizers from second-generation antipsychotic class. TCAs or MAOI are options however hesitant to start without mood stabilizer also on board, Given patient's history of manic episode. Patient also has refractory insomnia Plan: CV Q 15 minutes checks Continue lithium ER 600 mg q.h.s. Will titrate to nortriptyline 40 mg q.h.s. on 06/02 Increase to trazodone to 100 mg q.h.s.; which help patient sleep at last admission Increase toe Ativan 1 mg t.i.d. (patient was on q.i.d. at last admission and it seemed to help with behavioral activation) Medication trials: lexapro and Haldol in 2018 and then only Lexapro starting 2019; prozac (briefly) Venlafaxine Mirtazapine (though not therapeutic dose) [place] 600 mg plus Wellbutrin 450 mg: Tolerated and mood partially improved however said he developed daily headaches from it a week later and discontinued Patient educated on: medication risk/benefits Informed Consent: understands Reason for continued inpatient stay Substantial Risk for: rapid decompensation Time Spent With Patient Time: Total time managing care of this patient today ____ minutes.
[2023-06-02 18:00] VITALS: BP 122/69; PULSE 80; TEMP 36.2; O2SAT 99
[2023-06-02] MEDS: Lithium Carbonate ER 300 MG TABLET.ER 600 MG PO (21:42)
[2023-06-03 09:47] VITALS: BP 127/76; O2SAT 97
--- NOTE | 2023-06-03 13:28 | HO.PSYCHPN ---
Subjective Subjective Date of Service: 06/03/23 Reason For Visit: depression Interim History: Pt reports URI sx. COVID -, given mucinex and throat kathleen prn. Reports not too much improvement in sleep with nortriptyline after 40 mg dosing. Medication Compliance: Yes Side effects from medications: No Attending Groups: Yes Review of Systems Acute medical concerns: No Medical Review of Systems: unchanged Mental Status Exam Mental Status Exam Patient Appearance: Disheveled Patient Orientation: Person, Place, Time and Situation Level of Consciousness: Alert Patient Behavior: Talkative and Good Eye Contact Mood Description: Depressed and Flat Affect Description: Flat Patient Cognition Impaired: No Ability to Follow Directions: Good Speech Pattern: Spontaneous Speech Hallucinations: None Delusions: Not Present Thought Process: Rumination Thought Content: positive for Perseveration Judgement: Fair Diagnostics Vital Signs (24Hr): Vital Signs - 24 hr 06/02/23 18:00 06/03/23 09:47 Temperature 97.1 F Pulse Rate 80 Blood Pressure 122/69 127/76 Pulse Oximetry 99 97 Oxygen Delivery Method Room Air Room Air BMI result Body Mass Index 30.3 Labs 05/23/23 15:51 05/30/23 08:07 Labs: Laboratory Results - last 48 hr 06/03/23 10:00 COVID-19 ([facility]) Negative COVID-19 Clin Com See Note Medications Medications Current Medications Acetaminophen (Acetaminophen 325 Mg Tablet) 650 mg PO Q6H PRN PRN Reason: Headache/Pain Mild Scale (1-3) Al Hydroxide/Mg Hydroxide (Magnesium Hydrox/Alum Hydrox 30 Ml Oral.Susp) 30 ml PO Q6H PRN PRN Reason: Heartburn/Nausea Amlodipine Besylate (Amlodipine Besylate 10 Mg Tablet) 10 mg PO DAILY [facility]; Protocol Last Admin: 06/03/23 08:37 Dose: 10 mg Aspirin (Aspirin Enteric Coated 81 Mg Tablet.Dr) 81 mg PO DAILY [facility] Last Admin: 06/03/23 08:35 Dose: 81 mg [place] Carbonate ([place] Carbonate Er 300 Mg Tablet.Er) 600 mg PO BEDTIME [facility] Last Admin: 06/02/23 21:42 Dose: 600 mg Lorazepam (Lorazepam 1 Mg Tablet) 1 mg PO TID [facility] Last Admin: 06/03/23 08:35 Dose: 1 mg Magnesium Hydroxide (Milk Of Magnesia 30 Ml Oral.Susp) 30 ml PO DAILY PRN PRN Reason: Constipation Nicotine Polacrilex (Nicotine Polacrilex 2 Mg Gum) 4 mg BUCCAL Q2H PRN PRN Reason: Nicotine Cravings Nortriptyline HCl (Nortriptyline Hcl 10 Mg Capsule) 40 mg PO BEDTIME [facility] Last Admin: 06/02/23 21:42 Dose: 40 mg Trazodone HCl (Trazodone Hcl 50 Mg Tablet) 50 mg PO BEDTIME [id number] PRN PRN Reason: Insomnia Trazodone HCl (Trazodone Hcl 100 Mg Tablet) 200 mg PO BEDTIME [facility] Last Admin: 06/02/23 21:41 Dose: 200 mg Vitamin D (Cholecalciferol (Vitamin D3) 25 Mcg Tablet) 25 mcg PO DAILY [facility] Last Admin: 06/03/23 08:35 Dose: 25 mcg Allergies Allergies Allergy/AdvReac Type Severity Reaction Status Date / Time lisinopril Allergy Hives Verified 03/06/23 10:50 Assessment & Plan Assessment & Plan (1) Bipolar disorder, most recent episode depressed: Status: Acute Code(s): F31.30 - Bipolar disorder, current episode depressed, mild or moderate severity, unspecified Plan Patient is a 63-year-old male with history of bipolar depression with history of manic episode, hypertension, who presents for 4th admission in past 6 months for worsening depression in the face of going off the lithium/Wellbutrin about a week after he was discharged from [place] [address] March 2023. Patient reports that he took lithium/Wellbutrin combination for about a week after he was discharged but then developed a daily headache and so discontinued both. Patient's depression quickly returned. Patient is somewhat reticent however he reports that he has been eating very little, just lying in bed all day, not attending to any ADLs. Patient's reported to the ED that he was eating his hair (which Patient denies). Patient denies any SI or HI or AVH. He wants medication help to get better from depression. Hospital course: Depressed, no SI. Anxious about antipsychotic medication. Agrees to restarting lithium and nortriptyline 05/27 remains severely?depressed with negative symptoms, not eating, not bathing, talking little; agrees to increasing nortriptyline, restarting trazodone for insomnia; will also restart Ativan since pt seems to have a touch of catatonia and scheduled?Ativan?helped?last?admission 05/28 remains depressed; however talking a little more about meaningful life issues and he did sleep a little last night and eating a little more. Increasing trazodone and bedtime Ativan dose 05/29 increase nortriptyline for continued severe, refractory depression 05/30 continue current treatment plan; patient a little more engageable today -labs reviewed and lithium WNL; BUN/creatinine/TSH WNL 05/31 continues to be depressed but does seemed to be a little more engaged and affect more expressive. Increasing trazodone for insomnia; increasing Ativan for behavioral activation; will increase nortriptyline on 06/02 06/02 Nortriptyline 40 mg this eveing for sleep. Impression/plan: Patient has bipolar depression. Combination of lithium and Wellbutrin were partially helpful however he discontinued them within a week saying he had a headache. Not sure if patient reach out for help after that. He soon decompensated and has remained depressed with significant psychomotor retardation, hardly eating, hardly get out of bed and not attending to ADLs; reports trichiolmania which patient denies. At last admission discussed ECT at length however patient did not want to trial; physician underwriter broached this topic again and he again refused. Patient also very ambivalent about mood stabilizers from second-generation antipsychotic class. TCAs or MAOI are options however hesitant to start without mood stabilizer also on board, Given patient's history of manic episode. Patient also has refractory insomnia Plan: CV Q 15 minutes checks Continue lithium ER 600 mg q.h.s. Will titrate to nortriptyline 40 mg q.h.s. on 06/02 Increase to trazodone to 100 mg q.h.s.; which help patient sleep at last admission Increase toe Ativan 1 mg t.i.d. (patient was on q.i.d. at last admission and it seemed to help with behavioral activation) Medication trials: lexapro and Haldol in 2018 and then only Lexapro starting 2018; prozac (briefly) Venlafaxine Mirtazapine (though not therapeutic dose) [place] 600 mg plus Wellbutrin 450 mg: Tolerated and mood partially improved however said he developed daily headaches from it a week later and discontinued 06/03/23 continue tx Informed Consent: understands and further education needed Reason for continued inpatient stay Substantial Risk for: rapid decompensation Time Spent With Patient Time: Total time managing care of this patient today ____ minutes.
[2023-06-03 19:07] VITALS: BP 108/58; PULSE 74; RESP 16; TEMP 36.4; O2SAT 95
[2023-06-03] MEDS: Lithium Carbonate ER 300 MG TABLET.ER 600 MG PO (22:00)
[2023-06-04 08:59] VITALS: BP 107/61; PULSE 78; RESP 16; TEMP 36.2; O2SAT 98
--- NOTE | 2023-06-04 09:20 | HO.PSYCHPN ---
Subjective Subjective Date of Service: 06/04/23 Reason For Visit: depression Interim History: Met with patient; discussed with team; reviewed notes depressed; still staying in bed, not bathing. Says feels very frustrated with not sleeping much and he thinks it's keeping him in depressed state. Discussed options and pt agrees to try seroquel (reviewed risks/side-effects) since he is distressed about poor sleep. Mental Status Exam Mental Status Exam Narrative: Pt is alert and oriented; behavior is isolative, but not so guarded, calm, still withdrawn; patient is not in distress; dressed in hospital attire with unkempt hair, disheveled, marginal hygiene; mood is described as depressed and affect downcast; eye contact appropriate; Speech is a little latent; normal volume and prosody; not pressured; significant psychomotor retardation present; thought process is goal directed; Thought content is on how depression is hurting his family; tx; otherwise pertinent to relevant topics; no delusional content expressed; denies any SI/HI. There is no evidence of perceptual disturbance. Patients insight and judgment impaired. Diagnostics Vital Signs (24Hr): Vital Signs - 24 hr 06/03/23 09:47 06/03/23 19:07 06/04/23 08:59 Temperature 97.5 F 97.1 F Pulse Rate 74 78 Respiratory Rate 16 16 Blood Pressure 127/76 108/58 L 107/61 Pulse Oximetry 97 95 98 Oxygen Delivery Method Room Air Room Air Room Air BMI result Body Mass Index 30.3 Labs 05/23/23 15:51 05/30/23 08:07 Labs: Laboratory Results - last 48 hr 06/03/23 10:00 COVID-19 ([facility]) Negative COVID-19 Clin Com See Note Medications Medications Current Medications Acetaminophen (Acetaminophen 325 Mg Tablet) 650 mg PO Q6H PRN PRN Reason: Headache/Pain Mild Scale (1-3) Al Hydroxide/Mg Hydroxide (Magnesium Hydrox/Alum Hydrox 30 Ml Oral.Susp) 30 ml PO Q6H PRN PRN Reason: Heartburn/Nausea Amlodipine Besylate (Amlodipine Besylate 10 Mg Tablet) 10 mg PO DAILY [facility]; Protocol Last Admin: 06/04/23 09:01 Dose: 10 mg Aspirin (Aspirin Enteric Coated 81 Mg Tablet.) 81 mg PO DAILY [facility] Last Admin: 06/04/23 09:00 Dose: 81 mg Benzocaine (Throat Lozenge, Medicated Lozenge) 1 lozenge MUCOUS MEM Q2H PRN PRN Reason: Sore Throat Guaifenesin (Guaifenesin [place] 600 Mg Tab.Er.12h) 600 mg PO BID PRN PRN Reason: congestion [place] Carbonate ([place] Carbonate Er 300 Mg Tablet.Er) 600 mg PO BEDTIME [facility] Last Admin: 06/03/23 22:00 Dose: 600 mg Lorazepam (Lorazepam 1 Mg Tablet) 1 mg PO TID [facility] Last Admin: 06/04/23 09:01 Dose: 1 mg Magnesium Hydroxide (Milk Of Magnesia 30 Ml Oral.Susp) 30 ml PO DAILY PRN PRN Reason: Constipation Nicotine Polacrilex (Nicotine Polacrilex 2 Mg Gum) 4 mg BUCCAL Q2H PRN PRN Reason: Nicotine Cravings Nortriptyline HCl (Nortriptyline Hcl 10 Mg Capsule) 40 mg PO BEDTIME [facility] Last Admin: 06/03/23 22:01 Dose: 40 mg Trazodone HCl (Trazodone Hcl 50 Mg Tablet) 50 mg PO BEDTIME [id number] PRN PRN Reason: Insomnia Trazodone HCl (Trazodone Hcl 100 Mg Tablet) 200 mg PO BEDTIME [facility] Last Admin: 06/03/23 22:02 Dose: 200 mg Vitamin D (Cholecalciferol (Vitamin D3) 25 Mcg Tablet) 25 mcg PO DAILY [facility] Last Admin: 06/04/23 09:01 Dose: 25 mcg Allergies Allergies Allergy/AdvReac Type Severity Reaction Status Date / Time lisinopril Allergy Hives Verified 03/06/23 10:50 Assessment & Plan Assessment & Plan (1) Bipolar disorder, most recent episode depressed: Status: Acute Code(s): F31.30 - Bipolar disorder, current episode depressed, mild or moderate severity, unspecified Plan Patient is a 63-year-old male with history of bipolar depression with history of manic episode, hypertension, who presents for 4th admission in past 6 months for worsening depression in the face of going off the lithium/Wellbutrin about a week after he was discharged from [place] [address] March 2023. Patient reports that he took lithium/Wellbutrin combination for about a week after he was discharged but then developed a daily headache and so discontinued both. Patient's depression quickly returned. Patient is somewhat reticent however he reports that he has been eating very little, just lying in bed all day, not attending to any ADLs. Patient's reported to the ED that he was eating his hair (which Patient denies). Patient denies any SI or HI or AVH. He wants medication help to get better from depression. Hospital course: Depressed, no SI. Anxious about antipsychotic medication. Agrees to restarting lithium and nortriptyline 05/27 remains severely?depressed with negative symptoms, not eating, not bathing, talking little; agrees to increasing nortriptyline, restarting trazodone for insomnia; will also restart Ativan since pt seems to have a touch of catatonia and scheduled?Ativan?helped?last?admission 05/28 remains depressed; however talking a little more about meaningful life issues and he did sleep a little last night and eating a little more. Increasing trazodone and bedtime Ativan dose 05/29 increase nortriptyline for continued severe, refractory depression 05/30 continue current treatment plan; patient a little more engageable today -labs reviewed and lithium WNL; BUN/creatinine/TSH WNL 05/31 continues to be depressed but does seemed to be a little more engaged and affect more expressive. Increasing trazodone for insomnia; increasing Ativan for behavioral activation; will increase nortriptyline on 06/02 06/02 Nortriptyline 40 mg this eveing for sleep. 06/03 Pt reports URI sx. COVID -, given mucinex and throat kathleen prn; Reports not too much improvement in sleep with nortriptyline after 40 mg dosing. 06/04 very depressed, not getting out of bed, not attending to ADL's; not sleeping and agrees to try Seroquel Impression/plan: Patient has bipolar depression. Combination of lithium and Wellbutrin were partially helpful however he discontinued them within a week saying he had a headache. Not sure if patient reach out for help after that. He soon decompensated and has remained depressed with significant psychomotor retardation, hardly eating, hardly get out of bed and not attending to ADLs; reports trichiolmania which patient denies. At last admission discussed ECT at length however patient did not want to trial; show card writer broached this topic again and he again refused. Patient also very ambivalent about mood stabilizers from second-generation antipsychotic class. TCAs or MAOI are options however hesitant to start without mood stabilizer also on board, Given patient's history of manic episode. Patient also has refractory insomnia Plan: CV Q 15 minutes checks START Seroquel 50mg qhs for insomnia with extra prn for continued insomnia Continue lithium ER 600 mg q.h.s. Continue nortriptyline 40 mg q.h.s. on 06/02 Increase to trazodone to 100 mg q.h.s.; which help patient sleep at last admission Increase toe Ativan 1 mg t.i.d. (patient was on q.i.d. at last admission and it seemed to help with behavioral activation) Medication trials: lexapro and Haldol in 2018 and then only Lexapro starting 2019; prozac (briefly) Venlafaxine Mirtazapine (though not therapeutic dose) [place] 600 mg plus Wellbutrin 450 mg: Tolerated and mood partially improved however said he developed daily headaches from it a week later and discontinued does not want antipsychotics..so currently helga Kidd...not options Patient educated on: diagnosis and medication risk/benefits Informed Consent: understands and further education needed Reason for continued inpatient stay Substantial Risk for: inability to function and rapid decompensation Time Spent With Patient Time: Total time managing care of this patient today ____ minutes.
[2023-06-04 18:00] VITALS: BP 115/60; PULSE 83; TEMP 36.6; O2SAT 95
[2023-06-04] MEDS: Lithium Carbonate ER 300 MG TABLET.ER 600 MG PO (20:06)
[2023-06-05 08:36] VITALS: BP 123/68; PULSE 82; RESP 16; TEMP 36.1; O2SAT 96
--- NOTE | 2023-06-05 09:16 | MHC.CLN ---
NUTRITION SUPPLEMENT ORDER CHANGED TO ENSURE MAX PROTEIN TID. PROVIDES 450 KCALS, 90 G PROTEIN. USUAL ENSURE PRODUCT NOT AVAILABLE DUE TO SUPPLY CHAIN ISSUE. MD AWARE OF CHANGE.
--- NOTE | 2023-06-05 09:56 | P.PNPSI_ITS ---
Subjective Subjective Date of Service: 06/05/23 Reason For Visit: depression Interim History: met with patient; discussed with team No change in presentation, disheveled, not attending to ADLs, not getting out of bed much; sleeping a little better but still insomnia Mental Status Exam Mental Status Exam Narrative: Pt is alert and oriented; behavior is isolative, but not so guarded, calm, still withdrawn; patient is not in distress; dressed in hospital attire with unkempt hair, disheveled, marginal hygiene; mood is described as depressed and affect downcast; eye contact appropriate; Speech is a little latent; normal volume and prosody; not pressured; significant psychomotor retardation present; thought process is goal directed; Thought content is on how depression is hurting his family; tx; otherwise pertinent to relevant topics; no delusional content expressed; denies any SI/HI. There is no evidence of perceptual disturbance. Patients insight and judgment impaired. Diagnostics Vital Signs (24Hr): Vital Signs - 24 hr 06/04/23 18:00 06/05/23 08:36 Temperature 97.8 F 97.0 F Pulse Rate 83 82 Respiratory Rate 16 Blood Pressure 115/60 123/68 Pulse Oximetry 95 96 Oxygen Delivery Method Room Air Room Air BMI result Body Mass Index 30.3 Labs 05/23/23 15:51 05/30/23 08:07 Labs: Laboratory Results - last 48 hr 06/03/23 10:00 COVID-19 ([facility]) Negative COVID-19 Clin Com See Note Medications Medications Current Medications Acetaminophen (Acetaminophen 325 Mg Tablet) 650 mg PO Q6H PRN PRN Reason: Headache/Pain Mild Scale (1-3) Al Hydroxide/Mg Hydroxide (Magnesium Hydrox/Alum Hydrox 30 Ml Oral.Susp) 30 ml PO Q6H PRN PRN Reason: Heartburn/Nausea Amlodipine Besylate (Amlodipine Besylate 10 Mg Tablet) 10 mg PO DAILY [facility]; Protocol Last Admin: 06/05/23 08:59 Dose: 10 mg Aspirin (Aspirin Enteric Coated 81 Mg Tablet.) 81 mg PO DAILY [facility] Last Admin: 06/05/23 08:59 Dose: 81 mg Benzocaine (Throat Lozenge, Medicated Lozenge) 1 lozenge MUCOUS MEM Q2H PRN PRN Reason: Sore Throat Last Admin: 06/04/23 11:19 Dose: 1 lozenge Guaifenesin (Guaifenesin La 600 Mg Tab.Er.12h) 600 mg PO BID PRN PRN Reason: congestion [place] Carbonate ([place] Carbonate Er 300 Mg Tablet.Er) 600 mg PO BEDTIME [facility] Last Admin: 06/04/23 20:06 Dose: 600 mg Lorazepam (Lorazepam 1 Mg Tablet) 1 mg PO TID [facility] Last Admin: 06/05/23 08:59 Dose: 1 mg Magnesium Hydroxide (Milk Of Magnesia 30 Ml Oral.Susp) 30 ml PO DAILY PRN PRN Reason: Constipation Nicotine Polacrilex (Nicotine Polacrilex 2 Mg Gum) 4 mg BUCCAL Q2H PRN PRN Reason: Nicotine Cravings Nortriptyline HCl (Nortriptyline Hcl 10 Mg Capsule) 40 mg PO BEDTIME [facility] Last Admin: 06/04/23 20:06 Dose: 40 mg Quetiapine Fumarate (Quetiapine Fumarate 50 Mg Tablet) 50 mg PO BEDTIME [facility] Last Admin: 06/04/23 20:07 Dose: 50 mg Quetiapine Fumarate (Quetiapine Fumarate 50 Mg Tablet) 50 mg PO BEDTIME PRN PRN Reason: continued insomnia Trazodone HCl (Trazodone Hcl 100 Mg Tablet) 200 mg PO BEDTIME [facility] Last Admin: 06/04/23 20:07 Dose: 200 mg Vitamin D (Cholecalciferol (Vitamin D3) 25 Mcg Tablet) 25 mcg PO DAILY [facility] Last Admin: 06/05/23 08:59 Dose: 25 mcg Allergies Allergies Allergy/AdvReac Type Severity Reaction Status Date / Time lisinopril Allergy Hives Verified 03/06/23 10:50 Assessment & Plan Assessment & Plan (1) Bipolar disorder, most recent episode depressed: Status: Acute Code(s): F31.30 - Bipolar disorder, current episode depressed, mild or moderate severity, unspecified Plan Patient is a 63-year-old male with history of bipolar depression with history of manic episode, hypertension, who presents for 4th admission in past 6 months for worsening depression in the face of going off the lithium/Wellbutrin about a week after he was discharged from [place] [id number] March 2023. Patient reports that he took lithium/Wellbutrin combination for about a week after he was discharged but then developed a daily headache and so discontinued both. Patient's depression quickly returned. Patient is somewhat reticent however he reports that he has been eating very little, just lying in bed all day, not attending to any ADLs. Patient's reported to the ED that he was eating his hair (which Patient denies). Patient denies any SI or HI or AVH. He wants medication help to get better from depression. Hospital course: Depressed, no SI. Anxious about antipsychotic medication. Agrees to restarting lithium and nortriptyline 05/27 remains severely?depressed with negative symptoms, not eating, not bathing, talking little; agrees to increasing nortriptyline, restarting trazodone for insomnia; will also restart Ativan since pt seems to have a touch of catatonia and scheduled?Ativan?helped?last?admission 05/28 remains depressed; however talking a little more about meaningful life issues and he did sleep a little last night and eating a little more. Increasing trazodone and bedtime Ativan dose 05/29 increase nortriptyline for continued severe, refractory depression 05/30 continue current treatment plan; patient a little more engageable today -labs reviewed and lithium WNL; BUN/creatinine/TSH WNL 05/31 continues to be depressed but does seemed to be a little more engaged and affect more expressive. Increasing trazodone for insomnia; increasing Ativan for behavioral activation; will increase nortriptyline on 06/02 06/02 Nortriptyline 40 mg this eveing for sleep. 06/03 Pt reports URI sx. COVID -, given mucinex and throat kathleen prn; Reports not too much improvement in sleep with nortriptyline after 40 mg dosing. 06/04 very depressed, not getting out of bed, not attending to ADL's; not sleeping and agrees to try Seroquel 06/05 no improvement in symptoms, very depressed, not attending to ADL's, eating little, in bed most of day. increase Nortriptyline to 60mg Will also consider increasing Seroquel for insomnia; will likely get off trazodone if other agents help with sleep Impression/plan: Patient has bipolar depression. Combination of lithium and Wellbutrin were partially helpful however he discontinued them within a week saying he had a headache. Not sure if patient reach out for help after that. He soon decompensated and has remained depressed with significant psychomotor retardation, hardly eating, hardly get out of bed and not attending to ADLs; reports trichiolmania which patient denies. At last admission discussed ECT at length however patient did not want to trial; brief writer broached this topic again and he again refused. Patient also very ambivalent about mood stabilizers from second-generation antipsychotic class. TCAs or MAOI are options however hesitant to start without mood stabilizer also on board, Given patient's history of manic episode. Patient also has refractory insomnia Plan: CV Q 15 minutes checks Seroquel 50mg qhs for insomnia with extra prn for continued insomnia Continue lithium ER 600 mg q.h.s. INCREASE to nortriptyline 60 mg q.h.s. on 06/05 (discussed risks/side-effects including hypotension, dizziness) -will get Nortrip level Continue trazodone to 100 mg q.h.s.; which help patient sleep at last admission Continue Ativan 1 mg t.i.d. (patient was on q.i.d. at last admission and it seemed to help with behavioral activation) Medication trials: lexapro and Haldol in 2018 and then only Lexapro starting 2019; prozac (briefly) Venlafaxine Mirtazapine (though not therapeutic dose) [place] 600 mg plus Wellbutrin 450 mg: Tolerated and mood partially improved however said he developed daily headaches from it a week later and discontinued does not want antipsychotics..so currently helga Kidd...not options Patient educated on: diagnosis and medication risk/benefits Informed Consent: understands Reason for continued inpatient stay Substantial Risk for: inability to function Time Spent With Patient Time: Total time managing care of this patient today ____ minutes.
[2023-06-05 19:46] VITALS: BP 109/57; PULSE 77; RESP 16; TEMP 36.6; O2SAT 97
[2023-06-05] MEDS: Nortriptyline HCl 10 MG CAPSULE 60 MG PO (20:10)
[2023-06-05] MEDS: LORazepam 1 MG TABLET PO (20:10)
[2023-06-05] MEDS: traZODone HCL 100 MG TABLET 200 MG PO (20:10)
[2023-06-05] MEDS: QUEtiapine Fumarate 50 MG TABLET PO (20:10)
[2023-06-05] MEDS: Lithium Carbonate ER 300 MG TABLET.ER 600 MG PO (20:10)
[2023-06-06 06:00] VITALS: BP 118/69; PULSE 99; RESP 18; TEMP 36.2; O2SAT 99
[2023-06-06] MEDS: amLODIPine Besylate 10 MG TABLET PO (08:25)
[2023-06-06] MEDS: Cholecalciferol (Vitamin D3) 25 MCG TABLET PO (08:25)
[2023-06-06] MEDS: Aspirin Enteric Coated 81 MG TABLET.DR PO (08:25)
[2023-06-06] MEDS: LORazepam 1 MG TABLET PO ×3 (08:25→20:47)
--- NOTE | 2023-06-06 09:41 | HO.PSYCHPN ---
Subjective Subjective Date of Service: 06/06/23 Reason For Visit: depression Interim History: met with patient; discussed with team Patient lying in bed disheveled, malodorous. He says well I am ready to go... Cnc Machine Programmer discussed that patient does not seem ready and offered perspective on the fact that he used to work full-time, shave, shower, changes clothes, go to work and was productive... Cnc Machine Programmer suggested that he is quite a distance from being back to his regular self to which patient agreed. Cnc Machine Programmer encouraged patient to get up and shower and changes cloths but patient only said maybe. He then shared how he is sad because he is missing his granddaughter's visit this weekend which is why he was talking about discharge. Patient thinks he did sleep a little better last night. He would like to go down on the trazodone so that is not on too many medications, since it seems to be the right now that the Seroquel is helping more with sleep. Cnc Machine Programmer discussed restarting Wellbutrin and that although patient reported he eventually getting a headache on Wellbutrin and lithium, perhaps this time a lower dose of Wellbutrin would suffice since he is already on nortriptyline. Patient agreed to restart this medication. Again discussed ECT. Patient for the 1st time more able to articulate his anxiety about ECT. He said that he is afraid of anything that could interact with his brain; he said he rather have his foot cut off then get ECT since it is something with his head and patient is very fearful about anything that could permanently alter his thinking, memory... Cnc Machine Programmer again provided education about ECT. Patient concedes that he is aware he may be over-reacting or misinformed but this is just how he feels. He said he hopes this medication change will be helpful. Mental Status Exam Mental Status Exam Narrative: Pt is alert and oriented; behavior is isolative, but not so guarded, calm, still withdrawn; patient is not in distress; dressed in hospital attire with unkempt hair, disheveled, marginal hygiene; mood is described as ...frustrated and affect downcast; eye contact appropriate; Speech is a little latent; normal volume and prosody; not pressured; significant psychomotor retardation present; thought process is goal directed; Thought content is on how depression is hurting his family; tx; otherwise pertinent to relevant topics; no delusional content expressed; denies any SI/HI. There is no evidence of perceptual disturbance. Patients insight and judgment impaired. Diagnostics Vital Signs (24Hr): Vital Signs - 24 hr 06/05/23 19:46 Temperature 97.8 F Pulse Rate 77 Respiratory Rate 16 Blood Pressure 109/57 L Pulse Oximetry 97 Oxygen Delivery Method Room Air BMI result Body Mass Index 30.3 Labs 05/23/23 15:51 05/30/23 08:07 Medications Medications Current Medications Acetaminophen (Acetaminophen 325 Mg Tablet) 650 mg PO Q6H PRN PRN Reason: Headache/Pain Mild Scale (1-3) Al Hydroxide/Mg Hydroxide (Magnesium Hydrox/Alum Hydrox 30 Ml Oral.Susp) 30 ml PO Q6H PRN PRN Reason: Heartburn/Nausea Amlodipine Besylate (Amlodipine Besylate 10 Mg Tablet) 10 mg PO DAILY [facility]; Protocol Last Admin: 06/06/23 08:25 Dose: 10 mg Aspirin (Aspirin Enteric Coated 81 Mg Tablet.Dr) 81 mg PO DAILY [facility] Last Admin: 06/06/23 08:25 Dose: 81 mg Benzocaine (Throat Lozenge, Medicated Lozenge) 1 lozenge MUCOUS MEM Q2H PRN PRN Reason: Sore Throat Last Admin: 06/04/23 11:19 Dose: 1 lozenge Guaifenesin (Guaifenesin La 600 Mg Tab.Er.12h) 600 mg PO BID PRN PRN Reason: congestion [place] Carbonate ([place] Carbonate Er 300 Mg Tablet.Er) 600 mg PO BEDTIME [facility] Last Admin: 06/05/23 20:10 Dose: 600 mg Lorazepam (Lorazepam 1 Mg Tablet) 1 mg PO TID [facility] Last Admin: 06/06/23 08:25 Dose: 1 mg Magnesium Hydroxide (Milk Of Magnesia 30 Ml Oral.Susp) 30 ml PO DAILY PRN PRN Reason: Constipation Nicotine Polacrilex (Nicotine Polacrilex 2 Mg Gum) 4 mg BUCCAL Q2H PRN PRN Reason: Nicotine Cravings Nortriptyline HCl (Nortriptyline Hcl 10 Mg Capsule) 60 mg PO BEDTIME [facility] Last Admin: 06/05/23 20:10 Dose: 60 mg Quetiapine Fumarate (Quetiapine Fumarate 50 Mg Tablet) 50 mg PO BEDTIME [facility] Last Admin: 06/05/23 20:10 Dose: 50 mg Quetiapine Fumarate (Quetiapine Fumarate 50 Mg Tablet) 50 mg PO BEDTIME PRN PRN Reason: continued insomnia Trazodone HCl (Trazodone Hcl 100 Mg Tablet) 200 mg PO BEDTIME [facility] Last Admin: 06/05/23 20:10 Dose: 200 mg Vitamin D (Cholecalciferol (Vitamin D3) 25 Mcg Tablet) 25 mcg PO DAILY [facility] Last Admin: 06/06/23 08:25 Dose: 25 mcg Allergies Allergies Allergy/AdvReac Type Severity Reaction Status Date / Time lisinopril Allergy Hives Verified 03/06/23 10:50 Assessment & Plan Assessment & Plan (1) Bipolar disorder, most recent episode depressed: Status: Acute Code(s): F31.30 - Bipolar disorder, current episode depressed, mild or moderate severity, unspecified Plan Patient is a 63-year-old male with history of bipolar depression with history of manic episode, hypertension, who presents for 4th admission in past 6 months for worsening depression in the face of going off the lithium/Wellbutrin about a week after he was discharged from [place] [id number] March 2023. Patient reports that he took lithium/Wellbutrin combination for about a week after he was discharged but then developed a daily headache and so discontinued both. Patient's depression quickly returned. Patient is somewhat reticent however he reports that he has been eating very little, just lying in bed all day, not attending to any ADLs. Patient's reported to the ED that he was eating his hair (which Patient denies). Patient denies any SI or HI or AVH. He wants medication help to get better from depression. Hospital course: Depressed, no SI. Anxious about antipsychotic medication. Agrees to restarting lithium and nortriptyline 05/27 remains severely?depressed with negative symptoms, not eating, not bathing, talking little; agrees to increasing nortriptyline, restarting trazodone for insomnia; will also restart Ativan since pt seems to have a touch of catatonia and scheduled?Ativan?helped?last?admission 05/28 remains depressed; however talking a little more about meaningful life issues and he did sleep a little last night and eating a little more. Increasing trazodone and bedtime Ativan dose 05/29 increase nortriptyline for continued severe, refractory depression 05/30 continue current treatment plan; patient a little more engageable today -labs reviewed and lithium WNL; BUN/creatinine/TSH WNL 05/31 continues to be depressed but does seemed to be a little more engaged and affect more expressive. Increasing trazodone for insomnia; increasing Ativan for behavioral activation; will increase nortriptyline on 06/02 06/02 Nortriptyline 40 mg this eveing for sleep. 06/03 Pt reports URI sx. COVID -, given mucinex and throat kathleen prn; Reports not too much improvement in sleep with nortriptyline after 40 mg dosing. 06/04 very depressed, not getting out of bed, not attending to ADL's; not sleeping and agrees to try Seroquel 06/05 no improvement in symptoms, very depressed, not attending to ADL's, eating little, in bed most of day. increase Nortriptyline to 60mg Will also consider increasing Seroquel for insomnia; will likely get off trazodone if other agents help with sleep 06/06 Patient thinks he did sleep a little better last night. He would like to go down on the trazodone so that is not on too many medications, since it seems to be the right now that the Seroquel is helping more with sleep. Cnc Machine Programmer discussed restarting Wellbutrin and that although patient reported he eventually getting a headache on Wellbutrin and lithium, perhaps this time a lower dose of Wellbutrin would suffice since he is already on nortriptyline. Patient agreed to restart this medication. Again discussed ECT. Patient for the 1st time more able to articulate his anxiety about ECT. He said that he is afraid of anything that could interact with his brain; he said he rather have his foot cut off then get ECT since it is something with his head and patient is very fearful about anything that could permanently alter his thinking, memory... Cnc Machine Programmer again provided education about ECT. Patient concedes that he is aware he may be over-reacting or misinformed but this is just how he feels. He said he hopes this medication change will be helpful. -currently patient is too depressed with severe negative symptoms and psychomotor retardation to function on his own at home. At this time all his meals are made and brought to him, even though he hardly eats. Patient gets out of bed enough to avoid a DVT but is otherwise isolative and remains in bed. Impression/clinical reasoning: Patient has bipolar depression. Combination of lithium and Wellbutrin were partially helpful and he was back to fully attending to ADLs; post discharge however he discontinued them within a week saying he had a consistent migraine headache (patient discussed this with his PCP who was not willing to change regimen feeling it was out of his scope; patient had yet to go to his 1st psychiatric provider appointment and could not tolerate headache). He soon decompensated and has remained depressed with significant psychomotor retardation, hardly eating, hardly get out of bed and not attending to ADLs. At last admission discussed ECT at length however patient did not want to trial; newswriter broached this topic again and he again refused. Patient also very ambivalent about mood stabilization from second-generation antipsychotic class. TCAs (or MAOI) are options combined with lithium given history of manic episode. Patient also has refractory insomnia Plan: CV Q 15 minutes checks Retry Wellbutrin XL 150 mg daily (patient was on 450 mg at last admission; he eventually said this combination with lithium caused headache any stop medication. Perhaps with nortriptyline, lower dose will still be effective) Seroquel 50mg qhs for insomnia with extra prn for continued insomnia Continue lithium ER 600 mg q.h.s. Continue nortriptyline 60 mg q.h.s. on 06/05 (discussed risks/side-effects including hypotension, dizziness) -will get Nortrip level reduce to trazodone to 100 mg q.h.s.; which help patient sleep at last admission Continue Ativan 1 mg t.i.d. (patient was on q.i.d. at last admission and it seemed to help with behavioral activation) Reviewed risks/side effects of medication regimen including, but not limited to risk of tardive dyskinesia; patient ask questions, understood and agrees to continue current regimen Medication trials: lexapro and Haldol in 2018 and then only Lexapro starting 2019; prozac (briefly) Venlafaxine Mirtazapine (though not therapeutic dose) [place] 600 mg plus Wellbutrin 450 mg: Tolerated and mood partially improved however said he developed daily headaches from it a week later and discontinued does not want antipsychotics..so currently helga Kidd...not options Patient educated on: diagnosis, medication risk/benefits and ECT Informed Consent: understands, does not understand and further education needed Reason for continued inpatient stay Substantial Risk for: inability to function Time Spent With Patient Time: Total time managing care of this patient today ____ minutes.
[2023-06-06] MEDS: buPROPion HCl XL 150 MG TAB.ER.24H PO (14:48)
[2023-06-06 18:00] VITALS: BP 127/63; PULSE 92; TEMP 35.4; O2SAT 95
[2023-06-06] MEDS: Lithium Carbonate ER 300 MG TABLET.ER 600 MG PO (20:46)
[2023-06-06] MEDS: QUEtiapine Fumarate 50 MG TABLET PO (20:47)
[2023-06-06] MEDS: Nortriptyline HCl 10 MG CAPSULE 60 MG PO (20:47)
[2023-06-06] MEDS: traZODone HCL 100 MG TABLET PO (20:47)
[2023-06-07 07:55] VITALS: BP 109/56; PULSE 79; RESP 18; TEMP 36.7; O2SAT 94
[2023-06-07] MEDS: amLODIPine Besylate 10 MG TABLET PO (09:09)
[2023-06-07] MEDS: buPROPion HCl XL 150 MG TAB.ER.24H PO (09:10)
[2023-06-07] MEDS: Aspirin Enteric Coated 81 MG TABLET.DR PO (09:10)
[2023-06-07] MEDS: LORazepam 1 MG TABLET PO ×3 (09:10→21:15)
[2023-06-07] MEDS: Cholecalciferol (Vitamin D3) 25 MCG TABLET PO (09:10)
--- NOTE | 2023-06-07 09:48 | HO.PSYCHPN ---
Subjective Subjective Date of Service: 06/07/23 Reason For Visit: depression Interim History: met with patient; discussed with team; reviewed notes pt showered and shaved today; feels he had the energy to do so. He is not sure why, but agrees it might be due to addition of Wellbutrin. Discussed meds and he wants to leave Wellbutrin at current dose for now, hoping his increased energy will continue. Discussed sleeping meds and though patient would like to eliminate either Trazodone or Seroquel, agrees to continue both since synmptoms heading in right direction Mental Status Exam Mental Status Exam Narrative: Pt is alert and oriented; behavior is isolative, but not guarded, calm, still withdrawn; patient is not in distress; dressed in hospital attire with unkempt hair but shaved and showered; mood is described as ...a little better and affect brighter; eye contact appropriate; Speech is normal rate, volume and prosody; not pressured; less psychomotor retardation present; thought process is goal directed; Thought content is on treatment, discharge; otherwise pertinent to relevant topics; no delusional content expressed; denies any SI/HI. There is no evidence of perceptual disturbance. Patients insight and judgment improving. Diagnostics Vital Signs (24Hr): Vital Signs - 24 hr 06/06/23 18:00 06/07/23 07:55 Temperature 95.7 F L 98.1 F Pulse Rate 92 79 Respiratory Rate 18 Blood Pressure 127/63 109/56 L Pulse Oximetry 95 94 Oxygen Delivery Method Room Air BMI result Body Mass Index 30.3 Labs 05/23/23 15:51 05/30/23 08:07 Medications Medications Current Medications Acetaminophen (Acetaminophen 325 Mg Tablet) 650 mg PO Q6H PRN PRN Reason: Headache/Pain Mild Scale (1-3) Al Hydroxide/Mg Hydroxide (Magnesium Hydrox/Alum Hydrox 30 Ml Oral.Susp) 30 ml PO Q6H PRN PRN Reason: Heartburn/Nausea Amlodipine Besylate (Amlodipine Besylate 10 Mg Tablet) 10 mg PO DAILY COUNTS INCLUDE 234 BEDS AT THE [facility]; Protocol Last Admin: 06/07/23 09:09 Dose: 10 mg Aspirin (Aspirin Enteric Coated 81 Mg Tablet.) 81 mg PO DAILY COUNTS INCLUDE 234 BEDS AT THE [facility] Last Admin: 06/07/23 09:10 Dose: 81 mg Benzocaine (Throat Lozenge, Medicated Lozenge) 1 lozenge MUCOUS MEM Q2H PRN PRN Reason: Sore Throat Last Admin: 06/04/23 11:19 Dose: 1 lozenge Bupropion HCl (Bupropion Hcl Xl 150 Mg Tab.Er.24h) 150 mg PO DAILY COUNTS INCLUDE 234 BEDS AT THE [facility] Last Admin: 06/07/23 09:10 Dose: 150 mg Guaifenesin (Guaifenesin La 600 Mg Tab.Er.12h) 600 mg PO BID PRN PRN Reason: congestion [place] Carbonate ([place] Carbonate Er 300 Mg Tablet.Er) 600 mg PO BEDTIME COUNTS INCLUDE 234 BEDS AT THE [facility] Last Admin: 06/06/23 20:46 Dose: 600 mg Lorazepam (Lorazepam 1 Mg Tablet) 1 mg PO TID COUNTS INCLUDE 234 BEDS AT THE [facility] Last Admin: 06/07/23 09:10 Dose: 1 mg Magnesium Hydroxide (Milk Of Magnesia 30 Ml Oral.Susp) 30 ml PO DAILY PRN PRN Reason: Constipation Nicotine Polacrilex (Nicotine Polacrilex 2 Mg Gum) 4 mg BUCCAL Q2H PRN PRN Reason: Nicotine Cravings Nortriptyline HCl (Nortriptyline Hcl 10 Mg Capsule) 60 mg PO BEDTIME COUNTS INCLUDE 234 BEDS AT THE [facility] Last Admin: 06/06/23 20:47 Dose: 60 mg Quetiapine Fumarate (Quetiapine Fumarate 50 Mg Tablet) 50 mg PO BEDTIME COUNTS INCLUDE 234 BEDS AT THE [facility] Last Admin: 06/06/23 20:47 Dose: 50 mg Quetiapine Fumarate (Quetiapine Fumarate 50 Mg Tablet) 50 mg PO BEDTIME PRN PRN Reason: continued insomnia Trazodone HCl (Trazodone Hcl 100 Mg Tablet) 100 mg PO BEDTIME COUNTS INCLUDE 234 BEDS AT THE [facility] Last Admin: 06/06/23 20:47 Dose: 100 mg Vitamin D (Cholecalciferol (Vitamin D3) 25 Mcg Tablet) 25 mcg PO DAILY COUNTS INCLUDE 234 BEDS AT THE [facility] Last Admin: 06/07/23 09:10 Dose: 25 mcg Allergies Allergies Allergy/AdvReac Type Severity Reaction Status Date / Time lisinopril Allergy Hives Verified 03/06/23 10:50 Assessment & Plan Assessment & Plan (1) Bipolar disorder, most recent episode depressed: Status: Acute Code(s): F31.30 - Bipolar disorder, current episode depressed, mild or moderate severity, unspecified Plan Patient is a 63-year-old male with history of bipolar depression with history of manic episode, hypertension, who presents for 4th admission in past 6 months for worsening depression in the face of going off the lithium/Wellbutrin about a week after he was discharged from [place] [facility] March 2023. Patient reports that he took lithium/Wellbutrin combination for about a week after he was discharged but then developed a daily headache and so discontinued both. Patient's depression quickly returned. Patient is somewhat reticent however he reports that he has been eating very little, just lying in bed all day, not attending to any ADLs. Patient's reported to the ED that he was eating his hair (which Patient denies). Patient denies any SI or HI or AVH. He wants medication help to get better from depression. Hospital course: Depressed, no SI. Anxious about antipsychotic medication. Agrees to restarting lithium and nortriptyline 05/27 remains severely?depressed with negative symptoms, not eating, not bathing, talking little; agrees to increasing nortriptyline, restarting trazodone for insomnia; will also restart Ativan since pt seems to have a touch of catatonia and scheduled?Ativan?helped?last?admission 05/28 remains depressed; however talking a little more about meaningful life issues and he did sleep a little last night and eating a little more. Increasing trazodone and bedtime Ativan dose 05/29 increase nortriptyline for continued severe, refractory depression 05/30 continue current treatment plan; patient a little more engageable today -labs reviewed and lithium WNL; BUN/creatinine/TSH WNL 05/31 continues to be depressed but does seemed to be a little more engaged and affect more expressive. Increasing trazodone for insomnia; increasing Ativan for behavioral activation; will increase nortriptyline on 06/02 06/02 Nortriptyline 40 mg this eveing for sleep. 06/03 Pt reports URI sx. COVID -, given mucinex and throat kathleen prn; Reports not too much improvement in sleep with nortriptyline after 40 mg dosing. 06/04 very depressed, not getting out of bed, not attending to ADL's; not sleeping and agrees to try Seroquel 06/05 no improvement in symptoms, very depressed, not attending to ADL's, eating little, in bed most of day. increase Nortriptyline to 60mg Will also consider increasing Seroquel for insomnia; will likely get off trazodone if other agents help with sleep 06/06 Patient thinks he did sleep a little better last night. He would like to go down on the trazodone so that is not on too many medications, since it seems to be the right now that the Seroquel is helping more with sleep. Detail Maker And Fitter discussed restarting Wellbutrin and that although patient reported he eventually getting a headache on Wellbutrin and lithium, perhaps this time a lower dose of Wellbutrin would suffice since he is already on nortriptyline. Patient agreed to restart this medication. Again discussed ECT. Patient for the 1st time more able to articulate his anxiety about ECT. He said that he is afraid of anything that could interact with his brain; he said he rather have his foot cut off then get ECT since it is something with his head and patient is very fearful about anything that could permanently alter his thinking, memory... Detail Maker And Fitter again provided education about ECT. Patient concedes that he is aware he may be over-reacting or misinformed but this is just how he feels. He said he hopes this medication change will be helpful. -currently patient is too depressed with severe negative symptoms and psychomotor retardation to function on his own at home. At this time all his meals are made and brought to him, even though he hardly eats. Patient gets out of bed enough to avoid a DVT but is otherwise isolative and remains in bed. 06/07 little better with Wellbutrin on board; actually shaved and showered today; continue tx plan Impression/clinical reasoning: Patient has bipolar depression. Combination of lithium and Wellbutrin were partially helpful and he was back to fully attending to ADLs; post discharge however he discontinued them within a week saying he had a consistent migraine headache (patient discussed this with his PCP who was not willing to change regimen feeling it was out of his scope; patient had yet to go to his 1st psychiatric provider appointment and could not tolerate headache). He soon decompensated and has remained depressed with significant psychomotor retardation, hardly eating, hardly get out of bed and not attending to ADLs. At last admission discussed ECT at length however patient did not want to trial; group underwriter broached this topic again and he again refused. Patient also very ambivalent about mood stabilization from second-generation antipsychotic class. TCAs (or MAOI) are options combined with lithium given history of manic episode. Patient also has refractory insomnia Plan: CV Q 15 minutes checks continue Wellbutrin XL 150 mg daily (patient was on 450 mg at last admission; he eventually said this combination with lithium caused headache any stop medication. Perhaps with nortriptyline, lower dose will still be effective) Seroquel 50mg qhs for insomnia with extra prn for continued insomnia Continue lithium ER 600 mg q.h.s. Continue nortriptyline 60 mg q.h.s. on 06/05 (discussed risks/side-effects including hypotension, dizziness) -will get Nortrip level reduce to trazodone to 100 mg q.h.s.; which help patient sleep at last admission Continue Ativan 1 mg t.i.d. (patient was on q.i.d. at last admission and it seemed to help with behavioral activation) Reviewed risks/side effects of medication regimen including, but not limited to risk of tardive dyskinesia; patient ask questions, understood and agrees to continue current regimen Medication trials: lexapro and Haldol in 2018 and then only Lexapro starting 2019; prozac (briefly) Venlafaxine Mirtazapine (though not therapeutic dose) [place] 600 mg plus Wellbutrin 450 mg: Tolerated and mood partially improved however said he developed daily headaches from it a week later and discontinued does not want antipsychotics..so currently helga Kidd...not options Patient educated on: diagnosis and medication risk/benefits Informed Consent: understands Reason for continued inpatient stay Substantial Risk for: med/psych decompensation Time Spent With Patient Time: Total time managing care of this patient today ____ minutes.
[2023-06-07 18:00] VITALS: BP 103/55; PULSE 85; RESP 16; TEMP 35.9; O2SAT 97
[2023-06-07] MEDS: Lithium Carbonate ER 300 MG TABLET.ER 600 MG PO (21:13)
[2023-06-07] MEDS: QUEtiapine Fumarate 50 MG TABLET PO (21:14)
[2023-06-07] MEDS: Nortriptyline HCl 10 MG CAPSULE 60 MG PO (21:14)
[2023-06-07] MEDS: traZODone HCL 100 MG TABLET PO (21:15)
[2023-06-08 08:14] VITALS: BP 114/71; PULSE 81; RESP 16; TEMP 36.1; O2SAT 96
[2023-06-08] MEDS: Cholecalciferol (Vitamin D3) 25 MCG TABLET PO (08:43)
[2023-06-08] MEDS: Aspirin Enteric Coated 81 MG TABLET.DR PO (08:43)
[2023-06-08] MEDS: buPROPion HCl XL 150 MG TAB.ER.24H PO (08:43)
[2023-06-08] MEDS: amLODIPine Besylate 10 MG TABLET PO (08:43)
[2023-06-08] MEDS: LORazepam 1 MG TABLET PO ×3 (08:43→20:25)
[2023-06-08] MEDS: Milk of Magnesia 30 ML ORAL.SUSP PO (15:36)
[2023-06-08 18:00] VITALS: BP 114/63; PULSE 86; TEMP 36.1; O2SAT 97
--- NOTE | 2023-06-08 19:49 | HO.PSYCHPN ---
Subjective Subjective Date of Service: 06/08/23 Reason For Visit: depression Interim History: pt reports maybe slight improvement but remains hesitantly hopeful; reports slight tremor and took 25 mg seroquel last night instead of 50 mg and thinks the tremor is reduced; reports slight dizziness upon standing more so at night- thinks it started with wellbutrin. no akathesia or agitation with wellbutrin; appears brighter Medication Compliance: Yes Side effects from medications: Yes (? tremor, ? dizziness) Attending Groups: No Review of Systems Acute medical concerns: No Review of Systems Review of Systems Constitutional : No Fever, No Chills ENT/Mouth : No Ear Pain, No Nasal Congestion, No sore throat Eyes: No Eye Pain, No Swelling, No Redness Cardiovascular : No Chest Pain, No SOB Respiratory : No Cough, No Sputum, No Dyspnea Gastrointestinal : No Nausea, No Vomiting, No Diarrhea, No Hematochezia, No Melena Genitourinary : No Dysuria, No Urinary Frequency, No Hematuria Musculoskeletal : No Myalgias Skin : No Skin Lesions, No rash Neuro : No Weakness, No Numbness, No Paresthesias, No Dizziness, No Headache Psych : positive Anxiety, positive Depression, no SI/HI Heme/Lymph: No Lymphadenopathy Endocrine : No Polyuria, No Polydipsia All other systems reviewed and are negative Mental Status Exam Mental Status Exam Narrative: Pt is alert and oriented; behavior is isolative, but not so guarded, calm, still withdrawn; patient is not in distress; dressed in hospital attire with unkempt hair, disheveled, marginal hygiene; mood is described as ...frustrated and affect downcast; eye contact appropriate; Speech is a little latent; normal volume and prosody; not pressured; significant psychomotor retardation present; thought process is goal directed; Thought content is on how depression is hurting his family; tx; otherwise pertinent to relevant topics; no delusional content expressed; denies any SI/HI. There is no evidence of perceptual disturbance. Patients insight and judgment impaired. Patient Appearance: Disheveled Patient Orientation: Person, Place, Time and Situation Level of Consciousness: Alert Patient Behavior: Talkative and Good Eye Contact Mood Description: Depressed and Flat Affect Description: Flat Patient Cognition Impaired: No Ability to Follow Directions: Good Speech Pattern: Spontaneous Speech Diagnostics Vital Signs (24Hr): Vital Signs - 24 hr 06/08/23 08:14 Temperature 97.0 F Pulse Rate 81 Respiratory Rate 16 Blood Pressure 114/71 Pulse Oximetry 96 Oxygen Delivery Method Room Air BMI result Body Mass Index 30.3 Labs 05/23/23 15:51 05/30/23 08:07 Medications Medications Current Medications Acetaminophen (Acetaminophen 325 Mg Tablet) 650 mg PO Q6H PRN PRN Reason: Headache/Pain Mild Scale (1-3) Al Hydroxide/Mg Hydroxide (Magnesium Hydrox/Alum Hydrox 30 Ml Oral.Susp) 30 ml PO Q6H PRN PRN Reason: Heartburn/Nausea Amlodipine Besylate (Amlodipine Besylate 10 Mg Tablet) 10 mg PO DAILY [facility]; Protocol Last Admin: 06/08/23 08:43 Dose: 10 mg Aspirin (Aspirin Enteric Coated 81 Mg Tablet.Dr) 81 mg PO DAILY [facility] Last Admin: 06/08/23 08:43 Dose: 81 mg Benzocaine (Throat Lozenge, Medicated Lozenge) 1 lozenge MUCOUS MEM Q2H PRN PRN Reason: Sore Throat Last Admin: 06/04/23 11:19 Dose: 1 lozenge Bupropion HCl (Bupropion Hcl Xl 150 Mg Tab.Er.24h) 150 mg PO DAILY [facility] Last Admin: 06/08/23 08:43 Dose: 150 mg Guaifenesin (Guaifenesin La 600 Mg Tab.Er.12h) 600 mg PO BID PRN PRN Reason: congestion [place] Carbonate ([place] Carbonate Er 300 Mg Tablet.Er) 600 mg PO BEDTIME [facility] Last Admin: 06/07/23 21:13 Dose: 600 mg Lorazepam (Lorazepam 1 Mg Tablet) 1 mg PO TID [facility] Last Admin: 06/08/23 15:34 Dose: 1 mg Magnesium Hydroxide (Milk Of Magnesia 30 Ml Oral.Susp) 30 ml PO DAILY PRN PRN Reason: Constipation Last Admin: 06/08/23 15:36 Dose: 30 ml Nicotine Polacrilex (Nicotine Polacrilex 2 Mg Gum) 4 mg BUCCAL Q2H PRN PRN Reason: Nicotine Cravings Nortriptyline HCl (Nortriptyline Hcl 10 Mg Capsule) 60 mg PO BEDTIME [facility] Last Admin: 06/07/23 21:14 Dose: 60 mg Quetiapine Fumarate (Quetiapine Fumarate 50 Mg Tablet) 50 mg PO BEDTIME [facility] Last Admin: 06/07/23 21:14 Dose: 25 mg Quetiapine Fumarate (Quetiapine Fumarate 50 Mg Tablet) 50 mg PO BEDTIME PRN PRN Reason: continued insomnia Trazodone HCl (Trazodone Hcl 100 Mg Tablet) 100 mg PO BEDTIME [facility] Last Admin: 06/07/23 21:15 Dose: 100 mg Vitamin D (Cholecalciferol (Vitamin D3) 25 Mcg Tablet) 25 mcg PO DAILY [facility] Last Admin: 06/08/23 08:43 Dose: 25 mcg Allergies Allergies Allergy/AdvReac Type Severity Reaction Status Date / Time lisinopril Allergy Hives Verified 03/06/23 10:50 Assessment & Plan Assessment & Plan (1) Bipolar disorder, most recent episode depressed: Status: Acute Code(s): F31.30 - Bipolar disorder, current episode depressed, mild or moderate severity, unspecified Plan Patient is a 63-year-old male with history of bipolar depression with history of manic episode, hypertension, who presents for 4th admission in past 6 months for worsening depression in the face of going off the lithium/Wellbutrin about a week after he was discharged from [place] [id number] March 2023. Patient reports that he took lithium/Wellbutrin combination for about a week after he was discharged but then developed a daily headache and so discontinued both. Patient's depression quickly returned. Patient is somewhat reticent however he reports that he has been eating very little, just lying in bed all day, not attending to any ADLs. Patient's reported to the ED that he was eating his hair (which Patient denies). Patient denies any SI or HI or AVH. He wants medication help to get better from depression. Hospital course: Depressed, no SI. Anxious about antipsychotic medication. Agrees to restarting lithium and nortriptyline 05/27 remains severely?depressed with negative symptoms, not eating, not bathing, talking little; agrees to increasing nortriptyline, restarting trazodone for insomnia; will also restart Ativan since pt seems to have a touch of catatonia and scheduled?Ativan?helped?last?admission 05/28 remains depressed; however talking a little more about meaningful life issues and he did sleep a little last night and eating a little more. Increasing trazodone and bedtime Ativan dose 05/29 increase nortriptyline for continued severe, refractory depression 05/30 continue current treatment plan; patient a little more engageable today -labs reviewed and lithium WNL; BUN/creatinine/TSH WNL 05/31 continues to be depressed but does seemed to be a little more engaged and affect more expressive. Increasing trazodone for insomnia; increasing Ativan for behavioral activation; will increase nortriptyline on 06/02 06/02 Nortriptyline 40 mg this eveing for sleep. 06/03 Pt reports URI sx. COVID -, given mucinex and throat kathleen prn; Reports not too much improvement in sleep with nortriptyline after 40 mg dosing. 06/04 very depressed, not getting out of bed, not attending to ADL's; not sleeping and agrees to try Seroquel 06/05 no improvement in symptoms, very depressed, not attending to ADL's, eating little, in bed most of day. increase Nortriptyline to 60mg Will also consider increasing Seroquel for insomnia; will likely get off trazodone if other agents help with sleep 06/06 Patient thinks he did sleep a little better last night. He would like to go down on the trazodone so that is not on too many medications, since it seems to be the right now that the Seroquel is helping more with sleep. Dowel Pin Man discussed restarting Wellbutrin and that although patient reported he eventually getting a headache on Wellbutrin and lithium, perhaps this time a lower dose of Wellbutrin would suffice since he is already on nortriptyline. Patient agreed to restart this medication. Again discussed ECT. Patient for the 1st time more able to articulate his anxiety about ECT. He said that he is afraid of anything that could interact with his brain; he said he rather have his foot cut off then get ECT since it is something with his head and patient is very fearful about anything that could permanently alter his thinking, memory... Dowel Pin Man again provided education about ECT. Patient concedes that he is aware he may be over-reacting or misinformed but this is just how he feels. He said he hopes this medication change will be helpful. -currently patient is too depressed with severe negative symptoms and psychomotor retardation to function on his own at home. At this time all his meals are made and brought to him, even though he hardly eats. Patient gets out of bed enough to avoid a DVT but is otherwise isolative and remains in bed.06/08 Impression/clinical reasoning: Patient has bipolar depression. Combination of lithium and Wellbutrin were partially helpful and he was back to fully attending to ADLs; post discharge however he discontinued them within a week saying he had a consistent migraine headache (patient discussed this with his PCP who was not willing to change regimen feeling it was out of his scope; patient had yet to go to his 1st psychiatric provider appointment and could not tolerate headache). He soon decompensated and has remained depressed with significant psychomotor retardation, hardly eating, hardly get out of bed and not attending to ADLs. At last admission discussed ECT at length however patient did not want to trial; conventional underwriter broached this topic again and he again refused. Patient also very ambivalent about mood stabilization from second-generation antipsychotic class. TCAs (or MAOI) are options combined with lithium given history of manic episode. Patient also has refractory insomnia Plan: CV Q 15 minutes checks Retry Wellbutrin XL 150 mg daily (patient was on 450 mg at last admission; he eventually said this combination with lithium caused headache any stop medication. Perhaps with nortriptyline, lower dose will still be effective) Seroquel 50mg qhs for insomnia with extra prn for continued insomnia Continue lithium ER 600 mg q.h.s. Continue nortriptyline 60 mg q.h.s. on 06/05 (discussed risks/side-effects including hypotension, dizziness) -will get Nortrip level reduce to trazodone to 100 mg q.h.s.; which help patient sleep at last admission Continue Ativan 1 mg t.i.d. (patient was on q.i.d. at last admission and it seemed to help with behavioral activation) Reviewed risks/side effects of medication regimen including, but not limited to risk of tardive dyskinesia; patient ask questions, understood and agrees to continue current regimen Medication trials: lexapro and Haldol in 2018 and then only Lexapro starting 2018; prozac (briefly) Venlafaxine Mirtazapine (though not therapeutic dose) [place] 600 mg plus Wellbutrin 450 mg: Tolerated and mood partially improved however said he developed daily headaches from it a week later and discontinued does not want antipsychotics..so currently Bernabe, latnunu...not options 06/08/23 encouraged fluids discussed increasing wellbutrin tomorrow if tremor and dizziness improved/remitted Patient educated on: diagnosis, medication risk/benefits, ECT and therapeutic strategies Informed Consent: further education needed Reason for continued inpatient stay Substantial Risk for: harm to self, inability to function and rapid decompensation Time Spent With Patient Time: Total time managing care of this patient today ____ minutes.
[2023-06-08] MEDS: traZODone HCL 100 MG TABLET PO (20:25)
[2023-06-08] MEDS: QUEtiapine Fumarate 50 MG TABLET PO (20:25)
[2023-06-08] MEDS: Lithium Carbonate ER 300 MG TABLET.ER 600 MG PO (20:25)
[2023-06-08] MEDS: Nortriptyline HCl 10 MG CAPSULE 60 MG PO (20:25)
[2023-06-09 08:49] VITALS: BP 106/61; PULSE 95; RESP 16; TEMP 36.1; O2SAT 100
[2023-06-09] MEDS: Cholecalciferol (Vitamin D3) 25 MCG TABLET PO (09:03)
[2023-06-09] MEDS: buPROPion HCl XL 150 MG TAB.ER.24H PO (09:03)
[2023-06-09] MEDS: Aspirin Enteric Coated 81 MG TABLET.DR PO (09:04)
[2023-06-09] MEDS: LORazepam 1 MG TABLET PO ×3 (09:04→20:57)
[2023-06-09] MEDS: amLODIPine Besylate 10 MG TABLET PO (09:04)
--- NOTE | 2023-06-09 10:45 | HO.PSYCHPN ---
Subjective Subjective Date of Service: 06/09/23 Reason For Visit: depression Subjective Notes: Conditional Voluntary Interim History: pt reports slight improvement in mood but feels discourafed by diarrhea most likely brought on by mom for constipation; reports slight tremor and took 25 mg seroquel last night instead of 50 mg and thinks the tremor is reduced; reports slight dizziness upon standing more so at night but says improving; Medication Compliance: Yes Side effects from medications: Yes ( possible dizziness) Attending Groups: No Review of Systems Acute medical concerns: No Medical Review of Systems: unchanged Review of Systems Review of Systems Constitutional : No Fever, No Chills ENT/Mouth : No Ear Pain, No Nasal Congestion, No sore throat Eyes: No Eye Pain, No Swelling, No Redness Cardiovascular : No Chest Pain, No SOB Respiratory : No Cough, No Sputum, No Dyspnea Gastrointestinal : No Nausea, No Vomiting, No Diarrhea, No Hematochezia, No Melena Genitourinary : No Dysuria, No Urinary Frequency, No Hematuria Musculoskeletal : No Myalgias Skin : No Skin Lesions, No rash Neuro : No Weakness, No Numbness, No Paresthesias, Intermittent transient Dizziness, No Headache Psych : positive Anxiety, positive Depression, no SI/HI Heme/Lymph: No Lymphadenopathy Endocrine : No Polyuria, No Polydipsia All other systems reviewed and are negative Mental Status Exam Mental Status Exam Narrative: Pt is alert and oriented; behavior is isolative, but not so guarded, calm, still withdrawn; patient is not in distress; dressed in hospital attire with unkempt hair, disheveled, marginal hygiene; mood is described as ...frustrated and affect downcast; eye contact appropriate; Speech is a little latent; normal volume and prosody; not pressured; significant psychomotor retardation present; thought process is goal directed; Thought content is on how depression is hurting his family; tx; otherwise pertinent to relevant topics; no delusional content expressed; denies any SI/HI. There is no evidence of perceptual disturbance. Patients insight and judgment impaired. Patient Appearance: Disheveled Patient Orientation: Person, Place, Time and Situation Level of Consciousness: Alert Patient Behavior: Talkative and Good Eye Contact Mood Description: Depressed and Flat Affect Description: Flat Patient Cognition Impaired: No Ability to Follow Directions: Good Speech Pattern: Spontaneous Speech Judgement: Good Diagnostics Vital Signs (24Hr): Vital Signs - 24 hr 06/08/23 18:00 06/09/23 08:49 Temperature 96.9 F 97.0 F Pulse Rate 86 95 Respiratory Rate 16 Blood Pressure 114/63 106/61 Pulse Oximetry 97 100 Oxygen Delivery Method Room Air Room Air BMI result Body Mass Index 30.3 Labs 05/23/23 15:51 05/30/23 08:07 Medications Medications Current Medications Acetaminophen (Acetaminophen 325 Mg Tablet) 650 mg PO Q6H PRN PRN Reason: Headache/Pain Mild Scale (1-3) Al Hydroxide/Mg Hydroxide (Magnesium Hydrox/Alum Hydrox 30 Ml Oral.Susp) 30 ml PO Q6H PRN PRN Reason: Heartburn/Nausea Amlodipine Besylate (Amlodipine Besylate 10 Mg Tablet) 10 mg PO DAILY [facility]; Protocol Last Admin: 06/09/23 09:04 Dose: 10 mg Aspirin (Aspirin Enteric Coated 81 Mg Tablet.Dr) 81 mg PO DAILY [facility] Last Admin: 06/09/23 09:04 Dose: 81 mg Benzocaine (Throat Lozenge, Medicated Lozenge) 1 lozenge MUCOUS MEM Q2H PRN PRN Reason: Sore Throat Last Admin: 06/04/23 11:19 Dose: 1 lozenge Bupropion HCl (Bupropion Hcl Xl 150 Mg Tab.Er.24h) 150 mg PO DAILY [facility] Last Admin: 06/09/23 09:03 Dose: 150 mg Guaifenesin (Guaifenesin La 600 Mg Tab.Er.12h) 600 mg PO BID PRN PRN Reason: congestion [place] Carbonate ([place] Carbonate Er 300 Mg Tablet.Er) 600 mg PO BEDTIME [facility] Last Admin: 06/08/23 20:25 Dose: 600 mg Loperamide HCl (Loperamide Hcl 2 Mg Capsule) 4 mg PO ONCE ONE Stop: 06/09/23 10:44 Lorazepam (Lorazepam 1 Mg Tablet) 1 mg PO TID [facility] Last Admin: 06/09/23 09:04 Dose: 1 mg Magnesium Hydroxide (Milk Of Magnesia 30 Ml Oral.Susp) 30 ml PO DAILY PRN PRN Reason: Constipation Last Admin: 06/08/23 15:36 Dose: 30 ml Nicotine Polacrilex (Nicotine Polacrilex 2 Mg Gum) 4 mg BUCCAL Q2H PRN PRN Reason: Nicotine Cravings Nortriptyline HCl (Nortriptyline Hcl 10 Mg Capsule) 60 mg PO BEDTIME [facility] Last Admin: 06/08/23 20:25 Dose: 60 mg Quetiapine Fumarate (Quetiapine Fumarate 25 Mg Tablet) 25 mg PO BEDTIME [facility] Quetiapine Fumarate (Quetiapine Fumarate 25 Mg Tablet) 25 mg PO BEDTIME PRN PRN Reason: continued insomnia Trazodone HCl (Trazodone Hcl 100 Mg Tablet) 100 mg PO BEDTIME [facility] Last Admin: 06/08/23 20:25 Dose: 100 mg Vitamin D (Cholecalciferol (Vitamin D3) 25 Mcg Tablet) 25 mcg PO DAILY [facility] Last Admin: 06/09/23 09:03 Dose: 25 mcg Allergies Allergies Allergy/AdvReac Type Severity Reaction Status Date / Time lisinopril Allergy Hives Verified 03/06/23 10:50 Assessment & Plan Assessment & Plan (1) Bipolar disorder, most recent episode depressed: Status: Acute Code(s): F31.30 - Bipolar disorder, current episode depressed, mild or moderate severity, unspecified Plan Patient is a 63-year-old male with history of bipolar depression with history of manic episode, hypertension, who presents for 4th admission in past 6 months for worsening depression in the face of going off the lithium/Wellbutrin about a week after he was discharged from [place] [id number] March 2023. Patient reports that he took lithium/Wellbutrin combination for about a week after he was discharged but then developed a daily headache and so discontinued both. Patient's depression quickly returned. Patient is somewhat reticent however he reports that he has been eating very little, just lying in bed all day, not attending to any ADLs. Patient's reported to the ED that he was eating his hair (which Patient denies). Patient denies any SI or HI or AVH. He wants medication help to get better from depression. Hospital course: Depressed, no SI. Anxious about antipsychotic medication. Agrees to restarting lithium and nortriptyline 05/27 remains severely?depressed with negative symptoms, not eating, not bathing, talking little; agrees to increasing nortriptyline, restarting trazodone for insomnia; will also restart Ativan since pt seems to have a touch of catatonia and scheduled?Ativan?helped?last?admission 05/28 remains depressed; however talking a little more about meaningful life issues and he did sleep a little last night and eating a little more. Increasing trazodone and bedtime Ativan dose 05/29 increase nortriptyline for continued severe, refractory depression 05/30 continue current treatment plan; patient a little more engageable today -labs reviewed and lithium WNL; BUN/creatinine/TSH WNL 05/31 continues to be depressed but does seemed to be a little more engaged and affect more expressive. Increasing trazodone for insomnia; increasing Ativan for behavioral activation; will increase nortriptyline on 06/02 06/02 Nortriptyline 40 mg this eveing for sleep. 06/03 Pt reports URI sx. COVID -, given mucinex and throat kathleen prn; Reports not too much improvement in sleep with nortriptyline after 40 mg dosing. 06/04 very depressed, not getting out of bed, not attending to ADL's; not sleeping and agrees to try Seroquel 06/05 no improvement in symptoms, very depressed, not attending to ADL's, eating little, in bed most of day. increase Nortriptyline to 60mg Will also consider increasing Seroquel for insomnia; will likely get off trazodone if other agents help with sleep 06/06 Patient thinks he did sleep a little better last night. He would like to go down on the trazodone so that is not on too many medications, since it seems to be the right now that the Seroquel is helping more with sleep. Roadability Machine Operator discussed restarting Wellbutrin and that although patient reported he eventually getting a headache on Wellbutrin and lithium, perhaps this time a lower dose of Wellbutrin would suffice since he is already on nortriptyline. Patient agreed to restart this medication. Again discussed ECT. Patient for the 1st time more able to articulate his anxiety about ECT. He said that he is afraid of anything that could interact with his brain; he said he rather have his foot cut off then get ECT since it is something with his head and patient is very fearful about anything that could permanently alter his thinking, memory... Roadability Machine Operator again provided education about ECT. Patient concedes that he is aware he may be over-reacting or misinformed but this is just how he feels. He said he hopes this medication change will be helpful. -currently patient is too depressed with severe negative symptoms and psychomotor retardation to function on his own at home. At this time all his meals are made and brought to him, even though he hardly eats. Patient gets out of bed enough to avoid a DVT but is otherwise isolative and remains in bed.06/08 Impression/clinical reasoning: Patient has bipolar depression. Combination of lithium and Wellbutrin were partially helpful and he was back to fully attending to ADLs; post discharge however he discontinued them within a week saying he had a consistent migraine headache (patient discussed this with his PCP who was not willing to change regimen feeling it was out of his scope; patient had yet to go to his 1st psychiatric provider appointment and could not tolerate headache). He soon decompensated and has remained depressed with significant psychomotor retardation, hardly eating, hardly get out of bed and not attending to ADLs. At last admission discussed ECT at length however patient did not want to trial; copywriter broached this topic again and he again refused. Patient also very ambivalent about mood stabilization from second-generation antipsychotic class. TCAs (or MAOI) are options combined with lithium given history of manic episode. Patient also has refractory insomnia Plan: CV Q 15 minutes checks Retry Wellbutrin XL 150 mg daily (patient was on 450 mg at last admission; he eventually said this combination with lithium caused headache any stop medication. Perhaps with nortriptyline, lower dose will still be effective) Seroquel 50mg qhs for insomnia with extra prn for continued insomnia Continue lithium ER 600 mg q.h.s. Continue nortriptyline 60 mg q.h.s. on 06/05 (discussed risks/side-effects including hypotension, dizziness) -will get Nortrip level reduce to trazodone to 100 mg q.h.s.; which help patient sleep at last admission Continue Ativan 1 mg t.i.d. (patient was on q.i.d. at last admission and it seemed to help with behavioral activation) Reviewed risks/side effects of medication regimen including, but not limited to risk of tardive dyskinesia; patient ask questions, understood and agrees to continue current regimen Medication trials: lexapro and Haldol in 2018 and then only Lexapro starting 2019; prozac (briefly) Venlafaxine Mirtazapine (though not therapeutic dose) [place] 600 mg plus Wellbutrin 450 mg: Tolerated and mood partially improved however said he developed daily headaches from it a week later and discontinued does not want antipsychotics..so currently Bernabe, latnunu...not options 06/08/23 encouraged fluids discussed increasing wellbutrin tomorrow if tremor and dizziness improved/remitted 06/09/23 encourage fluids, consider increase in wellbutrin saturday Patient educated on: diagnosis, medication risk/benefits, therapeutic strategies and medical condition Informed Consent: understands and further education needed Reason for continued inpatient stay Substantial Risk for: harm to self, inability to function and rapid decompensation Time Spent With Patient Time: Total time managing care of this patient today ____ minutes.
[2023-06-09] MEDS: Loperamide HCl 2 MG CAPSULE 4 MG PO (10:49)
[2023-06-09 12:09] VITALS: BP 161/68; PULSE 72; O2SAT 99
[2023-06-09] MEDS: Loperamide HCl 2 MG CAPSULE PO ×2 (15:57→20:57)
[2023-06-09 18:45] VITALS: BP 122/68; PULSE 82; TEMP 36.3
[2023-06-09] MEDS: Lithium Carbonate ER 300 MG TABLET.ER 600 MG PO (20:57)
[2023-06-09] MEDS: Nortriptyline HCl 10 MG CAPSULE 60 MG PO (20:57)
[2023-06-09] MEDS: QUEtiapine Fumarate 25 MG TABLET PO (20:57)
[2023-06-09] MEDS: traZODone HCL 100 MG TABLET PO (20:57)
[2023-06-10 08:45] VITALS: BP 95/51; PULSE 78; RESP 18; TEMP 36.1; O2SAT 95
--- NOTE | 2023-06-10 09:32 | P.PNPSI_ITS ---
Subjective Subjective Date of Service: 06/10/23 Reason For Visit: depression Subjective Notes: Conditional Voluntary Interim History: Reviewed in team and . Patient reports feeling good today.pt stated, I feel ready to go home . denies any loose stools. He reports needing referrals to outpatient providers. denies SI/HI/VH/AH. Medication Compliance: Yes Side effects from medications: No Attending Groups: Yes Review of Systems Constitutional: Reports as per HPI Eyes: Reports as per HPI Reports as per HPI Cardiovascular: Reports as per HPI Respiratory: Reports as per HPI Gastrointestinal: Reports as per HPI Genitourinary: Reports as per HPI Musculoskeletal: Reports as per HPI Skin/Breast: Reports as per HPI Reports as per HPI Psychiatric: Reports as per HPI Endocrine: Reports as per HPI Hematologic/Lymphatic: Reports as per HPI Allergic/Immunologic: Reports as per HPI Mental Status Exam Mental Status Exam Narrative: Pt is alert and oriented; behavior is cooperative, friendly and calm; dressed in casual attire; mood is described as good ; eye contact appropriate; Speech is normal rate, volume and prosody and not pressured; no psychomotor agitation/retardation present; thought process is organized and goal directed; Thought content is on tx; otherwise pertinent to relevant topics and without any delusional content, paranoid ideations or grandiosity; denies SI/HI. There is no evidence of perceptual disturbance. Patients insight and judgment are fair. Diagnostics Vital Signs (24Hr): Vital Signs - 24 hr 06/09/23 12:09 06/09/23 18:45 Temperature 97.4 F Pulse Rate 72 82 Blood Pressure 161/68 H 122/68 Pulse Oximetry 99 BMI result Body Mass Index 30.3 Labs 05/23/23 15:51 05/30/23 08:07 Medications Medications Current Medications Acetaminophen (Acetaminophen 325 Mg Tablet) 650 mg PO Q6H PRN PRN Reason: Headache/Pain Mild Scale (1-3) Al Hydroxide/Mg Hydroxide (Magnesium Hydrox/Alum Hydrox 30 Ml Oral.Susp) 30 ml PO Q6H PRN PRN Reason: Heartburn/Nausea Amlodipine Besylate (Amlodipine Besylate 10 Mg Tablet) 10 mg PO DAILY [facility]; Protocol Last Admin: 06/09/23 09:04 Dose: 10 mg Aspirin (Aspirin Enteric Coated 81 Mg Tablet.) 81 mg PO DAILY [facility] Last Admin: 06/09/23 09:04 Dose: 81 mg Benzocaine (Throat Lozenge, Medicated Lozenge) 1 lozenge MUCOUS MEM Q2H PRN PRN Reason: Sore Throat Last Admin: 06/04/23 11:19 Dose: 1 lozenge Bupropion HCl (Bupropion Hcl Xl 150 Mg Tab.Er.24h) 150 mg PO DAILY [facility] Last Admin: 06/09/23 09:03 Dose: 150 mg Guaifenesin (Guaifenesin [place] 600 Mg Tab.Er.12h) 600 mg PO BID PRN PRN Reason: congestion [place] Carbonate ([place] Carbonate Er 300 Mg Tablet.Er) 600 mg PO BEDTIME [facility] Last Admin: 06/09/23 20:57 Dose: 600 mg Loperamide HCl (Loperamide Hcl 2 Mg Capsule) 2 mg PO Q4H PRN PRN Reason: Diarrhea Last Admin: 06/09/23 20:57 Dose: 2 mg Lorazepam (Lorazepam 1 Mg Tablet) 1 mg PO TID [facility] Last Admin: 06/09/23 20:57 Dose: 1 mg Magnesium Hydroxide (Milk Of Magnesia 30 Ml Oral.Susp) 30 ml PO DAILY PRN PRN Reason: Constipation Last Admin: 06/08/23 15:36 Dose: 30 ml Nicotine Polacrilex (Nicotine Polacrilex 2 Mg Gum) 4 mg BUCCAL Q2H PRN PRN Reason: Nicotine Cravings Nortriptyline HCl (Nortriptyline Hcl 10 Mg Capsule) 60 mg PO BEDTIME [facility] Last Admin: 06/09/23 20:57 Dose: 60 mg Quetiapine Fumarate (Quetiapine Fumarate 25 Mg Tablet) 25 mg PO BEDTIME [facility] Last Admin: 06/09/23 20:57 Dose: 25 mg Quetiapine Fumarate (Quetiapine Fumarate 25 Mg Tablet) 25 mg PO BEDTIME PRN PRN Reason: continued insomnia Trazodone HCl (Trazodone Hcl 100 Mg Tablet) 100 mg PO BEDTIME [facility] Last Admin: 06/09/23 20:57 Dose: 100 mg Vitamin D (Cholecalciferol (Vitamin D3) 25 Mcg Tablet) 25 mcg PO DAILY [facility] Last Admin: 06/09/23 09:03 Dose: 25 mcg Allergies Allergies Allergy/AdvReac Type Severity Reaction Status Date / Time lisinopril Allergy Hives Verified 03/06/23 10:50 Assessment & Plan Assessment & Plan (1) Bipolar disorder, most recent episode depressed: Status: Acute Code(s): F31.30 - Bipolar disorder, current episode depressed, mild or moderate severity, unspecified Plan Patient is a 63-year-old male with history of bipolar depression with history of manic episode, hypertension, who presents for 4th admission in past 6 months for worsening depression in the face of going off the lithium/Wellbutrin about a week after he was discharged from [place] [address] March 2023. Patient reports that he took lithium/Wellbutrin combination for about a week after he was discharged but then developed a daily headache and so discontinued both. Patient's depression quickly returned. Patient is somewhat reticent however he reports that he has been eating very little, just lying in bed all day, not attending to any ADLs. Patient's reported to the ED that he was eating his hair (which Patient denies). Patient denies any SI or HI or AVH. He wants medication help to get better from depression. Hospital course: Depressed, no SI. Anxious about antipsychotic medication. Agrees to restarting lithium and nortriptyline 05/27 remains severely?depressed with negative symptoms, not eating, not bathing, talking little; agrees to increasing nortriptyline, restarting trazodone for insomnia; will also restart Ativan since pt seems to have a touch of catatonia and scheduled?Ativan?helped?last?admission 05/28 remains depressed; however talking a little more about meaningful life issues and he did sleep a little last night and eating a little more. Increasing trazodone and bedtime Ativan dose 05/29 increase nortriptyline for continued severe, refractory depression 05/30 continue current treatment plan; patient a little more engageable today -labs reviewed and lithium WNL; BUN/creatinine/TSH WNL 05/31 continues to be depressed but does seemed to be a little more engaged and affect more expressive. Increasing trazodone for insomnia; increasing Ativan for behavioral activation; will increase nortriptyline on 06/02 06/02 Nortriptyline 40 mg this eveing for sleep. 06/03 Pt reports URI sx. COVID -, given mucinex and throat kathleen prn; Reports not too much improvement in sleep with nortriptyline after 40 mg dosing. 06/04 very depressed, not getting out of bed, not attending to ADL's; not sleeping and agrees to try Seroquel 06/05 no improvement in symptoms, very depressed, not attending to ADL's, eating little, in bed most of day. increase Nortriptyline to 60mg Will also consider increasing Seroquel for insomnia; will likely get off trazodone if other agents help with sleep 06/06 Patient thinks he did sleep a little better last night. He would like to go down on the trazodone so that is not on too many medications, since it seems to be the right now that the Seroquel is helping more with sleep. Primary Grade Teacher discussed restarting Wellbutrin and that although patient reported he eventually getting a headache on Wellbutrin and lithium, perhaps this time a lower dose of Wellbutrin would suffice since he is already on nortriptyline. Patient agreed to restart this medication. Again discussed ECT. Patient for the 1st time more able to articulate his anxiety about ECT. He said that he is afraid of anything that could interact with his brain; he said he rather have his foot cut off then get ECT since it is something with his head and patient is very fearful about anything that could permanently alter his thinking, memory... Primary Grade Teacher again provided education about ECT. Patient concedes that he is aware he may be over- reacting or misinformed but this is just how he feels. He said he hopes this medication change will be helpful. -currently patient is too depressed with severe negative symptoms and psychomotor retardation to function on his own at home. At this time all his meals are made and brought to him, even though he hardly eats. Patient gets out of bed enough to avoid a DVT but is otherwise isolative and remains in bed.06/08 Impression/clinical reasoning: Patient has bipolar depression. Combination of lithium and Wellbutrin were partially helpful and he was back to fully attending to ADLs; post discharge however he discontinued them within a week saying he had a consistent migraine headache (patient discussed this with his PCP who was not willing to change regimen feeling it was out of his scope; patient had yet to go to his 1st psychiatric provider appointment and could not tolerate headache). He soon decompensated and has remained depressed with significant psychomotor retardation, hardly eating, hardly get out of bed and not attending to ADLs. At last admission discussed ECT at length however patient did not want to trial; customs entry writer broached this topic again and he again refused. Patient also very ambivalent about mood stabilization from second-generation antipsychotic class. TCAs (or MAOI) are options combined with lithium given history of manic episode. Patient also has refractory insomnia Plan: CV Q 15 minutes checks Retry Wellbutrin XL 150 mg daily (patient was on 450 mg at last admission; he eventually said this combination with lithium caused headache any stop medication. Perhaps with nortriptyline, lower dose will still be effective) Seroquel 50mg qhs for insomnia with extra prn for continued insomnia Continue lithium ER 600 mg q.h.s. Continue nortriptyline 60 mg q.h.s. on 06/05 (discussed risks/side-effects including hypotension, dizziness) -will get Nortrip level reduce to trazodone to 100 mg q.h.s.; which help patient sleep at last admission Continue Ativan 1 mg t.i.d. (patient was on q.i.d. at last admission and it seemed to help with behavioral activation) Reviewed risks/side effects of medication regimen including, but not limited to risk of tardive dyskinesia; patient ask questions, understood and agrees to continue current regimen Medication trials: lexapro and Haldol in 2018 and then only Lexapro starting 2019; prozac (briefly) Venlafaxine Mirtazapine (though not therapeutic dose) [place] 600 mg plus Wellbutrin 450 mg: Tolerated and mood partially improved however said he developed daily headaches from it a week later and discontinued does not want antipsychotics..so currently Vraylar, latuda...not options 06/08/23 encouraged fluids discussed increasing wellbutrin tomorrow if tremor and dizziness improved/remitted 06/10:Patient reports feeling good today.pt stated, I feel ready to go home . denies any loose stools. He reports needing referrals to outpatient providers. denies SI/HI/VH/AH. Continue current tx plan. Patient educated on: diagnosis and medication risk/benefits Informed Consent: understands Reason for continued inpatient stay Substantial Risk for: med/psych decompensation Time Spent With Patient Time: Total time managing care of this patient today _30___ minutes.
[2023-06-10] MEDS: amLODIPine Besylate 10 MG TABLET PO (09:46)
[2023-06-10] MEDS: Cholecalciferol (Vitamin D3) 25 MCG TABLET PO (09:46)
[2023-06-10] MEDS: buPROPion HCl XL 150 MG TAB.ER.24H PO (09:46)
[2023-06-10] MEDS: LORazepam 1 MG TABLET PO ×3 (09:46→22:04)
[2023-06-10] MEDS: Aspirin Enteric Coated 81 MG TABLET.DR PO (09:46)
[2023-06-10 18:00] VITALS: BP 127/75; PULSE 75; TEMP 35.7; O2SAT 98
[2023-06-10] MEDS: QUEtiapine Fumarate 25 MG TABLET PO (22:03)
[2023-06-10] MEDS: Lithium Carbonate ER 300 MG TABLET.ER 600 MG PO (22:03)
[2023-06-10] MEDS: traZODone HCL 100 MG TABLET PO (22:03)
[2023-06-10] MEDS: Nortriptyline HCl 10 MG CAPSULE 60 MG PO (22:04)
[2023-06-11 08:00] VITALS: BP 130/60; PULSE 75; RESP 18; TEMP 36.4; O2SAT 98
[2023-06-11] MEDS: Aspirin Enteric Coated 81 MG TABLET.DR PO (08:55)
[2023-06-11] MEDS: Cholecalciferol (Vitamin D3) 25 MCG TABLET PO (08:55)
[2023-06-11] MEDS: LORazepam 1 MG TABLET PO ×3 (08:55→21:08)
[2023-06-11] MEDS: amLODIPine Besylate 10 MG TABLET PO (08:55)
--- NOTE | 2023-06-11 16:35 | HO.PSYCHPN ---
Subjective Subjective Date of Service: 06/11/23 Reason For Visit: depression Interim History: Pt seen, discussed with team. Plan of care reviewed. Reports tremor in hand, fingers, mainly in the right hand. Reports depressive sx 4/anxiety sx 1. Denies SI/HI Reports of diarrhea over the weekend. Discussed decrease of Wellbutrin to re-eval tremor. Pt concurs. Overall team reports improvement. Pt concurs, feeling some improvement. Medication Compliance: Yes Side effects from medications: Yes Attending Groups: No Review of Systems Acute medical concerns: No Medical Review of Systems: unchanged Mental Status Exam Mental Status Exam Patient Appearance: Appropriate Patient Orientation: Person, Place, Time and Situation Level of Consciousness: Alert Patient Behavior: Talkative and Fatigued Mood Description: Depressed and Anxious Affect Description: Anxious Patient Cognition Impaired: No Ability to Follow Directions: Fair Speech Pattern: Spontaneous Speech Memory Description: Intact Hallucinations: None Delusions: Not Present Thought Process: Rumination Thought Content: positive for Perseveration Depressive Symptoms: Increased Anxiety and Thoughts of /Suicide (denies) Judgement: Fair Diagnostics Vital Signs (24Hr): Vital Signs - 24 hr 06/10/23 18:00 06/11/23 08:00 Temperature 96.2 F L 97.5 F Pulse Rate 75 75 Respiratory Rate 18 Blood Pressure 127/75 130/60 Pulse Oximetry 98 98 Oxygen Delivery Method Room Air Room Air BMI result Body Mass Index 30.3 Labs 05/23/23 15:51 05/30/23 08:07 Medications Medications Current Medications Acetaminophen (Acetaminophen 325 Mg Tablet) 650 mg PO Q6H PRN PRN Reason: Headache/Pain Mild Scale (1-3) Al Hydroxide/Mg Hydroxide (Magnesium Hydrox/Alum Hydrox 30 Ml Oral.Susp) 30 ml PO Q6H PRN PRN Reason: Heartburn/Nausea Amlodipine Besylate (Amlodipine Besylate 10 Mg Tablet) 10 mg PO DAILY [facility]; Protocol Last Admin: 06/11/23 08:55 Dose: 10 mg Aspirin (Aspirin Enteric Coated 81 Mg Tablet.Dr) 81 mg PO DAILY [facility] Last Admin: 06/11/23 08:55 Dose: 81 mg Benzocaine (Throat Lozenge, Medicated Lozenge) 1 lozenge MUCOUS MEM Q2H PRN PRN Reason: Sore Throat Last Admin: 06/04/23 11:19 Dose: 1 lozenge Bupropion HCl (Bupropion Hcl Xl 150 Mg Tab.Er.24h) 150 mg PO DAILY [facility] Last Admin: 06/11/23 09:05 Dose: Not Given Guaifenesin (Guaifenesin La 600 Mg Tab.Er.12h) 600 mg PO BID PRN PRN Reason: congestion Judson Carbonate (Judson Carbonate Er 300 Mg Tablet.Er) 600 mg PO BEDTIME [facility] Last Admin: 06/10/23 22:03 Dose: 600 mg Loperamide HCl (Loperamide Hcl 2 Mg Capsule) 2 mg PO Q4H PRN PRN Reason: Diarrhea Last Admin: 06/09/23 20:57 Dose: 2 mg Lorazepam (Lorazepam 1 Mg Tablet) 1 mg PO TID [facility] Magnesium Hydroxide (Milk Of Magnesia 30 Ml Oral.Susp) 15 ml PO DAILY PRN PRN Reason: Constipation Nicotine Polacrilex (Nicotine Polacrilex 2 Mg Gum) 4 mg BUCCAL Q2H PRN PRN Reason: Nicotine Cravings Nortriptyline HCl (Nortriptyline Hcl 10 Mg Capsule) 60 mg PO BEDTIME [facility] Last Admin: 06/10/23 22:04 Dose: 60 mg Quetiapine Fumarate (Quetiapine Fumarate 25 Mg Tablet) 25 mg PO BEDTIME [facility] Last Admin: 06/10/23 22:03 Dose: 25 mg Quetiapine Fumarate (Quetiapine Fumarate 25 Mg Tablet) 25 mg PO BEDTIME PRN PRN Reason: continued insomnia Trazodone HCl (Trazodone Hcl 100 Mg Tablet) 100 mg PO BEDTIME [facility] Last Admin: 06/10/23 22:03 Dose: 100 mg Vitamin D (Cholecalciferol (Vitamin D3) 25 Mcg Tablet) 25 mcg PO DAILY [facility] Last Admin: 06/11/23 08:55 Dose: 25 mcg Allergies Allergies Allergy/AdvReac Type Severity Reaction Status Date / Time lisinopril Allergy Hives Verified 03/06/23 10:50 Assessment & Plan Assessment & Plan (1) Bipolar disorder, most recent episode depressed: Status: Acute Code(s): F31.30 - Bipolar disorder, current episode depressed, mild or moderate severity, unspecified Plan Patient is a 63-year-old male with history of bipolar depression with history of manic episode, hypertension, who presents for 4th admission in past 6 months for worsening depression in the face of going off the lithium/Wellbutrin about a week after he was discharged from [place] [id number] March 2023. Patient reports that he took lithium/Wellbutrin combination for about a week after he was discharged but then developed a daily headache and so discontinued both. Patient's depression quickly returned. Patient is somewhat reticent however he reports that he has been eating very little, just lying in bed all day, not attending to any ADLs. Patient's reported to the ED that he was eating his hair (which Patient denies). Patient denies any SI or HI or AVH. He wants medication help to get better from depression. Hospital course: Depressed, no SI. Anxious about antipsychotic medication. Agrees to restarting lithium and nortriptyline 05/27 remains severely?depressed with negative symptoms, not eating, not bathing, talking little; agrees to increasing nortriptyline, restarting trazodone for insomnia; will also restart Ativan since pt seems to have a touch of catatonia and scheduled?Ativan?helped?last?admission 05/28 remains depressed; however talking a little more about meaningful life issues and he did sleep a little last night and eating a little more. Increasing trazodone and bedtime Ativan dose 05/29 increase nortriptyline for continued severe, refractory depression 05/30 continue current treatment plan; patient a little more engageable today -labs reviewed and lithium WNL; BUN/creatinine/TSH WNL 05/31 continues to be depressed but does seemed to be a little more engaged and affect more expressive. Increasing trazodone for insomnia; increasing Ativan for behavioral activation; will increase nortriptyline on 06/02 06/02 Nortriptyline 40 mg this eveing for sleep. 06/03 Pt reports URI sx. COVID -, given mucinex and throat kathleen prn; Reports not too much improvement in sleep with nortriptyline after 40 mg dosing. 06/04 very depressed, not getting out of bed, not attending to ADL's; not sleeping and agrees to try Seroquel 06/05 no improvement in symptoms, very depressed, not attending to ADL's, eating little, in bed most of day. increase Nortriptyline to 60mg Will also consider increasing Seroquel for insomnia; will likely get off trazodone if other agents help with sleep 06/06 Patient thinks he did sleep a little better last night. He would like to go down on the trazodone so that is not on too many medications, since it seems to be the right now that the Seroquel is helping more with sleep. Signals Collection Technician discussed restarting Wellbutrin and that although patient reported he eventually getting a headache on Wellbutrin and lithium, perhaps this time a lower dose of Wellbutrin would suffice since he is already on nortriptyline. Patient agreed to restart this medication. Again discussed ECT. Patient for the 1st time more able to articulate his anxiety about ECT. He said that he is afraid of anything that could interact with his brain; he said he rather have his foot cut off then get ECT since it is something with his head and patient is very fearful about anything that could permanently alter his thinking, memory... Signals Collection Technician again provided education about ECT. Patient concedes that he is aware he may be over-reacting or misinformed but this is just how he feels. He said he hopes this medication change will be helpful. -currently patient is too depressed with severe negative symptoms and psychomotor retardation to function on his own at home. At this time all his meals are made and brought to him, even though he hardly eats. Patient gets out of bed enough to avoid a DVT but is otherwise isolative and remains in bed.06/08. Impression/clinical reasoning: Patient has bipolar depression. Combination of lithium and Wellbutrin were partially helpful and he was back to fully attending to ADLs; post discharge however he discontinued them within a week saying he had a consistent migraine headache (patient discussed this with his PCP who was not willing to change regimen feeling it was out of his scope; patient had yet to go to his 1st psychiatric provider appointment and could not tolerate headache). He soon decompensated and has remained depressed with significant psychomotor retardation, hardly eating, hardly get out of bed and not attending to ADLs. At last admission discussed ECT at length however patient did not want to trial; program writer broached this topic again and he again refused. Patient also very ambivalent about mood stabilization from second-generation antipsychotic class. TCAs (or MAOI) are options combined with lithium given history of manic episode. Patient also has refractory insomnia Plan: CV Q 15 minutes checks Retry Wellbutrin XL 150 mg daily (patient was on 450 mg at last admission; he eventually said this combination with lithium caused headache any stop medication. Perhaps with nortriptyline, lower dose will still be effective) Seroquel 50mg qhs for insomnia with extra prn for continued insomnia Continue lithium ER 600 mg q.h.s. Continue nortriptyline 60 mg q.h.s. on 06/05 (discussed risks/side-effects including hypotension, dizziness) -will get Nortrip level reduce to trazodone to 100 mg q.h.s.; which help patient sleep at last admission Continue Ativan 1 mg t.i.d. (patient was on q.i.d. at last admission and it seemed to help with behavioral activation) Reviewed risks/side effects of medication regimen including, but not limited to risk of tardive dyskinesia; patient ask questions, understood and agrees to continue current regimen Medication trials: lexapro and Haldol in 2018 and then only Lexapro starting 2019; prozac (briefly) Venlafaxine Mirtazapine (though not therapeutic dose) Judson 600 mg plus Wellbutrin 450 mg: Tolerated and mood partially improved however said he developed daily headaches from it a week later and discontinued does not want antipsychotics..so currently Vraylar, latuda...not options 06/08/23 encouraged fluids discussed increasing wellbutrin tomorrow if tremor and dizziness improved/remitted 06/10:Patient reports feeling good today.pt stated, I feel ready to go home . denies any loose stools. He reports needing referrals to outpatient providers. denies SI/HI/VH/AH. Continue current tx plan. 06/11: Decrease Wellbutrin to 75 mg a.m. due to new onset hand tremor. MVI i tab daily. Patient educated on: medication risk/benefits Informed Consent: understands and further education needed Reason for continued inpatient stay Substantial Risk for: rapid decompensation Time Spent With Patient Time: Total time managing care of this patient today ____ minutes.
[2023-06-11 18:00] VITALS: BP 128/62; PULSE 74; TEMP 36.2; O2SAT 96
[2023-06-11] MEDS: Lithium Carbonate ER 300 MG TABLET.ER 600 MG PO (20:51)
[2023-06-11] MEDS: Nortriptyline HCl 10 MG CAPSULE 60 MG PO (20:51)
[2023-06-11] MEDS: traZODone HCL 100 MG TABLET PO (20:51)
[2023-06-11] MEDS: QUEtiapine Fumarate 25 MG TABLET PO (20:52)
[2023-06-12 08:45] VITALS: BP 109/53; PULSE 77; RESP 16; TEMP 36.4; O2SAT 95
[2023-06-12] MEDS: LORazepam 1 MG TABLET PO ×3 (08:52→20:49)
[2023-06-12] MEDS: amLODIPine Besylate 10 MG TABLET PO (08:52)
[2023-06-12] MEDS: Multivitamin TABLET 1 TAB PO (08:52)
[2023-06-12] MEDS: buPROPion HCL 75 MG TABLET PO (08:52)
[2023-06-12] MEDS: Cholecalciferol (Vitamin D3) 25 MCG TABLET PO (08:52)
[2023-06-12] MEDS: Aspirin Enteric Coated 81 MG TABLET.DR PO (10:27)
--- NOTE | 2023-06-12 17:01 | HO.PSYCHPN ---
Subjective Subjective Date of Service: 06/12/23 Reason For Visit: depression Subjective Notes: Conditional Voluntary Healthcare Proxy: No Guardianship: No Medical Problems Affecting Mental Status: No Interim History: Pt seen, reviewed with team. Plan of care reviewed. Tremor decreased per pt report Sleep, a little better with sx still present. Will increase Seroquel to 37.5 mg HS Pt is awake, visable on the unit, interacting with peers and team today. Discussed discharge with pt. He agrees Saturday will be a good day. Contact with Yumiko [phone] who concurs. Reports back pain/spasm. Not a new symptom. Asks for Motrin prn. Medication Compliance: Yes Side effects from medications: Yes Attending Groups: Intermittent Review of Systems Acute medical concerns: No Medical Review of Systems: unchanged Mental Status Exam Mental Status Exam Patient Appearance: Appropriate Patient Orientation: Person, Place, Time and Situation Level of Consciousness: Alert Patient Behavior: Talkative Mood Description: Apprehensive Affect Description: Apprehensive Patient Cognition Impaired: No Ability to Follow Directions: Fair Speech Pattern: Spontaneous Speech Memory Description: Intact Hallucinations: None Delusions: Not Present Thought Process: Intact and Rumination Thought Content: positive for Perseveration and positive for Suicidal Ideation (denies) Depressive Symptoms: Increased Anxiety and Thoughts of /Suicide (denies) Judgement: Good Diagnostics Vital Signs (24Hr): Vital Signs - 24 hr 06/11/23 18:00 06/12/23 08:45 Temperature 97.2 F 97.6 F Pulse Rate 74 77 Respiratory Rate 16 Blood Pressure 128/62 109/53 L Pulse Oximetry 96 95 Oxygen Delivery Method Room Air Room Air BMI result Body Mass Index 30.3 Labs 05/23/23 15:51 05/30/23 08:07 Medications Medications Current Medications Acetaminophen (Acetaminophen 325 Mg Tablet) 650 mg PO Q6H PRN PRN Reason: Headache/Pain Mild Scale (1-3) Al Hydroxide/Mg Hydroxide (Magnesium Hydrox/Alum Hydrox 30 Ml Oral.Susp) 30 ml PO Q6H PRN PRN Reason: Heartburn/Nausea Amlodipine Besylate (Amlodipine Besylate 10 Mg Tablet) 10 mg PO DAILY [facility]; Protocol Last Admin: 06/12/23 08:52 Dose: 10 mg Aspirin (Aspirin Enteric Coated 81 Mg Tablet.) 81 mg PO DAILY [facility] Last Admin: 06/12/23 10:27 Dose: 81 mg Benzocaine (Throat Lozenge, Medicated Lozenge) 1 lozenge MUCOUS MEM Q2H PRN PRN Reason: Sore Throat Last Admin: 06/04/23 11:19 Dose: 1 lozenge Bupropion HCl (Bupropion Hcl 75 Mg Tablet) 75 mg PO DAILY [facility] Last Admin: 06/12/23 08:52 Dose: 75 mg Guaifenesin (Guaifenesin La 600 Mg Tab.Er.12h) 600 mg PO BID PRN PRN Reason: congestion [address] Carbonate ([address] Carbonate Er 300 Mg Tablet.Er) 600 mg PO BEDTIME [facility] Last Admin: 06/11/23 20:51 Dose: 600 mg Loperamide HCl (Loperamide Hcl 2 Mg Capsule) 2 mg PO Q4H PRN PRN Reason: Diarrhea Last Admin: 06/09/23 20:57 Dose: 2 mg Lorazepam (Lorazepam 1 Mg Tablet) 1 mg PO TID [facility] Last Admin: 06/12/23 14:29 Dose: 1 mg Magnesium Hydroxide (Milk Of Magnesia 30 Ml Oral.Susp) 15 ml PO DAILY PRN PRN Reason: Constipation Multivitamins/Vitamin C (Multivitamin Tablet) 1 tab PO DAILY [facility] Last Admin: 06/12/23 08:52 Dose: 1 tab Nicotine Polacrilex (Nicotine Polacrilex 2 Mg Gum) 4 mg BUCCAL Q2H PRN PRN Reason: Nicotine Cravings Nortriptyline HCl (Nortriptyline Hcl 10 Mg Capsule) 60 mg PO BEDTIME [facility] Last Admin: 06/11/23 20:51 Dose: 60 mg Quetiapine Fumarate (Quetiapine Fumarate 25 Mg Tablet) 25 mg PO BEDTIME PRN PRN Reason: continued insomnia Quetiapine Fumarate (Quetiapine Fumarate 25 Mg Tablet) 37.5 mg PO BEDTIME [facility] Trazodone HCl (Trazodone Hcl 100 Mg Tablet) 100 mg PO BEDTIME [facility] Last Admin: 06/11/23 20:51 Dose: 100 mg Vitamin D (Cholecalciferol (Vitamin D3) 25 Mcg Tablet) 25 mcg PO DAILY [facility] Last Admin: 06/12/23 08:52 Dose: 25 mcg Allergies Allergies Allergy/AdvReac Type Severity Reaction Status Date / Time lisinopril Allergy Hives Verified 03/06/23 10:50 Assessment & Plan Assessment & Plan (1) Bipolar disorder, most recent episode depressed: Status: Acute Code(s): F31.30 - Bipolar disorder, current episode depressed, mild or moderate severity, unspecified Plan Patient is a 63-year-old male with history of bipolar depression with history of manic episode, hypertension, who presents for 4th admission in past 6 months for worsening depression in the face of going off the lithium/Wellbutrin about a week after he was discharged from [facility] March 2023. Patient reports that he took lithium/Wellbutrin combination for about a week after he was discharged but then developed a daily headache and so discontinued both. Patient's depression quickly returned. Patient is somewhat reticent however he reports that he has been eating very little, just lying in bed all day, not attending to any ADLs. Patient's reported to the ED that he was eating his hair (which Patient denies). Patient denies any SI or HI or AVH. He wants medication help to get better from depression. Hospital course: Depressed, no SI. Anxious about antipsychotic medication. Agrees to restarting lithium and nortriptyline 05/27 remains severely?depressed with negative symptoms, not eating, not bathing, talking little; agrees to increasing nortriptyline, restarting trazodone for insomnia; will also restart Ativan since pt seems to have a touch of catatonia and scheduled?Ativan?helped?last?admission 05/28 remains depressed; however talking a little more about meaningful life issues and he did sleep a little last night and eating a little more. Increasing trazodone and bedtime Ativan dose 05/29 increase nortriptyline for continued severe, refractory depression 05/30 continue current treatment plan; patient a little more engageable today -labs reviewed and lithium WNL; BUN/creatinine/TSH WNL 05/31 continues to be depressed but does seemed to be a little more engaged and affect more expressive. Increasing trazodone for insomnia; increasing Ativan for behavioral activation; will increase nortriptyline on 06/02 06/02 Nortriptyline 40 mg this eveing for sleep. 06/03 Pt reports URI sx. COVID -, given mucinex and throat kathleen prn; Reports not too much improvement in sleep with nortriptyline after 40 mg dosing. 06/04 very depressed, not getting out of bed, not attending to ADL's; not sleeping and agrees to try Seroquel 06/05 no improvement in symptoms, very depressed, not attending to ADL's, eating little, in bed most of day. increase Nortriptyline to 60mg Will also consider increasing Seroquel for insomnia; will likely get off trazodone if other agents help with sleep 06/06 Patient thinks he did sleep a little better last night. He would like to go down on the trazodone so that is not on too many medications, since it seems to be the right now that the Seroquel is helping more with sleep. Diamond Driller Helper discussed restarting Wellbutrin and that although patient reported he eventually getting a headache on Wellbutrin and lithium, perhaps this time a lower dose of Wellbutrin would suffice since he is already on nortriptyline. Patient agreed to restart this medication. Again discussed ECT. Patient for the 1st time more able to articulate his anxiety about ECT. He said that he is afraid of anything that could interact with his brain; he said he rather have his foot cut off then get ECT since it is something with his head and patient is very fearful about anything that could permanently alter his thinking, memory... Diamond Driller Helper again provided education about ECT. Patient concedes that he is aware he may be over-reacting or misinformed but this is just how he feels. He said he hopes this medication change will be helpful. -currently patient is too depressed with severe negative symptoms and psychomotor retardation to function on his own at home. At this time all his meals are made and brought to him, even though he hardly eats. Patient gets out of bed enough to avoid a DVT but is otherwise isolative and remains in bed.06/08 Impression/clinical reasoning: Patient has bipolar depression. Combination of lithium and Wellbutrin were partially helpful and he was back to fully attending to ADLs; post discharge however he discontinued them within a week saying he had a consistent migraine headache (patient discussed this with his PCP who was not willing to change regimen feeling it was out of his scope; patient had yet to go to his 1st psychiatric provider appointment and could not tolerate headache). He soon decompensated and has remained depressed with significant psychomotor retardation, hardly eating, hardly get out of bed and not attending to ADLs. At last admission discussed ECT at length however patient did not want to trial; director underwriter sales broached this topic again and he again refused. Patient also very ambivalent about mood stabilization from second-generation antipsychotic class. TCAs (or MAOI) are options combined with lithium given history of manic episode. Patient also has refractory insomnia Plan: CV Q 15 minutes checks Retry Wellbutrin XL 150 mg daily (patient was on 450 mg at last admission; he eventually said this combination with lithium caused headache any stop medication. Perhaps with nortriptyline, lower dose will still be effective) Seroquel 50mg qhs for insomnia with extra prn for continued insomnia Continue lithium ER 600 mg q.h.s. Continue nortriptyline 60 mg q.h.s. on 06/05 (discussed risks/side-effects including hypotension, dizziness) -will get Nortrip level reduce to trazodone to 100 mg q.h.s.; which help patient sleep at last admission Continue Ativan 1 mg t.i.d. (patient was on q.i.d. at last admission and it seemed to help with behavioral activation) Reviewed risks/side effects of medication regimen including, but not limited to risk of tardive dyskinesia; patient ask questions, understood and agrees to continue current regimen Medication trials: lexapro and Haldol in 2018 and then only Lexapro starting 2019; prozac (briefly) Venlafaxine Mirtazapine (though not therapeutic dose) [address] 600 mg plus Wellbutrin 450 mg: Tolerated and mood partially improved however said he developed daily headaches from it a week later and discontinued does not want antipsychotics..so currently Vraylar, latuda...not options 06/08/23 encouraged fluids discussed increasing wellbutrin tomorrow if tremor and dizziness improved/remitted 06/10:Patient reports feeling good today.pt stated, I feel ready to go home . denies any loose stools. He reports needing referrals to outpatient providers. denies SI/HI/VH/AH. Continue current tx plan. 06/12-Increase Seroquel to 37.5 mg HS Tentative discharge 06/14. Patient educated on: medication risk/benefits and therapeutic strategies Informed Consent: understands Reason for continued inpatient stay Substantial Risk for: rapid decompensation Time Spent With Patient Time: Total time managing care of this patient today ____ minutes.
[2023-06-12 18:15] VITALS: BP 115/70; PULSE 83; RESP 16; TEMP 37; O2SAT 99
[2023-06-12] MEDS: Ibuprofen 800 MG TABLET PO (18:18)
[2023-06-12] MEDS: QUEtiapine Fumarate 25 MG TABLET 37.5 MG PO (20:49)
[2023-06-12] MEDS: traZODone HCL 100 MG TABLET PO (20:51)
[2023-06-12] MEDS: Nortriptyline HCl 10 MG CAPSULE 60 MG PO (20:51)
[2023-06-12] MEDS: Lithium Carbonate ER 300 MG TABLET.ER 600 MG PO (20:51)
[2023-06-13 07:00] VITALS: BMI 24.4
[2023-06-13 08:45] VITALS: BP 106/51; PULSE 74; RESP 16; TEMP 36.1; O2SAT 96
[2023-06-13] MEDS: amLODIPine Besylate 10 MG TABLET PO (09:00)
[2023-06-13] MEDS: Aspirin Enteric Coated 81 MG TABLET.DR PO (09:00)
[2023-06-13] MEDS: Multivitamin TABLET 1 TAB PO (09:00)
[2023-06-13] MEDS: Cholecalciferol (Vitamin D3) 25 MCG TABLET PO (09:00)
[2023-06-13] MEDS: buPROPion HCL 75 MG TABLET PO (09:00)
[2023-06-13] MEDS: LORazepam 1 MG TABLET PO (09:01)
[2023-06-13] MEDS: Ibuprofen 800 MG TABLET PO ×2 (10:45→21:01)
[2023-06-13] MEDS: LORazepam 0.5 MG TABLET PO ×2 (14:23→21:02)
[2023-06-13] MEDS: Cyclobenzaprine HCl 5 MG TABLET PO ×2 (16:57→21:01)
--- NOTE | 2023-06-13 17:57 | P.PNPSI_ITS ---
Subjective Subjective Date of Service: 06/13/23 Reason For Visit: depression Subjective Notes: Conditional Voluntary Interim History: Discussed L side back pain/strain, tremor-slight improvement, sleep-continues w/disruption, constipation, dry mouth. Reports constipation making him feel uncomfortable, lack of sleep with increase in jittery feelings. Also thoughts of tasks that need to be done at home are triggering and overwhelming. By history he thought that depression drove sx, this time he finds anxiety sx are driving his symptoms. Review of meds, will increase Seroquel, begin to taper Ativan. Medication Compliance: Yes Side effects from medications: Yes (constipation, tremor) Attending Groups: No Review of Systems Acute medical concerns: No Medical Review of Systems: unchanged Mental Status Exam Mental Status Exam Patient Appearance: Appropriate Patient Orientation: Person, Place, Time and Situation Level of Consciousness: Alert Patient Behavior: Talkative Mood Description: Apprehensive Affect Description: Apprehensive Patient Cognition Impaired: No Ability to Follow Directions: Fair Speech Pattern: Spontaneous Speech Memory Description: Intact Hallucinations: None Delusions: Not Present Thought Process: Intact and Rumination Thought Content: positive for Perseveration and positive for Suicidal Ideation (denies) Depressive Symptoms: Increased Anxiety and Thoughts of /Suicide (denies) Judgement: Good Diagnostics Vital Signs (24Hr): Vital Signs - 24 hr 06/12/23 18:15 06/13/23 08:45 Temperature 98.6 F 97.0 F Pulse Rate 83 74 Respiratory Rate 16 16 Blood Pressure 115/70 106/51 L Pulse Oximetry 99 96 Oxygen Delivery Method Room Air Room Air BMI result Body Mass Index 24.4 Labs 05/23/23 15:51 05/30/23 08:07 Medications Medications Current Medications Acetaminophen (Acetaminophen 325 Mg Tablet) 650 mg PO Q6H PRN PRN Reason: Headache/Pain Mild Scale (1-3) Al Hydroxide/Mg Hydroxide (Magnesium Hydrox/Alum Hydrox 30 Ml Oral.Susp) 30 ml PO Q6H PRN PRN Reason: Heartburn/Nausea Amlodipine Besylate (Amlodipine Besylate 10 Mg Tablet) 10 mg PO DAILY [facility]; Protocol Last Admin: 06/13/23 09:00 Dose: 10 mg Aspirin (Aspirin Enteric Coated 81 Mg Tablet.) 81 mg PO DAILY [facility] Last Admin: 06/13/23 09:00 Dose: 81 mg Benzocaine (Throat Lozenge, Medicated Lozenge) 1 lozenge MUCOUS MEM Q2H PRN PRN Reason: Sore Throat Last Admin: 06/04/23 11:19 Dose: 1 lozenge Bupropion HCl (Bupropion Hcl 75 Mg Tablet) 75 mg PO DAILY [facility] Last Admin: 06/13/23 09:00 Dose: 75 mg Cyclobenzaprine HCl (Cyclobenzaprine Hcl 5 Mg Tablet) 5 mg PO TID PRN PRN Reason: back spasm Last Admin: 06/13/23 16:57 Dose: 5 mg Docusate Sodium (Docusate Sodium 100 Mg Capsule) 100 mg PO BID [facility] Guaifenesin (Guaifenesin La 600 Mg Tab.Er.12h) 600 mg PO BID PRN PRN Reason: congestion Ibuprofen (Ibuprofen 800 Mg Tablet) 800 mg PO Q8H PRN PRN Reason: Pain, Mild (Pain Scale 1-3) Last Admin: 06/13/23 10:45 Dose: 800 mg [place] Carbonate ([place] Carbonate Er 300 Mg Tablet.Er) 600 mg PO BEDTIME [facility] Last Admin: 06/12/23 20:51 Dose: 600 mg Loperamide HCl (Loperamide Hcl 2 Mg Capsule) 2 mg PO Q4H PRN PRN Reason: Diarrhea Last Admin: 06/09/23 20:57 Dose: 2 mg Lorazepam (Lorazepam 0.5 Mg Tablet) 0.5 mg PO TID [facility] Last Admin: 06/13/23 14:23 Dose: 0.5 mg Magnesium Hydroxide (Milk Of Magnesia 30 Ml Oral.Susp) 15 ml PO DAILY PRN PRN Reason: Constipation Multivitamins/Vitamin C (Multivitamin Tablet) 1 tab PO DAILY [facility] Last Admin: 06/13/23 09:00 Dose: 1 tab Nicotine Polacrilex (Nicotine Polacrilex 2 Mg Gum) 4 mg BUCCAL Q2H PRN PRN Reason: Nicotine Cravings Nortriptyline HCl (Nortriptyline Hcl 10 Mg Capsule) 60 mg PO BEDTIME [facility] Last Admin: 06/12/23 20:51 Dose: 60 mg Psyllium Hydrophilic Mucilloid (Psyllium Seed 3.7 Gm Packet) 3.7 gm PO BEDTIME [facility] Quetiapine Fumarate (Quetiapine Fumarate 25 Mg Tablet) 25 mg PO BEDTIME PRN PRN Reason: continued insomnia Quetiapine Fumarate (Quetiapine Fumarate 50 Mg Tablet) 50 mg PO BEDTIME [facility] Trazodone HCl (Trazodone Hcl 100 Mg Tablet) 100 mg PO BEDTIME [facility] Last Admin: 06/12/23 20:51 Dose: 100 mg Vitamin D (Cholecalciferol (Vitamin D3) 25 Mcg Tablet) 25 mcg PO DAILY [facility] Last Admin: 06/13/23 09:00 Dose: 25 mcg Allergies Allergies Allergy/AdvReac Type Severity Reaction Status Date / Time lisinopril Allergy Hives Verified 03/06/23 10:50 Assessment & Plan Assessment & Plan (1) Bipolar disorder, most recent episode depressed: Status: Acute Code(s): F31.30 - Bipolar disorder, current episode depressed, mild or moderate severity, unspecified Plan Patient is a 63-year-old male with history of bipolar depression with history of manic episode, hypertension, who presents for 4th admission in past 6 months for worsening depression in the face of going off the lithium/Wellbutrin about a week after he was discharged from [place] [id number] March 2023. Patient reports that he took lithium/Wellbutrin combination for about a week after he was discharged but then developed a daily headache and so discontinued both. Patient's depression quickly returned. Patient is somewhat reticent however he reports that he has been eating very little, just lying in bed all day, not attending to any ADLs. Patient's reported to the ED that he was eating his hair (which Patient denies). Patient denies any SI or HI or AVH. He wants medication help to get better from depression. Hospital course: Depressed, no SI. Anxious about antipsychotic medication. Agrees to restarting lithium and nortriptyline 05/27 remains severely?depressed with negative symptoms, not eating, not bathing, talking little; agrees to increasing nortriptyline, restarting trazodone for insomnia; will also restart Ativan since pt seems to have a touch of catatonia and scheduled?Ativan?helped?last?admission 05/28 remains depressed; however talking a little more about meaningful life issues and he did sleep a little last night and eating a little more. Increasing trazodone and bedtime Ativan dose 05/29 increase nortriptyline for continued severe, refractory depression 05/30 continue current treatment plan; patient a little more engageable today -labs reviewed and lithium WNL; BUN/creatinine/TSH WNL 05/31 continues to be depressed but does seemed to be a little more engaged and affect more expressive. Increasing trazodone for insomnia; increasing Ativan for behavioral activation; will increase nortriptyline on 06/02 06/02 Nortriptyline 40 mg this eveing for sleep. 06/03 Pt reports URI sx. COVID -, given mucinex and throat kathleen prn; Reports not too much improvement in sleep with nortriptyline after 40 mg dosing. 06/04 very depressed, not getting out of bed, not attending to ADL's; not sleeping and agrees to try Seroquel 06/05 no improvement in symptoms, very depressed, not attending to ADL's, eating little, in bed most of day. increase Nortriptyline to 60mg Will also consider increasing Seroquel for insomnia; will likely get off trazodone if other agents help with sleep 06/06 Patient thinks he did sleep a little better last night. He would like to go down on the trazodone so that is not on too many medications, since it seems to be the right now that the Seroquel is helping more with sleep. Insole And Outsole Preparer discussed restarting Wellbutrin and that although patient reported he eventually getting a headache on Wellbutrin and lithium, perhaps this time a lower dose of Wellbutrin would suffice since he is already on nortriptyline. Patient agreed to restart this medication. Again discussed ECT. Patient for the 1st time more able to articulate his anxiety about ECT. He said that he is afraid of anything that could interact with his brain; he said he rather have his foot cut off then get ECT since it is something with his head and patient is very fearful about anything that could permanently alter his thinking, memory... Insole And Outsole Preparer again provided education about ECT. Patient concedes that he is aware he may be over- reacting or misinformed but this is just how he feels. He said he hopes this medication change will be helpful. -currently patient is too depressed with severe negative symptoms and psychomotor retardation to function on his own at home. At this time all his meals are made and brought to him, even though he hardly eats. Patient gets out of bed enough to avoid a DVT but is otherwise isolative and remains in bed.06/08 Impression/clinical reasoning: Patient has bipolar depression. Combination of lithium and Wellbutrin were partially helpful and he was back to fully attending to ADLs; post discharge however he discontinued them within a week saying he had a consistent migraine headache (patient discussed this with his PCP who was not willing to change regimen feeling it was out of his scope; patient had yet to go to his 1st psychiatric provider appointment and could not tolerate headache). He soon decompensated and has remained depressed with significant psychomotor retardation, hardly eating, hardly get out of bed and not attending to ADLs. At last admission discussed ECT at length however patient did not want to trial; law writer broached this topic again and he again refused. Patient also very ambivalent about mood stabilization from second-generation antipsychotic class. TCAs (or MAOI) are options combined with lithium given history of manic episode. Patient also has refractory insomnia Plan: CV Q 15 minutes checks Retry Wellbutrin XL 150 mg daily (patient was on 450 mg at last admission; he eventually said this combination with lithium caused headache any stop medication. Perhaps with nortriptyline, lower dose will still be effective) Seroquel 50mg qhs for insomnia with extra prn for continued insomnia Continue lithium ER 600 mg q.h.s. Continue nortriptyline 60 mg q.h.s. on 06/05 (discussed risks/side-effects including hypotension, dizziness) -will get Nortrip level reduce to trazodone to 100 mg q.h.s.; which help patient sleep at last admission Continue Ativan 1 mg t.i.d. (patient was on q.i.d. at last admission and it seemed to help with behavioral activation) Reviewed risks/side effects of medication regimen including, but not limited to risk of tardive dyskinesia; patient ask questions, understood and agrees to continue current regimen Medication trials: lexapro and Haldol in 2018 and then only Lexapro starting 2019; prozac (briefly) Venlafaxine Mirtazapine (though not therapeutic dose) [place] 600 mg plus Wellbutrin 450 mg: Tolerated and mood partially improved however said he developed daily headaches from it a week later and discontinued does not want antipsychotics..so currently Vraylar, latuda...not options 06/08/23 encouraged fluids discussed increasing wellbutrin tomorrow if tremor and dizziness improved/remitted 06/10:Patient reports feeling good today.pt stated, I feel ready to go home . denies any loose stools. He reports needing referrals to outpatient providers. denies SI/HI/VH/AH. Continue current tx plan. 06/12-Increase Seroquel to 37.5 mg HS Tentative discharge 06/14. 06/13- Increase Seroquel to 50 mg HS Decrease Ativan to 0.5 mg tid Colace 100 mg bid Metamucil 3.7gm hs Patient educated on: medication risk/benefits, therapeutic strategies and medical condition Informed Consent: understands and further education needed Reason for continued inpatient stay Substantial Risk for: rapid decompensation Time Spent With Patient Time: Total time managing care of this patient today ____ minutes.
[2023-06-13 18:55] VITALS: BP 120/58; PULSE 81; RESP 16; TEMP 36.4; O2SAT 96
[2023-06-13] MEDS: Psyllium seed 3.7 GM PACKET PO (21:00)
[2023-06-13] MEDS: traZODone HCL 100 MG TABLET PO (21:02)
[2023-06-13] MEDS: Nortriptyline HCl 10 MG CAPSULE 60 MG PO (21:02)
[2023-06-13] MEDS: QUEtiapine Fumarate 50 MG TABLET PO (21:02)
[2023-06-13] MEDS: Lithium Carbonate ER 300 MG TABLET.ER 600 MG PO (21:02)
[2023-06-13] MEDS: Docusate Sodium 100 MG CAPSULE PO (21:02)
[2023-06-14 08:30] VITALS: BP 111/55; PULSE 77; RESP 16; TEMP 36.1; O2SAT 100
[2023-06-14] MEDS: Docusate Sodium 100 MG CAPSULE PO ×2 (09:22→21:02)
[2023-06-14] MEDS: buPROPion HCL 75 MG TABLET PO (09:22)
[2023-06-14] MEDS: Cholecalciferol (Vitamin D3) 25 MCG TABLET PO (09:22)
[2023-06-14] MEDS: Multivitamin TABLET 1 TAB PO (09:22)
[2023-06-14] MEDS: LORazepam 0.5 MG TABLET PO ×3 (09:22→21:02)
[2023-06-14] MEDS: Aspirin Enteric Coated 81 MG TABLET.DR PO (09:22)
[2023-06-14] MEDS: amLODIPine Besylate 10 MG TABLET PO (09:23)
[2023-06-14] MEDS: Ibuprofen 800 MG TABLET PO ×2 (09:26→21:01)
--- NOTE | 2023-06-14 12:46 | PM.EVENT ---
Event Note Date of Service: 06/14/23 Event Note: The patient is a 63-year-old male with PMH significant for hypertension and chronic back pain who was admitted to [facility] psychiat[facility] unit for increased depression without SI. Medical consult for left-sided lower back pain with muscle spasms. Patient states that yesterday morning he was bending down to grab something off the floor when he felt like something ?and grab it? his back. Patient experienced lower back pain and resulting back spasms . Which initially occurred degree of regularity patient was given Flexeril but stated that it did not really help much. Was then switched to Motrin patient states has provided relief to his symptoms with significant decrease in number of episodes of back spasms. Patient also notes he is now able to move and ambulate better on the Motrin. Physical exam shows right lower back nontender to palpation. Patient seen moving from bed to chair and back get without incident. Suggestion is to continue Motrin for now for up to 1-2 weeks. Will trial a different muscle relaxer, methocarbamol, on a p.r.n. basis for the next week for persistent spasms, can discontinue if proves ineffective and/or patient does not need it. Encourage gentle stretching of back and ambulation as tolerated. Thank you for allowing us to participate in the care of this patient. Signing off at this time. Please let us know if there are any acute complaints or questions. Time Spent With Patient Time: Total time managing care of this patient today ____ minutes.
[2023-06-14] MEDS: methocarbamoL 500 MG TABLET PO ×2 (14:09→21:01)
--- NOTE | 2023-06-14 15:46 | P.PNPSI_ITS ---
Subjective Subjective Date of Service: 06/14/23 Reason For Visit: depression Subjective Notes: Conditional Voluntary Interim History: Reports sleep is still interrupted-took meds at 1030, slept by 11, awake 2-3 hours before daylight. Room-make, milieu noise, pt yelling contributed to this. Constipation persists, KUB shows stool burden, will trial MOM again or dulcolax Concern about insurance paying for meds- Cintia Santiago [facility] researched this- meds at [facility] would be @$46/monthly with pt's MCR/MDX. Pt interested in meeting with [facility]. [facility]lain was able to get this information. Tremor decreased but present Medication Compliance: Yes Side effects from medications: No Attending Groups: No Review of Systems Acute medical concerns: No Medical Review of Systems: unchanged Mental Status Exam Mental Status Exam Patient Appearance: Appropriate Patient Orientation: Person, Place, Time and Situation Level of Consciousness: Alert Patient Behavior: Talkative Mood Description: Apprehensive Affect Description: Apprehensive Patient Cognition Impaired: No Ability to Follow Directions: Fair Speech Pattern: Spontaneous Speech Memory Description: Intact Hallucinations: None Delusions: Not Present Thought Process: Intact and Rumination Thought Content: positive for Perseveration and positive for Suicidal Ideation (denies) Depressive Symptoms: Increased Anxiety and Thoughts of /Suicide (denies) Judgement: Good Diagnostics Vital Signs (24Hr): Vital Signs - 24 hr 06/13/23 18:55 06/14/23 08:30 Temperature 97.6 F 96.9 F Pulse Rate 81 77 Respiratory Rate 16 16 Blood Pressure 120/58 L 111/55 L Pulse Oximetry 96 100 Oxygen Delivery Method Room Air Room Air BMI result Body Mass Index 24.4 Labs 05/23/23 15:51 05/30/23 08:07 Medications Medications Current Medications Acetaminophen (Acetaminophen 325 Mg Tablet) 650 mg PO Q6H PRN PRN Reason: Headache/Pain Mild Scale (1-3) Al Hydroxide/Mg Hydroxide (Magnesium Hydrox/Alum Hydrox 30 Ml Oral.Susp) 30 ml PO Q6H PRN PRN Reason: Heartburn/Nausea Amlodipine Besylate (Amlodipine Besylate 10 Mg Tablet) 10 mg PO DAILY TRACIE; Protocol Last Admin: 06/14/23 09:23 Dose: 10 mg Aspirin (Aspirin Enteric Coated 81 Mg Tablet.) 81 mg PO DAILY [facility] Last Admin: 06/14/23 09:22 Dose: 81 mg Benzocaine (Throat Lozenge, Medicated Lozenge) 1 lozenge MUCOUS MEM Q2H PRN PRN Reason: Sore Throat Last Admin: 06/04/23 11:19 Dose: 1 lozenge Bupropion HCl (Bupropion Hcl 75 Mg Tablet) 75 mg PO DAILY [facility] Last Admin: 06/14/23 09:22 Dose: 75 mg Docusate Sodium (Docusate Sodium 100 Mg Capsule) 100 mg PO BID [facility] Last Admin: 06/14/23 09:22 Dose: 100 mg Guaifenesin (Guaifenesin La 600 Mg Tab.Er.12h) 600 mg PO BID PRN PRN Reason: congestion Ibuprofen (Ibuprofen 800 Mg Tablet) 800 mg PO Q8H PRN PRN Reason: Pain, Mild (Pain Scale 1-3) Last Admin: 06/14/23 09:26 Dose: 800 mg Sunriver Carbonate (Sunriver Carbonate Er 300 Mg Tablet.Er) 600 mg PO BEDTIME [facility] Last Admin: 06/13/23 21:02 Dose: 600 mg Loperamide HCl (Loperamide Hcl 2 Mg Capsule) 2 mg PO Q4H PRN PRN Reason: Diarrhea Last Admin: 06/09/23 20:57 Dose: 2 mg Lorazepam (Lorazepam 0.5 Mg Tablet) 0.5 mg PO TID [facility] Last Admin: 06/14/23 14:11 Dose: 0.5 mg Magnesium Hydroxide (Milk Of Magnesia 30 Ml Oral.Susp) 15 ml PO DAILY PRN PRN Reason: Constipation Methocarbamol (Methocarbamol 500 Mg Tablet) 500 mg PO TID PRN PRN Reason: Muscle Spasm Stop: 06/21/23 12:00 Last Admin: 06/14/23 14:09 Dose: 500 mg Multivitamins/Vitamin C (Multivitamin Tablet) 1 tab PO DAILY [facility] Last Admin: 06/14/23 09:22 Dose: 1 tab Nicotine Polacrilex (Nicotine Polacrilex 2 Mg Gum) 4 mg BUCCAL Q2H PRN PRN Reason: Nicotine Cravings Nortriptyline HCl (Nortriptyline Hcl 10 Mg Capsule) 60 mg PO BEDTIME [facility] Last Admin: 06/13/23 21:02 Dose: 60 mg Psyllium Hydrophilic Mucilloid (Psyllium Seed 3.7 Gm Packet) 3.7 gm PO BEDTIME [facility] Last Admin: 06/13/23 21:00 Dose: 3.7 gm Quetiapine Fumarate (Quetiapine Fumarate 25 Mg Tablet) 25 mg PO BEDTIME PRN PRN Reason: continued insomnia Quetiapine Fumarate (Quetiapine Fumarate 50 Mg Tablet) 50 mg PO BEDTIME [facility] Last Admin: 06/13/23 21:02 Dose: 50 mg Trazodone HCl (Trazodone Hcl 100 Mg Tablet) 100 mg PO BEDTIME [facility] Last Admin: 06/13/23 21:02 Dose: 100 mg Vitamin D (Cholecalciferol (Vitamin D3) 25 Mcg Tablet) 25 mcg PO DAILY [facility] Last Admin: 06/14/23 09:22 Dose: 25 mcg Allergies Allergies Allergy/AdvReac Type Severity Reaction Status Date / Time lisinopril Allergy Hives Verified 03/06/23 10:50 Assessment & Plan Assessment & Plan (1) Bipolar disorder, most recent episode depressed: Status: Acute Code(s): F31.30 - Bipolar disorder, current episode depressed, mild or moderate severity, unspecified Plan Patient is a 63-year-old male with history of bipolar depression with history of manic episode, hypertension, who presents for 4th admission in past 6 months for worsening depression in the face of going off the lithium/Wellbutrin about a week after he was discharged from [place] [id number] March 2023. Patient reports that he took lithium/Wellbutrin combination for about a week after he was discharged but then developed a daily headache and so discontinued both. Patient's depression quickly returned. Patient is somewhat reticent however he reports that he has been eating very little, just lying in bed all day, not attending to any ADLs. Patient's reported to the ED that he was eating his hair (which Patient denies). Patient denies any SI or HI or AVH. He wants medication help to get better from depression. Hospital course: Depressed, no SI. Anxious about antipsychotic medication. Agrees to restarting lithium and nortriptyline 05/27 remains severely?depressed with negative symptoms, not eating, not bathing, talking little; agrees to increasing nortriptyline, restarting trazodone for insomnia; will also restart Ativan since pt seems to have a touch of catatonia and scheduled?Ativan?helped?last?admission 05/28 remains depressed; however talking a little more about meaningful life issues and he did sleep a little last night and eating a little more. Increasing trazodone and bedtime Ativan dose 05/29 increase nortriptyline for continued severe, refractory depression 05/30 continue current treatment plan; patient a little more engageable today -labs reviewed and lithium WNL; BUN/creatinine/TSH WNL 05/31 continues to be depressed but does seemed to be a little more engaged and affect more expressive. Increasing trazodone for insomnia; increasing Ativan for behavioral activation; will increase nortriptyline on 06/02 06/02 Nortriptyline 40 mg this eveing for sleep. 06/03 Pt reports URI sx. COVID -, given mucinex and throat kathleen prn; Reports not too much improvement in sleep with nortriptyline after 40 mg dosing. 06/04 very depressed, not getting out of bed, not attending to ADL's; not sleeping and agrees to try Seroquel 06/05 no improvement in symptoms, very depressed, not attending to ADL's, eating little, in bed most of day. increase Nortriptyline to 60mg Will also consider increasing Seroquel for insomnia; will likely get off trazodone if other agents help with sleep 06/06 Patient thinks he did sleep a little better last night. He would like to go down on the trazodone so that is not on too many medications, since it seems to be the right now that the Seroquel is helping more with sleep. Portfolio Strategist discussed restarting Wellbutrin and that although patient reported he eventually getting a headache on Wellbutrin and lithium, perhaps this time a lower dose of Wellbutrin would suffice since he is already on nortriptyline. Patient agreed to restart this medication. Again discussed ECT. Patient for the 1st time more able to articulate his anxiety about ECT. He said that he is afraid of anything that could interact with his brain; he said he rather have his foot cut off then get ECT since it is something with his head and patient is very fearful about anything that could permanently alter his thinking, memory... Portfolio Strategist again provided education about ECT. Patient concedes that he is aware he may be over- reacting or misinformed but this is just how he feels. He said he hopes this medication change will be helpful. -currently patient is too depressed with severe negative symptoms and psychomotor retardation to function on his own at home. At this time all his meals are made and brought to him, even though he hardly eats. Patient gets out of bed enough to avoid a DVT but is otherwise isolative and remains in bed.06/08 Impression/clinical reasoning: Patient has bipolar depression. Combination of lithium and Wellbutrin were partially helpful and he was back to fully attending to ADLs; post discharge however he discontinued them within a week saying he had a consistent migraine headache (patient discussed this with his PCP who was not willing to change regimen feeling it was out of his scope; patient had yet to go to his 1st psychiatric provider appointment and could not tolerate headache). He soon decompensated and has remained depressed with significant psychomotor retardation, hardly eating, hardly get out of bed and not attending to ADLs. At last admission discussed ECT at length however patient did not want to trial; newswriter broached this topic again and he again refused. Patient also very ambivalent about mood stabilization from second-generation antipsychotic class. TCAs (or MAOI) are options combined with lithium given history of manic episode. Patient also has refractory insomnia Plan: CV Q 15 minutes checks Retry Wellbutrin XL 150 mg daily (patient was on 450 mg at last admission; he eventually said this combination with lithium caused headache any stop medication. Perhaps with nortriptyline, lower dose will still be effective) Seroquel 50mg qhs for insomnia with extra prn for continued insomnia Continue lithium ER 600 mg q.h.s. Continue nortriptyline 60 mg q.h.s. on 06/05 (discussed risks/side-effects including hypotension, dizziness) -will get Nortrip level reduce to trazodone to 100 mg q.h.s.; which help patient sleep at last admission Continue Ativan 1 mg t.i.d. (patient was on q.i.d. at last admission and it seemed to help with behavioral activation) Reviewed risks/side effects of medication regimen including, but not limited to risk of tardive dyskinesia; patient ask questions, understood and agrees to continue current regimen Medication trials: lexapro and Haldol in 2018 and then only Lexapro starting 2019; prozac (briefly) Venlafaxine Mirtazapine (though not therapeutic dose) Sunriver 600 mg plus Wellbutrin 450 mg: Tolerated and mood partially improved however said he developed daily headaches from it a week later and discontinued does not want antipsychotics..so currently Vraylar, latuda...not options 06/08/23 encouraged fluids discussed increasing wellbutrin tomorrow if tremor and dizziness improved/remitted 06/10:Patient reports feeling good today.pt stated, I feel ready to go home . denies any loose stools. He reports needing referrals to outpatient providers. denies SI/HI/VH/AH. Continue current tx plan. 06/12-Increase Seroquel to 37.5 mg HS Tentative discharge 06/14. 06/14 Hold on Discharge MOM/Dulcolax for constipation Back pain evaluated by hospitalist Sleep improving, yet still interrupted Reports Anxiety 2/ Depression 4 Patient educated on: medication risk/benefits, therapeutic strategies and medical condition Informed Consent: understands Reason for continued inpatient stay Substantial Risk for: rapid decompensation Time Spent With Patient Time: Total time managing care of this patient today ____ minutes.
[2023-06-14 18:00] VITALS: BP 114/69; PULSE 85; TEMP 36.2; O2SAT 97
[2023-06-14] MEDS: Psyllium seed 3.7 GM PACKET PO (20:59)
[2023-06-14] MEDS: Nortriptyline HCl 10 MG CAPSULE 60 MG PO (21:00)
[2023-06-14] MEDS: Lithium Carbonate ER 300 MG TABLET.ER 600 MG PO (21:01)
[2023-06-14] MEDS: QUEtiapine Fumarate 50 MG TABLET PO (21:02)
[2023-06-14] MEDS: traZODone HCL 100 MG TABLET PO (21:02)
[2023-06-15 08:00] VITALS: BP 112/58; PULSE 71; RESP 16; TEMP 36.4; O2SAT 97
[2023-06-15] MEDS: Docusate Sodium 100 MG CAPSULE PO (08:58)
[2023-06-15] MEDS: Aspirin Enteric Coated 81 MG TABLET.DR PO (08:58)
[2023-06-15] MEDS: Cholecalciferol (Vitamin D3) 25 MCG TABLET PO (08:58)
[2023-06-15] MEDS: buPROPion HCL 75 MG TABLET PO (08:58)
[2023-06-15] MEDS: amLODIPine Besylate 10 MG TABLET PO (08:58)
[2023-06-15] MEDS: Multivitamin TABLET 1 TAB PO (08:58)
[2023-06-15] MEDS: LORazepam 0.5 MG TABLET PO ×3 (08:58→20:17)
[2023-06-15] MEDS: methocarbamoL 500 MG TABLET PO ×2 (09:06→20:28)
[2023-06-15] MEDS: bisacodyL 5 MG TABLET.DR 10 MG PO (09:17)
--- NOTE | 2023-06-15 10:04 | HO.PSYCHPN ---
Subjective Subjective Date of Service: 06/15/23 Reason For Visit: depression Interim History: Patient continues to be anxious. He is somatically preoccupied with constipation. Abd XR showed large stool burden. Anxious about developing TD with Seroquel. Discussed smaller risk with Seroquel. He is asking about decrease Seroquel and increasing Trazodone. Sleep disrupted with roommate not sleeping well. Review of Systems Review of Systems Constitutional : No Fever, No Chills ENT/Mouth : No Ear Pain, No Nasal Congestion, No sore throat Eyes: No Eye Pain, No Swelling, No Redness Cardiovascular : No Chest Pain, No SOB Respiratory : No Cough, No Sputum, No Dyspnea Gastrointestinal : No Nausea, No Vomiting, No Diarrhea, No Hematochezia, No Melena Genitourinary : No Dysuria, No Urinary Frequency, No Hematuria Musculoskeletal : No Myalgias Skin : No Skin Lesions, No rash Neuro : No Weakness, No Numbness, No Paresthesias, Intermittent transient Dizziness, No Headache Psych : positive Anxiety, positive Depression, no SI/HI Heme/Lymph: No Lymphadenopathy Endocrine : No Polyuria, No Polydipsia All other systems reviewed and are negative Constitutional: Reports as per HPI Eyes: Reports as per HPI Reports as per HPI Cardiovascular: Reports as per HPI Respiratory: Reports as per HPI Gastrointestinal: Reports as per HPI Genitourinary: Reports as per HPI Musculoskeletal: Reports as per HPI Skin/Breast: Reports as per HPI Reports as per HPI Psychiatric: Reports as per HPI Endocrine: Reports as per HPI Hematologic/Lymphatic: Reports as per HPI Allergic/Immunologic: Reports as per HPI Mental Status Exam Mental Status Exam Narrative: Pt is alert and oriented; behavior is cooperative, friendly and calm; dressed in casual attire; mood is described as good ; eye contact appropriate; Speech is normal rate, volume and prosody and not pressured; no psychomotor agitation/retardation present; thought process is organized and goal directed; Thought content is on tx; otherwise pertinent to relevant topics and without any delusional content, paranoid ideations or grandiosity; denies SI/HI. There is no evidence of perceptual disturbance. Patients insight and judgment are fair. Patient Appearance: Appropriate Patient Orientation: Person, Place, Time and Situation Level of Consciousness: Alert Patient Behavior: Talkative Mood Description: Apprehensive Affect Description: Apprehensive Patient Cognition Impaired: No Ability to Follow Directions: Fair Speech Pattern: Spontaneous Speech Memory Description: Intact Diagnostics Vital Signs (24Hr): Vital Signs - 24 hr 06/14/23 18:00 06/15/23 08:00 Temperature 97.2 F 97.6 F Pulse Rate 85 71 Respiratory Rate 16 Blood Pressure 114/69 112/58 L Pulse Oximetry 97 97 Oxygen Delivery Method Room Air Room Air BMI result Body Mass Index 24.4 Labs 05/23/23 15:51 05/30/23 08:07 Imaging Radiology Impressions: ITS Impressions KUB X-Ray 06/14/23 12:50 IMPRESSION: 1. Nonobstructive bowel gas pattern. 2. Large amount of stool burden. Medications Medications Current Medications Acetaminophen (Acetaminophen 325 Mg Tablet) 650 mg PO Q6H PRN PRN Reason: Headache/Pain Mild Scale (1-3) Al Hydroxide/Mg Hydroxide (Magnesium Hydrox/Alum Hydrox 30 Ml Oral.Susp) 30 ml PO Q6H PRN PRN Reason: Heartburn/Nausea Amlodipine Besylate (Amlodipine Besylate 10 Mg Tablet) 10 mg PO DAILY [facility]; Protocol Last Admin: 06/15/23 08:58 Dose: 10 mg Aspirin (Aspirin Enteric Coated 81 Mg Tablet.) 81 mg PO DAILY [facility] Last Admin: 06/15/23 08:58 Dose: 81 mg Benzocaine (Throat Lozenge, Medicated Lozenge) 1 lozenge MUCOUS MEM Q2H PRN PRN Reason: Sore Throat Last Admin: 06/04/23 11:19 Dose: 1 lozenge Bisacodyl (Bisacodyl 5 Mg Tablet.) 10 mg PO DAILY PRN PRN Reason: Constipation Last Admin: 06/15/23 09:17 Dose: 10 mg Bupropion HCl (Bupropion Hcl 75 Mg Tablet) 75 mg PO DAILY [facility] Last Admin: 06/15/23 08:58 Dose: 75 mg Docusate Sodium (Docusate Sodium 100 Mg Capsule) 100 mg PO BID [facility] Last Admin: 06/15/23 08:58 Dose: 100 mg Guaifenesin (Guaifenesin [place] 600 Mg Tab.Er.12h) 600 mg PO BID PRN PRN Reason: congestion Ibuprofen (Ibuprofen 800 Mg Tablet) 800 mg PO Q8H PRN PRN Reason: Pain, Mild (Pain Scale 1-3) Last Admin: 10/20/23 21:01 Dose: 800 mg [place] Carbonate ([place] Carbonate Er 300 Mg Tablet.Er) 600 mg PO BEDTIME [facility] Last Admin: 06/14/23 21:01 Dose: 600 mg Loperamide HCl (Loperamide Hcl 2 Mg Capsule) 2 mg PO Q4H PRN PRN Reason: Diarrhea Last Admin: 06/09/23 20:57 Dose: 2 mg Lorazepam (Lorazepam 0.5 Mg Tablet) 0.5 mg PO TID [facility] Last Admin: 06/15/23 08:58 Dose: 0.5 mg Magnesium Hydroxide (Milk Of Magnesia 30 Ml Oral.Susp) 15 ml PO DAILY PRN PRN Reason: Constipation Methocarbamol (Methocarbamol 500 Mg Tablet) 500 mg PO TID PRN PRN Reason: Muscle Spasm Stop: 06/21/23 12:00 Last Admin: 06/15/23 09:06 Dose: 500 mg Multivitamins/Vitamin C (Multivitamin Tablet) 1 tab PO DAILY [facility] Last Admin: 06/15/23 08:58 Dose: 1 tab Nicotine Polacrilex (Nicotine Polacrilex 2 Mg Gum) 4 mg BUCCAL Q2H PRN PRN Reason: Nicotine Cravings Nortriptyline HCl (Nortriptyline Hcl 10 Mg Capsule) 60 mg PO BEDTIME [facility] Last Admin: 06/14/23 21:00 Dose: 60 mg Psyllium Hydrophilic Mucilloid (Psyllium Seed 3.7 Gm Packet) 3.7 gm PO BEDTIME [facility] Last Admin: 06/14/23 20:59 Dose: 3.7 gm Quetiapine Fumarate (Quetiapine Fumarate 25 Mg Tablet) 25 mg PO BEDTIME PRN PRN Reason: continued insomnia Quetiapine Fumarate (Quetiapine Fumarate 50 Mg Tablet) 50 mg PO BEDTIME [facility] Last Admin: 06/14/23 21:02 Dose: 50 mg Trazodone HCl (Trazodone Hcl 100 Mg Tablet) 100 mg PO BEDTIME [facility] Last Admin: 06/14/23 21:02 Dose: 100 mg Vitamin D (Cholecalciferol (Vitamin D3) 25 Mcg Tablet) 25 mcg PO DAILY [facility] Last Admin: 06/15/23 08:58 Dose: 25 mcg Allergies Allergies Allergy/AdvReac Type Severity Reaction Status Date / Time lisinopril Allergy Hives Verified 03/06/23 10:50 Assessment & Plan Assessment & Plan (1) Bipolar disorder, most recent episode depressed: Status: Acute Code(s): F31.30 - Bipolar disorder, current episode depressed, mild or moderate severity, unspecified Plan Patient is a 63-year-old male with history of bipolar depression with history of manic episode, hypertension, who presents for 4th admission in past 6 months for worsening depression in the face of going off the lithium/Wellbutrin about a week after he was discharged from [facility] March 2023. Patient reports that he took lithium/Wellbutrin combination for about a week after he was discharged but then developed a daily headache and so discontinued both. Patient's depression quickly returned. Patient is somewhat reticent however he reports that he has been eating very little, just lying in bed all day, not attending to any ADLs. Patient's reported to the ED that he was eating his hair (which Patient denies). Patient denies any SI or HI or AVH. He wants medication help to get better from depression. Hospital course: Depressed, no SI. Anxious about antipsychotic medication. Agrees to restarting lithium and nortriptyline 05/27 remains severely?depressed with negative symptoms, not eating, not bathing, talking little; agrees to increasing nortriptyline, restarting trazodone for insomnia; will also restart Ativan since pt seems to have a touch of catatonia and scheduled?Ativan?helped?last?admission 05/28 remains depressed; however talking a little more about meaningful life issues and he did sleep a little last night and eating a little more. Increasing trazodone and bedtime Ativan dose 05/29 increase nortriptyline for continued severe, refractory depression 05/30 continue current treatment plan; patient a little more engageable today -labs reviewed and lithium WNL; BUN/creatinine/TSH WNL 05/31 continues to be depressed but does seemed to be a little more engaged and affect more expressive. Increasing trazodone for insomnia; increasing Ativan for behavioral activation; will increase nortriptyline on 06/02 06/02 Nortriptyline 40 mg this eveing for sleep. 06/03 Pt reports URI sx. COVID -, given mucinex and throat kathleen prn; Reports not too much improvement in sleep with nortriptyline after 40 mg dosing. 06/04 very depressed, not getting out of bed, not attending to ADL's; not sleeping and agrees to try Seroquel 06/05 no improvement in symptoms, very depressed, not attending to ADL's, eating little, in bed most of day. increase Nortriptyline to 60mg Will also consider increasing Seroquel for insomnia; will likely get off trazodone if other agents help with sleep 06/06 Patient thinks he did sleep a little better last night. He would like to go down on the trazodone so that is not on too many medications, since it seems to be the right now that the Seroquel is helping more with sleep. Sap Hana Developer discussed restarting Wellbutrin and that although patient reported he eventually getting a headache on Wellbutrin and lithium, perhaps this time a lower dose of Wellbutrin would suffice since he is already on nortriptyline. Patient agreed to restart this medication. Again discussed ECT. Patient for the 1st time more able to articulate his anxiety about ECT. He said that he is afraid of anything that could interact with his brain; he said he rather have his foot cut off then get ECT since it is something with his head and patient is very fearful about anything that could permanently alter his thinking, memory... Sap Hana Developer again provided education about ECT. Patient concedes that he is aware he may be over-reacting or misinformed but this is just how he feels. He said he hopes this medication change will be helpful. -currently patient is too depressed with severe negative symptoms and psychomotor retardation to function on his own at home. At this time all his meals are made and brought to him, even though he hardly eats. Patient gets out of bed enough to avoid a DVT but is otherwise isolative and remains in bed.06/08 Impression/clinical reasoning: Patient has bipolar depression. Combination of lithium and Wellbutrin were partially helpful and he was back to fully attending to ADLs; post discharge however he discontinued them within a week saying he had a consistent migraine headache (patient discussed this with his PCP who was not willing to change regimen feeling it was out of his scope; patient had yet to go to his 1st psychiatric provider appointment and could not tolerate headache). He soon decompensated and has remained depressed with significant psychomotor retardation, hardly eating, hardly get out of bed and not attending to ADLs. At last admission discussed ECT at length however patient did not want to trial; sports writer broached this topic again and he again refused. Patient also very ambivalent about mood stabilization from second-generation antipsychotic class. TCAs (or MAOI) are options combined with lithium given history of manic episode. Patient also has refractory insomnia Plan: CV Q 15 minutes checks Retry Wellbutrin XL 150 mg daily (patient was on 450 mg at last admission; he eventually said this combination with lithium caused headache any stop medication. Perhaps with nortriptyline, lower dose will still be effective) Seroquel 50mg qhs for insomnia with extra prn for continued insomnia Continue lithium ER 600 mg q.h.s. Continue nortriptyline 60 mg q.h.s. on 06/05 (discussed risks/side-effects including hypotension, dizziness) -will get Nortrip level reduce to trazodone to 100 mg q.h.s.; which help patient sleep at last admission Continue Ativan 1 mg t.i.d. (patient was on q.i.d. at last admission and it seemed to help with behavioral activation) Reviewed risks/side effects of medication regimen including, but not limited to risk of tardive dyskinesia; patient ask questions, understood and agrees to continue current regimen Medication trials: lexapro and Haldol in 2018 and then only Lexapro starting 2019; prozac (briefly) Venlafaxine Mirtazapine (though not therapeutic dose) [place] 600 mg plus Wellbutrin 450 mg: Tolerated and mood partially improved however said he developed daily headaches from it a week later and discontinued does not want antipsychotics..so currently Vraylar, latuda...not options 06/08/23 encouraged fluids discussed increasing wellbutrin tomorrow if tremor and dizziness improved/remitted 06/10:Patient reports feeling good today.pt stated, I feel ready to go home . denies any loose stools. He reports needing referrals to outpatient providers. denies SI/HI/VH/AH. Continue current tx plan. 06/12-Increase Seroquel to 37.5 mg HS Tentative discharge 06/14. 06/13- Increase Seroquel to 50 mg HS Decrease Ativan to 0.5 mg tid Colace 100 mg bid Metamucil 3.7gm hs 06/15: Continue current treatment plan. Pervasive anxiety driving patient's symptoms. Reason for continued inpatient stay Substantial Risk for: harm to self, inability to function and rapid decompensation Time Spent With Patient Time: Total time managing care of this patient today ____ minutes.
[2023-06-15] MEDS: Ibuprofen 800 MG TABLET PO (13:52)
[2023-06-15 18:00] VITALS: BP 131/73; PULSE 84; RESP 18; TEMP 36.4
[2023-06-15] MEDS: QUEtiapine Fumarate 50 MG TABLET PO (20:17)
[2023-06-15] MEDS: traZODone HCL 100 MG TABLET PO (20:17)
[2023-06-15] MEDS: Lithium Carbonate ER 300 MG TABLET.ER 600 MG PO (20:17)
[2023-06-15] MEDS: Nortriptyline HCl 10 MG CAPSULE 60 MG PO (20:19)
--- NOTE | 2023-06-16 08:09 | P.PNPSI_ITS ---
Subjective Subjective Date of Service: 06/16/23 Reason For Visit: depression Interim History: Patient continues to be anxious. He had a BM. Discussed hydration and staying active. He says he slept intermittently. He agrees to increase in Trazodone and Seroquel. He is anxious about his insomnia. He denies SI. Review of Systems Review of Systems Constitutional : No Fever, No Chills ENT/Mouth : No Ear Pain, No Nasal Congestion, No sore throat Eyes: No Eye Pain, No Swelling, No Redness Cardiovascular : No Chest Pain, No SOB Respiratory : No Cough, No Sputum, No Dyspnea Gastrointestinal : No Nausea, No Vomiting, No Diarrhea, No Hematochezia, No Melena Genitourinary : No Dysuria, No Urinary Frequency, No Hematuria Musculoskeletal : No Myalgias Skin : No Skin Lesions, No rash Neuro : No Weakness, No Numbness, No Paresthesias, Intermittent transient Dizziness, No Headache Psych : positive Anxiety, positive Depression, no SI/HI Heme/Lymph: No Lymphadenopathy Endocrine : No Polyuria, No Polydipsia All other systems reviewed and are negative Constitutional: Reports as per HPI Eyes: Reports as per HPI Reports as per HPI Cardiovascular: Reports as per HPI Respiratory: Reports as per HPI Gastrointestinal: Reports as per HPI Genitourinary: Reports as per HPI Musculoskeletal: Reports as per HPI Skin/Breast: Reports as per HPI Reports as per HPI Psychiatric: Reports as per HPI Endocrine: Reports as per HPI Hematologic/Lymphatic: Reports as per HPI Allergic/Immunologic: Reports as per HPI Mental Status Exam Mental Status Exam Narrative: Pt is alert and oriented; behavior is cooperative, friendly and calm; dressed in casual attire; mood is described as good ; eye contact appropriate; Speech is normal rate, volume and prosody and not pressured; no psychomotor agitation/retardation present; thought process is organized and goal directed; Thought content is on tx; otherwise pertinent to relevant topics and without any delusional content, paranoid ideations or grandiosity; denies SI/HI. There is no evidence of perceptual disturbance. Patients insight and judgment are fair. Patient Appearance: Appropriate Patient Orientation: Person, Place, Time and Situation Level of Consciousness: Alert Patient Behavior: Talkative Mood Description: Apprehensive Affect Description: Anxious and Apprehensive Patient Cognition Impaired: No Ability to Follow Directions: Good Speech Pattern: Spontaneous Speech Memory Description: Intact Thought Content: positive for Obsessional Thoughts, positive for Perseveration and positive for Hypochondriasis Depressive Symptoms: Insomnia and Diff. Making Decisions Diagnostics Vital Signs (24Hr): Vital Signs - 24 hr 06/15/23 18:00 Temperature 97.6 F Pulse Rate 84 Respiratory Rate 18 Blood Pressure 131/73 BMI result Body Mass Index 24.4 Labs 05/23/23 15:51 05/30/23 08:07 Imaging Radiology Impressions: ITS Impressions KUB X-Ray 06/14/23 12:50 IMPRESSION: 1. Nonobstructive bowel gas pattern. 2. Large amount of stool burden. Medications Medications Current Medications Acetaminophen (Acetaminophen 325 Mg Tablet) 650 mg PO Q6H PRN PRN Reason: Headache/Pain Mild Scale (1-3) Al Hydroxide/Mg Hydroxide (Magnesium Hydrox/Alum Hydrox 30 Ml Oral.Susp) 30 ml PO Q6H PRN PRN Reason: Heartburn/Nausea Amlodipine Besylate (Amlodipine Besylate 10 Mg Tablet) 10 mg PO DAILY [facility]; Protocol Last Admin: 06/15/23 08:58 Dose: 10 mg Aspirin (Aspirin Enteric Coated 81 Mg Tablet.) 81 mg PO DAILY [facility] Last Admin: 06/15/23 08:58 Dose: 81 mg Benzocaine (Throat Lozenge, Medicated Lozenge) 1 lozenge MUCOUS MEM Q2H PRN PRN Reason: Sore Throat Last Admin: 06/04/23 11:19 Dose: 1 lozenge Bisacodyl (Bisacodyl 5 Mg Tablet.) 10 mg PO DAILY PRN PRN Reason: Constipation Last Admin: 06/15/23 09:17 Dose: 10 mg Bupropion HCl (Bupropion Hcl 75 Mg Tablet) 75 mg PO DAILY [facility] Last Admin: 06/15/23 08:58 Dose: 75 mg Docusate Sodium (Docusate Sodium 100 Mg Capsule) 100 mg PO BID [facility] Last Admin: 06/16/23 05:43 Dose: Not Given Guaifenesin (Guaifenesin La 600 Mg Tab.Er.12h) 600 mg PO BID PRN PRN Reason: congestion Ibuprofen (Ibuprofen 800 Mg Tablet) 800 mg PO Q8H PRN PRN Reason: Pain, Mild (Pain Scale 1-3) Last Admin: 06/15/23 13:52 Dose: 800 mg [place] Carbonate ([place] Carbonate Er 300 Mg Tablet.Er) 600 mg PO BEDTIME [facility] Last Admin: 06/15/23 20:17 Dose: 600 mg Loperamide HCl (Loperamide Hcl 2 Mg Capsule) 2 mg PO Q4H PRN PRN Reason: Diarrhea Last Admin: 06/09/23 20:57 Dose: 2 mg Lorazepam (Lorazepam 0.5 Mg Tablet) 0.5 mg PO TID TRACIE Last Admin: 06/15/23 20:17 Dose: 0.5 mg Magnesium Hydroxide (Milk Of Magnesia 30 Ml Oral.Susp) 15 ml PO DAILY PRN PRN Reason: Constipation Methocarbamol (Methocarbamol 500 Mg Tablet) 500 mg PO TID PRN PRN Reason: Muscle Spasm Stop: 06/21/23 12:00 Last Admin: 06/15/23 20:28 Dose: 500 mg Multivitamins/Vitamin C (Multivitamin Tablet) 1 tab PO DAILY [facility] Last Admin: 06/15/23 08:58 Dose: 1 tab Nicotine Polacrilex (Nicotine Polacrilex 2 Mg Gum) 4 mg BUCCAL Q2H PRN PRN Reason: Nicotine Cravings Nortriptyline HCl (Nortriptyline Hcl 10 Mg Capsule) 60 mg PO BEDTIME [facility] Last Admin: 06/15/23 20:19 Dose: 60 mg Psyllium Hydrophilic Mucilloid (Psyllium Seed 3.7 Gm Packet) 3.7 gm PO BEDTIME TRACIE Last Admin: 06/15/23 22:27 Dose: Not Given Quetiapine Fumarate (Quetiapine Fumarate 25 Mg Tablet) 25 mg PO BEDTIME PRN PRN Reason: continued insomnia Quetiapine Fumarate (Quetiapine Fumarate 50 Mg Tablet) 50 mg PO BEDTIME [facility] Last Admin: 06/15/23 20:17 Dose: 50 mg Trazodone HCl (Trazodone Hcl 100 Mg Tablet) 100 mg PO BEDTIME [facility] Last Admin: 06/15/23 20:17 Dose: 100 mg Vitamin D (Cholecalciferol (Vitamin D3) 25 Mcg Tablet) 25 mcg PO DAILY [facility] Last Admin: 06/15/23 08:58 Dose: 25 mcg Allergies Allergies Allergy/AdvReac Type Severity Reaction Status Date / Time lisinopril Allergy Hives Verified 03/06/23 10:50 Assessment & Plan Assessment & Plan (1) Bipolar disorder, most recent episode depressed: Status: Acute Code(s): F31.30 - Bipolar disorder, current episode depressed, mild or moderate severity, unspecified Plan Patient is a 63-year-old male with history of bipolar depression with history of manic episode, hypertension, who presents for 4th admission in past 6 months for worsening depression in the face of going off the lithium/Wellbutrin about a week after he was discharged from [place] [address] March 2023. Patient reports that he took lithium/Wellbutrin combination for about a week after he was discharged but then developed a daily headache and so discontinued both. Patient's depression quickly returned. Patient is somewhat reticent however he reports that he has been eating very little, just lying in bed all day, not attending to any ADLs. Patient's reported to the ED that he was eating his hair (which Patient denies). Patient denies any SI or HI or AVH. He wants medication help to get better from depression. Hospital course: Depressed, no SI. Anxious about antipsychotic medication. Agrees to restarting lithium and nortriptyline 05/27 remains severely?depressed with negative symptoms, not eating, not bathing, talking little; agrees to increasing nortriptyline, restarting trazodone for insomnia; will also restart Ativan since pt seems to have a touch of catatonia and scheduled?Ativan?helped?last?admission 05/28 remains depressed; however talking a little more about meaningful life issues and he did sleep a little last night and eating a little more. Increasing trazodone and bedtime Ativan dose 05/29 increase nortriptyline for continued severe, refractory depression 05/30 continue current treatment plan; patient a little more engageable today -labs reviewed and lithium WNL; BUN/creatinine/TSH WNL 05/31 continues to be depressed but does seemed to be a little more engaged and affect more expressive. Increasing trazodone for insomnia; increasing Ativan for behavioral activation; will increase nortriptyline on 06/02 06/02 Nortriptyline 40 mg this eveing for sleep. 06/03 Pt reports URI sx. COVID -, given mucinex and throat kathleen prn; Reports not too much improvement in sleep with nortriptyline after 40 mg dosing. 06/04 very depressed, not getting out of bed, not attending to ADL's; not sleeping and agrees to try Seroquel 06/05 no improvement in symptoms, very depressed, not attending to ADL's, eating little, in bed most of day. increase Nortriptyline to 60mg Will also consider increasing Seroquel for insomnia; will likely get off trazodone if other agents help with sleep 06/06 Patient thinks he did sleep a little better last night. He would like to go down on the trazodone so that is not on too many medications, since it seems to be the right now that the Seroquel is helping more with sleep. Tactical Deception Plans Officer discussed restarting Wellbutrin and that although patient reported he eventually getting a headache on Wellbutrin and lithium, perhaps this time a lower dose of Wellbutrin would suffice since he is already on nortriptyline. Patient agreed to restart this medication. Again discussed ECT. Patient for the 1st time more able to articulate his anxiety about ECT. He said that he is afraid of anything that could interact with his brain; he said he rather have his foot cut off then get ECT since it is something with his head and patient is very fearful about anything that could permanently alter his thinking, memory... Tactical Deception Plans Officer again provided education about ECT. Patient concedes that he is aware he may be over- reacting or misinformed but this is just how he feels. He said he hopes this medication change will be helpful. -currently patient is too depressed with severe negative symptoms and psychomotor retardation to function on his own at home. At this time all his meals are made and brought to him, even though he hardly eats. Patient gets out of bed enough to avoid a DVT but is otherwise isolative and remains in bed.06/08 Impression/clinical reasoning: Patient has bipolar depression. Combination of lithium and Wellbutrin were partially helpful and he was back to fully attending to ADLs; post discharge however he discontinued them within a week saying he had a consistent migraine headache (patient discussed this with his PCP who was not willing to change regimen feeling it was out of his scope; patient had yet to go to his 1st psychiatric provider appointment and could not tolerate headache). He soon decompensated and has remained depressed with significant psychomotor retardation, hardly eating, hardly get out of bed and not attending to ADLs. At last admission discussed ECT at length however patient did not want to trial; hand sign writer broached this topic again and he again refused. Patient also very ambivalent about mood stabilization from second-generation antipsychotic class. TCAs (or MAOI) are options combined with lithium given history of manic episode. Patient also has refractory insomnia Plan: CV Q 15 minutes checks Retry Wellbutrin XL 150 mg daily (patient was on 450 mg at last admission; he eventually said this combination with lithium caused headache any stop medication. Perhaps with nortriptyline, lower dose will still be effective) Seroquel 50mg qhs for insomnia with extra prn for continued insomnia Continue lithium ER 600 mg q.h.s. Continue nortriptyline 60 mg q.h.s. on 06/05 (discussed risks/side-effects including hypotension, dizziness) -will get Nortrip level reduce to trazodone to 100 mg q.h.s.; which help patient sleep at last admission Continue Ativan 1 mg t.i.d. (patient was on q.i.d. at last admission and it seemed to help with behavioral activation) Reviewed risks/side effects of medication regimen including, but not limited to risk of tardive dyskinesia; patient ask questions, understood and agrees to continue current regimen Medication trials: lexapro and Haldol in 2018 and then only Lexapro starting 2019; prozac (briefly) Venlafaxine Mirtazapine (though not therapeutic dose) [place] 600 mg plus Wellbutrin 450 mg: Tolerated and mood partially improved however said he developed daily headaches from it a week later and discontinued does not want antipsychotics..so currently Vraylar, latuda...not options 06/08/23 encouraged fluids discussed increasing wellbutrin tomorrow if tremor and dizziness improved/remitted 06/10:Patient reports feeling good today.pt stated, I feel ready to go home . denies any loose stools. He reports needing referrals to outpatient providers. denies SI/HI/VH/AH. Continue current tx plan. 06/12-Increase Seroquel to 37.5 mg HS Tentative discharge 06/14. 06/13- Increase Seroquel to 50 mg HS Decrease Ativan to 0.5 mg tid Colace 100 mg bid Metamucil 3.7gm hs 06/15: Continue current treatment plan. Pervasive anxiety driving patient's symptoms. 06/16: Increase Seroquel to 75 mg and Trazodone to 150 mg HS for insomnia. Reason for continued inpatient stay Substantial Risk for: inability to function and rapid decompensation Time Spent With Patient Time: Total time managing care of this patient today ____ minutes.
[2023-06-16 08:38] VITALS: BP 116/67; PULSE 75; RESP 16; TEMP 36.3; O2SAT 99
[2023-06-16] MEDS: Docusate Sodium 100 MG CAPSULE PO (08:48)
[2023-06-16] MEDS: Aspirin Enteric Coated 81 MG TABLET.DR PO (08:48)
[2023-06-16] MEDS: amLODIPine Besylate 10 MG TABLET PO (08:48)
[2023-06-16] MEDS: buPROPion HCL 75 MG TABLET PO (08:48)
[2023-06-16] MEDS: Multivitamin TABLET 1 TAB PO (08:48)
[2023-06-16] MEDS: LORazepam 0.5 MG TABLET PO ×3 (08:48→20:37)
[2023-06-16] MEDS: Cholecalciferol (Vitamin D3) 25 MCG TABLET PO (08:48)
[2023-06-16] MEDS: methocarbamoL 500 MG TABLET PO ×3 (09:54→20:37)
[2023-06-16 16:38] VITALS: BP 123/75; PULSE 89; TEMP 36.7; O2SAT 95
[2023-06-16] MEDS: Nortriptyline HCl 10 MG CAPSULE 60 MG PO (20:36)
[2023-06-16] MEDS: QUEtiapine Fumarate 25 MG TABLET 75 MG PO (20:37)
[2023-06-16] MEDS: Lithium Carbonate ER 300 MG TABLET.ER 600 MG PO (20:37)
[2023-06-16] MEDS: traZODone HCL 50 MG TABLET 150 MG PO (20:37)
[2023-06-17] MEDS: methocarbamoL 500 MG TABLET PO ×2 (06:57→14:23)
[2023-06-17 08:35] VITALS: BP 132/79; PULSE 74; RESP 16; TEMP 36.2; O2SAT 100
[2023-06-17] MEDS: LORazepam 0.5 MG TABLET PO ×3 (08:44→20:17)
[2023-06-17] MEDS: Aspirin Enteric Coated 81 MG TABLET.DR PO (08:44)
[2023-06-17] MEDS: Docusate Sodium 100 MG CAPSULE PO ×2 (08:44→20:17)
[2023-06-17] MEDS: Multivitamin TABLET 1 TAB PO (08:44)
[2023-06-17] MEDS: buPROPion HCL 75 MG TABLET PO (08:44)
[2023-06-17] MEDS: Cholecalciferol (Vitamin D3) 25 MCG TABLET PO (08:44)
[2023-06-17] MEDS: amLODIPine Besylate 10 MG TABLET PO (08:44)
--- NOTE | 2023-06-17 09:28 | P.PNPSI_ITS ---
Subjective Subjective Date of Service: 06/17/23 Reason For Visit: depression Interim History: Met with patient; discussed with team; reviewed notes Patient reports feeling better. He says his mood is definitely better and that he now has the motivation to attend ADLs. Patient is showered, clean shaven and in clean clothes. Patient no longer isolative and walking the halls in the milieu. Patient shares some concerns about hand tremor which he says is better now that Wellbutrin was reduced over the weekend. Ambulatory Nurse again discussed risks and side effects of medications and that a person has to make a decision if the benefit outweighs the side effect. In this case patient agrees that it does. Ambulatory Nurse discussed potential for starting propranolol which can also further reduce tremor or perhaps lowering lithium if that is contributory. Patient agrees to continue with current regimen for now. Patient also had concerns about some GI symptoms, saying that he was constipated over the weekend but when given laxatives, he eventually had diarrhea. Patient understands that he has gone mood weeks or longer without eating very much and now that he is eating more his digestive system is adapting. Patient had some reservations about discharging today, saying although he did sleep at night it is not very restful sleep and he wonders if he should stay on the unit longer to see if his sleep can get better with increased Seroquel and if he can work on resolving the tremor further. Ambulatory Nurse discussed that neither of these things are likely to change very much overnight but rather they are issues that can be worked on over time with his outpatient provider with whom he has an appointment tomorrow. Patient then shared he had concerns about being able to get his prescriptions since his insurance has not kicked in. He will not be able to pick them up for a week. Discussed flu shot. Patient decided to wait and get his flu shot on his own since hospital does not carry the higher dose for geriatric population Mental Status Exam Mental Status Exam Narrative: Pt is alert and oriented; behavior is cooperative, friendly and calm; patient is not in distress; dressed in casual attire, clean shaven and with adequate hygiene; mood is described as good and affect congruent; eye contact appropriate; Speech is normal rate, volume and prosody and not pressured; no psychomotor agitation/retardation present; thought process is organized and goal directed; Thought content is on tx, some somatic concerns, discharge concerns; otherwise pertinent to relevant topics and without any delusional content, paranoid ideations or grandiosity; denies any SI/HI. There is no evidence of perceptual disturbance. Patients insight and judgment are impaired but significantly improved and adequate Diagnostics Vital Signs (24Hr): Vital Signs - 24 hr 06/16/23 16:38 06/17/23 08:35 Temperature 98.1 F 97.2 F Pulse Rate 89 74 Respiratory Rate 16 Blood Pressure 123/75 132/79 Pulse Oximetry 95 100 Oxygen Delivery Method Room Air Room Air BMI result Body Mass Index 24.4 Labs 05/23/23 15:51 05/30/23 08:07 Labs: Laboratory Results - last 48 hr 06/17/23 07:50 [place] 0.60 Imaging Radiology Impressions: ITS Impressions [facility] X-Ray 06/14/23 12:50 IMPRESSION: 1. Nonobstructive bowel gas pattern. 2. Large amount of stool burden. Medications Medications Current Medications Acetaminophen (Acetaminophen 325 Mg Tablet) 650 mg PO Q6H PRN PRN Reason: Headache/Pain Mild Scale (1-3) Al Hydroxide/Mg Hydroxide (Magnesium Hydrox/Alum Hydrox 30 Ml Oral.Susp) 30 ml PO Q6H PRN PRN Reason: Heartburn/Nausea Amlodipine Besylate (Amlodipine Besylate 10 Mg Tablet) 10 mg PO DAILY [facility]; Protocol Last Admin: 06/17/23 08:44 Dose: 10 mg Aspirin (Aspirin Enteric Coated 81 Mg Tablet.) 81 mg PO DAILY [facility] Last Admin: 06/17/23 08:44 Dose: 81 mg Benzocaine (Throat Lozenge, Medicated Lozenge) 1 lozenge MUCOUS MEM Q2H PRN PRN Reason: Sore Throat Last Admin: 06/04/23 11:19 Dose: 1 lozenge Bisacodyl (Bisacodyl 5 Mg Tablet.) 10 mg PO DAILY PRN PRN Reason: Constipation Last Admin: 06/15/23 09:17 Dose: 10 mg Bupropion HCl (Bupropion Hcl 75 Mg Tablet) 75 mg PO DAILY [facility] Last Admin: 06/17/23 08:44 Dose: 75 mg Docusate Sodium (Docusate Sodium 100 Mg Capsule) 100 mg PO BID [facility] Last Admin: 06/17/23 08:44 Dose: 100 mg Guaifenesin (Guaifenesin La 600 Mg Tab.Er.12h) 600 mg PO BID PRN PRN Reason: congestion Ibuprofen (Ibuprofen 800 Mg Tablet) 800 mg PO Q8H PRN PRN Reason: Pain, Mild (Pain Scale 1-3) Last Admin: 06/15/23 13:52 Dose: 800 mg [place] Carbonate ([place] Carbonate Er 300 Mg Tablet.Er) 600 mg PO BEDTIME [facility] Last Admin: 06/16/23 20:37 Dose: 600 mg Loperamide HCl (Loperamide Hcl 2 Mg Capsule) 2 mg PO Q4H PRN PRN Reason: Diarrhea Last Admin: 06/09/23 20:57 Dose: 2 mg Lorazepam (Lorazepam 0.5 Mg Tablet) 0.5 mg PO TID [facility] Last Admin: 06/17/23 08:44 Dose: 0.5 mg Magnesium Hydroxide (Milk Of Magnesia 30 Ml Oral.Susp) 15 ml PO DAILY PRN PRN Reason: Constipation Methocarbamol (Methocarbamol 500 Mg Tablet) 500 mg PO TID PRN PRN Reason: Muscle Spasm Stop: 06/21/23 12:00 Last Admin: 06/17/23 06:57 Dose: 500 mg Multivitamins/Vitamin C (Multivitamin Tablet) 1 tab PO DAILY [facility] Last Admin: 06/17/23 08:44 Dose: 1 tab Nicotine Polacrilex (Nicotine Polacrilex 2 Mg Gum) 4 mg BUCCAL Q2H PRN PRN Reason: Nicotine Cravings Nortriptyline HCl (Nortriptyline Hcl 10 Mg Capsule) 60 mg PO BEDTIME [facility] Last Admin: 06/16/23 20:36 Dose: 40 mg Psyllium Hydrophilic Mucilloid (Psyllium Seed 3.7 Gm Packet) 3.7 gm PO BEDTIME [facility] Last Admin: 06/16/23 20:50 Dose: Not Given Quetiapine Fumarate (Quetiapine Fumarate 25 Mg Tablet) 25 mg PO BEDTIME PRN PRN Reason: continued insomnia Quetiapine Fumarate (Quetiapine Fumarate 25 Mg Tablet) 75 mg PO BEDTIME [facility] Last Admin: 06/16/23 20:37 Dose: 75 mg Trazodone HCl (Trazodone Hcl 50 Mg Tablet) 150 mg PO BEDTIME [facility] Last Admin: 06/16/23 20:37 Dose: 150 mg Vitamin D (Cholecalciferol (Vitamin D3) 25 Mcg Tablet) 25 mcg PO DAILY [facility] Last Admin: 06/17/23 08:44 Dose: 25 mcg Allergies Allergies Allergy/AdvReac Type Severity Reaction Status Date / Time lisinopril Allergy Hives Verified 03/06/23 10:50 Assessment & Plan Assessment & Plan (1) Bipolar disorder, most recent episode depressed: Status: Acute Code(s): F31.30 - Bipolar disorder, current episode depressed, mild or moderate severity, unspecified Plan Patient is a 63-year-old male with history of bipolar depression with history of manic episode, hypertension, who presents for 4th admission in past 6 months for worsening depression in the face of going off the lithium/Wellbutrin about a week after he was discharged from [place] [address] March 2023. Patient reports that he took lithium/Wellbutrin combination for about a week after he was discharged but then developed a daily headache and so discontinued both. Patient's depression quickly returned. Patient is somewhat reticent however he reports that he has been eating very little, just lying in bed all day, not attending to any ADLs. Patient's reported to the ED that he was eating his hair (which Patient denies). Patient denies any SI or HI or AVH. He wants medication help to get better from depression. Hospital course: Depressed, no SI. Anxious about antipsychotic medication. Agrees to restarting lithium and nortriptyline 05/27 remains severely?depressed with negative symptoms, not eating, not bathing, talking little; agrees to increasing nortriptyline, restarting trazodone for insomnia; will also restart Ativan since pt seems to have a touch of catatonia and scheduled?Ativan?helped?last?admission 05/28 remains depressed; however talking a little more about meaningful life issues and he did sleep a little last night and eating a little more. Increasing trazodone and bedtime Ativan dose 05/29 increase nortriptyline for continued severe, refractory depression 05/30 continue current treatment plan; patient a little more engageable today -labs reviewed and lithium WNL; BUN/creatinine/TSH WNL 05/31 continues to be depressed but does seemed to be a little more engaged and affect more expressive. Increasing trazodone for insomnia; increasing Ativan for behavioral activation; will increase nortriptyline on 06/02 06/02 Nortriptyline 40 mg this eveing for sleep. 06/03 Pt reports URI sx. COVID -, given mucinex and throat kathleen prn; Reports not too much improvement in sleep with nortriptyline after 40 mg dosing. 06/04 very depressed, not getting out of bed, not attending to ADL's; not sleeping and agrees to try Seroquel 06/05 no improvement in symptoms, very depressed, not attending to ADL's, eating little, in bed most of day. increase Nortriptyline to 60mg Will also consider increasing Seroquel for insomnia; will likely get off trazodone if other agents help with sleep 06/06 Patient thinks he did sleep a little better last night. He would like to go down on the trazodone so that is not on too many medications, since it seems to be the right now that the Seroquel is helping more with sleep. Ambulatory Nurse discussed restarting Wellbutrin and that although patient reported he eventually getting a headache on Wellbutrin and lithium, perhaps this time a lower dose of Wellbutrin would suffice since he is already on nortriptyline. Patient agreed to restart this medication. Again discussed ECT. Patient for the 1st time more able to articulate his anxiety about ECT. He said that he is afraid of anything that could interact with his brain; he said he rather have his foot cut off then get ECT since it is something with his head and patient is very fearful about anything that could permanently alter his thinking, memory... Ambulatory Nurse again provided education about ECT. Patient concedes that he is aware he may be over- reacting or misinformed but this is just how he feels. He said he hopes this medication change will be helpful. -currently patient is too depressed with severe negative symptoms and psychomotor retardation to function on his own at home. At this time all his meals are made and brought to him, even though he hardly eats. Patient gets out of bed enough to avoid a DVT but is otherwise isolative and remains in bed.06/0806/08/23 encouraged fluids discussed increasing wellbutrin tomorrow if tremor and dizziness improved/remitted 06/10:Patient reports feeling good today.pt stated, I feel ready to go home . denies any loose stools. He reports needing referrals to outpatient providers. denies SI/HI/VH/AH. Continue current tx plan. 06/12-Increase Seroquel to 37.5 mg HS Tentative discharge 06/14. 06/13- Increase Seroquel to 50 mg HS Decrease Ativan to 0.5 mg tid Colace 100 mg bid Metamucil 3.7gm hs 06/15: Continue current treatment plan. Pervasive anxiety driving patient's symptoms. 06/16: Increase Seroquel to 75 mg and Trazodone to 150 mg HS for insomnia. 06/17Patient reports feeling better. He says his mood is definitely better and that he now has the motivation to attend ADLs. Patient is showered, clean shaven and in clean clothes. Patient no longer isolative and walking the halls in the milieu. Patient shares some concerns about hand tremor which he says is better now that Wellbutrin was reduced over the weekend. Ambulatory Nurse again discussed risks and side effects of medications and that a person has to make a decision if the benefit outweighs the side effect. In this case patient agrees that it does. Ambulatory Nurse discussed potential for starting propranolol which can also further reduce tremor or perhaps lowering lithium if that is contributory. Patient agrees to continue with current regimen for now. Patient also had concerns about some GI symptoms, saying that he was constipated over the weekend but when given laxatives, he eventually had diarrhea. Patient understands that he has gone mood weeks or longer without eating very much and now that he is eating more his digestive system is adapting. Patient had some reservations about discharging today, saying although he did sleep last night it is not very restful sleep and he wonders if he should stay on the unit longer to see if his sleep can get better with increased Seroquel and if he can work on resolving the tremor further. Patient laments side effects and parts data writer again discussed that ECT is likely the only treatment with the least risk for side effects. Ambulatory Nurse discussed that neither of these things are likely to change very much overnight but rather they are issues that can be worked on over time with his outpatient provider with whom he has an appointment tomorrow. Patient then shared he had concerns about being able to get his prescriptions since his insurance has not kicked in. He will not be able to pick them up for a week. corroborated -parts data writer and team agree that patient will quickly decompensate if he goes a week without medications; will delay discharge to work this out Impression/clinical reasoning: Patient has bipolar depression. Combination of lithium and Wellbutrin were partially helpful and he was back to fully attending to ADLs; post discharge however he discontinued them within a week saying he had a consistent migraine headache (patient discussed this with his PCP who was not willing to change regimen feeling it was out of his scope; patient had yet to go to his 1st psychiatric provider appointment and could not tolerate headache). He soon decompensated and has remained depressed with significant psychomotor retardation, hardly eating, hardly get out of bed and not attending to ADLs. At last admission discussed ECT at length however patient did not want to trial; parts data writer broached this topic again and he again refused. Patient also very ambivalent about mood stabilization from second-generation antipsychotic class. TCAs (or MAOI) are options combined with lithium given history of manic episode. Patient also has refractory insomnia Plan: CV Q 15 minutes checks Wellbutrin 75 mg daily (patient was on 450 mg at last admission; he eventually said this combination with lithium caused headache any stop medication. Perhaps with nortriptyline, lower dose will still be effective) Seroquel 75mg qhs for insomnia with extra prn for continued insomnia Continue lithium ER 600 mg q.h.s. Continue nortriptyline 60 mg q.h.s. on 06/05 (discussed risks/side-effects including hypotension, dizziness) reduce to trazodone to 150 mg q.h.s.; which help patient sleep at last admission Continue Ativan 1 mg t.i.d. (patient was on q.i.d. at last admission and it seemed to help with behavioral activation) Reviewed risks/side effects of medication regimen including, but not limited to risk of tardive dyskinesia; patient ask questions, understood and agrees to continue current regimen Discussed flu shot. Patient decided to wait and get his flu shot on his own since hospital does not carry the higher dose for geriatric population Medication trials: lexapro and Haldol in 2018 and then only Lexapro starting 2019; prozac (briefly) Venlafaxine Mirtazapine (though not therapeutic dose) [place] 600 mg plus Wellbutrin 450 mg: Tolerated and mood partially improved however said he developed daily headaches from it a week later and discontinued does not want antipsychotics..so currently helga Kidd...not options Patient educated on: diagnosis, medication risk/benefits, ECT and therapeutic strategies Informed Consent: understands and further education needed Reason for continued inpatient stay Substantial Risk for: stable for discharge Time Spent With Patient Time: Total time managing care of this patient today ____ minutes.
[2023-06-17 18:00] VITALS: BP 130/75; PULSE 90; RESP 16; TEMP 36.1; O2SAT 99
[2023-06-17] MEDS: Psyllium seed 3.7 GM PACKET PO (20:14)
[2023-06-17] MEDS: traZODone HCL 50 MG TABLET 150 MG PO (20:15)
[2023-06-17] MEDS: QUEtiapine Fumarate 25 MG TABLET 75 MG PO (20:16)
[2023-06-17] MEDS: Nortriptyline HCl 10 MG CAPSULE 60 MG PO (20:16)
[2023-06-17] MEDS: Lithium Carbonate ER 300 MG TABLET.ER 600 MG PO (20:17)
[2023-06-18 08:28] VITALS: BP 113/68; PULSE 76; RESP 16; TEMP 36.6; O2SAT 98
[2023-06-18] MEDS: LORazepam 0.5 MG TABLET PO (09:05)
[2023-06-18] MEDS: buPROPion HCL 75 MG TABLET PO (09:06)
[2023-06-18] MEDS: amLODIPine Besylate 10 MG TABLET PO (09:06)
[2023-06-18] MEDS: Multivitamin TABLET 1 TAB PO (09:06)
[2023-06-18] MEDS: Docusate Sodium 100 MG CAPSULE PO ×2 (09:06→21:57)
[2023-06-18] MEDS: Aspirin Enteric Coated 81 MG TABLET.DR PO (09:06)
[2023-06-18] MEDS: Cholecalciferol (Vitamin D3) 25 MCG TABLET PO (09:06)
[2023-06-18] MEDS: Acetaminophen 325 MG TABLET 650 MG PO ×2 (09:21→22:02)
[2023-06-18] MEDS: methocarbamoL 500 MG TABLET PO ×2 (09:21→18:26)
--- NOTE | 2023-06-18 12:19 | PM.PSYDC ---
DS: Providers Provider Date of Service: 06/18/23 Date of admission: 05/23/23 21:09 Date of discharge: 06/18/23 Primary care physician: Curtis Cristina MD Attending physician on admission: Milad Del Castillo Consults: 06/14/23 10:34 Consult to Hospitalist Routine Comment: Consulting Provider: Hospitalist Reason For Exam: left sided back pain with increased intensity Attending physician on discharge: Milad Del Castillo DS: Diagnosis Discharge Diagnosis (1) Bipolar disorder, most recent episode depressed: Status: Acute DS: Medications Discharge Medications Home Medications: Home Medications Medication Instructions Recorded Confirmed aspirin 81 mg tablet 81 mg PO DAILY 03/07/23 05/23/23 Previous Rx's Medication Instructions Recorded amlodipine 10 mg tablet 10 mg PO DAILY 30 days #30 tabs 06/18/23 bupropion HCl 75 mg tablet 75 mg PO DAILY 30 days #30 tabs 06/18/23 cholecalciferol (vitamin D3) 25 25 mcg PO DAILY 30 days #30 tabs 06/18/23 mcg (1,000 unit) tablet docusate sodium 100 mg capsule 100 mg PO BID PRN constipation 30 06/18/23 days #60 caps lithium carbonate 300 mg 600 mg (2 x 300 mg) PO BEDTIME 30 06/18/23 tablet,extended release days #60 tabs lorazepam 0.5 mg tablet 0.5 mg PO TID PRN anxiety 30 days 06/18/23 #90 tabs methocarbamol 500 mg tablet 500 mg PO TID PRN Muscle Spasm 30 06/18/23 days #30 tabs multivitamin (Daily-Tosha tablet) 1 tab PO DAILY 30 days #30 tabs 06/18/23 nortriptyline 10 mg capsule 60 mg (6 x 10 mg) PO BEDTIME 30 06/18/23 days #180 caps psyllium (Hydrocil Instant oral 1 packet PO BEDTIME PRN 06/18/23 packet) constipation 30 days #30 ea quetiapine 25 mg tablet See Rx Instructions .Route 06/18/23 .COMPLEX 30 days #120 tabs trazodone 150 mg tablet 150 mg PO BEDTIME 30 days #30 tabs 06/18/23 Mental Status Exam Mental Status Exam Narrative: Pt is alert and oriented; behavior is cooperative, friendly and calm; patient is not in distress; dressed in casual attire, clean shaven and with adequate hygiene; mood is described as anious and affect congruent; eye contact appropriate; Speech is normal rate, volume and prosody and not pressured; no psychomotor agitation/retardation present; thought process is organized and goal directed; Thought content is on anxiety about discharge with some somatic concerns; otherwise pertinent to relevant topics and without any delusional content, paranoid ideations or grandiosity; denies any SI/HI. There is no evidence of perceptual disturbance. Patients insight and judgment are impaired but significantly improved and adequate Data Data Completed and Pending Completed studies during hospitalization [Text1]: 06/17/23 07:50 [place] 0.60 Imaging Diagnostic Imaging Impressions K[facility] X-Ray 06/14/23 12:50 IMPRESSION: 1. Nonobstructive bowel gas pattern. 2. Large amount of stool burden. DS: Summary Hospital Course Hospital Course: HPI: Patient is a 63-year-old male with history of bipolar depression with history of manic episode, hypertension, who presents for 4th admission in past 6 months for worsening depression in the face of going off the lithium/Wellbutrin about a week after he was discharged from [place] [address] March 2023. Patient reports that he took lithium/Wellbutrin combination for about a week after he was discharged but then developed a daily headache and so discontinued both. Patient's depression quickly returned. Patient is somewhat reticent however he reports that he has been eating very little, just lying in bed all day, not attending to any ADLs. Patient's reported to the ED that he was eating his hair (which Patient denies). Patient denies any SI or HI or AVH. He wants medication help to get better from depression. Hospital course: Depressed, no SI. Anxious about antipsychotic medication. Agrees to restarting lithium and nortriptyline 05/27 remains severely?depressed with negative symptoms, not eating, not bathing, talking little; agrees to increasing nortriptyline, restarting trazodone for insomnia; will also restart Ativan since pt seems to have a touch of catatonia and scheduled?Ativan?helped?last?admission 05/28 remains depressed; however talking a little more about meaningful life issues and he did sleep a little last night and eating a little more. Increasing trazodone and bedtime Ativan dose 05/29 increase nortriptyline for continued severe, refractory depression 05/30 continue current treatment plan; patient a little more engageable today -labs reviewed and lithium WNL; BUN/creatinine/TSH WNL 05/31 continues to be depressed but does seemed to be a little more engaged and affect more expressive. Increasing trazodone for insomnia; increasing Ativan for behavioral activation; will increase nortriptyline on 06/02 06/02 Nortriptyline 40 mg this eveing for sleep. 06/03 Pt reports URI sx. COVID -, given mucinex and throat kathleen prn; Reports not too much improvement in sleep with nortriptyline after 40 mg dosing. 06/04 very depressed, not getting out of bed, not attending to ADL's; not sleeping and agrees to try Seroquel 06/05 no improvement in symptoms, very depressed, not attending to ADL's, eating little, in bed most of day. increase Nortriptyline to 60mg Will also consider increasing Seroquel for insomnia; will likely get off trazodone if other agents help with sleep 06/06 Patient thinks he did sleep a little better last night. He would like to go down on the trazodone so that is not on too many medications, since it seems to be the right now that the Seroquel is helping more with sleep. Ophthalmology Technician discussed restarting Wellbutrin and that although patient reported he eventually getting a headache on Wellbutrin and lithium, perhaps this time a lower dose of Wellbutrin would suffice since he is already on nortriptyline. Patient agreed to restart this medication. Again discussed ECT. Patient for the 1st time more able to articulate his anxiety about ECT. He said that he is afraid of anything that could interact with his brain; he said he rather have his foot cut off then get ECT since it is something with his head and patient is very fearful about anything that could permanently alter his thinking, memory... Ophthalmology Technician again provided education about ECT. Patient concedes that he is aware he may be over-reacting or misinformed but this is just how he feels. He said he hopes this medication change will be helpful. -currently patient is too depressed with severe negative symptoms and psychomotor retardation to function on his own at home. At this time all his meals are made and brought to him, even though he hardly eats. Patient gets out of bed enough to avoid a DVT but is otherwise isolative and remains in bed.06/0806/08/23 encouraged fluids discussed increasing wellbutrin tomorrow if tremor and dizziness improved/remitted 06/10:Patient reports feeling good today.pt stated, I feel ready to go home . denies any loose stools. He reports needing referrals to outpatient providers. denies SI/HI/VH/AH. Continue current tx plan. 06/12-Increase Seroquel to 37.5 mg HS Tentative discharge 06/14. 06/13- Increase Seroquel to 50 mg HS Decrease Ativan to 0.5 mg tid Colace 100 mg bid Metamucil 3.7gm hs 06/15: Continue current treatment plan. Pervasive anxiety driving patient's symptoms. 06/16: Increase Seroquel to 75 mg and Trazodone to 150 mg HS for insomnia. 06/17Patient reports feeling better. He says his mood is definitely better and that he now has the motivation to attend ADLs. Patient is showered, clean shaven and in clean clothes. Patient no longer isolative and walking the halls in the milieu. Patient shares some concerns about hand tremor which he says is better now that Wellbutrin was reduced over the weekend. Ophthalmology Technician again discussed risks and side effects of medications and that a person has to make a decision if the benefit outweighs the side effect. In this case patient agrees that it does. Ophthalmology Technician discussed potential for starting propranolol which can also further reduce tremor or perhaps lowering lithium if that is contributory. Patient agrees to continue with current regimen for now. Patient also had concerns about some GI symptoms, saying that he was constipated over the weekend but when given laxatives, he eventually had diarrhea. Patient understands that he has gone mood weeks or longer without eating very much and now that he is eating more his digestive system is adapting. Patient had some reservations about discharging today, saying although he did sleep last night it is not very restful sleep and he wonders if he should stay on the unit longer to see if his sleep can get better with increased Seroquel and if he can work on resolving the tremor further. Patient laments side effects but advertising writer discussed that neither of these things are likely to change very much overnight; rather they are issues that can be worked on over time with his outpatient provider with whom he has an appointment tomorrow. On day of discharge, advertising writer met with patient and his . Patient expressed anxiety over discharge and saying that he does not think he has improved much. His however shared that she found him to be significantly improved and ready for discharge in agreed that he could work out remaining issues with outpatient provider. Impression/clinical reasoning: Patient has bipolar depression. Combination of lithium and Wellbutrin were partially helpful and he was back to fully attending to ADLs; post discharge however he discontinued them within a week saying he had a consistent migraine headache (patient discussed this with his PCP who was not willing to change regimen feeling it was out of his scope; patient had yet to go to his 1st psychiatric provider appointment and could not tolerate headache). He soon decompensated and has remained depressed with significant psychomotor retardation, hardly eating, hardly get out of bed and not attending to ADLs. At last admission discussed ECT at length however patient did not want to trial; advertising writer broached this topic again and he again refused. Patient also very ambivalent about mood stabilization from second-generation antipsychotic class. TCAs (or MAOI) are options combined with lithium given history of manic episode. Patient also has refractory insomnia Medications: Wellbutrin 75 mg daily (patient was on 450 mg at last admission; he eventually said this combination with lithium caused headache any stop medication. Perhaps with nortriptyline, lower dose will still be effective) Seroquel 75mg qhs for insomnia with extra prn for continued insomnia Continue lithium ER 600 mg q.h.s. Continue nortriptyline 60 mg q.h.s. on 06/05 (discussed risks/side-effects including hypotension, dizziness) reduce to trazodone to 150 mg q.h.s.; which help patient sleep at last admission Continue Ativan 1 mg t.i.d. (patient was on q.i.d. at last admission and it seemed to help with behavioral activation) Reviewed risks/side effects of medication regimen including, but not limited to risk of tardive dyskinesia; patient ask questions, understood and agrees to continue current regimen Discussed flu shot. Patient decided to wait and get his flu shot on his own since hospital does not carry the higher dose for geriatric population Medication trials: lexapro and Haldol in 2018 and then only Lexapro starting 2019; prozac (briefly) Venlafaxine Mirtazapine (though not therapeutic dose) [place] 600 mg plus Wellbutrin 450 mg: Tolerated and mood partially improved however said he developed daily headaches from it a week later and discontinued does not want antipsychotics..so currently helga Kidd...not options on the day of admission, pt complained of blood in his urine times to today. He also complained of left flank tenderness; although no costo-vertebral tenderness on palpation. Patient denies any history of kidney stones. UA and BMP ordered vitals WnL, Afebrile discussed with Dr. Lance who recs meds but no ultrasound and said no reason for pt to stay Time Spent with Patient Time attestation: Total time managing care of this patient today ____ minutes. Discharge Plan Discharge Anticipated Discharge Date/Time: 06/19/23 11:30 Patient Disposition: Home, Self-Care Discharge Diagnosis: Bipolar I, recurrent, severe, most recent episode depression in partial remission; consider anxiety and/or OCD component Referrals: [facility] (psychiatry): Mary Brooks [Other] - 07/09/23 4:00 pm (Initial psychiatric evaluation with psychiatric medication provider Hospital discharge appointment ) [facility] ([facility]) : Fanny Servin [Other] - 06/21/23 10:00 am (Hospital Discharge Appointment Initial Diagnostic Evaluation for Therapy Appointment is at [facility] Clinic in [place], [place]) Curtis Cristina MD [Primary Care Provider] - (office will call pt. with follow-up appointment.) Discharge Medications: New methocarbamol 500 mg Tablet 500 mg PO TID PRN (Reason: Muscle Spasm) 30 Days Qty: 30 0RF bupropion HCl 75 mg Tablet 75 mg PO DAILY 30 Days Qty: 30 0RF lithium carbonate 300 mg Tablet Extended Release 600 mg PO BEDTIME 30 Days Qty: 60 0RF lorazepam 0.5 mg Tablet 0.5 mg PO TID PRN (Reason: anxiety) 30 Days Qty: 90 0RF nortriptyline 10 mg Capsule 60 mg PO BEDTIME 30 Days Qty: 180 0RF quetiapine 25 mg Tablet See Rx Instructions .ROUTE .COMPLEX 30 Days Qty: 120 0RF Rx Instructions: take 2 to 4 tabs at bedtime as needed for insomnia trazodone 150 mg tablet 150 mg PO BEDTIME 30 Days Qty: 30 0RF docusate sodium 100 mg Capsule 100 mg PO BID PRN (Reason: constipation) 30 Days Qty: 60 0RF Hydrocil Instant Packet 1 packet PO BEDTIME PRN (Reason: constipation) 30 Days Qty: 30 0RF multivitamin [Daily-Tosha] Tablet 1 tab PO DAILY 30 Days Qty: 30 0RF lithium carbonate 300 mg tablet extended release 600 mg PO BEDTIME 30 Days Qty: 60 0RF methocarbamol 500 mg tablet 500 mg PO TID PRN (Reason: muscle spasm) Qty: 30 0RF amlodipine 10 mg tablet 10 mg PO DAILY Qty: 30 0RF trazodone 150 mg tablet 150 mg PO BEDTIME Qty: 30 0RF bupropion HCl 75 mg tablet 75 mg PO DAILY Qty: 30 0RF lorazepam [Ativan] 0.5 mg tablet 0.5 mg PO TID PRN (Reason: anxiety) Qty: 90 0RF nortriptyline 50 mg capsule 50 mg PO BEDTIME Qty: 30 0RF Rx Instructions: take with 10mg capsule nortriptyline 10 mg capsule 10 mg PO BEDTIME Qty: 30 0RF Rx Instructions: take with 50mg capsule quetiapine [Seroquel] 25 mg tablet See Rx Instructions .ROUTE .COMPLEX Qty: 120 0RF Rx Instructions: take 3 tabs at bedtime; you may take an extra 1-2 tabs as needed for continued insomnia bisacodyl 5 mg tablet 5 mg PO DAILY PRN (Reason: constipation) 30 Days Qty: 30 0RF docusate sodium 100 mg tablet 100 mg PO BID PRN (Reason: constipation) 30 Days Qty: 60 0RF cholecalciferol (vitamin D3) 25 mcg (1,000 unit) capsule 25 mcg PO DAILY 30 Days Qty: 30 0RF multivitamin Tablet 1 tab PO DAILY Qty: 30 0RF cefuroxime axetil 500 mg Tablet 500 mg PO BID 7 Days Qty: 14 0RF tamsulosin 0.4 mg Capsule 0.4 mg PO DAILY 7 Days Qty: 7 0RF Continued aspirin 81 mg Tablet 81 mg PO DAILY amlodipine 10 mg Tablet 10 mg PO DAILY 30 Days Qty: 30 0RF cholecalciferol (vitamin D3) 25 mcg (1,000 unit) tablet 25 mcg PO DAILY 30 Days Qty: 30 0RF Discharge Orders: Discharge Order (Routine); Ordered 06/19/23 Ordered By: Milad Del Castillo Diet: Regular diet Activity on Discharge: As tolerated Stand Alone Forms: Patient Portal Discharge page, Community Support Care Plan Goals: Maintain mood and safe behaviors Take medications as prescribed Practice coping skills Continue with outpatient providers and reach out to them as needed Health Concerns: Mood stability and behaviors Plan of Treatment: Follow up with your PCP, psychiatric provider and other outpatient providers regarding above concerns Take medications as prescribed Regarding [place], remember to stay hydrated, to watch for symptoms of lithium toxicity (nausea/vomiting/diarrhea, agitation, confusion) and to stay away from OTC NSAIDs (some examples being ibuprofen, Motrin, Naproxen ); Tylenol however is ok. Assessment: Risk assessment at time of discharge:? Patient was interviewed prior to discharge and found to be fully oriented and without any SI or HI. Patient has improved insight and judgment and wants to continue treatment. Patient is not in imminent risk of harm to self or others and has a safety plan that includes presenting to the closest ER or calling 911 if feeling unsafe.? Patient has been observed closely by nursing and unit staff throughout admission; patient has not engaged in any behaviors that suggest dangerousness to self or others and has demonstrated appropriate behaviors and impulse control Discharge Date/Time: 06/19/23 12:15
[2023-06-18 15:03] LABS: Appearance Urine Cloudy; Glucose Urine UA Negative (Negative); Leukocyte Esterase Urine Trace (Negative); Nitrite Urine Negative (Negative); PH 5.5 (5.0-9.0); Specific Gravity - Urine 1.015 (1.005-1.025); UMIC TRIGGER UACC YES; Urine Blood Large (3+) (Negative); Urine Ketones Negative (Negative); Urine Protein 30 (1+) mg/dL (Neg-Trace)
[2023-06-18 15:05] LABS: Color Urine Dark Yellow
[2023-06-18 15:31] LABS: Bacteria Urine None Seen (None Seen); Hyaline Casts Urine 0-2 /LPF (0-2); Squamous Epithelial Cell Urine 0-2 /HPF (0-2); WBC Urine 0-5 /HPF (0-5)
[2023-06-18 16:02] LABS: Anion Gap 13 (12-20); Blood Urea Nitrogen 15 mg/dL (9-16); Calcium 9.4 mg/dL (8.4-10.2); Carbon Dioxide 25 mmol/L (22-29); Chloride 104 mmol/L (96-108); Estimated Glomerular Filt Rate > 60; Glucose Random 113 mg/dL (60-115); Potassium 4.2 mmol/L (3.3-5.1); Sodium 138 mmol/L (135-145)
--- NOTE | 2023-06-18 18:00 | HO.PSYCHPN ---
Subjective Subjective Date of Service: 06/18/23 Reason For Visit: depression Diagnostics Vital Signs (24Hr): Vital Signs - 24 hr 06/18/23 08:28 Temperature 98 F Pulse Rate 76 Respiratory Rate 16 Blood Pressure 113/68 Pulse Oximetry 98 Oxygen Delivery Method Room Air BMI result Body Mass Index 24.4 Labs 05/23/23 15:51 06/18/23 15:24 Labs: Laboratory Results - last 48 hr 06/17/23 06/18/23 06/18/23 07:50 14:28 15:24 Sodium 138 Potassium 4.2 Chloride 104 Carbon Dioxide 25 Anion Gap 13 BUN 15 Creatinine 0.80 Estim Creat Clear Calc 104.0 Estimated GFR > 60 Random Glucose 113 Calcium 9.4 Urine Color Dark Yellow Urine Appearance Cloudy Urine pH 5.5 Ur Specific [place] 1.015 Urine Protein 30 (1+) H Urine Glucose (UA) Negative Urine Ketones Negative Urine Blood Large (3+) H Urine Nitrite Negative Ur Leukocyte Esterase Trace H Urine RBC 6-10 H Urine WBC 0-5 Ur Squamous Epith Cells 0-2 Urine Bacteria None Seen Hyaline Casts 0-2 [place] 0.60 Imaging Radiology Impressions: ITS Impressions KUB X-Ray 06/14/23 12:50 IMPRESSION: 1. Nonobstructive bowel gas pattern. 2. Large amount of stool burden. Medications Medications Current Medications Acetaminophen (Acetaminophen 325 Mg Tablet) 650 mg PO Q6H PRN PRN Reason: Headache/Pain Mild Scale (1-3) Last Admin: 06/18/23 09:21 Dose: 650 mg Al Hydroxide/Mg Hydroxide (Magnesium Hydrox/Alum Hydrox 30 Ml Oral.Susp) 30 ml PO Q6H PRN PRN Reason: Heartburn/Nausea Amlodipine Besylate (Amlodipine Besylate 10 Mg Tablet) 10 mg PO DAILY [facility]; Protocol Last Admin: 06/18/23 09:06 Dose: 10 mg Aspirin (Aspirin Enteric Coated 81 Mg Tablet.) 81 mg PO DAILY [facility] Last Admin: 06/18/23 09:06 Dose: 81 mg Benzocaine (Throat Lozenge, Medicated Lozenge) 1 lozenge MUCOUS MEM Q2H PRN PRN Reason: Sore Throat Last Admin: 06/04/23 11:19 Dose: 1 lozenge Bisacodyl (Bisacodyl 5 Mg Tablet.) 10 mg PO DAILY PRN PRN Reason: Constipation Last Admin: 06/15/23 09:17 Dose: 10 mg Bupropion HCl (Bupropion Hcl 75 Mg Tablet) 75 mg PO DAILY [facility] Last Admin: 06/18/23 09:06 Dose: 75 mg Cefuroxime Axetil (Cefuroxime Axetil 500 Mg Tablet) 500 mg PO Q12H [facility] Docusate Sodium (Docusate Sodium 100 Mg Capsule) 100 mg PO BID [facility] Last Admin: 06/18/23 09:06 Dose: 100 mg Guaifenesin (Guaifenesin [place] 600 Mg Tab.Er.12h) 600 mg PO BID PRN PRN Reason: congestion Ibuprofen (Ibuprofen 800 Mg Tablet) 800 mg PO Q8H PRN PRN Reason: Pain, Mild (Pain Scale 1-3) Last Admin: 06/15/23 13:52 Dose: 800 mg [place] Carbonate ([place] Carbonate Er 300 Mg Tablet.Er) 600 mg PO BEDTIME [facility] Last Admin: 06/17/23 20:17 Dose: 600 mg Loperamide HCl (Loperamide Hcl 2 Mg Capsule) 2 mg PO Q4H PRN PRN Reason: Diarrhea Last Admin: 06/09/23 20:57 Dose: 2 mg Magnesium Hydroxide (Milk Of Magnesia 30 Ml Oral.Susp) 15 ml PO DAILY PRN PRN Reason: Constipation Methocarbamol (Methocarbamol 500 Mg Tablet) 500 mg PO TID PRN PRN Reason: Muscle Spasm Stop: 06/21/23 12:00 Last Admin: 06/18/23 09:21 Dose: 500 mg Multivitamins/Vitamin C (Multivitamin Tablet) 1 tab PO DAILY [facility] Last Admin: 06/18/23 09:06 Dose: 1 tab Nicotine Polacrilex (Nicotine Polacrilex 2 Mg Gum) 4 mg BUCCAL Q2H PRN PRN Reason: Nicotine Cravings Nortriptyline HCl (Nortriptyline Hcl 10 Mg Capsule) 60 mg PO BEDTIME [facility] Last Admin: 06/17/23 20:16 Dose: 40 mg Psyllium Hydrophilic Mucilloid (Psyllium Seed 3.7 Gm Packet) 3.7 gm PO BEDTIME [facility] Last Admin: 06/17/23 20:14 Dose: 3.7 gm Quetiapine Fumarate (Quetiapine Fumarate 25 Mg Tablet) 25 mg PO BEDTIME PRN PRN Reason: continued insomnia Quetiapine Fumarate (Quetiapine Fumarate 25 Mg Tablet) 75 mg PO BEDTIME [facility] Last Admin: 06/17/23 20:16 Dose: 75 mg Quetiapine Fumarate (Quetiapine Fumarate 50 Mg Tablet) 50 mg PO BEDTIME PRN PRN Reason: for continued inosmnia Tamsulosin HCl (Tamsulosin Hcl 0.4 Mg Capsule) 0.4 mg PO DAILY [facility] Trazodone HCl (Trazodone Hcl 50 Mg Tablet) 150 mg PO BEDTIME [facility] Last Admin: 06/17/23 20:15 Dose: 150 mg Vitamin D (Cholecalciferol (Vitamin D3) 25 Mcg Tablet) 25 mcg PO DAILY [facility] Last Admin: 06/18/23 09:06 Dose: 25 mcg Allergies Allergies Allergy/AdvReac Type Severity Reaction Status Date / Time lisinopril Allergy Hives Verified 03/06/23 10:50 Assessment & Plan Assessment & Plan (1) Bipolar disorder, most recent episode depressed: Status: Acute Code(s): F31.30 - Bipolar disorder, current episode depressed, mild or moderate severity, unspecified Plan Patient is a 63-year-old male with history of bipolar depression with history of manic episode, hypertension, who presents for 4th admission in past 6 months for worsening depression in the face of going off the lithium/Wellbutrin about a week after he was discharged from [place] [address] March 2023. Patient reports that he took lithium/Wellbutrin combination for about a week after he was discharged but then developed a daily headache and so discontinued both. Patient's depression quickly returned. Patient is somewhat reticent however he reports that he has been eating very little, just lying in bed all day, not attending to any ADLs. Patient's reported to the ED that he was eating his hair (which Patient denies). Patient denies any SI or HI or AVH. He wants medication help to get better from depression. Hospital course: Depressed, no SI. Anxious about antipsychotic medication. Agrees to restarting lithium and nortriptyline 05/27 remains severely?depressed with negative symptoms, not eating, not bathing, talking little; agrees to increasing nortriptyline, restarting trazodone for insomnia; will also restart Ativan since pt seems to have a touch of catatonia and scheduled?Ativan?helped?last?admission 05/28 remains depressed; however talking a little more about meaningful life issues and he did sleep a little last night and eating a little more. Increasing trazodone and bedtime Ativan dose 05/29 increase nortriptyline for continued severe, refractory depression 05/30 continue current treatment plan; patient a little more engageable today -labs reviewed and lithium WNL; BUN/creatinine/TSH WNL 05/31 continues to be depressed but does seemed to be a little more engaged and affect more expressive. Increasing trazodone for insomnia; increasing Ativan for behavioral activation; will increase nortriptyline on 06/02 06/02 Nortriptyline 40 mg this eveing for sleep. 06/03 Pt reports URI sx. COVID -, given mucinex and throat kathleen prn; Reports not too much improvement in sleep with nortriptyline after 40 mg dosing. 06/04 very depressed, not getting out of bed, not attending to ADL's; not sleeping and agrees to try Seroquel 06/05 no improvement in symptoms, very depressed, not attending to ADL's, eating little, in bed most of day. increase Nortriptyline to 60mg Will also consider increasing Seroquel for insomnia; will likely get off trazodone if other agents help with sleep 06/06 Patient thinks he did sleep a little better last night. He would like to go down on the trazodone so that is not on too many medications, since it seems to be the right now that the Seroquel is helping more with sleep. Statistical Modeler discussed restarting Wellbutrin and that although patient reported he eventually getting a headache on Wellbutrin and lithium, perhaps this time a lower dose of Wellbutrin would suffice since he is already on nortriptyline. Patient agreed to restart this medication. Again discussed ECT. Patient for the 1st time more able to articulate his anxiety about ECT. He said that he is afraid of anything that could interact with his brain; he said he rather have his foot cut off then get ECT since it is something with his head and patient is very fearful about anything that could permanently alter his thinking, memory... Statistical Modeler again provided education about ECT. Patient concedes that he is aware he may be over-reacting or misinformed but this is just how he feels. He said he hopes this medication change will be helpful. -currently patient is too depressed with severe negative symptoms and psychomotor retardation to function on his own at home. At this time all his meals are made and brought to him, even though he hardly eats. Patient gets out of bed enough to avoid a DVT but is otherwise isolative and remains in bed.06/0806/08/23 encouraged fluids discussed increasing wellbutrin tomorrow if tremor and dizziness improved/remitted 06/10:Patient reports feeling good today.pt stated, I feel ready to go home . denies any loose stools. He reports needing referrals to outpatient providers. denies SI/HI/VH/AH. Continue current tx plan. 06/12-Increase Seroquel to 37.5 mg HS Tentative discharge 06/14. 06/13- Increase Seroquel to 50 mg HS Decrease Ativan to 0.5 mg tid Colace 100 mg bid Metamucil 3.7gm hs 06/15: Continue current treatment plan. Pervasive anxiety driving patient's symptoms. 06/16: Increase Seroquel to 75 mg and Trazodone to 150 mg HS for insomnia. 06/17Patient reports feeling better. He says his mood is definitely better and that he now has the motivation to attend ADLs. Patient is showered, clean shaven and in clean clothes. Patient no longer isolative and walking the halls in the milieu. Patient shares some concerns about hand tremor which he says is better now that Wellbutrin was reduced over the weekend. Statistical Modeler again discussed risks and side effects of medications and that a person has to make a decision if the benefit outweighs the side effect. In this case patient agrees that it does. Statistical Modeler discussed potential for starting propranolol which can also further reduce tremor or perhaps lowering lithium if that is contributory. Patient agrees to continue with current regimen for now. Patient also had concerns about some GI symptoms, saying that he was constipated over the weekend but when given laxatives, he eventually had diarrhea. Patient understands that he has gone mood weeks or longer without eating very much and now that he is eating more his digestive system is adapting. Patient had some reservations about discharging today, saying although he did sleep last night it is not very restful sleep and he wonders if he should stay on the unit longer to see if his sleep can get better with increased Seroquel and if he can work on resolving the tremor further. Patient laments side effects and pattern chart writer again discussed that ECT is likely the only treatment with the least risk for side effects. Statistical Modeler discussed that neither of these things are likely to change very much overnight but rather they are issues that can be worked on over time with his outpatient provider with whom he has an appointment tomorrow. Patient then shared he had concerns about being able to get his prescriptions since his insurance has not kicked in. He will not be able to pick them up for a week. corroborated -pattern chart writer and team agree that patient will quickly decompensate if he goes a week without medications; will delay discharge to work this out Impression/clinical reasoning: Patient has bipolar depression. Combination of lithium and Wellbutrin were partially helpful and he was back to fully attending to ADLs; post discharge however he discontinued them within a week saying he had a consistent migraine headache (patient discussed this with his PCP who was not willing to change regimen feeling it was out of his scope; patient had yet to go to his 1st psychiatric provider appointment and could not tolerate headache). He soon decompensated and has remained depressed with significant psychomotor retardation, hardly eating, hardly get out of bed and not attending to ADLs. At last admission discussed ECT at length however patient did not want to trial; pattern chart writer broached this topic again and he again refused. Patient also very ambivalent about mood stabilization from second-generation antipsychotic class. TCAs (or MAOI) are options combined with lithium given history of manic episode. Patient also has refractory insomnia Plan: CV Q 15 minutes checks Wellbutrin 75 mg daily (patient was on 450 mg at last admission; he eventually said this combination with lithium caused headache any stop medication. Perhaps with nortriptyline, lower dose will still be effective) Seroquel 75mg qhs for insomnia with extra prn for continued insomnia Continue lithium ER 600 mg q.h.s. Continue nortriptyline 60 mg q.h.s. on 06/05 (discussed risks/side-effects including hypotension, dizziness) reduce to trazodone to 150 mg q.h.s.; which help patient sleep at last admission Continue Ativan 1 mg t.i.d. (patient was on q.i.d. at last admission and it seemed to help with behavioral activation) Reviewed risks/side effects of medication regimen including, but not limited to risk of tardive dyskinesia; patient ask questions, understood and agrees to continue current regimen Discussed flu shot. Patient decided to wait and get his flu shot on his own since hospital does not carry the higher dose for geriatric population Medication trials: lexapro and Haldol in 2018 and then only Lexapro starting 2019; prozac (briefly) Venlafaxine Mirtazapine (though not therapeutic dose) [place] 600 mg plus Wellbutrin 450 mg: Tolerated and mood partially improved however said he developed daily headaches from it a week later and discontinued does not want antipsychotics..so currently helga Kidd...not options Time Spent With Patient Time: Total time managing care of this patient today ____ minutes.
[2023-06-18] MEDS: Tamsulosin HCL 0.4 MG CAPSULE PO (18:26)
[2023-06-18] MEDS: cefuroxime axetiL 500 MG TABLET PO (18:36)
[2023-06-18] MEDS: Psyllium seed 3.7 GM PACKET PO (21:54)
[2023-06-18] MEDS: traZODone HCL 50 MG TABLET 150 MG PO (21:56)
[2023-06-18] MEDS: Lithium Carbonate ER 300 MG TABLET.ER 600 MG PO (21:56)
[2023-06-18] MEDS: QUEtiapine Fumarate 25 MG TABLET 75 MG PO (21:56)
[2023-06-18] MEDS: Nortriptyline HCl 10 MG CAPSULE 60 MG PO (21:56)
[2023-06-18 22:26] VITALS: TEMP 36.6
[2023-06-19] MEDS: methocarbamoL 500 MG TABLET PO (01:54)
[2023-06-19] MEDS: cefuroxime axetiL 500 MG TABLET PO (06:31)
[2023-06-19] MEDS: Acetaminophen 325 MG TABLET 650 MG PO (06:49)
[2023-06-19 08:31] VITALS: BP 122/70; PULSE 78; RESP 16; TEMP 36.2; O2SAT 98
[2023-06-19] MEDS: Cholecalciferol (Vitamin D3) 25 MCG TABLET PO (09:48)
[2023-06-19] MEDS: Tamsulosin HCL 0.4 MG CAPSULE PO (09:48)
[2023-06-19] MEDS: Multivitamin TABLET 1 TAB PO (09:48)
[2023-06-19] MEDS: Aspirin Enteric Coated 81 MG TABLET.DR PO (09:48)
[2023-06-19] MEDS: buPROPion HCL 75 MG TABLET PO (09:48)
[2023-06-19] MEDS: Docusate Sodium 100 MG CAPSULE PO (09:48)
[2023-06-19] MEDS: amLODIPine Besylate 10 MG TABLET PO (09:48)
== END 2023-06-19 12:15 | disposition home or self-care (01) | DRG 885 ==
LOC: HO.ED 15:41 → HO.PM5 21:11
PROVIDERS: Psychiatry & Neurology Psychiatry; Admitting Provider Psychiatry & Neurology Psychiatry; Emergency Provider Emergency Medicine; PCP Internal Medicine; Visit Provider Psychiatry & Neurology Psychiatry
DX: F31.4 Bipolar disorder, current episode depressed, severe, without psychotic features (principal); R45.851 Suicidal ideations; I10 Essential (primary) hypertension; F42.9 Obsessive-compulsive disorder, unspecified; K59.00 Constipation, unspecified; F41.9 Anxiety disorder, unspecified; G89.29 Other chronic pain; M54.9 Dorsalgia, unspecified; Z20.822 Contact with and (suspected) exposure to COVID-19; Z91.148 Patient's other noncompliance with medication regimen for other reason; Z79.82 Long term (current) use of aspirin; Z79.899 Other long term (current) drug therapy
CPT/HCPCS: 36415; 74018; 80048; 80076; 80178; 80307; 81001; 82565; 83735; 84443; 84520; 85025; 87635; 93005; 99285

== ENCOUNTER → 2023-05-23 21:09 | Outpatient (BNV) | payer MEDICARE, OTHER, SELFPAY | PROVIDERS: Admitting Provider Psychiatry & Neurology Psychiatry; Emergency Provider Emergency Medicine; PCP Internal Medicine; Visit Provider Psychiatry & Neurology Psychiatry | DX: F31.30 Bipolar disorder, current episode depressed, mild or moderate severity, unspecified (principal) | CPT/HCPCS: 90792; 99231; 99232; 99238 ==